=== PATIENT | male | born 1965 | race Caucasian/White ===

== ENCOUNTER → 2017-11-30 | Outpatient (CLI) | payer MEDICARE, OTHER ==
--- NOTE | 2017-11-30 21:24 | MR ---
EXAMINATION TYPE: MR lumbar spine wo/w con DATE OF EXAM: 11/30/2017 COMPARISON: NONE CONTRAST: 7.5 mL Gadavist HISTORY: Low back pain x 15 years, gadavist 7.5 TECHNIQUE: T1 and T2 axial and sagittal images of the lumbar spine are submitted. FINDINGS: There is no abnormal signal seen within the visualized spinal cord or paraspinal soft tissu es. At L1-2 there is there is degenerative disc disease. Facet arthropathy noted. No foraminal encroachme nt or canal stenosis. At L2-3 there is facet arthropathy. There is degenerative disc disease. No canal stenosis or foramina l encroachment. At L3-4 there is degenerative disc disease with broad-based disc bulging. Facet arthropathy and ligam entum flavum are noted. Findings result in mild to moderate canal stenosis and mild bilateral foramin al encroachment. At L4-5 there is degenerative disc disease with central disc bulging or small protrusion. Mild bilate ral foraminal encroachment. At L5-S1 there is degenerative disc disease with central disc bulging. No Canal stenosis. No canal st enosis or foraminal encroachment. Unilateral spondylolysis on the left. Right hemilaminectomy noted. IMPRESSION: 1. Multilevel degenerative disc disease with postsurgical changes involving the lower lumbar spine. U nilateral spondylolysis on the left L5. 2. Mild to moderate canal stenosis L3-L4 due to disc bulging and hypertrophic changes.
== END | disposition home or self-care (01) ==
LOC: RADMRIMAIN 18:52
PROVIDERS: ATTEND Psychiatry & Neurology Neurology
DX: M48.061 Spinal stenosis, lumbar region without neurogenic claudication (principal); M51.26 Other intervertebral disc displacement, lumbar region; M43.06 Spondylolysis, lumbar region; M51.36 Other intervertebral disc degeneration, lumbar region; Z98.890 Other specified postprocedural states
CPT/HCPCS: 82565; 84520; 72158; A9581

== ENCOUNTER 2019-01-09 15:47 | Observation (INO) | payer MEDICARE, OTHER ==
[2019-01-09] MEDS ORDERED: SODIUM CHLORIDE 0.9% 1,000 ML IV STA (16:14)
--- NOTE | 2019-01-09 16:25 | ED ---
SOB HPI - General Chief Complaint: Shortness of Breath Stated Complaint: FADUMO Time Seen by Provider: 01/09/19 16:14 Source: patient, RN notes reviewed, old records reviewed Mode of arrival: ambulatory Limitations: no limitations - History of Present Illness Initial Comments: This is a 53-year-old male the ER presents for evaluation of shortness of breath and right-sided chest pain. Patient has no history of heart disease, no significant lung history that he knows of. Patient denies smoking history. No recent travel history or sick contacts. Chest pain is right-sided right-sided to his back. He denies having similar pain in the past even with prior heart issues. Symptoms started 2 days ago progressively worsened. MD Complaint: shortness of breath, chest pain (Right-sided) -: days(s) (2) Radiation: back Severity: moderate Severity scale (1-10): 6 Quality: aching Consistency: constant Improves With: nothing Worsens With: nothing Known History Of: congestive heart failure Associated Symptoms: chest pain, pain with inspiration, cough Treatments Prior to Arrival: none - Related Data Home Medications Medication Instructions Recorded Confirmed Metoprolol Succinate (ER) [Toprol 100 mg PO DAILY 05/03/15 01/09/19 XL] Aspirin 81 mg PO DAILY 05/04/15 01/09/19 Docusate [Colace] 100 mg PO DAILY PRN 01/09/19 01/09/19 Gabapentin 600 mg PO TID 01/09/19 01/09/19 Metoprolol Succinate (ER) [Toprol 50 mg PO DAILY 01/09/19 01/09/19 XL] Morphine Sulfate ER [Ms Contin] 60 mg PO BID 01/09/19 01/09/19 predniSONE 5 mg PO DAILY 01/09/19 01/09/19 Allergies Allergy/AdvReac Type Severity Reaction Status Date / Time No Known Allergies Allergy Verified 01/09/19 16:49 Review of Systems ROS Statement: Those systems with pertinent positive or pertinent negative responses have been documented in the HPI. ROS Other: All systems not noted in ROS Statement are negative. Past Medical History Past Medical History: Heart Failure, Musculoskeletal Disorder, Osteoarthritis (OA), Pneumonia, Renal Disease Additional Past Medical History / Comment(s): Pt presented to [facility] ER 01/10/15 with c/o nausea and vomtting. He had been having a hard time sleeping and took 4 benedryl. He then started having N/V and abdominal cramps. Other HX:Pt has been having increasing SOB for the past several months to the point that he was placed on home oxygen at 2-3 liters/ NC. He is being seen by Dr. Oliveira. He had recent R lung biopsy. and scraping about one month ago and awaiting results- pt had chest tube after surgery. Pt has chronic back pain and gets injections for this. Pt has had kidney stones in the past. History of Any Multi-Drug Resistant Organisms: None Reported Past Surgical History: Back Surgery Additional Past Surgical History / Comment(s): R lung biopsy with chest tube, back pain injections. Past Anesthesia/Blood Transfusion Reactions: No Reported Reaction Past Psychological History: No Psychological Hx Reported Smoking Status: Former smoker Past Alcohol Use History: None Reported Past Drug Use History: None Reported - Past Family History Mother Additional Family Medical History / Comment(s): Migraines, hip replacement. Father Family Medical History: Cancer, Hypertension General Exam Limitations: no limitations General appearance: alert, in no apparent distress Head exam: Present: atraumatic, normocephalic, normal inspection Eye exam: Present: normal appearance, PERRL, EOMI. Absent: scleral icterus, conjunctival injection, periorbital swelling ENT exam: Present: normal exam, mucous membranes moist Neck exam: Present: normal inspection. Absent: tenderness, meningismus, lymphadenopathy Respiratory exam: Present: wheezes. Absent: respiratory distress, rales, rhonchi, stridor Cardiovascular Exam: Present: normal rhythm, tachycardia, normal heart sounds. Absent: systolic murmur, diastolic murmur, rubs, gallop, clicks GI/Abdominal exam: Present: soft, normal bowel sounds. Absent: distended, tenderness, guarding, rebound, rigid Extremities exam: Present: normal inspection, full ROM, normal capillary refill. Absent: tenderness, pedal edema, joint swelling, calf tenderness Back exam: Present: normal inspection Neurological exam: Present: alert, oriented X3, CN II-XII intact Psychiatric exam: Present: normal affect, normal mood Skin exam: Present: warm, dry, intact, normal color. Absent: rash Course Vital Signs 01/09/19 01/09/19 01/09/19 16:03 18:56 19:10 Temperature 98.2 F Pulse Rate 104 H 88 90 Respiratory 16 16 16 Rate Blood Pressure 124/77 O2 Sat by Pulse 96 Oximetry 01/09/19 19:34 Temperature Pulse Rate 110 H Respiratory 18 Rate Blood Pressure 115/83 O2 Sat by Pulse 98 Oximetry - Reevaluation(s) Reevaluation #1: Medical record is reviewed Patient has no real improvement after persistent breathing treatments. Still with pain is so shortness of breath Medical Decision Making - Medical Decision Making 50 female the ER for evaluation. Positive history of pulmonary fibrosis with heart disease. Patient be admitted for cardiac observation as well as breathing treatments and monitoring of cardiopulmonary status - Lab Data Result diagrams: 01/09/19 16:30 01/09/19 16:30 Lab Results 01/09/19 01/09/19 01/09/19 Range/Units 16:30 16:30 16:30 WBC 5.8 (3.8-10.6) k/uL RBC 5.43 (4.30-5.90) m/uL Hgb 14.1 (13.0-17.5) gm/dL Hct 44.5 (39.0-53.0) % MCV 81.9 (80.0-100.0) fL MCH 26.0 (25.0-35.0) pg MCHC 31.8 (31.0-37.0) g/dL RDW 15.2 (11.5-15.5) % Plt Count 228 (150-450) k/uL Neutrophils % 73 % Lymphocytes % 16 % Monocytes % 8 % Eosinophils % 2 % Basophils % 0 % Neutrophils # 4.2 (1.3-7.7) k/uL Lymphocytes # 0.9 L (1.0-4.8) k/uL Monocytes # 0.4 (0-1.0) k/uL Eosinophils # 0.1 (0-0.7) k/uL Basophils # 0.0 (0-0.2) k/uL PT 10.5 (9.0-12.0) sec INR 1.0 (<1.2) APTT 24.6 (22.0-30.0) sec D-Dimer 0.44 (<0.60) mg/L FEU Sodium 141 (137-145) mmol/L Potassium 4.3 (3.5-5.1) mmol/L Chloride 103 (98-107) mmol/L Carbon Dioxide 31 H (22-30) mmol/L Anion Gap 7 mmol/L BUN 11 (9-20) mg/dL Creatinine 0.55 L (0.66-1.25) mg/dL Est GFR (CKD-EPI)AfAm >90 (>60 ml/min/1.73 sqM) Est GFR (CKD-EPI)NonAf >90 (>60 ml/min/1.73 sqM) Glucose 87 (74-99) mg/dL Calcium 9.5 (8.4-10.2) mg/dL Magnesium 2.1 (1.6-2.3) mg/dL Total Bilirubin 0.4 (0.2-1.3) mg/dL AST 36 (17-59) U/L ALT 30 (21-72) U/L Alkaline Phosphatase 100 (38-126) U/L Troponin I (0.000-0.034) ng/mL NT-Pro-B Natriuret Pep pg/mL Total Protein 9.2 H (6.3-8.2) g/dL Albumin 4.1 (3.5-5.0) g/dL 01/09/19 01/09/19 Range/Units 16:30 16:30 WBC (3.8-10.6) k/uL RBC (4.30-5.90) m/uL Hgb (13.0-17.5) gm/dL Hct (39.0-53.0) % MCV (80.0-100.0) fL MCH (25.0-35.0) pg MCHC (31.0-37.0) g/dL RDW (11.5-15.5) % Plt Count (150-450) k/uL Neutrophils % % Lymphocytes % % Monocytes % % Eosinophils % % Basophils % % Neutrophils # (1.3-7.7) k/uL Lymphocytes # (1.0-4.8) k/uL Monocytes # (0-1.0) k/uL Eosinophils # (0-0.7) k/uL Basophils # (0-0.2) k/uL PT (9.0-12.0) sec INR (<1.2) APTT (22.0-30.0) sec D-Dimer (<0.60) mg/L FEU Sodium (137-145) mmol/L Potassium (3.5-5.1) mmol/L Chloride (98-107) mmol/L Carbon Dioxide (22-30) mmol/L Anion Gap mmol/L BUN (9-20) mg/dL Creatinine (0.66-1.25) mg/dL Est GFR (CKD-EPI)AfAm (>60 ml/min/1.73 sqM) Est GFR (CKD-EPI)NonAf (>60 ml/min/1.73 sqM) Glucose (74-99) mg/dL Calcium (8.4-10.2) mg/dL Magnesium (1.6-2.3) mg/dL Total Bilirubin (0.2-1.3) mg/dL AST (17-59) U/L ALT (21-72) U/L Alkaline Phosphatase (38-126) U/L Troponin I <0.012 (0.000-0.034) ng/mL NT-Pro-B Natriuret Pep 47 pg/mL Total Protein (6.3-8.2) g/dL Albumin (3.5-5.0) g/dL - EKG Data -: EKG Interpreted by Me (EKG shows normal sinus rhythm rate of 98, AK 152, QRS 84, QTc 467) - Radiology Data Radiology results: report reviewed (Chest x-ray and CTA chest is significant for pulmonary fibrosis no PE), image reviewed Disposition Clinical Impression: Congestive heart failure, Chest pain, Pulmonary fibrosis, Acute bronchitis Disposition: ADMITTED IP TO THIS [facility] Condition: Undetermined Is patient prescribed a controlled substance at d/c from ED?: No
[2019-01-09 16:44] LABS: Basophils % (A) 0 %; Eosinophils # (A) 0.1 k/uL (0-0.7); Eosinophils % (A) 2 %; HCT 44.5 % (39.0-53.0); HGB 14.1 gm/dL (13.0-17.5); Lymphocytes # (A) 0.9 k/uL (1.0-4.8); Lymphocytes % (A) 16 %; MCHC 31.8 g/dL (31.0-37.0); MCV 81.9 fL (80.0-100.0); Mean Platelet Volume 6.5; Monocytes # (A) 0.4 k/uL (0-1.0); Monocytes % (A) 8 %; Neutrophils # (A) 4.2 k/uL (1.3-7.7); Neutrophils % (A) 73 %; Platelet Count 228 k/uL (150-450); RBC 5.43 m/uL (4.30-5.90); RDW 15.2 % (11.5-15.5); WBC 5.8 k/uL (3.8-10.6)
--- NOTE | 2019-01-09 16:48 | XR ---
EXAMINATION TYPE: XR chest 2V DATE OF EXAM: 01/09/2019 COMPARISON: 02/25/2018 HISTORY: Chest pain TECHNIQUE: Frontal and lateral views of the chest are obtained. FINDINGS: There is general significant coarsening of interstitial markings. Heart size is normal. Th ere is no gross heart failure. There is no pleural effusion. There are chest leads. IMPRESSION: Advanced pulmonary interstitial fibrosis. No change.
[2019-01-09 16:56] LABS: ALT 30 U/L (21-72); AST 36 U/L (17-59); Albumin 4.1 g/dL (3.5-5.0); Alkaline Phosphatase 100 U/L (38-126); Anion Gap 7 mmol/L; Blood Urea Nitrogen 11 mg/dL (9-20); Calcium 9.5 mg/dL (8.4-10.2); Carbon Dioxide 31 mmol/L (22-30); Chloride 103 mmol/L (98-107); Glucose 87 mg/dL (74-99); Magnesium 2.1 mg/dL (1.6-2.3); Potassium 4.3 mmol/L (3.5-5.1); Sodium 141 mmol/L (137-145); Total Bilirubin 0.4 mg/dL (0.2-1.3); Total Protein 9.2 g/dL (6.3-8.2)
[2019-01-09 16:57] LABS: D-Dimer 0.44 mg/L FEU (<0.60); Partial Thromboplastin Time 24.6 sec (22.0-30.0); Prothrombin Time 10.5 sec (9.0-12.0)
[2019-01-09] MEDS ORDERED: MORPHINE SULFATE 4 MG/ML SYRINGE IVP STA (17:50)
[2019-01-09] MEDS ORDERED: methylPREDNISolone SOD SUCCI 125 MG/2 ML VIAL IV STA (18:17)
[2019-01-09] MEDS ORDERED: IPRATROPIUM-ALBUTEROL 3 ML NEB INHALATION STA (18:17)
--- NOTE | 2019-01-09 18:46 | CT ---
EXAMINATION TYPE: CT angio chest DATE OF EXAM: 01/09/2019 6:22 PM COMPARISON: 10/18/2014 HISTORY: Difficulty breathing and chest pain. History of pulmonary fibrosis. CT DLP: 278.6 mGycm Automated exposure control for dose reduction was used. CONTRAST: CTA scan of the thorax is performed with IV Contrast, patient injected with 56ml mL of Isovue 370, pu lmonary embolism protocol. . There are 3-D post processed images. FINDINGS: There is extensive coarse interstitial infiltrate and honeycomb pattern in the lungs. This is more se checo in the lower lobes. Heart size is normal. There is no pericardial effusion. There is no pleural effusion. There is pulmonary emphysema. There are enlarged mediastinal lymph nodes that measure up to 1.5 cm. There are few bronchial lymph n odes up to 1.5 cm. There is normal contrast opacification of the pulmonary arteries. There are no filling defects. There is minimal pleural thickening posteriorly in both lungs. Thoracic aorta shows no aneurysm or dissect ion. IMPRESSION: NO EVIDENCE OF PULMONARY EMBOLISM. ADVANCED PULMONARY INTERSTITIAL FIBROSIS. NO SIGNIFICANT CHANGE CO MPARED TO OLD EXAM. EMPHYSEMA. Mediastinal adenopathy unchanged.
[2019-01-09 19:37] VITALS: RESP 18
[2019-01-09] MEDS: IPRATROPIUM-ALBUTEROL 3 ML NEB INHALATION SCH (19:52)
[2019-01-09] MEDS: MORPHINE SULFATE 4 MG/ML SYRINGE IVP PRN (21:44)
[2019-01-09] MEDS: methylPREDNISolone SOD SUCCI 125 MG/2 ML VIAL IV SCH (23:16)
[2019-01-10] MEDS: MORPHINE SULFATE 4 MG/ML SYRINGE IVP PRN ×2 (03:17→08:50)
[2019-01-10] MEDS ORDERED: ONDANSETRON 4 MG/2 ML VIAL IVP PRN (05:24)
[2019-01-10] MEDS: methylPREDNISolone SOD SUCCI 125 MG/2 ML VIAL IV SCH ×2 (05:28→13:22)
[2019-01-10] MEDS ORDERED: HYDROmorphone 1 MG/ML 1 ML SYRINGE IVP STA (05:38)
[2019-01-10 07:54] VITALS: BP 107/69; TEMP 97.5
[2019-01-10] MEDS ORDERED: DOCUSATE 100 MG CAP PO PRN (09:05)
[2019-01-10] MEDS ORDERED: ACETAMINOPHEN TAB 325 MG TAB PO PRN (09:06)
[2019-01-10] MEDS ORDERED: MORPHINE SULFATE ER 60 MG TABLET PO SCH (09:15)
[2019-01-10] MEDS ORDERED: GABAPENTIN 300 MG CAP PO SCH (09:15)
[2019-01-10] MEDS ORDERED: ASPIRIN 81 MG PO SCH (09:15)
[2019-01-10] MEDS ORDERED: predniSONE 5 MG TAB PO SCH (09:15)
[2019-01-10] MEDS ORDERED: METOPROLOL SUCCINATE (ER) 50 MG TAB.ER.24H PO SCH (09:15)
[2019-01-10] MEDS: IPRATROPIUM-ALBUTEROL 3 ML NEB INHALATION SCH ×2 (10:30→13:44)
[2019-01-10 13:52] VITALS: PULSE 94
--- NOTE | 2019-01-10 16:11 | P.CNPUL ---
History of Present Illness Consult date: 01/10/19 Reason for consult: dyspnea, chest pain Chief complaint: Chest pain History of present illness: This is a 53-year-old male patient with known history of IPF, biopsy confirmed based on a wedge biopsy of the lung that was done back in 2013, Pathology was confirmed at [facility]. The patient has typical UIP. The patient on previous pulmonary function test that showed an FEV1 of 37%, total lung capacity of 43%, diffusion capacity of 17% consistent with severe restrictive lung disease. Also, the patient is and chronic hypoxic respiratory failure maintained on oxygen 3 L per minute nasal cannula. The patient has been followed up in our office. He reports that he has chronic exertional dyspnea and approximately a week ago he was involved in an upper respiratory tract infection. Subsequently started having increased cough and he presented to the hospital because of pain across the right chest area. The pain was worse with breathing and cough and and the area along the right lateral chest area is quite sore. No hemoptysis. No reported fever chills or night sweats. No swelling in the lower extremities. The d-dimer was low. The blood work showed no significant leukocytosis. Electrolytes are all within normal limits. Troponin was negative. The BNP level was nonelevated. The chest x-ray showed pulmonary fibrosis. CT angios the chest showed no evidence of any pulmonary embolism and the patient had extensive chronic interstitial fibrosis and honeycombing in the lung bases bilaterally. Presentation is typical of underlying IPF. The patient was given IV Solu-Medrol. The patient was subsequently switched to prednisone burst taper. The patient is also on DuoNeb nebulized treatments around the clock. He was given Dilaudid for pain control and subsequently was switched to oral morphine as the patient has been taking morphine outpatient basis for chronic back pain. Review of Systems Constitutional: Reports chronic pain, Reports poor appetite Eyes: denies as per HPI, denies blurred vision, denies bulging eye, denies decreased vision, denies diplopia, denies discharge, denies dry eye, denies irritation, denies itching, denies pain, denies photophobia, denies loss of peripheral vision, denies loss of vision, denies tunnel vision/blind spots Ears: deny: decreased hearing, ear discharge, earache, tinnitus Ears, nose, mouth and throat: Reports as per HPI Breasts: absent: as per HPI, gynecomastia Cardiovascular: Reports chest pain, Reports decreased exercise tolerance Respiratory: Reports cough, Reports dyspnea, Reports home oxygen, Reports pain on inspiration, Reports respiratory infections Gastrointestinal: Denies abdominal pain, Denies diarrhea, Denies nausea, Denies vomiting Genitourinary: Reports as per HPI Musculoskeletal: absent: ankle pain, ankle stiffness, ankle swelling, as per HPI, elbow pain, elbow stiffness, elbow swelling, foot pain, foot stiffness, foot swelling, hand pain, hand stiffness, hand swelling, hip pain, hip stiffness, hip swelling, knee pain, knee stiffness, knee swelling, shoulder pain, shoulder stiffness, shoulder swelling, wrist pain, wrist stiffness, wrist swelling Integumentary: Denies pruritus, Denies rash Neurological: Reports as per HPI Psychiatric: Reports as per HPI Endocrine: Reports as per HPI, Reports fatigue Hematologic/Lymphatic: Reports as per HPI Allergic/Immunologic: Reports allergic rhinitis Past Medical History Past Medical History: Musculoskeletal Disorder, Osteoarthritis (OA), Pneumonia Additional Past Medical History / Comment(s): IPF and the patient has chronic hypoxic respiratory failure maintained on home oxygen at 2-3 liters/ NC. He is being seen by Dr. Oliveira. He had recent R lung biopsy back in 2013 confirming the diagnosis. Chronic back pain, osteoarthritis, kidney stones History of Any Multi-Drug Resistant Organisms: None Reported Past Surgical History: Back Surgery Additional Past Surgical History / Comment(s): R lung biopsy with chest tube, back pain injections. Past Anesthesia/Blood Transfusion Reactions: No Reported Reaction Smoking Status: Former smoker - Past Family History Mother Additional Family Medical History / Comment(s): Migraines, hip replacement. Father Family Medical History: Cancer, Hypertension Medications and Allergies Home Medications Medication Instructions Recorded Confirmed Type Aspirin 81 mg PO DAILY 05/04/15 01/09/19 History Docusate [Colace] 100 mg PO DAILY PRN 01/09/19 01/09/19 History Gabapentin 600 mg PO TID 01/09/19 01/09/19 History Metoprolol Succinate (ER) [Toprol 50 mg PO DAILY 01/09/19 01/09/19 History XL] predniSONE 5 mg PO DAILY 01/09/19 01/09/19 History Morphine Sulfate ER [Ms Contin] 60 mg PO BID #1 tablet 01/10/19 Rx Allergies Allergy/AdvReac Type Severity Reaction Status Date / Time No Known Allergies Allergy Verified 01/09/19 20:23 Physical Exam Vitals: Vital Signs Temp Pulse Pulse Resp BP BP Pulse Ox 01/10/19 13:51 94 01/10/19 07:35 97.5 F L 88 18 107/69 97 01/10/19 04:00 18 01/10/19 00:00 18 01/09/19 23:43 98.2 F 89 18 122/81 96 01/09/19 20:00 18 01/09/19 19:57 97.8 F 89 18 139/82 93 L 01/09/19 19:34 110 H 18 115/83 98 01/09/19 19:10 90 16 01/09/19 18:56 88 16 Intake and Output 01/10/19 01/10/19 01/10/19 06:59 14:59 22:59 Intake Total 500 Balance 500 Intake: Oral 200 Other 300 Other: Voiding Method Toilet # Voids 1 GENERAL EXAM: Alert, active, comfortable in no apparent distress. HEAD: Normocephalic.Head exam was generally normal. There was no scleral icterus or corneal arcus. Mucous membranes were moist. EYES: Normal reaction of pupils, equal size.Neck was supple and without jugular venous distension, thyromegaly, or carotid bruits. Carotids were easily palpable bilaterally. There was no adenopathy. NOSE: Clear with pink turbinates. THROAT: No erythema or exudates. NECK: No masses, no JVD. CHEST: No chest wall deformity. Right chest dressing is dry and intact. LUNGS: Equal air entry with wheeze, rhonchi or dullness. There are bilateral posterior Velcro crackles. Diminished. There is extensive bilateral lower lobe crackles which are coarse in the Velcro in nature. Some soreness across the right lateral chest area palpable. CVS: S1 and S2 normal with no audible murmurs, regular rhythm. ABDOMEN: No hepatosplenomegaly, normal bowel sounds, no guarding or rigidity. SPINE: No scoliosis or deformity SKIN: No rashes CENTRAL NERVOUS SYSTEM: No focal deficits, tone is normal in all 4 extremities. EXTRMITIES: There is no significant peripheral edema. No clubbing, no cyanosis. Peripheral pulses are intact. Results - Laboratory Findings CBC and BMP: 01/09/19 16:30 01/09/19 16:30 PT/INR, D-dimer PT 10.5 sec (9.0-12.0) 01/09/19 16:30 INR 1.0 (<1.2) 01/09/19 16:30 D-Dimer 0.44 mg/L FEU (<0.60) 01/09/19 16:30 Abnormal lab findings: Abnormal Labs 01/09/19 01/09/19 16:30 16:30 Lymphocytes # 0.9 L Carbon Dioxide 31 H Creatinine 0.55 L Total Protein 9.2 H - Diagnostic Findings Chest x-ray: image reviewed CT scan - chest: image reviewed Assessment and Plan Plan: Assessment 1 musculoskeletal right-sided chest wall pain, likely secondary to cough. For now the workup is negative. Doubt any cardiac source of the patient's chest pain. Pulmonary status reveals advanced IPF and the patient has chronic hypoxic respiratory failure. Nevertheless the CT angios the chest showed no 70 pulmonary embolism. No evidence of any pneumonia. No evidence of any pneumothorax. Findings are consistent with IPF 2 IPF with biopsy confirmed UIP 3 chronic hypoxic respiratory failure 4 chronic back pain maintained on morphine outpatient basis 5. Arthritis, 6 the first psoriasis Plan Provide the patient with adequate pain control. Patient is on oral morphine. CT angios the chest was reviewed. Chest x-ray was reviewed. No evidence of pneumonia. Continue oxygen therapy. Prednisone burst taper. Discharge probably within next 24 hours. We'll continue to follow.
--- NOTE | 2019-01-10 22:11 | P.HPIM ---
History of Present Illness H&P Date: 01/10/19 Chief Complaint: Right sided chest soreness Ms. Armijo is a 53-year-old male with a past medical history of idiopathic pulmonary fibrosis, osteoarthritis, chronic hypoxic respiratory failure maintained on home oxygen at 2-3 L coming in with a chief complaint of right- sided chest soreness for the past couple of days. The patient had an upper respiratory tract infection recently and was having increased cough, then started to have the right sided chest soreness. Patient denies having any fevers chills or rigors. No change in his cough. Patient denies having any chest pain or palpitations. No orthopnea PND or lower extremity edema. Patient denies having any recent travel. In the emergency department patient had blood work done which showed That the electrolytes were within normal limits, troponins negative, d-dimer low and BNP within normal limits. CTA of the chest is done which was negative for pulmonary embolism it was positive for his chronic interstitial fibrosis and honeycombing. Patient is currently resting comfortably in the bed with his at the bedside. Also the conversation patient just keeps asking for his pain medication. He is also anxious that he does not have any more home pain medications. He mentions that his pain medications are due for refill tomorrow. No other active complaints mentioned by the patient. Review of Systems REVIEW OF SYSTEMS: PSYCH: Anxiety , no depression NEURO:No c/o weakness of the extremties, No facial droop, No speech abnormalities. VASCULAR: no edema HEMATOLOGIC: No history of easy bleeding and bruising . No recent infections . RESPIRATORY: + ve for cough, No SOB, + ve for chest discomfort. IMMUNE: No infections INTEGUMENT: no rashes OPHTHALMOLOGIC: No blurry vision and no eye discharge : No dysuria or hematuria CARDIAC: No chest pain , shortness of breath , paroxysmal nocturnal dyspnea. MUSCULOSKELETAL : No Aches or pains in the joints or muscles. GI: No abdominal pain, Nausea or vomiting. No constipation or diarrhea. Past Medical History Past Medical History: Musculoskeletal Disorder, Osteoarthritis (OA), Pneumonia Additional Past Medical History / Comment(s): Pt presented to [facility] ER 01/10/15 with c/o nausea and vomtting. He had been having a hard time sleeping and took 4 benedryl. He then started having N/V and abdominal cramps. Other HX:Pt has been having increasing SOB for the past several months to the point that he was placed on home oxygen at 2-3 liters/ NC. He is being seen by Dr. Oliveira. He had recent R lung biopsy. and scraping about one month ago and awaiting results- pt had chest tube after surgery. Pt has chronic back pain and gets injections for this. Pt has had kidney stones in the past. History of Any Multi-Drug Resistant Organisms: None Reported Past Surgical History: Back Surgery Additional Past Surgical History / Comment(s): R lung biopsy with chest tube, back pain injections. Past Anesthesia/Blood Transfusion Reactions: No Reported Reaction Smoking Status: Former smoker - Past Family History Mother Additional Family Medical History / Comment(s): Migraines, hip replacement. Father Family Medical History: Cancer, Hypertension Medications and Allergies Home Medications Medication Instructions Recorded Confirmed Type Aspirin 81 mg PO DAILY 05/04/15 01/09/19 History Docusate [Colace] 100 mg PO DAILY PRN 01/09/19 01/09/19 History Gabapentin 600 mg PO TID 01/09/19 01/09/19 History Metoprolol Succinate (ER) [Toprol 50 mg PO DAILY 01/09/19 01/09/19 History XL] predniSONE 5 mg PO DAILY 01/09/19 01/09/19 History Morphine Sulfate ER [Ms Contin] 60 mg PO BID #1 tablet 01/10/19 Rx Allergies Allergy/AdvReac Type Severity Reaction Status Date / Time No Known Allergies Allergy Verified 01/09/19 20:23 Physical Exam Vitals: Vital Signs Temp Pulse Pulse Resp BP BP Pulse Ox 01/10/19 13:51 94 01/10/19 07:35 97.5 F L 88 18 107/69 97 01/10/19 04:00 18 01/10/19 00:00 18 01/09/19 23:43 98.2 F 89 18 122/81 96 01/09/19 20:00 18 01/09/19 19:57 97.8 F 89 18 139/82 93 L 01/09/19 19:34 110 H 18 115/83 98 01/09/19 19:10 90 16 01/09/19 18:56 88 16 01/09/19 16:03 98.2 F 104 H 16 124/77 96 Intake and Output 01/09/19 01/10/19 01/10/19 22:59 06:59 14:59 Intake Total 500 Balance 500 Intake: Oral 200 Other 300 Other: Voiding Method Toilet # Voids 1 Weight 81.647 kg GEN. APPEARANCE: thin and chronically ill appearing HEAD EXAM: atraumatic, normocephalic, normal inspection EYE EXAM: No pallor RESPIRATORY EXAM: Decreased BS bilaterally. + dry crackles in both the lower lung hernandez. CARDIOVASCULAR EXAM: regular rate, normal rhythm, normal heart sounds. GI/ABDOMINAL EXAM: soft, normal bowel sounds. EXTREMITIES EXAM: no edema NEUROLOGICAL EXAM: alert, oriented X3, No focal deficits Results CBC & Chem 7: 01/09/19 16:30 01/09/19 16:30 Labs: Abnormal Lab Results - Last 24 Hours (Table) 01/09/19 01/09/19 Range/Units 16:30 16:30 Lymphocytes # 0.9 L (1.0-4.8) k/uL Carbon Dioxide 31 H (22-30) mmol/L Creatinine 0.55 L (0.66-1.25) mg/dL Total Protein 9.2 H (6.3-8.2) g/dL Thrombosis Risk Factor Assmnt - Choose All That Apply Each Factor Represents 1 point: Age 41-60 years Thrombosis Risk Factor Assessment Total Risk Factor Score: 1 Thrombosis Risk Factor Assessment Level: Low Risk Assessment and Plan Assessment: ASSESSMENT Right-sided chest soreness -musculoskeletal pain due to cough Chronic hypoxic respiratory failure Idiopathic pulmonary fibrosis Chronic back pain Opioid dependence -patient is on morphine pain Osteoarthritis in multiple joints bilaterally PLAN: Patient probably has musculoskeletal right-sided chest pain. CTA of the chest was negative for pulmonary embolism and stable since he had the last CT. Patient is anxious but he would not have any pain medications as he ran out of them and he is due to get his prescription filled tomorrow. Patient is on mor phine. So discussed with him that I would be giving him a prescription for his evening dose of morphine and he would be discharged home. 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
--- NOTE | 2019-01-10 22:12 | P.DS ---
Providers Date of admission: 01/09/19 18:17 Expected date of discharge: 01/10/19 Attending physician: Angelo Ramsey Consults: 01/09/19 18:17 Consult Physician Routine Consulting Provider: Naima Oliveira Consult Reason/Comments: known Do you want consulting provider notified?: Yes Primary care physician: Stated None Hospital Course: Ms. Armijo is a 53-year-old male with a past medical history of idiopathic pulmonary fibrosis, osteoarthritis, chronic hypoxic respiratory failure maintained on home oxygen at 2-3 L coming in with a chief complaint of right- sided chest soreness for the past couple of days. The patient had an upper respiratory tract infection recently and was having increased cough, then started to have the right sided chest soreness. Patient denies having any fevers chills or rigors. No change in his cough. Patient denies having any chest pain or palpitations. No orthopnea PND or lower extremity edema. Patient denies having any recent travel. In the emergency department patient had blood work done which showed That the electrolytes were within normal limits, troponins negative, d-dimer low and BNP within normal limits. CTA of the chest is done which was negative for pulmonary embolism it was positive for his chronic interstitial fibrosis and honeycombing. Patient is currently resting comfortably in the bed with his at the beds juan m. Also the conversation patient just keeps asking for his pain medication. He is also anxious that he does not have any more home pain medications. He mentions that his pain medications are due for refill tomorrow. No other active complaints mentioned by the patient. DISCHARGE DIAGNOSIS Right-sided chest soreness -musculoskeletal pain due to cough Chronic hypoxic re spiratory failure Idiopathic pulmonary fibrosis Chronic back pain Opioid dependence -patient is on morphine pain Osteoarthritis in multiple joints bilaterally PLAN: Patient probably has musculoskeletal right-sided chest pain. CTA of the chest was negative for pulmonary embolism and stable since he had the last CT. Patient is anxious but he would not have any pain medications as he ran out of t hem and he is due to get his prescription filled tomorrow. Patient is on morphine. So discussed with him that I would be giving him a prescription for his evening dose of morphine and he would be discharged home. 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 Patient Condition at Discharge: Fair Plan - Discharge Summary New Discharge Prescriptions: Continue Aspirin 81 mg PO DAILY predniSONE 5 mg PO DAILY Metoprolol Succinate (ER) [Toprol XL] 50 mg PO DAILY Docusate [Colace] 100 mg PO DAILY PRN PRN Reason: Constipation Gabapentin 600 mg PO TID Morphine Sulfate ER [Ms Contin] 60 mg PO BID #1 tablet Discharge Medication List Aspirin 81 mg PO DAILY 05/04/15 [History] Docusate [Colace] 100 mg PO DAILY PRN 01/09/19 [History] Gabapentin 600 mg PO TID 01/09/19 [History] Metoprolol Succinate (ER) [Toprol XL] 50 mg PO DAILY 01/09/19 [History] predniSONE 5 mg PO DAILY 01/09/19 [History] Morphine Sulfate ER [Ms Contin] 60 mg PO BID #1 tablet 01/10/19 [Rx] Follow up Appointment(s)/Referral(s): None,Stated [Primary Care Provider] - 1-2 days Patient Instructions/Handouts: Pulmonary Fibrosis (DC) Discharge Disposition: HOME SELF-CARE
== END 2019-01-10 15:48 | disposition home or self-care (01) ==
LOC: EC 15:47 → 1SOBS 18:17
PROVIDERS: ADMIT Hospitalist; ATTEND Hospitalist
DX: R07.89 Other chest pain (principal); F11.20 Opioid dependence, uncomplicated; M15.9 Polyosteoarthritis, unspecified; J84.112 Idiopathic pulmonary fibrosis; I50.9 Heart failure, unspecified; J96.11 Chronic respiratory failure with hypoxia; G89.29 Other chronic pain; Z79.82 Long term (current) use of aspirin; Z79.899 Other long term (current) drug therapy; Z79.52 Long term (current) use of systemic steroids; Z87.442 Personal history of urinary calculi; Z87.891 Personal history of nicotine dependence; Z99.81 Dependence on supplemental oxygen; Z87.01 Personal history of pneumonia (recurrent); Z82.49 Family history of ischemic heart disease and other diseases of the circulatory system
CPT/HCPCS: 36415; 71046; 71275; 80053; 83735; 83880; 84484; 85025; 85379; 85610; 85730; 93005; 94640; 96361; 96374; 96375; 96376; 99285

== ENCOUNTER 2019-03-08 01:52 | Observation (INO) | payer MEDICARE, OTHER ==
[2019-03-08] MEDS ORDERED: SODIUM CHLORIDE 0.9% 500 ML 500 ML IV STA (02:02)
[2019-03-08] MEDS ORDERED: IPRATROPIUM-ALBUTEROL 3 ML NEB INHALATION STA (02:02)
--- NOTE | 2019-03-08 02:19 | ED ---
SOB HPI - General Chief Complaint: Shortness of Breath Stated Complaint: FADUMO Time Seen by Provider: 03/08/19 02:01 Source: patient Mode of arrival: wheelchair Limitations: no limitations - History of Present Illness Initial Comments: Aleksander is a 54-year-old gentleman reports a past medical history of pulmonary fibrosis for which she follows with Dr. Oliveira pulmonology. Patient reports that yesterday began having some worsening shortness of breath and generalized weakness. Patient reports history which is going about his usual activities when he became very short of breath and felt as though he may pass out. Patient reports that since then he has not been feeling well. He went to bed last night but woke feeling short of breath and feeling as though he couldn't catch his breath which prompted him to come to the ER for evaluation. Patient reports that ever since the diagnosis of all Robyn fibrosis he has been battling severe right-sided chest wall and pleuritic chest pain for which she is on oral morphine. Patient reports that he suffers from chronic pain, he continues to have the pain in his chest wall today. - Related Data Home Medications Medication Instructions Recorded Confirmed Aspirin 81 mg PO DAILY 05/04/15 03/08/19 Docusate [Colace] 100 mg PO DAILY PRN 01/09/19 03/08/19 Gabapentin 600 mg PO TID 01/09/19 03/08/19 Metoprolol Succinate (ER) [Toprol 50 mg PO DAILY 01/09/19 03/08/19 XL] predniSONE 5 mg PO DAILY 01/09/19 03/08/19 Previous Rx's Medication Instructions Recorded Morphine Sulfate ER [Ms Contin] 60 mg PO BID #1 tablet 01/10/19 Allergies Allergy/AdvReac Type Severity Reaction Status Date / Time No Known Allergies Allergy Verified 03/08/19 01:58 Review of Systems ROS Statement: Those systems with pertinent positive or pertinent negative responses have been documented in the HPI. ROS Other: All systems not noted in ROS Statement are negative. Past Medical History Past Medical History: Musculoskeletal Disorder, Osteoarthritis (OA), Pneumonia Additional Past Medical History / Comment(s): Other HX:Pt has been having increasing SOB for the past several months to the point that he was placed on home oxygen at 2-3 liters/ NC. He is being seen by Dr. Oliveira. He had recent R lung biopsy. and scraping about one month ago and awaiting results- pt had joss st tube after surgery. Pt has chronic back pain and gets injections for this. Pt has had kidney stones in the past. History of Any Multi-Drug Resistant Organisms: None Reported Past Surgical History: Back Surgery Additional Past Surgical History / Comment(s): R lung biopsy with chest tube, back pain injections. Past Anesthesia/Blood Transfusion Reactions: No Reported Reaction Past Psychological History: No Psychological Hx Reported Smoking Status: Former smoker Past Alcohol Use History: None Reported Past Drug Use History: None Reported - Past Family History Mother Additional Family Medical History / Comment(s): Migraines, hip replacement. Father Family Medical History: Cancer, Hypertension General Exam - General Exam Comments Initial Comments: Physical Exam GENERAL: appears older than stated age HENT: Normocephalic, Atraumatic. EYES: PERRL, EOMI PULMONARY: Crackles and wheezing Increased work of breathing CARDIOVASCULAR: There is a regular rate and rhythm without any murmurs gallops or rubs. ABDOMEN: Soft and nontender with normal bowel sounds. SKIN: Skin is clear with no lesions or rashes and otherwise unremarkable. : Deferred NEUROLOGIC: Patient is alert and oriented x3. Moving all extremities spontaneously MUSCULOSKELETAL: Normal extremities with adequate strength and full range of motion. No lower ex tremity swelling or edema. No calf tenderness. PSYCHIATRIC: Normal psychiatric evaluation. Limitations: no limitations Course Vital Signs 03/08/19 03/08/19 03/08/19 01:55 02:48 02:58 Temperature 97.5 F L Pulse Rate 92 86 89 Respiratory 20 18 18 Rate Blood Pressure 111/78 O2 Sat by Pulse 94 L Oximetry 03/08/19 04:14 Temperature Pulse Rate 102 H Respiratory 20 Rate Blood Pressure 112/79 O2 Sat by Pulse 98 Oximetry Medical Decision Making - Medical Decision Making The patient was seen and evaluated, history is obtained from the patient review of medical record This is a 54-year-old gentleman with a history of pulmonary fibrosis present in with worsening shortness of breath. Patient is currently not on home oxygen Boschen saturations are in the low 90s, 94% on 2 L nasal cannula Breathing treatments were ordered and administered, patient minimal improvement after DuoNeb Were unremarkable however patient continues to have oxygen saturation of 93-95% on liters nasal cannula, discussed with the patient whether he would like to be discharged home or remain in the hospital. Patient states that this time he doesn't feel well enough to go home feels he needs to remain in the hospital for further evaluation by pulmonology. - Lab Data Result diagrams: 03/08/19 02:31 03/08/19 02:31 Lab Results 03/08/19 03/08/19 03/08/19 Range/Units 02:31 02:31 02:31 WBC 5.4 (3.8-10.6) k/uL RBC 5.15 (4.30-5.90) m/uL Hgb 13.9 (13.0-17.5) gm/dL Hct 41.5 (39.0-53.0) % MCV 80.5 (80.0-100.0) fL MCH 27.0 (25.0-35.0) pg MCHC 33.6 (31.0-37.0) g/dL RDW 15.4 (11.5-15.5) % Plt Count 240 (150-450) k/uL Neutrophils % 69 % Lymphocytes % 21 % Monocytes % 7 % Eosinophils % 2 % Basophils % 0 % Neutrophils # 3.7 (1.3-7.7) k/uL Lymphocytes # 1.1 (1.0-4.8) k/uL Monocytes # 0.4 (0-1.0) k/uL Eosinophils # 0.1 (0-0.7) k/uL Basophils # 0.0 (0-0.2) k/uL Poikilocytosis Slight PT 11.1 (9.0-12.0) sec INR 1.0 (<1.2) APTT 24.9 (22.0-30.0) sec Sodium 141 (137-145) mmol/L Potassium 3.8 (3.5-5.1) mmol/L Chloride 104 (98-107) mmol/L Carbon Dioxide 29 (22-30) mmol/L Anion Gap 8 mmol/L BUN 10 (9-20) mg/dL Creatinine 0.51 L (0.66-1.25) mg/dL Est GFR (CKD-EPI)AfAm >90 (>60 ml/min/1.73 sqM) Est GFR (CKD-EPI)NonAf >90 (>60 ml/min/1.73 sqM) Glucose 116 H (74-99) mg/dL Calcium 9.6 (8.4-10.2) mg/dL Total Bilirubin 0.5 (0.2-1.3) mg/dL AST 33 (17-59) U/L ALT 27 (21-72) U/L Alkaline Phosphatase 89 (38-126) U/L Troponin I (0.000-0.034) ng/mL Total Protein 8.0 (6.3-8.2) g/dL Albumin 4.0 (3.5-5.0) g/dL 03/08/19 Range/Units 02:31 WBC (3.8-10.6) k/uL RBC (4.30-5.90) m/uL Hgb (13.0-17.5) gm/dL Hct (39.0-53.0) % MCV (80.0-100.0) fL MCH (25.0-35.0) pg MCHC (31.0-37.0) g/dL RDW (11.5-15.5) % Plt Count (150-450) k/uL Neutrophils % % Lymphocytes % % Monocytes % % Eosinophils % % Basophils % % Neutrophils # (1.3-7.7) k/uL Lymphocytes # (1.0-4.8) k/uL Monocytes # (0-1.0) k/uL Eosinophils # (0-0.7) k/uL Basophils # (0-0.2) k/uL Poikilocytosis PT (9.0-12.0) sec INR (<1.2) APTT (22.0-30.0) sec Sodium (137-145) mmol/L Potassium (3.5-5.1) mmol/L Chloride (98-107) mmol/L Carbon Dioxide (22-30) mmol/L Anion Gap mmol/L BUN (9-20) mg/dL Creatinine (0.66-1.25) mg/dL Est GFR (CKD-EPI)AfAm (>60 ml/min/1.73 sqM) Est GFR (CKD-EPI)NonAf (>60 ml/min/1.73 sqM) Glucose (74-99) mg/dL Calcium (8.4-10.2) mg/dL Total Bilirubin (0.2-1.3) mg/dL AST (17-59) U/L ALT (21-72) U/L Alkaline Phosphatase (38-126) U/L Troponin I <0.012 (0.000-0.034) ng/mL Total Protein (6.3-8.2) g/dL Albumin (3.5-5.0) g/dL Disposition Clinical Impression: Pulmonary fibrosis Disposition: ADMITTED IP TO THIS HOSP Condition: Stable Referrals: Naima Oliveira MD [Primary Care Provider] - 1-2 days
--- NOTE | 2019-03-08 02:21 | XR ---
EXAM: XR Chest, 2 Views CLINICAL HISTORY: ITS.REASON XR Reason: difficulty breathing TECHNIQUE: Frontal and lateral views of the chest. COMPARISON: 01/09/19 x-ray. IMPRESSION: Redemonstration of chronic interstitial lung opacities throughout the lungs, most prominent in the left lower lobe. Unchanged heart size. No pleural effusion
[2019-03-08 02:52] LABS: Basophils % (A) 0 %; Eosinophils # (A) 0.1 k/uL (0-0.7); Eosinophils % (A) 2 %; HCT 41.5 % (39.0-53.0); HGB 13.9 gm/dL (13.0-17.5); Lymphocytes # (A) 1.1 k/uL (1.0-4.8); Lymphocytes % (A) 21 %; MCHC 33.6 g/dL (31.0-37.0); MCV 80.5 fL (80.0-100.0); Mean Platelet Volume 6.5; Monocytes # (A) 0.4 k/uL (0-1.0); Monocytes % (A) 7 %; Neutrophils # (A) 3.7 k/uL (1.3-7.7); Neutrophils % (A) 69 %; Platelet Count 240 k/uL (150-450); Poikilocytosis Slight; RBC 5.15 m/uL (4.30-5.90); RDW 15.4 % (11.5-15.5); WBC 5.4 k/uL (3.8-10.6)
[2019-03-08 02:55] LABS: Partial Thromboplastin Time 24.9 sec (22.0-30.0); Prothrombin Time 11.1 sec (9.0-12.0)
[2019-03-08 03:05] LABS: ALT 27 U/L (21-72); AST 33 U/L (17-59); Alkaline Phosphatase 89 U/L (38-126); Anion Gap 8 mmol/L; Blood Urea Nitrogen 10 mg/dL (9-20); Calcium 9.6 mg/dL (8.4-10.2); Carbon Dioxide 29 mmol/L (22-30); Chloride 104 mmol/L (98-107); Glucose 116 mg/dL (74-99); Potassium 3.8 mmol/L (3.5-5.1); Sodium 141 mmol/L (137-145); Total Bilirubin 0.5 mg/dL (0.2-1.3)
[2019-03-08] MEDS ORDERED: MORPHINE SULFATE ER 60 MG TABLET PO ONE (04:00)
[2019-03-08] MEDS: GABAPENTIN 300 MG CAP PO SCH ×4 (04:11→21:40)
[2019-03-08] MEDS ORDERED: IPRATROPIUM-ALBUTEROL 3 ML NEB INHALATION PRN (05:27)
[2019-03-08] MEDS: predniSONE 20 MG TAB PO SCH (07:46)
[2019-03-08 09:02] VITALS: BMI 25.1
--- NOTE | 2019-03-08 11:13 | CONS ---
CONSULTATION This is a pulmonary critical care consultation in regards to pulmonary fibrosis and shortness of breath. This is a 54-year-old gentleman who apparently does not have a family doctor. He apparently has seen Dr. Oliveira in the past for pulmonary fibrosis. He apparently has not seen Dr. Oliveira for some time. He takes basically prednisone 5 mg a day. Anyway, he comes into the hospital with complaints of increasing shortness of breath and weakness. It has been going on for a week or 2. It felt like he was going to pass out. For that reason, he came in to be evaluated. He states he is still feeling that way this morning. He still feels more short of breath than usual. He also has been complaining of cough with phlegm production. The patient states that the phlegm is more prominent than it has been in the past. It is mostly clear. The patient again does not see a regular doctor or a family doctor on a regular basis and has not seen my partner Dr. Oliveira for some time. The patient's chest x-ray shows diffuse pulmonary fibrosis. He was apparently given that diagnosis by my partner. The patient denies any chest pain or chest discomfort. He denies any nausea, vomiting or diarrhea. MEDICATIONS: His home medications include aspirin 81 mg a day, Colace 100 mg p.r.n., gabapentin 600 mg 3 times a day, metoprolol 50 mg daily, and prednisone 5 mg a day. He has been on morphine sulfate in the past. ALLERGIES: Allergies are denied. PAST MEDICAL HISTORY: His past medical history includes chronic pain syndrome, osteoarthritis, pulmonary fibrosis, pneumonia, and chronic hypoxemic respiratory failure. The patient does use home oxygen, not all the time, not 24/7, but does use it from time to time. The patient then tells me that he did have a lung biopsy in the past. Apparently, it was done about a month ago. He is apparently awaiting results. He also has a previous history of chronic back pain for which he has received injections and he has had kidney stones in the past. SURGICAL HISTORY: Surgical history includes back surgery, right lung biopsy with chest tube and back pain injections. SOCIAL HISTORY: Social history is positive for previous tobacco use. Social history is otherwise negative for alcohol or illicit drug use. FAMILY HISTORY: Family history is positive for hip replacement, migraine cephalgia, hypertension, and cancer. REVIEW OF SYSTEMS: CONSTITUTIONAL: Negative. NEUROLOGIC: Negative. HEENT: Negative. CARDIOVASCULAR: Negative. PULMONARY: Shortness of breath, cough, phlegm production. GI: Negative. : Negative. RHEUMATOLOGIC: Negative. IMMUNOLOGIC: Negative. ENDOCRINOLOGIC: Negative. DERMATOLOGIC: Negative. PHYSICAL EXAMINATION: Current vital signs are reviewed. Temperature 97.5, heart rate 91, respiratory rate 16, blood pressure 111/76, mean 87, room air saturation 95%, 2 L saturation 98%. He appears in no acute distress. He is wearing oxygen at time of the evaluation. HEENT: Examination is grossly unremarkable. Nasal O2 in place. NECK: Supple. Full range of motion. No adenopathy or thyromegaly. Neck veins are flat. CARDIOVASCULAR: Examination reveals regular rhythm and rate. Heart rate about mid 80s. S1, S2 normal. No murmur. LUNGS: Bibasilar Velcro crackles. He clearly has pulmonary fibrosis on examination. He is mildly restricted in his breathing. There are no rhonchi or wheezes. ABDOMEN: Soft. Bowel sounds are heard. EXTREMITIES: Are intact. No cyanosis, clubbing, or edema. SKIN: Without rash. NEUROLOGIC: Examination is brief but nonfocal. Lab data is reviewed. CBC is completely normal. PT/INR normal. PTT normal. Sodium, potassium, chloride, CO2 all normal. Anion gap is 8. BUN and creatinine were 10 and 0.51. Troponin was negative. Albumin was normal. The comprehensive metabolic profile was otherwise normal. A chest x-ray was done on the , which suggest chronic interstitial lung opacities. Heart size is unchanged. There was no pleural reaction. No mass or tumor. Medications are reviewed. He is currently on gabapentin, updrafts, morphine sulfate, prednisone, and a basic IV. ASSESSMENT: 1. Idiopathic pulmonary fibrosis/usual interstitial pneumonia. Apparently demonstrated on a lung biopsy done at [facility] back in 2013. 2. Worsening shortness of breath, which may relate to underlying pulmonary infection. 3. History of chronic back pain. 4. History of pneumonia. 5. History of osteoarthritis. 6. History of kidney stones. PLAN: The patient is currently on appropriate medication. This includes updrafts and steroids. I will add an oral antibiotic. Likely discharge in next 24 to 48 hours. No additional recommendations are made. We will continue to follow. The patient does need to follow up with Dr. Oliveira in the office. He has not seen him for some time. Dr. Oliveira can talk to him about the newer medications for pulmonary fibrosis including Ofev and Esbriet and the possibility of pulmonary transplantation. Additional recommendations and suggestions are forthcoming. MMODL / IJN: [id number] /
[2019-03-08] MEDS: MORPHINE SULFATE ER 60 MG TABLET PO SCH ×2 (14:26→21:40)
--- NOTE | 2019-03-08 16:22 | P.HPIM ---
History of Present Illness 54-year-old with past mental history of pulmonary fibrosis came in with complaints of generalized weakness shortness of breath doesn't have any pneumonia on the chest x-ray denied any significant cough with sputum production. Patient was started on systemic steroids patient is feeling bit better patient had some severe right chest wall pleuritic pain secondary to coughing. Patient does have chronic low back pain as well as uses morphine at home. Patient denied any fever chills denied nausea vomiting dysuria. Review of Systems REVIEW OF SYSTEMS: CONSTITUTIONAL: No fever, no malaise, no fatigue. HEENT: No recent visual problems or hearing problems. Denied any sore throat. CARDIOVASCULAR: No chest pain, orthopnea, PND, no palpitations, no syncope. PULMONARY: no hemoptysis. GASTROINTESTINAL: No diarrhea, no nausea, no vomiting, no abdominal pain. NEUROLOGICAL: No headaches, no weakness, no numbness. HEMATOLOGICAL: Denies any bleeding or petechiae. GENITOURINARY: Denies any burning micturition, frequency, or urgency. MUSCULOSKELETAL/RHEUMATOLOGICAL: Denies any joint pain, swelling, or any muscle pain. ENDOCRINE: Denies any polyuria or polydipsia. The rest of the 14-point review of systems is negative. Past Medical History Past Medical History: Musculoskeletal Disorder, Osteoarthritis (OA), Pneumonia Additional Past Medical History / Comment(s): Other HX:Pt has been having increasing SOB for the past several months to the point that he was placed on home oxygen at 2-3 liters/ NC. He is being seen by Dr. Oliveira. He had recent R lung biopsy. and scraping about one month ago and awaiting results- pt had chest tube after surgery. Pt has chronic back pain and gets injections for this. Pt has had kidney stones in the past. History of Any Multi-Drug Resistant Organisms: None Reported Past Surgical History: Back Surgery Additional Past Surgical History / Comment(s): R lung biopsy with chest tube, back pain injections. Past Anesthesia/Blood Transfusion Reactions: No Reported Reaction Past Psychological History: No Psychological Hx Reported Additional Psychological History / Comment(s): Pt lives with his mother and so does his 13 yr old camelia. Pt is normally independent. Pt drives a car. He is currently unemployed due to back problems. Smoking Status: Former smoker Past Alcohol Use History: None Reported Past Drug Use History: None Reported - Past Family History Mother Additional Family Medical History / Comment(s): Migraines, hip replacement. Father Family Medical History: Cancer, Hypertension Medications and Allergies Home Medications Medication Instructions Recorded Confirmed Type Aspirin 81 mg PO DAILY 05/04/15 03/08/19 History Docusate [Colace] 100 mg PO DAILY PRN 01/09/19 03/08/19 History Gabapentin 600 mg PO TID 01/09/19 03/08/19 History Metoprolol Succinate (ER) [Toprol 50 mg PO DAILY 01/09/19 03/08/19 History XL] predniSONE 5 mg PO DAILY 01/09/19 03/08/19 History Morphine Sulfate ER [Ms Contin] 60 mg PO BID #1 tablet 01/10/19 03/08/19 Rx Allergies Allergy/AdvReac Type Severity Reaction Status Date / Time No Known Allergies Allergy Verified 03/08/19 06:43 Physical Exam Vitals: Vital Signs Temp Pulse Pulse Resp BP BP Pulse Ox 03/08/19 15:00 97.7 F 95 16 105/66 95 03/08/19 07:36 97.5 F L 91 16 111/76 03/08/19 06:21 86 20 122/69 95 03/08/19 04:14 102 H 20 112/79 98 03/08/19 02:58 89 18 03/08/19 02:48 86 18 03/08/19 01:55 97.5 F L 92 20 111/78 94 L Intake and Output 03/08/19 03/08/19 03/08/19 06:59 14:59 22:59 Intake Total 180 Balance 180 Intake: Oral 180 Other: # Voids 2 Weight 79.379 kg PHYSICAL EXAMINATION: GENERAL: The patient is alert and oriented x3, not in any acute distress. Well developed, well nourished. HEENT: Pupils are round and equally reacting to light. EOMI. No scleral icterus. No conjunctival pallor. Normocephalic, atraumatic. No pharyngeal erythema. No thyromegaly. CARDIOVASCULAR: S1 and S2 present. No murmurs, rubs, or gallops. PULMONARY: Bilateral fine crackles consistent with pulmonary fibrosis ABDOMEN: Soft, nontender, nondistended, normoactive bowel sounds. No palpable organomegaly. MUSCULOSKELETAL: No joint swelling or deformity. EXTREMITIES: No cyanosis, clubbing, or pedal edema. NEUROLOGICAL: Gross neurological examination did not reveal any focal deficits. SKIN: No rashes. Results CBC & Chem 7: 03/08/19 02:31 03/08/19 02:31 Labs: Abnormal Lab Results - Last 24 Hours (Table) 03/08/19 Range/Units 02:31 Creatinine 0.51 L (0.66-1.25) mg/dL Glucose 116 H (74-99) mg/dL Assessment and Plan Plan: 1 shortness of breath probably secondary to aortic coronary fibrosis and pulmonary is recommending Levaquin for possible interstitial pneumonia as well. Patient is on prednisone at this time patient uses 1.5 L of onset at home and the patient is presently on 1.5 and monitor overnight possibility of discharge tomorrow -Chronic low back pain continue with the his home dose of morphine -Osteoarthritis -Chronic hypoxic respiratory failure secondary to pulmonary fibrosis -DVT prophylaxis: Early ambulation
[2019-03-08] MEDS: MORPHINE SULFATE ER 15 MG TABLET PO PRN (17:24)
[2019-03-09] MEDS ORDERED: MORPHINE SULFATE ER 15 MG TABLET PO ONE (03:40)
[2019-03-09 05:09] VITALS: TEMP 97.8
[2019-03-09 08:14] VITALS: BP 109/68; PULSE 86; RESP 16
[2019-03-09] MEDS: MORPHINE SULFATE ER 60 MG TABLET PO SCH (08:14)
[2019-03-09] MEDS: GABAPENTIN 300 MG CAP PO SCH (08:14)
[2019-03-09] MEDS: predniSONE 20 MG TAB PO SCH ×2 (08:14→08:17)
[2019-03-09] MEDS ORDERED: LEVOFLOXACIN 750 MG TAB PO SCH (09:00)
[2019-03-09] MEDS: MORPHINE SULFATE ER 15 MG TABLET PO PRN (09:55)
--- NOTE | 2019-03-09 14:56 | P.DS ---
Providers Date of admission: 03/08/19 05:27 Attending physician: Angelo Ramsey Consults: 03/08/19 05:27 Consult Physician Routine Consulting Provider: Naima Oliveira Consult Reason/Comments: established patient, pulmonary fibrosis, SOB Do you want consulting provider notified?: Yes, Notify in am Primary care physician: Naima Tee [facility] Course: 54-year-old with past mental history of pulmonary fibrosis came in with complaints of generalized weakness shortness of breath doesn't have any pneumonia on the chest x-ray denied any significant cough with sputum production. Patient was started on systemic steroids patient is feeling bit better patient had some severe right chest wall pleuritic pain secondary to coughing. Patient does have chronic low back pain as well as uses morphine at home. Patient denied any fever chills denied nausea vomiting dysuria. 03/09/2019 Patient is clinically doing well will be discharged today on weaning doses of steroids and 5 more days of levofloxacin PHYSICAL EXAMINATION: GENERAL: The patient is alert and oriented x3, not in any acute distress. Well developed, well nourished. HEENT: Pupils are round and equally reacting to light. EOMI. No scleral icterus. No conjunctival pallor. Normocephalic, atraumatic. No pharyngeal erythema. No thyromegaly. CARDIOVASCULAR: S1 and S2 present. No murmurs, rubs, or gallops. PULMONARY: Bilateral fine crackles consistent with pulmonary fibrosis ABDOMEN: Soft, nontender, nondistended, normoactive bowel sounds. No palpable organomegaly. MUSCULOSKELETAL: No joint swelling or deformity. EXTREMITIES: No cyanosis, clubbing, or pedal edema. NEUROLOGICAL: Gross neurological examination did not reveal any focal deficits. SKIN: No rashes. Assessment and Plan Plan: 1 shortness of breath probably secondary to pulmonary fibrosis and pulmonary is recommending Levaquin for possible interstitial pneumonia as well. P -Chronic low back pain continue with the his home dose of morphine -Osteoarthritis -Chronic hypoxic respiratory failure secondary to pulmonary fibrosis Patient Condition at Discharge: Stable Plan - Discharge Summary Discharge Rx Participant: Yes New Discharge Prescriptions: New Levofloxacin [Levaquin] 500 mg PO DAILY 5 Days #5 tab predniSONE 10 mg PO DAILY #30 tab Albuterol Inhaler [Ventolin Hfa Inhaler] 1 - 2 puff INHALATION Q6HR PRN #1 inhaler PRN Reason: Shortness Of Breath Or Wheezing No Action Aspirin 81 mg PO DAILY predniSONE 5 mg PO DAILY Metoprolol Succinate (ER) [Toprol XL] 50 mg PO DAILY Docusate [Colace] 100 mg PO DAILY PRN PRN Reason: Constipation Gabapentin 600 mg PO TID Morphine Sulfate ER [Ms Contin] 60 mg PO BID #1 tablet Discharge Medication List Aspirin 81 mg PO DAILY 05/04/15 [History] Docusate [Colace] 100 mg PO DAILY PRN 01/09/19 [History] Gabapentin 600 mg PO TID 01/09/19 [History] Metoprolol Succinate (ER) [Toprol XL] 50 mg PO DAILY 01/09/19 [History] predniSONE 5 mg PO DAILY 01/09/19 [History] Morphine Sulfate ER [Ms Contin] 60 mg PO BID #1 tablet 01/10/19 [Rx] Albuterol Inhaler [Ventolin Hfa Inhaler] 1 - 2 puff INHALATION Q6HR PRN #1 inhaler 03/09/19 [Rx] Levofloxacin [Levaquin] 500 mg PO DAILY 5 Days #5 tab 03/09/19 [Rx] predniSONE 10 mg PO DAILY #30 tab 03/09/19 [Rx] Follow up Appointment(s)/Referral(s): Naima Oliveira MD [Primary Care Provider] - 04/21/19 10:00 am Patient Instructions/Handouts: Shortness of Breath (DC) Discharge Disposition: HOME SELF-CARE
== END 2019-03-09 12:07 | disposition home or self-care (01) ==
LOC: EC 01:52 → 4SSUR 05:27
PROVIDERS: ADMIT Hospitalist; ATTEND Hospitalist
DX: R06.02 Shortness of breath (principal); J84.112 Idiopathic pulmonary fibrosis; J84.9 Interstitial pulmonary disease, unspecified; J96.11 Chronic respiratory failure with hypoxia; R53.1 Weakness; R05 Cough; R07.81 Pleurodynia; G89.4 Chronic pain syndrome; M54.5 Low back pain; M19.90 Unspecified osteoarthritis, unspecified site; Z99.81 Dependence on supplemental oxygen; Z79.82 Long term (current) use of aspirin; Z87.442 Personal history of urinary calculi; Z87.891 Personal history of nicotine dependence; Z79.52 Long term (current) use of systemic steroids; Z79.891 Long term (current) use of opiate analgesic; Z79.899 Other long term (current) drug therapy; Z87.01 Personal history of pneumonia (recurrent); Z80.9 Family history of malignant neoplasm, unspecified; Z82.49 Family history of ischemic heart disease and other diseases of the circulatory system; Z82.0 Family history of epilepsy and other diseases of the nervous system
CPT/HCPCS: 36415; 71046; 80053; 84484; 85025; 85610; 85730; 93005; 94640; 96360; 96361; 99285

== ENCOUNTER 2019-05-01 18:54 | Inpatient (IN) | payer MEDICARE ==
[2019-05-01] MEDS ORDERED: methylPREDNISolone SOD SUCCI 125 MG/2 ML VIAL IV STA (19:03)
[2019-05-01] MEDS ORDERED: IPRATROPIUM 0.5 MG/2.5 ML NEBU INHALATION STA (19:03)
[2019-05-01] MEDS ORDERED: ALBUTEROL NEBULIZED 2.5 MG/3 ML INHALATION STA (19:03)
[2019-05-01] MEDS ORDERED: SODIUM CHLORIDE 0.9% 1,000 ML IV STA (19:03)
--- NOTE | 2019-05-01 19:04 | ED ---
SOB HPI - General Stated Complaint: LOW OXYGEN Time Seen by Provider: 05/01/19 18:56 Source: RN notes reviewed, old records reviewed - History of Present Illness Initial Comments: This is a 34-year-old male the ER for evaluation. Patient does say for evaluation of shortness of breath severe shortness of cough. History of pulmo nary fibrosis on home O2. Breathing treatments and is progressively worsening over 2 days no fevers. He also admits to chest pain. States she was in the 70s at home and was unable to get an elevated MD Complaint: shortness of breath, cough, chest pain -: hour(s) Radiation: back Severity: moderate Quality: throbbing Consistency: constant Improves With: oxygen, rest, medication Worsens With: exertion, movement Known History Of: COPD, congestive heart failure Context: recent URI Associated Symptoms: chest pain, pain with inspiration, cough, sputum production, palpitations Treatments Prior to Arrival: none - Related Data Home Medications Medication Instructions Recorded Confirmed Aspirin 81 mg PO DAILY 05/04/15 05/01/19 Docusate [Colace] 100 mg PO DAILY PRN 01/09/19 05/01/19 Gabapentin 600 mg PO TID 01/09/19 05/01/19 Metoprolol Succinate (ER) [Toprol 50 mg PO DAILY 01/09/19 05/01/19 XL] predniSONE 5 mg PO DAILY 01/09/19 05/01/19 Morphine Sulfate Ir [MSIR] 15 mg PO BID PRN 05/01/19 05/01/19 Previous Rx's Medication Instructions Recorded Morphine Sulfate ER [Ms Contin] 60 mg PO BID #1 tablet 01/10/19 Albuterol Inhaler [Ventolin Hfa 1 - 2 puff INHALATION Q6HR PRN #1 03/09/19 Inhaler] inhaler Allergies Allergy/AdvReac Type Severity Reaction Status Date / Time No Known Allergies Allergy Verified 05/01/19 19:17 Review of Systems ROS Statement: Those systems with pertinent positive or pertinent negative responses have been documented in the HPI. ROS Other: All systems not noted in ROS Statement are negative. Past Medical History Past Medical History: Musculoskeletal Disorder, Osteoarthritis (OA), Pneumonia Additional Past Medical History / Comment(s): Other HX:Pt has been having increasing SOB for the past several months to the point that he was placed on home oxygen at 2-3 liters/ NC. He is being seen by Dr. Oliveira. He had recent R lung biopsy. and scraping about one month ago and awaiting results- pt had ches t tube after surgery. Pt has chronic back pain and gets injections for this. Pt has had kidney stones in the past. History of Any Multi-Drug Resistant Organisms: None Reported Past Surgical History: Back Surgery Additional Past Surgical History / Comment(s): R lung biopsy with chest tube, back pain injections. Past Anesthesia/Blood Transfusion Reactions: No Reported Reaction Past Psychological History: No Psychological Hx Reported Additional Psychological History / Comment(s): Pt lives with his mother and so does his 13 yr old camelia. Pt is normally independent. Pt drives a car. He is currently unemployed due to back problems. Smoking Status: Former smoker Past Alcohol Use History: None Reported Past Drug Use History: None Reported - Past Family History Mother Additional Family Medical History / Comment(s): Migraines, hip replacement. Father Family Medical History: Cancer, Hypertension General Exam General appearance: alert, anxious, in distress Head exam: Present: atraumatic, normocephalic, normal inspection Eye exam: Present: normal appearance, PERRL, EOMI. Absent: scleral icterus, conjunctival injection, periorbital swelling ENT exam: Present: normal exam, mucous membranes moist Neck exam: Present: normal inspection. Absent: tenderness, meningismus, lymphadenopathy Respiratory exam: Present: respiratory distress, wheezes, accessory muscle use, decreased breath sounds, prolonged expiratory. Absent: rales, rhonchi, stridor Cardiovascular Exam: Present: normal rhythm, tachycardia, normal heart sounds. Absent: systolic murmur, diastolic murmur, rubs, gallop, clicks GI/Abdominal exam: Present: soft, normal bowel sounds. Absent: distended, t enderness, guarding, rebound, rigid Extremities exam: Present: normal inspection, full ROM, normal capillary refill. Absent: tenderness, pedal edema, joint swelling, calf tenderness Back exam: Present: normal inspection Neurological exam: Present: alert, oriented X3, CN II-XII intact Psychiatric exam: Present: normal affect, normal mood Skin exam: Present: warm, dry, intact, normal color. Absent: rash Course Vital Signs 05/01/19 05/01/19 05/01/19 19:03 19:45 20:00 Temperature 98.2 F Pulse Rate 96 89 Respiratory 18 20 Rate Blood Pressure 131/83 O2 Sat by Pulse 95 Oximetry 05/01/19 20:14 Temperature Pulse Rate 100 Respiratory Rate Blood Pressure O2 Sat by Pulse Oximetry - Reevaluation(s) Reevaluation #1: 05/01/19 20:22 medical record is reviewed Reevaluation #2: 05/01/19 20:22 no improvement here in the ED Medical Decision Making - Medical Decision Making 54 male the ER for evaluation. Patient is severe shortness of breath hypoxia. No pneumonia noted. Patient can be admitted for continued breathing treatments and monitoring of cardiopulmonary status - Lab Data Result diagrams: 05/01/19 19:30 05/01/19 19:30 Lab Results 05/01/19 05/01/19 Range/Units 19:30 19:30 WBC 6.1 (3.8-10.6) k/uL RBC 5.03 (4.30-5.90) m/uL Hgb 13.3 (13.0-17.5) gm/dL Hct 40.7 (39.0-53.0) % MCV 80.9 (80.0-100.0) fL MCH 26.5 (25.0-35.0) pg MCHC 32.8 (31.0-37.0) g/dL RDW 15.7 H (11.5-15.5) % Plt Count 257 (150-450) k/uL Neutrophils % 78 % Lymphocytes % 13 % Monocytes % 6 % Eosinophils % 2 % Basophils % 0 % Neutrophils # 4.7 (1.3-7.7) k/uL Lymphocytes # 0.8 L (1.0-4.8) k/uL Monocytes # 0.4 (0-1.0) k/uL Eosinophils # 0.1 (0-0.7) k/uL Basophils # 0.0 (0-0.2) k/uL Hypochromasia Slight Sodium 140 (137-145) mmol/L Potassium 4.0 (3.5-5.1) mmol/L Chloride 102 (98-107) mmol/L Carbon Dioxide 28 (22-30) mmol/L Anion Gap 10 mmol/L BUN 12 (9-20) mg/dL Creatinine 0.51 L (0.66-1.25) mg/dL Est GFR (CKD-EPI)AfAm >90 (>60 ml/min/1.73 sqM) Est GFR (CKD-EPI)NonAf >90 (>60 ml/min/1.73 sqM) Glucose 124 H (74-99) mg/dL Calcium 9.3 (8.4-10.2) mg/dL Magnesium 2.0 (1.6-2.3) mg/dL Total Bilirubin 0.4 (0.2-1.3) mg/dL AST 37 (17-59) U/L ALT 28 (21-72) U/L Alkaline Phosphatase 95 (38-126) U/L Total Protein 8.2 (6.3-8.2) g/dL Albumin 4.0 (3.5-5.0) g/dL - EKG Data -: EKG Interpreted by Me (EKG shows sinus rhythm rate 91, LA 20, QRS 86, QTc 4:30) - Radiology Data Radiology results: report reviewed (Chest x-rays negative for acute disease), image reviewed Critical Care Time Critical Care Time: Yes Total Critical Care Time: 31 Disposition Clinical Impression: Acute exacerbation of chronic obstructive airways disease, Chest pain, Hypoxia Disposition: ADMITTED IP TO THIS HOSP Condition: Serious Is patient prescribed a controlled substance at d/c from ED?: No Referrals: Naima Oliveira MD [Primary Care Provider] - 1-2 days
[2019-05-01] MEDS ORDERED: MORPHINE SULFATE 4 MG/ML SYRINGE IVP STA (19:12)
[2019-05-01 20:00] LABS: Basophils % (A) 0 %; Eosinophils # (A) 0.1 k/uL (0-0.7); Eosinophils % (A) 2 %; HCT 40.7 % (39.0-53.0); HGB 13.3 gm/dL (13.0-17.5); Hypochromasia Slight; Lymphocytes # (A) 0.8 k/uL (1.0-4.8); Lymphocytes % (A) 13 %; MCH 26.5 pg (25.0-35.0); MCHC 32.8 g/dL (31.0-37.0); MCV 80.9 fL (80.0-100.0); Mean Platelet Volume 6.7; Monocytes # (A) 0.4 k/uL (0-1.0); Monocytes % (A) 6 %; Neutrophils # (A) 4.7 k/uL (1.3-7.7); Neutrophils % (A) 78 %; Platelet Count 257 k/uL (150-450); RBC 5.03 m/uL (4.30-5.90); RDW 15.7 % (11.5-15.5); WBC 6.1 k/uL (3.8-10.6)
[2019-05-01 20:04] LABS: ALT 28 U/L (21-72); AST 37 U/L (17-59); African American GFR (CKD) >90 (>60 ml/min/1.73 sqM); Alkaline Phosphatase 95 U/L (38-126); Anion Gap 10 mmol/L; Blood Urea Nitrogen 12 mg/dL (9-20); Calcium 9.3 mg/dL (8.4-10.2); Carbon Dioxide 28 mmol/L (22-30); Chloride 102 mmol/L (98-107); Glucose 124 mg/dL (74-99); Sodium 140 mmol/L (137-145); Total Bilirubin 0.4 mg/dL (0.2-1.3); Total Protein 8.2 g/dL (6.3-8.2)
[2019-05-01] MEDS ORDERED: ALBUTEROL NEBULIZED 2.5 MG/3 ML INHALATION PRN (20:04)
[2019-05-01 20:13] LABS: Partial Thromboplastin Time 24.1 sec (22.0-30.0); Prothrombin Time 10.6 sec (9.0-12.0)
--- NOTE | 2019-05-01 20:13 | XR ---
EXAMINATION TYPE: XR chest 1V portable DATE OF EXAM: 05/01/2019 COMPARISON: 04/21/2019 HISTORY: Short of breath TECHNIQUE: Single frontal view of the chest is obtained. FINDINGS: There is extensive coarse interstitial infiltrates throughout the lungs. Heart size is nor mal. There are are chest leads. There is no pleural effusion. IMPRESSION: Advanced pulmonary fibrosis. No change compared to last exam.
[2019-05-01] MEDS ORDERED: DOCUSATE 100 MG CAP PO PRN (20:57)
[2019-05-01 20:58] LABS: D-Dimer 0.76 mg/L FEU (<0.60)
--- NOTE | 2019-05-01 22:02 | CT ---
EXAMINATION TYPE: CT angio chest DATE OF EXAM: 05/01/2019 9:54 PM COMPARISON: 01/09/2019 HISTORY: SOB CT DLP: 264.2 mGycm Automated exposure control for dose reduction was used. CONTRAST: CTA scan of the thorax is performed with IV Contrast, patient injected with 60 mL of Isovue 370, pulm onary embolism protocol. There are 3-D post processed images.. FINDINGS: There is extensive pulmonary interstitial fibrosis. There is bullous emphysema. There is honeycomb pa ttern in the periphery of both lungs. There are multiple enlarged mediastinal lymph nodes that measure up to 1.5 cm. There are enlarged bro nchial lymph nodes up to 1.5 cm. Thoracic aorta shows no aneurysm or dissection. I see no filling defects in the pulmonary arteries. Upper abdominal soft tissues are intact. There is slight thoracic kyphosis with 10% anterior wedging of a few thoracic vertebra. IMPRESSION: ADVANCED PULMONARY FIBROSIS. MEDIASTINAL AND BRONCHIAL ADENOPATHY. THIS COULD RELATE TO SARCOIDOSIS. NO EVIDENCE OF PULMONARY EMBOLISM. NO SIGNIFICANT CHANGE COMPARED TO OLD EXAM.
[2019-05-01] MEDS: INSULIN ASPART (NovoLOG) 100 UNIT/ML VIAL SQ SCH (22:55)
[2019-05-01] MEDS: MORPHINE SULFATE ER 60 MG TABLET PO SCH (22:55)
[2019-05-01] MEDS: GABAPENTIN 300 MG CAP PO SCH (22:55)
[2019-05-01 22:56] LABS: Glucose,Whole Blood 111 mg/dL (75-99)
[2019-05-01] MEDS: SODIUM CHLORIDE 0.9% 1,000 ML IV SCH (22:56)
--- NOTE | 2019-05-01 23:08 | HP ---
HISTORY AND PHYSICAL DATE OF SERVICE: 05/01/2019 CHIEF COMPLAINT: Shortness of breath. HISTORY OF PRESENT ILLNESS: This 54-year-old gentleman with a past medical history of multiple medical problems including history of DJD, history of COPD, history of back surgery, history of chronic hypoxic respiratory failure being followed Dr. Oliveira in the outpatient setting, was complaining of shortness of breath for the past several days. The patient has increasing shortness of breath and cough and sputum. Patient came to [facility] and was admitted for further evaluation and treatment. There is no history any fever, rigor or chills at this time. The patient also has some vague chest pains also. PAST MEDICAL HISTORY: History of COPD, history of chronic hypoxic respiratory failure, DJD, history of back surgery. MEDICATIONS: Home medications are reviewed and include: 1. Prednisone 5 mg p.o. daily. 2. MS-IR 15 mg b.i.d. p.r.n. 3. MS Contin 60 mg b.i.d. 4. Toprol-XL 50 mg daily. 5. Gabapentin 600 mg p.o. t.i.d. 6. Colace 100 mg daily p.r.n. 7. Aspirin 81 mg. 8. Albuterol 1-2 puffs q.6h p.r.n. ALLERGIES: None. FAMILY HISTORY: History of cancer, hypertension, migraine, hip replacement. SOCIAL HISTORY: Previous history of smoking. No history of current smoking or alcohol intake. REVIEW OF SYSTEMS: ENT: No diminished vision. No diminished hearing. CARDIOVASCULAR as mentioned earlier. RESPIRATORY: As mentioned earlier. GI no nausea or vomiting. no dysuria. NERVOUS SYSTEM: No numbness or weakness. ALLERGY/IMMUNOLOGY: No asthma or hayfever. MUSCULOSKELETAL as mentioned earlier. HEMATOLOGY/ONCOLOGY: No history of anemia. ENDOCRINE: No history of diabetes or hypothyroidism. CONSTITUTIONAL: As mentioned earlier. DERMATOLOGY: Negative. RHEUMATOLOGY: Negative. PSYCHIATRY: As mentioned earlier. PHYSICAL EXAMINATION: Alert and oriented x3. The pulse is 89, blood pressure 131/83, respiration 18, temperature 98.2, pulse ox 94% on room air. HEENT is conjunctivae normal. NECK: No jugular venous distention. CARDIOVASCULAR: S1, S2 muffled. RESPIRATION: Breath sounds diminished in the bases. Breathing efforts are markedly increased. Bilateral scattered rhonchi and crackles and expiratory wheezing and basilar coarse crackles also present. ABDOMEN: Soft, nontender. No mass palpable. LEGS: No edema. No swelling. NERVOUS SYSTEM: Higher functions as mentioned earlier, moves all 4 limbs. No focal motor or sensory deficits. LYMPHATICS: No lymph nodes palpable in the neck, axilla and groin. SKIN no ulcer. No rash. No bleeding. JOINTS: No active deforming arthropathy. LABS: WBC 6.2, hemoglobin 13.3, glucose 124. Chest x-ray which was personally reviewed by me showed bilateral lesions indicative of advanced pulmonary fibrosis. ASSESSMENT: 1. Shortness of breath, possible chronic obstructive pulmonary disease exacerbation, possible pulmonary fibrosis acute exacerbation with acute purulent tracheobronchitis, rule out pneumonia, gram-negative. 2. History of degenerative joint disease. 3. Chronic pain syndrome. 4. Chronic hypoxic respiratory failure on home oxygen at 2 L. 5. History of status post recent lung biopsy. 6. Back pain/degenerative joint disease. 7. History of nephrolithiasis. 8. Remote history of nicotine dependence. RECOMMENDATIONS AND DISCUSSION: In this 54-year-old gentleman who presented with multiple complex medical issues, we will monitor the patient closely, continue the current medications, management and symptomatic treatment. We will treat with empirically with bronchodilators, antibiotics and IV steroids. Consult Dr. Oliveira. Overall prognosis extremely guarded because of multiple complex medical issues. Further recommendations to follow. A copy of this dictation being forwarded to Dr. Oliveira who is the primary physician. See orders for details. Home medication to be continued. MMODL / IJN: [id number] /
[2019-05-02] MEDS: methylPREDNISolone SOD SUCCI 125 MG/2 ML VIAL IV SCH ×3 (00:24→12:33)
[2019-05-02] MEDS: MORPHINE SULFATE IR 15 MG TABLET PO PRN ×2 (03:56→15:15)
[2019-05-02 06:44] LABS: Glucose,Whole Blood 88 mg/dL (75-99)
[2019-05-02] MEDS: IPRATROPIUM-ALBUTEROL 3 ML NEB INHALATION SCH ×4 (08:05→20:18)
[2019-05-02] MEDS: SYMBICORT 160-4.5 MCG INHALER INHALATION SCH ×2 (08:05→20:18)
[2019-05-02] MEDS: INSULIN ASPART (NovoLOG) 100 UNIT/ML VIAL SQ SCH ×2 (09:16→11:53)
[2019-05-02] MEDS: GABAPENTIN 300 MG CAP PO SCH ×3 (09:23→20:35)
[2019-05-02] MEDS: PANTOPRAZOLE 40 MG TABLET PO SCH (09:23)
[2019-05-02] MEDS: MORPHINE SULFATE ER 60 MG TABLET PO SCH ×2 (09:23→20:35)
[2019-05-02 09:24] LABS: Basophils % (A) 0 %; Eosinophils # (A) 0.1 k/uL (0-0.7); Eosinophils % (A) 3 %; HCT 40.8 % (39.0-53.0); HGB 13.1 gm/dL (13.0-17.5); Hypochromasia Moderate; Lymphocytes # (A) 0.8 k/uL (1.0-4.8); Lymphocytes % (A) 14 %; MCH 26.9 pg (25.0-35.0); MCHC 32.2 g/dL (31.0-37.0); MCV 83.5 fL (80.0-100.0); Mean Platelet Volume 6.8; Monocytes # (A) 0.3 k/uL (0-1.0); Monocytes % (A) 6 %; Neutrophils # (A) 4.1 k/uL (1.3-7.7); Neutrophils % (A) 75 %; Platelet Count 222 k/uL (150-450); RBC 4.89 m/uL (4.30-5.90); RDW 15.1 % (11.5-15.5); WBC 5.5 k/uL (3.8-10.6)
[2019-05-02] MEDS: METOPROLOL SUCCINATE (ER) 50 MG TAB.ER.24H PO SCH (09:25)
[2019-05-02] MEDS: ASPIRIN 81 MG PO SCH (09:25)
[2019-05-02] MEDS: ENOXAPARIN 40 MG/0.4 ML SYRINGE SQ SCH (09:26)
[2019-05-02] MEDS: SODIUM CHLORIDE 0.9% 1,000 ML IV SCH (09:33)
[2019-05-02 09:47] LABS: African American GFR (CKD) >90 (>60 ml/min/1.73 sqM); Anion Gap 9 mmol/L; Blood Urea Nitrogen 9 mg/dL (9-20); Calcium 8.9 mg/dL (8.4-10.2); Carbon Dioxide 29 mmol/L (22-30); Chloride 103 mmol/L (98-107); Glucose 100 mg/dL (74-99); Potassium 4.8 mmol/L (3.5-5.1); Sodium 141 mmol/L (137-145)
[2019-05-02 11:38] LABS: Glucose,Whole Blood 88 mg/dL (75-99)
[2019-05-02] MEDS: HYDROcodone/APAP 5-325MG 1 EACH TAB PO PRN (13:48)
--- NOTE | 2019-05-02 15:12 | PN ---
PROGRESS NOTE DATE OF SERVICE: 05/02/2019 This is a 54-year-old gentleman who was admitted with shortness of breath, also had COPD acute exacerbation and possibly pulmonary fibrosis exacerbation also. The patient is being followed by Pulmonary also. A chest CT was recommended, which showed advanced pulmonary fibrosis and mediastinal and bronchial adenopathy. The patient already had lung biopsies pending at this time. The final reports in 2014 showed UIP-like fibrosis. PHYSICAL EXAM: Alert and oriented x3. Pulse is 84, blood pressure is ntd, respiration 15, temperature 97.6, pulse ox 93% on 1 L. HEENT: Conjunctivae normal. NECK: No jugular venous distension. CARDIOVASCULAR SYSTEM: S1, S2, muffled. RESPIRATORY: Breath sounds diminished at the bases, bilateral scattered rhonchi, a few crackles on the back, posteriorly_. ABDOMEN: Soft. LEFT: No edema, no swelling. NERVOUS SYSTEMS: No focal deficits. LABS: Hemoglobin is 13.1, sodium 140, potassium 4.3, glucose 100. ASSESSMENT: 1. Shortness of breath with possible COPD acute exacerbation with possible pulmonary fibrosis, acute exacerbation with acute tracheobronchitis. 2. History of degenerative joint disease. 3. History of chronic pain syndrome. 4. History of chronic hypoxic respiratory failure on home oxygen at 2 L per. 5. History of recent lung biopsy. 6. Back pain, degenerative joint disease. 7. History of nephrolithiasis. . RECOMMENDATION: Recommend to continue with the current management and symptomatic treatment. Continue with the bronchodilators and steroids, empiric antibiotics. Closely follow with Pulmonary. Guarded prognosis. Further recommendations to follow. Will continue with the pain medications at home. MMODL / IJN: [id number] / MTDD
[2019-05-02] MEDS ORDERED: predniSONE 5 MG TAB PO SCH (15:15)
--- NOTE | 2019-05-02 15:30 | P.CNPUL ---
History of Present Illness Consult date: 05/02/19 Requesting physician: Angelo Ramsey Reason for consult: dyspnea, cough Chief complaint: cough, dyspnea, chills History of present illness: This is a 54-year-old white male patient with past medical history of biopsy- proven idiopathic pulmonary fibrosis/hypersensitivity pneumonitis, chronic hypoxic respiratory failure secondary to severe interstitial lung disease, history of posterior reversible encephalopathy syndrome, hypertension, hyperlipidemia. Patient follows with Dr. Larsen the pulmonary clinic. He recently had upper respiratory infection, however did not seek any medical treatment, he reports his shortness of breath was progressively worse, and yesterday patient felt like passing out twice from being so short of breath. Initially there was no cough or congestion, today he reports some cough and some phlegm production with greenish sputum. He reports chills. Chest x-ray was taken in the emergency department that showed advanced pulmonary fibrosis with no change compared with the last exam from 04/21/2019, patient has been afebrile, and with dynamically stable, currently on 3 L of oxygen with a pulse ox of 93%. Evidence of leukocytosis on the labs, white blood cell count was 6.1, hemoglobin of 13.3, d-dimer was 0.76, electrolytes and renal profile were unremarkable, troponin proBNP were within normal limits, chest CTA was completed showing no evidence of pulmonary embolism, advanced pulmonary fibrosis, mediastinal and bronchial adenopathy unchanged in comparison to previous CT chest in December 2018. he was started on IV steroids, nebulized bronchodilators, and empiric antibiotics in the form of Rocephin and Zithromax. Review of Systems All systems: negative Constitutional: Reports weakness, Denies chills, Denies fever Eyes: denies blurred vision, denies pain Ears, nose, mouth and throat: Denies headache, Denies sore throat Cardiovascular: Denies chest pain, Denies shortness of breath Respiratory: Reports congestion, Reports cough with sputum, Reports dyspnea, Reports home oxygen, Reports respiratory infections, Denies cough Gastrointestinal: Denies abdominal pain, Denies diarrhea, Denies nausea, Denies vomiting Musculoskeletal: Denies myalgias Integumentary: Denies pruritus, Denies rash Neurological: Denies numbness, Denies weakness Psychiatric: Denies anxiety, Denies depression Endocrine: Denies fatigue, Denies weight change Past Medical History Past Medical History: Musculoskeletal Disorder, Osteoarthritis (OA), Pneumonia Additional Past Medical History / Comment(s): Other HX:Pt has been having increasing SOB for the past several months to the point that he was placed on home oxygen at 2-3 liters/ NC. He is being seen by Dr. Oliveira. Right lunch biopsy 2018 and scrapping- pt had chest tube after surgery. Pt has chronic back pain and gets injections for this. Pt has had kidney stones in the past. History of Any Multi-Drug Resistant Organisms: None Reported Past Surgical History: Back Surgery Additional Past Surgical History / Comment(s): R lung biopsy with chest tube, back pain injections. Past Anesthesia/Blood Transfusion Reactions: No Reported Reaction Past Psychological History: No Psychological Hx Reported Additional Psychological History / Comment(s): Pt lives with his 17 yr old camelia. Pt is normally independent. Pt drives a car. He is currently unemployed due to back problems. Smoking Status: Never smoker Past Alcohol Use History: None Reported Past Drug Use History: None Reported - Past Family History Mother Additional Family Medical History / Comment(s): Migraines, hip replacement. Father Family Medical History: Cancer, Hypertension Medications and Allergies Home Medications Medication Instructions Recorded Confirmed Type Aspirin 81 mg PO DAILY 05/04/15 05/01/19 History Docusate [Colace] 100 mg PO DAILY PRN 01/09/19 05/01/19 History Gabapentin 600 mg PO TID 01/09/19 05/01/19 History Metoprolol Succinate (ER) [Toprol 50 mg PO DAILY 01/09/19 05/01/19 History XL] predniSONE 5 mg PO DAILY 01/09/19 05/01/19 History Morphine Sulfate ER [Ms Contin] 60 mg PO BID #1 tablet 01/10/19 05/01/19 Rx Albuterol Inhaler [Ventolin Hfa 1 - 2 puff INHALATION Q6HR PRN #1 03/09/19 05/01/19 Rx Inhaler] inhaler Morphine Sulfate Ir [MSIR] 15 mg PO BID PRN 05/01/19 05/01/19 History Allergies Allergy/AdvReac Type Severity Reaction Status Date / Time No Known Allergies Allergy Verified 05/01/19 19:17 Physical Exam Vitals: Vital Signs Temp Pulse Pulse Resp BP BP Pulse Ox 05/02/19 11:45 82 05/02/19 11:33 80 05/02/19 08:20 84 05/02/19 08:05 84 96 05/02/19 06:45 97.6 F 88 15 117/77 93 L 05/02/19 01:57 98.1 F 99 18 105/72 99 05/01/19 22:30 103 H 16 127/80 98 05/01/19 22:00 106 H 18 127/80 99 05/01/19 21:31 97.8 F 104 H 18 130/74 92 L 05/01/19 21:30 108 H 19 127/80 98 05/01/19 21:00 113 H 20 127/80 05/01/19 20:32 111 H 05/01/19 20:30 123 H 20 127/80 05/01/19 20:14 100 05/01/19 20:00 88 18 127/80 05/01/19 19:45 20 05/01/19 19:30 16 93 L 05/01/19 19:03 98.2 F 96 18 131/83 95 Intake and Output 05/01/19 05/02/19 05/02/19 22:59 06:59 14:59 Intake Total 420 Balance 420 Intake: Oral 420 Other: Voiding Method Toilet # Voids 1 1 Weight 77.111 kg GENERAL EXAM: Alert, pleasant, 54-year-old white male, appears generally weak, comfortable in no apparent distress. HEAD: Normocephalic/atraumatic. EYES: Normal reaction of pupils, equal size. Conjunctiva pink, sclera white. NOSE: Clear with pink turbinates. THROAT: No erythema or exudates. NECK: No masses, no JVD, no thyroid enlargement, no adenopathy. CHEST: No chest wall deformity. Symmetrical expansion. LUNGS: Equal air entry with coarse inspiratory crackles at bilateral lower lungs CVS: Regular rate and rhythm, normal S1 and S2, no gallops, no murmurs, no rubs ABDOMEN: Soft, nontender. No hepatosplenomegaly, normal bowel sounds, no guarding or rigidity. EXTREMITIES: No clubbing, no edema, no cyanosis, 2+ pulses and upper and lower extremities. MUSCULOSKELETAL: Muscle strength and tone normal. SPINE: No scoliosis or deformity SKIN: No rashes CENTRAL NERVOUS SYSTEM: Alert and oriented -3. No focal deficits, tone is normal in all 4 extremities. PSYCHIATRIC: Alert and oriented -3. Appropriate affect. Intact judgment and insight. Results - Laboratory Findings CBC and BMP: 05/02/19 08:01 05/02/19 08:01 PT/INR, D-dimer PT 10.6 sec (9.0-12.0) 05/01/19 19:30 INR 1.0 (<1.2) 05/01/19 19:30 D-Dimer 0.76 mg/L FEU (<0.60) H 05/01/19 19:30 Abnormal lab findings: Abnormal Labs 05/01/19 05/01/19 05/01/19 19:30 19:30 19:30 RDW 15.7 H Lymphocytes # 0.8 L D-Dimer 0.76 H Creatinine 0.51 L Glucose 124 H POC Glucose (mg/dL) 05/01/19 05/02/19 05/02/19 22:53 08:01 08:01 RDW Lymphocytes # 0.8 L D-Dimer Creatinine 0.52 L Glucose 100 H POC Glucose (mg/dL) 111 H - Diagnostic Findings Chest x-ray: report reviewed, image reviewed CT scan - chest: report reviewed, image reviewed Assessment and Plan Plan: Assessment #1. Dyspnea related to possibility of tracheobronchitis, chest x-ray and CTA chest were reviewed, no evidence of pulmonary embolism, stable extensive pulmonary fibrosis, with stable mediastinal adenopathy, no clear evidence of pneumonia. We will cover with empiric antibiotics anyway, patient has extensive structural lung disease, in addition to being chronically immunocompromised related to long-term steroid use #2. History of idiopathic pulmonary fibrosis/per sensitivity pneumonitis, biopsy-proven at the [facility] in 2013 from the right lung #3. Acute on chronic hypoxemic respiratory failure, related to possibility of a pulmonary infection #4. Chronic back pain #5. Hypertension #6. Hypercholesterolemia #7. History of posterior reversible encephalopathy syndrome, recovered Plan: We'll switch that IV antibiotics to Zosyn and Levaquin, send a sputum culture, patient is declining IV steroids, does not sound too congested or wheezy, may switch back to oral dose of prednisone 5 mg daily. CTA chest and chest x-ray have been reviewed and chronic changes of pulmonary fibrosis, with no clear evidence of pneumonia, although it is not entirely excluded, and patient will be covered with the combination of Zosyn and Levaquin. Continue breathing treatments. We'll follow I performed a history & physical examination of the patient and discussed their management with my nurse practitioner, Smita Lord. I reviewed the nurse practitioner's note and agree with the documented findings and plan of care. Lung sounds are positive for coarse crackles at bilateral posterior lower bases. The findings and the impression was discussed with the patient. I attest to the documentation by the nurse practitioner. Time with Patient: Greater than 30
[2019-05-02] MEDS: LEVOFLOXACIN 500MG-D5W PMX 500 MG in DEXTROSE/WATER 1 100ML.BAG IVPB SCH (15:34)
[2019-05-02] MEDS: PIPERACILLIN-TAZOBACTAM 3.375 GM in SODIUM CHLORIDE 0.9% 100 ML IVPB SCH ×2 (17:17→23:13)
[2019-05-02] MEDS: TEMAZEPAM 15 MG CAP PO PRN (23:13)
[2019-05-03] MEDS: MORPHINE SULFATE IR 15 MG TABLET PO PRN ×2 (04:58→16:35)
[2019-05-03] MEDS: SODIUM CHLORIDE 0.9% 1,000 ML IV SCH (05:03)
[2019-05-03] MEDS: METOPROLOL SUCCINATE (ER) 50 MG TAB.ER.24H PO SCH (07:07)
[2019-05-03] MEDS: GABAPENTIN 300 MG CAP PO SCH ×3 (07:07→20:12)
[2019-05-03] MEDS: PANTOPRAZOLE 40 MG TABLET PO SCH (07:07)
[2019-05-03] MEDS: MORPHINE SULFATE ER 60 MG TABLET PO SCH ×2 (07:07→20:12)
[2019-05-03] MEDS: ASPIRIN 81 MG PO SCH (07:07)
[2019-05-03] MEDS: predniSONE 5 MG TAB PO SCH (07:08)
[2019-05-03] MEDS: ENOXAPARIN 40 MG/0.4 ML SYRINGE SQ SCH (07:08)
[2019-05-03] MEDS: PIPERACILLIN-TAZOBACTAM 3.375 GM in SODIUM CHLORIDE 0.9% 100 ML IVPB SCH ×3 (07:09→23:32)
[2019-05-03] MEDS: SYMBICORT 160-4.5 MCG INHALER INHALATION SCH ×2 (08:29→19:31)
[2019-05-03] MEDS: IPRATROPIUM-ALBUTEROL 3 ML NEB INHALATION SCH ×4 (08:29→19:31)
[2019-05-03 09:03] LABS: Basophils % (A) 0 %; Eosinophils # (A) 0.2 k/uL (0-0.7); Eosinophils % (A) 3 %; HCT 39.9 % (39.0-53.0); HGB 12.7 gm/dL (13.0-17.5); Hypochromasia Moderate; Lymphocytes % (A) 16 %; MCH 26.7 pg (25.0-35.0); MCHC 31.8 g/dL (31.0-37.0); MCV 83.8 fL (80.0-100.0); Mean Platelet Volume 6.7; Monocytes # (A) 0.4 k/uL (0-1.0); Monocytes % (A) 7 %; Neutrophils # (A) 4.2 k/uL (1.3-7.7); Neutrophils % (A) 71 %; Platelet Count 233 k/uL (150-450); RBC 4.77 m/uL (4.30-5.90); RDW 15.6 % (11.5-15.5); WBC 5.9 k/uL (3.8-10.6)
[2019-05-03 09:15] LABS: African American GFR (CKD) >90 (>60 ml/min/1.73 sqM); Anion Gap 6 mmol/L; Blood Urea Nitrogen 11 mg/dL (9-20); Calcium 9.1 mg/dL (8.4-10.2); Carbon Dioxide 32 mmol/L (22-30); Chloride 104 mmol/L (98-107); Glucose 75 mg/dL (74-99); Potassium 4.9 mmol/L (3.5-5.1); Sodium 142 mmol/L (137-145)
[2019-05-03] MEDS: HYDROcodone/APAP 5-325MG 1 EACH TAB PO PRN ×2 (11:02→18:42)
--- NOTE | 2019-05-03 14:00 | P.PN ---
Subjective Progress Note Date: 05/03/19 Principal diagnosis: Cough, dyspnea, chills This is a 54-year-old white male patient with past medical history of biopsy- proven idiopathic pulmonary fibrosis/hypersensitivity pneumonitis, chronic hypoxic respiratory failure secondary to severe interstitial lung disease, history of posterior reversible encephalopathy syndrome, hypertension, hyperlipidemia. Patient follows with Dr. Larsen the pulmonary clinic. He recently had upper respiratory infection, however did not seek any medical treatment, he reports his shortness of breath was progressively worse, and yesterday patient felt like passing out twice from being so short of breath. Initially there was no cough or congestion, today he reports some cough and some phlegm production with greenish sputum. He reports chills. Chest x-ray was taken in the emergency department that showed advanced pulmonary fibrosis with no change compared with the last exam from 04/21/2019, patient has been afebrile, and with dynamically stable, currently on 3 L of oxygen with a pulse ox of 93%. Evidence of leukocytosis on the labs, white blood cell count was 6.1, hemoglobin of 13.3, d-dimer was 0.76, electrolytes and renal profile were unremarkable, troponin proBNP were within normal limits, chest CTA was completed showing no evidence of pulmonary embolism, advanced pulmonary fibrosis, mediastinal and bronchial adenopathy unchanged in comparison to previous CT chest in December 2018. he was started on IV steroids, nebulized bronchodilators, and empiric antibiotics in the form of Rocephin and Zithromax On 05/03/2019 patient seen in follow-up on medical surgical floor. He is resting quietly in bed, he states his breathing is about the same, he does not feel significant improvements, occasional cough, with production of greenish sputum, sputum culture has not been sent yet, we switched the patient's antibiotics to Levaquin and Zosyn yesterday for acute bronchitis, was no clear- cut evidence of pneumonia on the CTA chest, but in view of patient's chronic immunosuppression and extensive pulmonary fibrosis we will continue with empiric antibiotics. And continues to decline IV steroids, he states , he is in the [facility] the staff tries to give him a steroids, and he states that on make a significant difference in terms of improving his breathing but cause agitation, anxiety, and he would like to just continue with his maintenance dose of 5 mg prednisone at this time. Objective - Vital Signs Vital signs: Vital Signs Temp 97.5 F L 05/03/19 06:56 Pulse 72 05/03/19 12:45 Resp 16 05/03/19 09:10 BP 101/66 05/03/19 06:56 Pulse Ox 93 L 05/03/19 06:56 Intake & Output 05/02/19 05/03/19 05/03/19 18:59 06:59 18:59 Intake Total 660 Balance 660 Intake: Oral 660 Other: Voiding Method Toilet # Voids 1 - Exam GENERAL EXAM: Alert, pleasant, 54-year-old white male, appears generally weak, comfortable in no apparent distress. HEAD: Normocephalic/atraumatic. EYES: Normal reaction of pupils, equal size. Conjunctiva pink, sclera white. NOSE: Clear with pink turbinates. THROAT: No erythema or exudates. NECK: No masses, no JVD, no thyroid enlargement, no adenopathy. CHEST: No chest wall deformity. Symmetrical expansion. LUNGS: Equal air entry with coarse inspiratory crackles at bilateral lower lungs CVS: Regular rate and rhythm, normal S1 and S2, no gallops, no murmurs, no rubs ABDOMEN: Soft, nontender. No hepatosplenomegaly, normal bowel sounds, no guarding or rigidity. EXTREMITIES: No clubbing, no edema, no cyanosis, 2+ pulses and upper and lower extremities. MUSCULOSKELETAL: Muscle strength and tone normal. SPINE: No scoliosis or deformity SKIN: No rashes CENTRAL NERVOUS SYSTEM: Alert and oriented -3. No focal deficits, tone is nor mal in all 4 extremities. PSYCHIATRIC: Alert and oriented -3. Appropriate affect. Intact judgment and insight. - Labs CBC & Chem 7: 05/03/19 08:02 05/03/19 08:02 Labs: Abnormal Lab Results - Last 24 Hours (Table) 05/03/19 05/03/19 Range/Units 08:02 08:02 Hgb 12.7 L (13.0-17.5) gm/dL RDW 15.6 H (11.5-15.5) % Carbon Dioxide 32 H (22-30) mmol/L Creatinine 0.56 L (0.66-1.25) mg/dL Assessment and Plan Plan: Assessment #1. Dyspnea related to possibility of tracheobronchitis, chest x-ray and CTA chest were reviewed, no evidence of pulmonary embolism, stable extensive pulmonary fibrosis, with stable mediastinal adenopathy, no clear evidence of p neumonia. We will cover with empiric antibiotics anyway, patient has extensive structural lung disease, in addition to being chronically immunocompromised related to long-term steroid use #2. History of idiopathic pulmonary fibrosis/per sensitivity pneumonitis, biopsy-proven at the [facility] in 2013 from the right lung #3. Acute on chronic hypoxemic respiratory failure, related to possibility of a pulmonary infection #4. Chronic back pain #5. Hypertension #6. Hypercholesterolemia #7. History of posterior reversible encephalopathy syndrome, recovered Plan: Continue current medical treatment, continue with current antibiotics, send a sputum culture, nebulized bronchodilators, and Symbicort, is refusing IV steroids, will continue with maintenance dose of 5 mg daily. Continue to follow. I performed a history & physical examination of the patient and discussed their management with my nurse practitioner, Smita Lord. I reviewed the nurse practitioner's note and agree with the documented findings and plan of care. Lung sounds are positive for coarse crackles at bilateral posterior lower bases. The findings and the impression was discussed with the patient. I attest to the documentation by the nurse practitioner. Time with Patient: Less than 30
[2019-05-03] MEDS: LEVOFLOXACIN 500MG-D5W PMX 500 MG in DEXTROSE/WATER 1 100ML.BAG IVPB SCH (17:07)
[2019-05-03] MEDS: TEMAZEPAM 15 MG CAP PO PRN (20:12)
--- NOTE | 2019-05-04 00:41 | P.PN ---
Subjective Progress Note Date: 05/03/19 Principal diagnosis: Idiopathic pulmonary fibrosis Patient is a 54-year-old male with a known history of idiopathic pulmonary fibrosis status post biopsy at [facility], COPD and other medical problems was admitted to hospital due to worsening shortness of breath. Chest CT showed advanced pulmonary fibrosis and mediastinal and bronchial adenopathy. Previous lung biopsy showed UIP like pulmonary fibrosis. Pulmonary is currently on board. 05/03/2019 Patient is still complaining of shortness of breath. Not at baseline. Patient does have cough with green sputum production. Currently on antibiotics in the form of Levaquin and Zosyn for tracheobronchitis due to possible chronic immunosuppression due to steroids. CTA chest showed no evidence of pulmonary e mbolism. No clear-cut evidence of pneumonia noted. Patient is on oral prednisone since the patient declined IV steroids due to previous side effects. Denied any complaints of fever or chills. No nausea vomiting or abdominal pain. No diarrhea.. All other review of systems negative except the above. Active Medications Generic Name Dose Route Start Last Admin Trade Name Freq PRN Reason Stop Dose Admin Hydrocodone Bitart/Acetaminophen 1 each 05/01/19 20:59 05/03/19 18:42 Alma 5-325 PO 1 each Q6HR PRN Administration Pain Albuterol Sulfate 2.5 mg 05/01/19 20:04 Ventolin Nebulized INHALATION RT-QID PRN Bronchospasm Albuterol/Ipratropium 3 ml 05/02/19 08:00 05/03/19 19:31 Duoneb 0.5 Mg-3 Mg/3 Ml Soln INHALATION 3 ml RT-QID TJ Administration Aspirin 81 mg 05/02/19 09:00 05/03/19 07:07 Aspirin PO 81 mg DAILY TJ Administration Budesonide/Formoterol Fumarate 2 puff 05/02/19 08:00 05/03/19 19:31 Symbicort 160-4.5 Mcg Inhaler INHALATION 2 puff RT-BID TJ Administration Docusate Sodium 100 mg 05/01/19 20:57 Colace PO DAILY PRN Constipation Enoxaparin Sodium 40 mg 05/02/19 09:00 05/03/19 07:08 Lovenox SQ 40 mg DAILY TJ Administration Gabapentin 600 mg 05/01/19 22:00 05/03/19 20:12 Neurontin PO 600 mg TID TJ Administration Sodium Chloride 1,000 mls @ 20 mls/hr 05/01/19 20:15 05/03/19 05:03 Saline 0.9% IV Not Given .Q24H TJ Levofloxacin 500 mg/ IV 100 mls @ 100 mls/hr 05/02/19 15:30 05/03/19 17:07 Solution IVPB 100 mls/hr Q24H TJ Administration Piperacillin Sod/Tazobactam 100 mls @ 25 mls/hr 05/02/19 16:00 05/03/19 23:32 Sod 3.375 gm/ Sodium Chloride IVPB 25 mls/hr Q8HR TJ Administration Metoprolol Succinate 50 mg 05/02/19 09:00 05/03/19 07:07 Toprol Xl PO 50 mg DAILY TJ Administration Morphine Sulfate 60 mg 05/01/19 21:00 05/03/19 20:12 Ms Contin PO 60 mg BID TJ Administration Morphine Sulfate 15 mg 05/01/19 20:57 05/03/19 16:35 Msir PO 15 mg BID PRN Administration Breakthrough Pain Pantoprazole Sodium 40 mg 05/02/19 07:30 05/03/19 07:07 Protonix PO 40 mg [id number] TJ Administration Prednisone 5 mg 05/03/19 09:00 05/03/19 07:08 PO 5 mg DAILY TJ Administration Temazepam 15 mg 05/01/19 20:59 05/03/19 20:12 Restoril PO 15 mg HS PRN Administration Insomnia Objective - Vital Signs Vital signs: Vital Signs Temp 98 F 05/03/19 14:00 Pulse 74 05/03/19 14:00 Resp 16 05/03/19 14:00 BP 100/65 05/03/19 14:00 Pulse Ox 94 L 05/03/19 14:00 Intake & Output 05/02/19 05/03/19 05/03/19 18:59 06:59 18:59 Intake Total 660 Output Total 250 Balance 660 -250 Intake: Oral 660 Output: Urine 250 Other: Voiding Method Toilet # Voids 1 - Exam PHYSICAL EXAMINATION: Patient is lying in the bed comfortably, no acute distress, awake alert and oriented.. HEENT: Normocephalic. Neck is supple. Pupils reactive. Nostrils clear. Oral cavity is moist. Ears reveal no drainage. Neck reveals no JVD, carotid bruits, or thyromegaly. CHEST EXAMINATION: Trachea is central. Symmetrical expansion. Bilateral diffuse fine crackles noted. No wheezing.. CARDIAC: Normal S1, S2 with no gallops. No murmurs ABDOMEN: Soft. Bowel sounds normal. No organomegaly. No abdominal bruits. Extremities: reveal no edema. No clubbing or cyanosis Neurologically awake, alert, oriented x3 with well-coordinated movements. No focal deficits noted Skin: No rash or skin lesions. Psychiatric: Coperative. Nonsuicidal Musculoskeletal: No joint swelling or deformity. Normal range of motion. - Labs CBC & Chem 7: 05/03/19 08:02 05/03/19 08:02 Labs: Abnormal Lab Results - Last 24 Hours (Table) 05/03/19 05/03/19 Range/Units 08:02 08:02 Hgb 12.7 L (13.0-17.5) gm/dL RDW 15.6 H (11.5-15.5) % Carbon Dioxide 32 H (22-30) mmol/L Creatinine 0.56 L (0.66-1.25) mg/dL Assessment and Plan Assessment: Dyspnea due to acute tracheobronchitis and underlying advanced pulmonary fibrosis. No evidence of pneumonia CT angiogram of the chest. Acute on chronic hypoxic respiratory failure secondary to above Idiopathic pulmonary fibrosis. Biopsy-proven at [facility] in 2013 Chronic back pain and pain syndrome Degenerative joint disease Hypertension Hyperlipidemia History of nephrolithiasis DVT prophylaxis with Levaquin subcu Plan: Patient will be continued on DuoNeb's and Symbicort as well as steroids. Patient refuses IV steroids and is currently maintained on prednisone 5 mg daily. Continue with empiric antibiotics due to possible immunosuppression. Currently on Levaquin and Zosyn. Follow culture reports. Continue the pain management and further recommendations based on the clinical course. Prognosis is guarded. Pulmonary is on board. Time with Patient: Greater than 30
[2019-05-04] MEDS: HYDROcodone/APAP 5-325MG 1 EACH TAB PO PRN ×2 (04:02→14:56)
[2019-05-04] MEDS: SODIUM CHLORIDE 0.9% 1,000 ML IV SCH (05:43)
[2019-05-04] MEDS: MORPHINE SULFATE IR 15 MG TABLET PO PRN ×2 (05:54→17:47)
[2019-05-04] MEDS: IPRATROPIUM-ALBUTEROL 3 ML NEB INHALATION SCH ×4 (08:14→20:50)
[2019-05-04] MEDS: SYMBICORT 160-4.5 MCG INHALER INHALATION SCH ×2 (08:14→20:50)
[2019-05-04] MEDS: PANTOPRAZOLE 40 MG TABLET PO SCH (08:44)
[2019-05-04] MEDS: ASPIRIN 81 MG PO SCH (08:44)
[2019-05-04] MEDS: MORPHINE SULFATE ER 60 MG TABLET PO SCH ×2 (08:44→20:29)
[2019-05-04] MEDS: PIPERACILLIN-TAZOBACTAM 3.375 GM in SODIUM CHLORIDE 0.9% 100 ML IVPB SCH ×3 (08:44→23:07)
[2019-05-04] MEDS: GABAPENTIN 300 MG CAP PO SCH ×3 (08:44→20:30)
[2019-05-04] MEDS: METOPROLOL SUCCINATE (ER) 50 MG TAB.ER.24H PO SCH (08:44)
[2019-05-04] MEDS: ENOXAPARIN 40 MG/0.4 ML SYRINGE SQ SCH (08:44)
[2019-05-04] MEDS: predniSONE 5 MG TAB PO SCH (08:49)
[2019-05-04 09:03] LABS: Basophils % (A) 1 %; Eosinophils # (A) 0.2 k/uL (0-0.7); Eosinophils % (A) 3 %; HCT 42.5 % (39.0-53.0); HGB 13.2 gm/dL (13.0-17.5); Hypochromasia Slight; Lymphocytes # (A) 0.9 k/uL (1.0-4.8); Lymphocytes % (A) 19 %; MCV 83.9 fL (80.0-100.0); Mean Platelet Volume 6.3; Monocytes # (A) 0.4 k/uL (0-1.0); Monocytes % (A) 7 %; Neutrophils # (A) 3.5 k/uL (1.3-7.7); Neutrophils % (A) 69 %; Platelet Count 268 k/uL (150-450); RBC 5.07 m/uL (4.30-5.90); RDW 15.2 % (11.5-15.5); WBC 5.1 k/uL (3.8-10.6)
[2019-05-04 09:20] LABS: African American GFR (CKD) >90 (>60 ml/min/1.73 sqM); Anion Gap 8 mmol/L; Blood Urea Nitrogen 13 mg/dL (9-20); Calcium 8.8 mg/dL (8.4-10.2); Carbon Dioxide 31 mmol/L (22-30); Chloride 103 mmol/L (98-107); Glucose 70 mg/dL (74-99); Potassium 3.9 mmol/L (3.5-5.1); Sodium 142 mmol/L (137-145)
--- NOTE | 2019-05-04 11:50 | P.PN ---
Subjective Progress Note Date: 05/04/19 Principal diagnosis: Cough, dyspnea, chills This is a 54-year-old white male patient with past medical history of biopsy- proven idiopathic pulmonary fibrosis/hypersensitivity pneumonitis, chronic hypoxic respiratory failure secondary to severe interstitial lung disease, history of posterior reversible encephalopathy syndrome, hypertension, hyperlipidemia. Patient follows with Dr. Larsen the pulmonary clinic. He recently had upper respiratory infection, however did not seek any medical treatment, he reports his shortness of breath was progressively worse, and yesterday patient felt like passing out twice from being so short of breath. Initially there was no cough or congestion, today he reports some cough and some phlegm production with greenish sputum. He reports chills. Chest x-ray was taken in the emergency department that showed advanced pulmonary fibrosis with no change compared with the last exam from 04/21/2019, patient has been afebrile, and with dynamically stable, currently on 3 L of oxygen with a pulse ox of 93%. Evidence of leukocytosis on the labs, white blood cell count was 6.1, hemoglobin of 13.3, d-dimer was 0.76, electrolytes and renal profile were unremarkable, troponin proBNP were within normal limits, chest CTA was completed showing no evidence of pulmonary embolism, advanced pulmonary fibrosis, mediastinal and bronchial adenopathy unchanged in comparison to previous CT chest in December 2018. he was started on IV steroids, nebulized bronchodilators, and empiric antibiotics in the form of Rocephin and Zithromax On 05/03/2019 patient seen in follow-up on medical surgical floor. He is resting quietly in bed, he states his breathing is about the same, he does not feel significant improvements, occasional cough, with production of greenish sputum, sputum culture has not been sent yet, we switched the patient's antibiotics to Levaquin and Zosyn yesterday for acute bronchitis, was no clear- cut evidence of pneumonia on the CTA chest, but in view of patient's chronic immunosuppression and extensive pulmonary fibrosis we will continue with empiric antibiotics. And continues to decline IV steroids, he states , he is in the ho spital the staff tries to give him a steroids, and he states that on make a significant difference in terms of improving his breathing but cause agitation, anxiety, and he would like to just continue with his maintenance dose of 5 mg prednisone at this time. On 05/04/2019 patient seen in follow-up on medical surgical floor. He states he does not feel much improvement in terms of the way he is feeling, he states he still has quite dyspneic with exertion, has a cough with production of thick gre en sputum. He is admitted to chest pain with coughing. No fever or chills, patient is on 1 L of oxygen with a pulse ox of 95%, afebrile, hemodynamically stable, lung sounds reveal coarse crackles over bilateral posterior lower lobes. Antibiotic coverage with Zosyn and Levaquin. Sputum culture showed rare epithelial cells, and rare budding yeast, final cultures pending. Objective - Vital Signs Vital signs: Vital Signs Temp 97.9 F 05/04/19 07:05 Pulse 80 05/04/19 08:27 Resp 14 05/04/19 07:05 BP 93/60 05/04/19 07:05 Pulse Ox 95 05/04/19 08:14 Intake & Output 05/03/19 05/04/19 05/04/19 18:59 06:59 18:59 Intake Total 400 Output Total 250 Balance -250 400 Intake: Oral 400 Output: Urine 250 Other: Voiding Method Toilet Toilet # Voids 2 - Exam GENERAL EXAM: Alert, pleasant, 54-year-old white male, appears generally weak, comfortable in no apparent distress. HEAD: Normocephalic/atraumatic. EYES: Normal reaction of pupils, equal size. Conjunctiva pink, sclera white. NOSE: Clear with pink turbinates. THROAT: No erythema or exudates. NECK: No masses, no JVD, no thyroid enlargement, no adenopathy. CHEST: No chest wall deformity. Symmetrical expansion. LUNGS: Equal air entry with coarse inspiratory crackles at bilateral lower lungs CVS: Regular rate and rhythm, normal S1 and S2, no gallops, no murmurs, no rubs ABDOMEN: Soft, nontender. No hepatosplenomegaly, normal bowel sounds, no guarding or rigidity. EXTREMITIES: No clubbing, no edema, no cyanosis, 2+ pulses and upper and lower extremities. MUSCULOSKELETAL: Muscle strength and tone normal. SPINE: No scoliosis or deformity SKIN: No rashes CENTRAL NERVOUS SYSTEM: Alert and oriented -3. No focal deficits, tone is normal in all 4 extremities. PSYCHIATRIC: Alert and oriented -3. Appropriate affect. Intact judgment and insight. - Labs CBC & Chem 7: 05/04/19 07:17 05/04/19 07:17 Labs: Abnormal Lab Results - Last 24 Hours (Table) 05/04/19 05/04/19 Range/Units 07:17 07:17 Lymphocytes # 0.9 L (1.0-4.8) k/uL Carbon Dioxide 31 H (22-30) mmol/L Glucose 70 L (74-99) mg/dL Microbiology - Last 24 Hours (Table) 05/03/19 09:00 Gram Stain - Preliminary Sputum Sputum Culture - Preliminary Assessment and Plan Plan: Assessment #1. Dyspnea related to possibility of tracheobronchitis, chest x-ray and CTA chest were reviewed, no evidence of pulmonary embolism, stable extensive pulmonary fibrosis, with stable mediastinal adenopathy, no clear evidence of pneumonia. We will cover with empiric antibiotics anyway, patient has extensive structural lung disease, in addition to being chronically immunocompromised related to long-term steroid use #2. History of idiopathic pulmonary fibrosis/per sensitivity pneumonitis, biopsy-proven at the [facility] in 2013 from the right lung #3. Acute on chronic hypoxemic respiratory failure, related to possibility of a pulmonary infection #4. Chronic back pain #5. Hypertension #6. Hypercholesterolemia #7. History of posterior reversible encephalopathy syndrome, recovered Plan: Continue with current antibiotic coverage, awaiting the final results of the sputum culture, clinically patient states he does not feel much improvement in terms of shortness of breath, coughing and phlegm production. Encouraged patient to increase activity, deep breathe and cough, has been afebrile, hemodynamically stable. We'll continue to follow I performed a history & physical examination of the patient and discussed their management with my nurse practitioner, Smita Lord. I reviewed the nurse practitioner's note and agree with the documented findings and plan of care. Lung sounds are positive for coarse crackles at bilateral posterior lower bases. The findings and the impression was discussed with the patient. I attest to the documentation by the nurse practitioner. Time with Patient: Less than 30
[2019-05-04] MEDS: LEVOFLOXACIN 500MG-D5W PMX 500 MG in DEXTROSE/WATER 1 100ML.BAG IVPB SCH (14:58)
[2019-05-04] MEDS: TEMAZEPAM 15 MG CAP PO PRN (20:30)
--- NOTE | 2019-05-05 02:10 | P.PN ---
Subjective Progress Note Date: 05/04/19 Principal diagnosis: Idiopathic pulmonary fibrosis Patient is a 54-year-old male with a known history of idiopathic pulmonary fibrosis status post biopsy at [facility], COPD and other medical problems was admitted to hospital due to worsening shortness of breath. Chest CT showed advanced pulmonary fibrosis and mediastinal and bronchial adenopathy. Previous lung biopsy showed UIP like pulmonary fibrosis. Pulmonary is currently on board. 05/03/2019 Patient is still complaining of shortness of breath. Not at baseline. Patient does have cough with green sputum production. Currently on antibiotics in the form of Levaquin and Zosyn for tracheobronchitis due to possible chronic immunosuppression due to steroids. CTA chest showed no evidence of pulmonary e mbolism. No clear-cut evidence of pneumonia noted. Patient is on oral prednisone since the patient declined IV steroids due to previous side effects. Denied any complaints of fever or chills. No nausea vomiting or abdominal pain. No diarrhea.. 05/04/2019 Patient is still complaining of exertional dyspnea. Overall slight improvement. Patient is being continued on broad-spectrum antibiotics and prednisone and breathing treatments. Oxygen therapy as needed. No fever no chills. No other acute overnight issues. All other review of systems negative except the above. Active Medications Generic Name Dose Route Start Last Admin Trade Name Freq PRN Reason Stop Dose Admin Hydrocodone Bitart/Acetaminophen 1 each 05/01/19 20:59 05/03/19 18:42 [place] 5-325 PO 1 each Q6HR PRN Administration Pain Albuterol Sulfate 2.5 mg 05/01/19 20:04 Ventolin Nebulized INHALATION RT-QID PRN Bronchospasm Albuterol/Ipratropium 3 ml 05/02/19 08:00 05/03/19 19:31 Duoneb 0.5 Mg-3 Mg/3 Ml Soln INHALATION 3 ml RT-QID TJ Administration Aspirin 81 mg 05/02/19 09:00 05/03/19 07:07 Aspirin PO 81 mg DAILY TJ Administration Budesonide/Formoterol Fumarate 2 puff 05/02/19 08:00 05/03/19 19:31 Symbicort 160-4.5 Mcg Inhaler INHALATION 2 puff RT-BID TJ Administration Docusate Sodium 100 mg 05/01/19 20:57 Colace PO DAILY PRN Constipation Enoxaparin Sodium 40 mg 05/02/19 09:00 05/03/19 07:08 Lovenox SQ 40 mg DAILY TJ Administration Gabapentin 600 mg 05/01/19 22:00 05/03/19 20:12 Neurontin PO 600 mg TID TJ Administration Sodium Chloride 1,000 mls @ 20 mls/hr 05/01/19 20:15 05/03/19 05:03 Saline 0.9% IV Not Given .Q24H TJ Levofloxacin 500 mg/ IV 100 mls @ 100 mls/hr 05/02/19 15:30 05/03/19 17:07 Solution IVPB 100 mls/hr Q24H TJ Administration Piperacillin Sod/Tazobactam 100 mls @ 25 mls/hr 05/02/19 16:00 05/03/19 23:32 Sod 3.375 gm/ Sodium Chloride IVPB 25 mls/hr Q8HR TJ Administration Metoprolol Succinate 50 mg 05/02/19 09:00 05/03/19 07:07 Toprol Xl PO 50 mg DAILY TJ Administration Morphine Sulfate 60 mg 05/01/19 21:00 05/03/19 20:12 Ms Contin PO 60 mg BID TJ Administration Morphine Sulfate 15 mg 05/01/19 20:57 05/03/19 16:35 Msir PO 15 mg BID PRN Administration Breakthrough Pain Pantoprazole Sodium 40 mg 05/02/19 07:30 05/03/19 07:07 Protonix PO 40 mg [id number] TJ Administration Prednisone 5 mg 05/03/19 09:00 05/03/19 07:08 PO 5 mg DAILY TJ Administration Temazepam 15 mg 05/01/19 20:59 05/03/19 20:12 Restoril PO 15 mg HS PRN Administration Insomnia Objective - Vital Signs Vital signs: Vital Signs Temp 97.5 F L 05/04/19 19:32 Pulse 72 05/04/19 21:02 Resp 16 05/04/19 19:32 BP 109/74 05/04/19 19:32 Pulse Ox 94 L 05/04/19 20:50 Intake & Output 05/04/19 05/04/19 05/05/19 06:59 18:59 06:59 Intake Total 1100 Balance 1100 Intake: Intake, IV Titration 100 Amount Piperacillin-Tazobactam 3 100 .375 gm In Sodium Chloride 0.9% 100 ml @ 25 mls/hr IVPB Q8HR [facility] Rx# :[id number] Oral 1000 Other: Voiding Method Toilet # Voids 2 3 - Exam PHYSICAL EXAMINATION: Patient is lying in the bed comfortably, no acute distress, awake alert and oriented.. HEENT: Normocephalic. Neck is supple. Pupils reactive. Nostrils clear. Oral cavity is moist. Ears reveal no drainage. Neck reveals no JVD, carotid bruits, or thyromegaly. CHEST EXAMINATION: Trachea is central. Symmetrical expansion. Bilateral diffuse fine crackles noted. No wheezing.. CARDIAC: Normal S1, S2 with no gallops. No murmurs ABDOMEN: Soft. Bowel sounds normal. No organomegaly. No abdominal bruits. Extremities: reveal no edema. No clubbing or cyanosis Neurologically awake, alert, oriented x3 with well-coordinated movements. No focal deficits noted Skin: No rash or skin lesions. Psychiatric: Coperative. Nonsuicidal Musculoskeletal: No joint swelling or deformity. Normal range of motion. - Labs CBC & Chem 7: 05/04/19 07:17 05/04/19 07:17 Labs: Abnormal Lab Results - Last 24 Hours (Table) 05/04/19 05/04/19 Range/Units 07:17 07:17 Lymphocytes # 0.9 L (1.0-4.8) k/uL Carbon Dioxide 31 H (22-30) mmol/L Glucose 70 L (74-99) mg/dL Microbiology - Last 24 Hours (Table) 05/03/19 09:00 Gram Stain - Preliminary Sputum Sputum Culture - Preliminary Assessment and Plan Assessment: Dyspnea due to acute tracheobronchitis and underlying advanced pulmonary fibrosis. No evidence of pneumonia CT angiogram of the chest. Acute on chronic hypoxic respiratory failure secondary to above Idiopathic pulmonary fibrosis. Biopsy-proven at [facility] in 2013 Chronic back pain and pain syndrome Degenerative joint disease Hypertension Hyperlipidemia History of nephrolithiasis DVT prophylaxis with Levaquin subcu Plan: Patient will be continued on DuoNeb's and Symbicort as well as steroids. P atient refuses IV steroids and is currently maintained on prednisone 5 mg daily. Continue with empiric antibiotics due to possible immunosuppression. Currently on Levaquin and Zosyn. Follow culture reports. Continue the pain management and further recommendations based on the clinical course. Prognosis is guarded. Pulmonary is on board. Time with Patient: Greater than 30
[2019-05-05] MEDS: MORPHINE SULFATE IR 15 MG TABLET PO PRN ×2 (03:56→15:24)
[2019-05-05] MEDS: SODIUM CHLORIDE 0.9% 1,000 ML IV SCH (05:11)
[2019-05-05 07:06] LABS: Glucose,Whole Blood 80 mg/dL (75-99)
[2019-05-05] MEDS: SYMBICORT 160-4.5 MCG INHALER INHALATION SCH ×2 (07:11→20:24)
[2019-05-05] MEDS: IPRATROPIUM-ALBUTEROL 3 ML NEB INHALATION SCH ×4 (07:11→20:24)
[2019-05-05 07:21] LABS: Basophils % (A) 0 %; Eosinophils # (A) 0.2 k/uL (0-0.7); Eosinophils % (A) 3 %; HCT 40.6 % (39.0-53.0); Hypochromasia Slight; Lymphocytes # (A) 1.1 k/uL (1.0-4.8); Lymphocytes % (A) 19 %; MCH 26.5 pg (25.0-35.0); MCV 82.8 fL (80.0-100.0); Mean Platelet Volume 6.5; Monocytes # (A) 0.4 k/uL (0-1.0); Monocytes % (A) 7 %; Neutrophils # (A) 3.9 k/uL (1.3-7.7); Neutrophils % (A) 68 %; Platelet Count 240 k/uL (150-450); RBC 4.91 m/uL (4.30-5.90); RDW 15.3 % (11.5-15.5); WBC 5.7 k/uL (3.8-10.6)
[2019-05-05 07:33] LABS: African American GFR (CKD) >90 (>60 ml/min/1.73 sqM); Anion Gap 8 mmol/L; Blood Urea Nitrogen 13 mg/dL (9-20); Carbon Dioxide 29 mmol/L (22-30); Chloride 104 mmol/L (98-107); Glucose 77 mg/dL (74-99); Sodium 141 mmol/L (137-145)
[2019-05-05] MEDS: GABAPENTIN 300 MG CAP PO SCH ×3 (08:11→20:41)
[2019-05-05] MEDS: METOPROLOL SUCCINATE (ER) 50 MG TAB.ER.24H PO SCH (08:11)
[2019-05-05] MEDS: MORPHINE SULFATE ER 60 MG TABLET PO SCH ×2 (08:11→20:41)
[2019-05-05] MEDS: ASPIRIN 81 MG PO SCH (08:12)
[2019-05-05] MEDS: PANTOPRAZOLE 40 MG TABLET PO SCH (08:12)
[2019-05-05] MEDS: ENOXAPARIN 40 MG/0.4 ML SYRINGE SQ SCH (08:13)
[2019-05-05] MEDS: PIPERACILLIN-TAZOBACTAM 3.375 GM in SODIUM CHLORIDE 0.9% 100 ML IVPB SCH ×2 (08:13→17:09)
[2019-05-05] MEDS: predniSONE 5 MG TAB PO SCH (08:13)
[2019-05-05] MEDS: guaiFENesin 600 MG TABLET.ER PO SCH ×3 (11:06→20:43)
[2019-05-05] MEDS: HYDROcodone/APAP 5-325MG 1 EACH TAB PO PRN (11:09)
--- NOTE | 2019-05-05 12:08 | P.PN ---
Subjective Progress Note Date: 05/05/19 Principal diagnosis: Cough, dyspnea, chills This is a 54-year-old white male patient with past medical history of biopsy- proven idiopathic pulmonary fibrosis/hypersensitivity pneumonitis, chronic hypoxic respiratory failure secondary to severe interstitial lung disease, history of posterior reversible encephalopathy syndrome, hypertension, hyperlipidemia. Patient follows with Dr. Larsen the pulmonary clinic. He recently had upper respiratory infection, however did not seek any medical treatment, he reports his shortness of breath was progressively worse, and yesterday patient felt like passing out twice from being so short of breath. Initially there was no cough or congestion, today he reports some cough and some phlegm production with greenish sputum. He reports chills. Chest x-ray was taken in the emergency department that showed advanced pulmonary fibrosis with no change compared with the last exam from 04/21/2019, patient has been afebrile, and with dynamically stable, currently on 3 L of oxygen with a pulse ox of 93%. Evidence of leukocytosis on the labs, white blood cell count was 6.1, hemoglobin of 13.3, d-dimer was 0.76, electrolytes and renal profile were unremarkable, troponin proBNP were within normal limits, chest CTA was completed showing no evidence of pulmonary embolism, advanced pulmonary fibrosis, mediastinal and bronchial adenopathy unchanged in comparison to previous CT chest in December 2018. he was started on IV steroids, nebulized bronchodilators, and empiric antibiotics in the form of Rocephin and Zithromax On 05/03/2019 patient seen in follow-up on medical surgical floor. He is resting quietly in bed, he states his breathing is about the same, he does not feel significant improvements, occasional cough, with production of greenish sputum, sputum culture has not been sent yet, we switched the patient's antibiotics to Levaquin and Zosyn yesterday for acute bronchitis, was no clear- cut evidence of pneumonia on the CTA chest, but in view of patient's chronic immunosuppression and extensive pulmonary fibrosis we will continue with empiric antibiotics. And continues to decline IV steroids, he states , he is in the ho spital the staff tries to give him a steroids, and he states that on make a significant difference in terms of improving his breathing but cause agitation, anxiety, and he would like to just continue with his maintenance dose of 5 mg prednisone at this time. On 05/04/2019 patient seen in follow-up on medical surgical floor. He states he does not feel much improvement in terms of the way he is feeling, he states he still has quite dyspneic with exertion, has a cough with production of thick gre en sputum. He is admitted to chest pain with coughing. No fever or chills, patient is on 1 L of oxygen with a pulse ox of 95%, afebrile, hemodynamically stable, lung sounds reveal coarse crackles over bilateral posterior lower lobes. Antibiotic coverage with Zosyn and Levaquin. Sputum culture showed rare epithelial cells, and rare budding yeast, final cultures pending. On 05/05/2019 patient seen in follow-up on medical surgical floor. He states he feels some improvement with his breathing today, last night he coughed up large amount of thick green sputum, and since then the discomfort in his right upper chest has significantly improved, he states he is breathing easier today, room air pulse ox is 91%, he is afebrile, lung sounds reveal coarse diffuse crackles particularly at the lower bases. Today's labs have been reviewed, and are all within normal limits. We'll continue with the Levaquin and Zosyn, and is on maintenance dose of prednisone, and nebulized bronchodilators. Sputum culture was positive for Keily albicans only. Objective - Vital Signs Vital signs: Vital Signs Temp 97.4 F L 05/05/19 07:00 Pulse 86 05/05/19 07:00 Resp 16 05/05/19 08:22 BP 100/67 05/05/19 07:00 Pulse Ox 91 L 05/05/19 07:00 Intake & Output 05/04/19 05/05/19 05/05/19 18:59 06:59 18:59 Intake Total 1100 Balance 1100 Intake: Intake, IV Titration 100 Amount Piperacillin-Tazobactam 3 100 .375 gm In Sodium Chloride 0.9% 100 ml @ 25 mls/hr IVPB Q8HR [facility] Rx# :[id number] Oral 1000 Other: Voiding Method Toilet # Voids 3 - Exam GENERAL EXAM: Alert, pleasant, 54-year-old white male, appears generally weak, comfortable in no apparent distress. HEAD: Normocephalic/atraumatic. EYES: Normal reaction of pupils, equal size. Conjunctiva pink, sclera white. NOSE: Clear with pink turbinates. THROAT: No erythema or exudates. NECK: No masses, no JVD, no thyroid enlargement, no adenopathy. CHEST: No chest wall deformity. Symmetrical expansion. LUNGS: Equal air entry with coarse inspiratory crackles at bilateral lower lungs CVS: Regular rate and rhythm, normal S1 and S2, no gallops, no murmurs, no rubs ABDOMEN: Soft, nontender. No hepatosplenomegaly, normal bowel sounds, no g uarding or rigidity. EXTREMITIES: No clubbing, no edema, no cyanosis, 2+ pulses and upper and lower extremities. MUSCULOSKELETAL: Muscle strength and tone normal. SPINE: No scoliosis or deformity SKIN: No rashes CENTRAL NERVOUS SYSTEM: Alert and oriented -3. No focal deficits, tone is normal in all 4 extremities. PSYCHIATRIC: Alert and oriented -3. Appropriate affect. Intact judgment and insight. - Labs CBC & Chem 7: 05/05/19 06:51 05/05/19 06:51 Labs: Microbiology - Last 24 Hours (Table) 05/03/19 09:00 Gram Stain - Final Sputum Sputum Culture - Final Keily albicans Assessment and Plan Plan: Assessment #1. Dyspnea related to possibility of tracheobronchitis, chest x-ray and CTA chest were reviewed, no evidence of pulmonary embolism, stable extensive pul monary fibrosis, with stable mediastinal adenopathy, no clear evidence of pneumonia. We will cover with empiric antibiotics anyway, patient has extensive structural lung disease, in addition to being chronically immunocompromised related to long-term steroid use #2. History of idiopathic pulmonary fibrosis/per sensitivity pneumonitis, biopsy-proven at the [facility] in 2013 from the right lung #3. Acute on chronic hypoxemic respiratory failure, related to possibility of a pulmonary infection #4. Chronic back pain #5. Hypertension #6. Hypercholesterolemia #7. History of posterior reversible encephalopathy syndrome, recovered Plan: Continue encouraging deep breathing and coughing, Mucinex, patient is starting to feel better, breathing easier, was able to expectorate green mucus, and he states his chest discomfort is better on today's exam, afebrile, presented act ivity as tolerated. Continue breathing treatments, and maintenance dose of prednisone. Today we had offered the patient an anti-depressant, as it seems he is feeling very depressed, patient states he is just not feeling well right now. I performed a history & physical examination of the patient and discussed their management with my nurse practitioner, Smita Lord. I reviewed the nurse practitioner's note and agree with the documented findings and plan of care. Lung sounds are positive for coarse crackles at bilateral posterior lower bases. The findings and the impression was discussed with the patient. I attest to the documentation by the nurse practitioner. Time with Patient: Less than 30
[2019-05-05] MEDS: LEVOFLOXACIN 500MG-D5W PMX 500 MG in DEXTROSE/WATER 1 100ML.BAG IVPB SCH (15:25)
[2019-05-05] MEDS: TEMAZEPAM 15 MG CAP PO PRN (20:41)
[2019-05-06] MEDS: PIPERACILLIN-TAZOBACTAM 3.375 GM in SODIUM CHLORIDE 0.9% 100 ML IVPB SCH ×2 (00:24→08:17)
[2019-05-06] MEDS: MORPHINE SULFATE IR 15 MG TABLET PO PRN (03:28)
[2019-05-06] MEDS: HYDROcodone/APAP 5-325MG 1 EACH TAB PO PRN (06:03)
[2019-05-06] MEDS: SODIUM CHLORIDE 0.9% 1,000 ML IV SCH (06:09)
[2019-05-06 07:45] VITALS: BP 107/73; PULSE 88; RESP 17; TEMP 97.5
[2019-05-06] MEDS: SYMBICORT 160-4.5 MCG INHALER INHALATION SCH (07:53)
[2019-05-06] MEDS: IPRATROPIUM-ALBUTEROL 3 ML NEB INHALATION SCH (07:54)
[2019-05-06] MEDS: ENOXAPARIN 40 MG/0.4 ML SYRINGE SQ SCH (08:19)
[2019-05-06] MEDS: GABAPENTIN 300 MG CAP PO SCH (08:20)
[2019-05-06] MEDS: METOPROLOL SUCCINATE (ER) 50 MG TAB.ER.24H PO SCH (08:20)
[2019-05-06] MEDS: MORPHINE SULFATE ER 60 MG TABLET PO SCH (08:20)
[2019-05-06] MEDS: PANTOPRAZOLE 40 MG TABLET PO SCH (08:20)
[2019-05-06] MEDS: ASPIRIN 81 MG PO SCH (08:20)
[2019-05-06] MEDS: predniSONE 5 MG TAB PO SCH (08:21)
[2019-05-06] MEDS: guaiFENesin 600 MG TABLET.ER PO SCH (08:21)
[2019-05-06 08:31] LABS: Basophils % (A) 0 %; Eosinophils # (A) 0.2 k/uL (0-0.7); Eosinophils % (A) 3 %; HCT 41.4 % (39.0-53.0); HGB 13.2 gm/dL (13.0-17.5); Lymphocytes % (A) 18 %; MCH 26.5 pg (25.0-35.0); MCHC 31.9 g/dL (31.0-37.0); MCV 83.2 fL (80.0-100.0); Mean Platelet Volume 6.3; Monocytes # (A) 0.4 k/uL (0-1.0); Monocytes % (A) 7 %; Neutrophils # (A) 3.7 k/uL (1.3-7.7); Neutrophils % (A) 70 %; Platelet Count 252 k/uL (150-450); RBC 4.98 m/uL (4.30-5.90); WBC 5.3 k/uL (3.8-10.6)
[2019-05-06 09:03] LABS: African American GFR (CKD) >90 (>60 ml/min/1.73 sqM); Anion Gap 9 mmol/L; Blood Urea Nitrogen 13 mg/dL (9-20); Calcium 9.1 mg/dL (8.4-10.2); Carbon Dioxide 27 mmol/L (22-30); Chloride 105 mmol/L (98-107); Glucose 76 mg/dL (74-99); Potassium 4.2 mmol/L (3.5-5.1); Sodium 141 mmol/L (137-145)
[2019-05-06 10:03] VITALS: BMI 24.3
--- NOTE | 2019-05-06 10:19 | P.PN ---
Subjective Progress Note Date: 05/06/19 Principal diagnosis: Cough, dyspnea, chills This is a 54-year-old white male patient with past medical history of biopsy- proven idiopathic pulmonary fibrosis/hypersensitivity pneumonitis, chronic hypoxic respiratory failure secondary to severe interstitial lung disease, history of posterior reversible encephalopathy syndrome, hypertension, hyperlipidemia. Patient follows with Dr. Larsen the pulmonary clinic. He recently had upper respiratory infection, however did not seek any medical treatment, he reports his shortness of breath was progressively worse, and yesterday patient felt like passing out twice from being so short of breath. Initially there was no cough or congestion, today he reports some cough and some phlegm production with greenish sputum. He reports chills. Chest x-ray was taken in the emergency department that showed advanced pulmonary fibrosis with no change compared with the last exam from 04/21/2019, patient has been afebrile, and with dynamically stable, currently on 3 L of oxygen with a pulse ox of 93%. Evidence of leukocytosis on the labs, white blood cell count was 6.1, hemoglobin of 13.3, d-dimer was 0.76, electrolytes and renal profile were unremarkable, troponin proBNP were within normal limits, chest CTA was completed showing no evidence of pulmonary embolism, advanced pulmonary fibrosis, mediastinal and bronchial adenopathy unchanged in comparison to previous CT chest in December 2018. he was started on IV steroids, nebulized bronchodilators, and empiric antibiotics in the form of Rocephin and Zithromax On 05/03/2019 patient seen in follow-up on medical surgical floor. He is resting quietly in bed, he states his breathing is about the same, he does not feel significant improvements, occasional cough, with production of greenish sputum, sputum culture has not been sent yet, we switched the patient's antibiotics to Levaquin and Zosyn yesterday for acute bronchitis, was no clear- cut evidence of pneumonia on the CTA chest, but in view of patient's chronic immunosuppression and extensive pulmonary fibrosis we will continue with empiric antibiotics. And continues to decline IV steroids, he states , he is in the ho spital the staff tries to give him a steroids, and he states that on make a significant difference in terms of improving his breathing but cause agitation, anxiety, and he would like to just continue with his maintenance dose of 5 mg prednisone at this time. On 05/04/2019 patient seen in follow-up on medical surgical floor. He states he does not feel much improvement in terms of the way he is feeling, he states he still has quite dyspneic with exertion, has a cough with production of thick gre en sputum. He is admitted to chest pain with coughing. No fever or chills, patient is on 1 L of oxygen with a pulse ox of 95%, afebrile, hemodynamically stable, lung sounds reveal coarse crackles over bilateral posterior lower lobes. Antibiotic coverage with Zosyn and Levaquin. Sputum culture showed rare epithelial cells, and rare budding yeast, final cultures pending. On 05/05/2019 patient seen in follow-up on medical surgical floor. He states he feels some improvement with his breathing today, last night he coughed up large amount of thick green sputum, and since then the discomfort in his right upper chest has significantly improved, he states he is breathing easier today, room air pulse ox is 91%, he is afebrile, lung sounds reveal coarse diffuse crackles particularly at the lower bases. Today's labs have been reviewed, and are all within normal limits. We'll continue with the Levaquin and Zosyn, and is on maintenance dose of prednisone, and nebulized bronchodilators. Sputum culture was positive for Keily albicans only. On 05/06/2019 he was seen again in follow-up on medical surgical floor. He continues to improve, he states his cough has significantly subsided, no chest pain, but a signs are stable, no fever or chills. Lung sounds are positive for less prominent crackles bilaterally. Patient is on room air, today's lab work has been reviewed, showing CBC and BMP within normal limits. Urine culture showed no growth other than Keily albicans, is likely contamination from oral carmen. Patient is requesting to go home today. From pulmonary perspective patient is stable for discharge home today. Objective - Vital Signs Vital signs: Vital Signs Temp 97.5 F L 05/06/19 07:24 Pulse 88 05/06/19 07:24 Resp 17 05/06/19 07:24 BP 107/73 05/06/19 07:24 Pulse Ox 93 L 05/06/19 07:24 Intake & Output 05/05/19 05/06/19 05/06/19 18:59 06:59 18:59 Weight 77.111 kg Other: Voiding Method Toilet Toilet Toilet # Voids 2 - Exam GENERAL EXAM: Alert, pleasant, 54-year-old white male, appears generally weak, comfortable in no apparent distress. HEAD: Normocephalic/atraumatic. EYES: Normal reaction of pupils, equal size. Conjunctiva pink, sclera white. NOSE: Clear with pink turbinates. THROAT: No erythema or exudates. NECK: No masses, no JVD, no thyroid enlargement, no adenopathy. CHEST: No chest wall deformity. Symmetrical expansion. LUNGS: Equal air entry with coarse inspiratory crackles at bilateral lower lungs CVS: Regular rate and rhythm, normal S1 and S2, no gallops, no murmurs, no rubs ABDOMEN: Soft, nontender. No hepatosplenomegaly, normal bowel sounds, no guarding or rigidity. EXTREMITIES: No clubbing, no edema, no cyanosis, 2+ pulses and upper and lower extremities. MUSCULOSKELETAL: Muscle strength and tone normal. SPINE: No scoliosis or deformity SKIN: No rashes CENTRAL NERVOUS SYSTEM: Alert and oriented -3. No focal deficits, tone is normal in all 4 extremities. PSYCHIATRIC: Alert and oriented -3. Appropriate affect. Intact judgment and insight. - Labs CBC & Chem 7: 05/06/19 06:46 05/06/19 06:46 Labs: Microbiology - Last 24 Hours (Table) 05/03/19 09:00 Gram Stain - Final Sputum Sputum Culture - Final Keily albicans Assessment and Plan Plan: Assessment #1. Dyspnea related to possibility of tracheobronchitis, chest x-ray and CTA chest were reviewed, no evidence of pulmonary embolism, stable extensive pulmonary fibrosis, with stable mediastinal adenopathy, no clear evidence of pneumonia. We will cover with empiric antibiotics anyway, patient has extensive structural lung disease, in addition to being chronically immunocompromised related to long-term steroid use #2. History of idiopathic pulmonary fibrosis/per sensitivity pneumonitis, biopsy-proven at the [facility] in 2013 from the right lung #3. Acute on chronic hypoxemic respiratory failure, related to possibility of a pulmonary infection #4. Chronic back pain #5. Hypertension #6. Hypercholesterolemia #7. History of posterior reversible encephalopathy syndrome, recovered Plan: Patient is stable from pulmonary perspective, he he is breathing easier, improving, less coughing, no phlegm production, no chest pain. Vital signs are stable, no fever or chills, from pulmonary perspective patient is stable for discharge home today on 5 day course of oral Levaquin, he can resume his maintenance dose of prednisone 5 mg daily, patient can follow up with Dr. Larsen in the office in 10-14 days. I performed a history & physical examination of the patient and discussed their management with my nurse practitioner, Smita Lord. I reviewed the nurse practitioner's note and agree with the documented findings and plan of care. Lung sounds are positive for coarse crackles at bilateral posterior lower bases. The findings and the impression was discussed with the patient. I attest to the documentation by the nurse practitioner. Time with Patient: Less than 30
--- NOTE | 2019-05-06 14:09 | P.DS ---
Providers Date of admission: 05/01/19 20:04 Expected date of discharge: 05/06/19 Attending physician: Angelo Ramsey Consults: 05/01/19 20:04 Consult Physician Routine Consulting Provider: Naima Oliveira Reason/Comments: known Do you want consulting provider notified?: Yes Primary care physician: Naima Oliveira [facility] Course: Final diagnosis Advanced pulmonary fibrosis Dyspnea due to acute tracheobronchitis Acute on chronic hypoxic respiratory failure secondary to advanced pulmonary fibrosis Chronic back pain and pain syndrome Idiopathic pulmonary fibrosis Degenerative joint disease Hypertension Hyperlipidemia History of nephrolithiasis Discharge disposition The patient is being discharged in a stable condition with guarded prognosis to home and will follow-up with Dr. Larsen in 10-14 days. Total time taken is 30 minutes. Short course of oral antibiotics was prescribed and patient will continue with his prednisone prescription at home. History of present illness This is a 54-year-old male who was admitted with dyspnea, shortness of breath, and with a history of idiopathic pulmonary fibrosis. He was being closely followed by Dr. Larsen and also see him in the outpatient setting within the next 2 weeks. Patient will continue oral course of antibiotics and continue with his prednisone dose at home. Patient is currently stable with much improvement. Patient is being discharged in stable condition with guarded prognosis. Patient states that his shortness of breath has gotten better. Patient denies any chest pain, palpitations, or fevers at this time. Patient is eager to be discharged home as he feels better and has to get his daughter. On exam vital signs are stable. Cardio S1 and S2 heard. Respiratory lung sounds diminished with some bilateral diffuse fine crackles noted on exam. Abdomen is soft and non-tender. Nervous system shows no focal deficits and his gait is steady. Please refer to the medication reconciliation sheet for list of medications. Patient Condition at Discharge: Fair Plan - Discharge Summary Discharge Rx Participant: Yes New Discharge Prescriptions: New Levofloxacin [Levaquin] 500 mg PO DAILY 5 Days #5 tab Continue Aspirin 81 mg PO DAILY predniSONE 5 mg PO DAILY Metoprolol Succinate (ER) [Toprol XL] 50 mg PO DAILY Docusate [Colace] 100 mg PO DAILY PRN PRN Reason: Constipation Gabapentin 600 mg PO TID Morphine Sulfate ER [Ms Contin] 60 mg PO BID #1 tablet Albuterol Inhaler [Ventolin Hfa Inhaler] 1 - 2 puff INHALATION Q6HR PRN #1 inhaler PRN Reason: Shortness Of Breath Or Wheezing Morphine Sulfate Ir [MSIR] 15 mg PO BID PRN PRN Reason: Breakthrough Pain Discharge Medication List Aspirin 81 mg PO DAILY 05/04/15 [History] Docusate [Colace] 100 mg PO DAILY PRN 01/09/19 [History] Gabapentin 600 mg PO TID 01/09/19 [History] Metoprolol Succinate (ER) [Toprol XL] 50 mg PO DAILY 01/09/19 [History] predniSONE 5 mg PO DAILY 01/09/19 [History] Morphine Sulfate ER [Ms Contin] 60 mg PO BID #1 tablet 01/10/19 [Rx] Albuterol Inhaler [Ventolin Hfa Inhaler] 1 - 2 puff INHALATION Q6HR PRN #1 inhaler 03/09/19 [Rx] Morphine Sulfate Ir [MSIR] 15 mg PO BID PRN 05/01/19 [History] Levofloxacin [Levaquin] 500 mg PO DAILY 5 Days #5 tab 05/06/19 [Rx] Follow up Appointment(s)/Referral(s): aNima Oliveira MD [Primary Care Provider] - 06/08/19 10:00 am Patient Instructions/Handouts: COPD (Chronic Obstructive Pulmonary Disease) (DC) Activity/Diet/Wound Care/Special Instructions: activity limited until follow up continue current medications as discussed with Dr. Oliveira. Follow up with Dr. Oliveira in one week continue current diet Discharge Disposition: HOME SELF-CARE
[2019-05-06] MEDS ORDERED: LEVOFLOXACIN 500 MG TAB PO SCH (15:00)
== END 2019-05-06 11:42 | disposition home or self-care (01) | DRG 202 ==
LOC: EC 18:54 → 4SSUR 20:04
PROVIDERS: ADMIT Hospitalist; ATTEND Hospitalist
DX: J20.9 Acute bronchitis, unspecified (principal); J96.21 Acute and chronic respiratory failure with hypoxia; J67.9 Hypersensitivity pneumonitis due to unspecified organic dust; J84.112 Idiopathic pulmonary fibrosis; D89.9 Disorder involving the immune mechanism, unspecified; I11.0 Hypertensive heart disease with heart failure; I50.9 Heart failure, unspecified; F41.9 Anxiety disorder, unspecified; G47.00 Insomnia, unspecified; K59.00 Constipation, unspecified; G89.4 Chronic pain syndrome; E78.00 Pure hypercholesterolemia, unspecified; M54.9 Dorsalgia, unspecified; E78.5 Hyperlipidemia, unspecified; M19.90 Unspecified osteoarthritis, unspecified site; Z99.81 Dependence on supplemental oxygen; Z79.82 Long term (current) use of aspirin; Z79.52 Long term (current) use of systemic steroids; Z79.891 Long term (current) use of opiate analgesic; Z79.899 Other long term (current) drug therapy; Z87.01 Personal history of pneumonia (recurrent); Z87.891 Personal history of nicotine dependence; Z87.442 Personal history of urinary calculi; Z86.73 Personal history of transient ischemic attack (TIA), and cerebral infarction without residual deficits; Z82.49 Family history of ischemic heart disease and other diseases of the circulatory system; Z80.9 Family history of malignant neoplasm, unspecified; Z82.61 Family history of arthritis; Z82.0 Family history of epilepsy and other diseases of the nervous system
CPT/HCPCS: 36415; 71045; 71275; 80048; 80053; 83735; 83880; 84484; 85025; 85379; 85610; 85730; 87070; 87205; 93005; 94640; 94644; 94760; 96361; 96374; 99291

== ENCOUNTER 2019-06-02 17:57 | Inpatient (IN) | payer MEDICARE ==
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
[2019-06-02] MEDS ORDERED: SODIUM CHLORIDE 0.9% 500 ML 500 ML IV STA (18:50)
[2019-06-02] MEDS ORDERED: IPRATROPIUM-ALBUTEROL 3 ML NEB INHALATION STA (18:50)
[2019-06-02 19:07] LABS: Basophils % (A) 1 %; Eosinophils # (A) 0.1 k/uL (0-0.7); Eosinophils % (A) 2 %; HCT 40.4 % (39.0-53.0); HGB 13.2 gm/dL (13.0-17.5); Lymphocytes # (A) 0.9 k/uL (1.0-4.8); Lymphocytes % (A) 14 %; MCH 26.7 pg (25.0-35.0); MCHC 32.8 g/dL (31.0-37.0); MCV 81.4 fL (80.0-100.0); Monocytes # (A) 0.4 k/uL (0-1.0); Monocytes % (A) 7 %; Neutrophils # (A) 4.9 k/uL (1.3-7.7); Neutrophils % (A) 76 %; Platelet Count 256 k/uL (150-450); RBC 4.96 m/uL (4.30-5.90); RDW 14.9 % (11.5-15.5); WBC 6.4 k/uL (3.8-10.6)
[2019-06-02 19:13] LABS: Partial Thromboplastin Time 24.4 sec (22.0-30.0); Prothrombin Time 10.9 sec (9.0-12.0)
[2019-06-02 19:14] LABS: ALT 26 U/L (21-72); AST 39 U/L (17-59); African American GFR (CKD) >90 (>60 ml/min/1.73 sqM); Albumin 4.2 g/dL (3.5-5.0); Alkaline Phosphatase 90 U/L (38-126); Anion Gap 8 mmol/L; Blood Urea Nitrogen 14 mg/dL (9-20); Calcium 9.4 mg/dL (8.4-10.2); Carbon Dioxide 31 mmol/L (22-30); Chloride 100 mmol/L (98-107); Glucose 96 mg/dL (74-99); Non-African American GFR(CKD) >90 (>60 ml/min/1.73 sqM); Potassium 4.4 mmol/L (3.5-5.1); Sodium 139 mmol/L (137-145); Total Bilirubin 0.4 mg/dL (0.2-1.3); Total Protein 8.7 g/dL (6.3-8.2)
--- NOTE | 2019-06-02 19:25 | XR ---
EXAMINATION TYPE: XR chest 2V DATE OF EXAM: 06/02/2019 COMPARISON: 05/01/2019 HISTORY: Pulmonary fibrosis. Short of breath. TECHNIQUE: Frontal and lateral views of the chest are obtained. FINDINGS: There is extensive coarse interstitial density in both lungs. Heart size is normal. There are chest leads. There is no pleural effusion. There is poor inspiration. Bony thorax appears intact. IMPRESSION: Extensive interstitial pulmonary infiltrates consistent with advanced fibrosis. No signi ficant change. No new pulmonary density compared to old exam.
[2019-06-02] MEDS ORDERED: NALOXONE 0.4 MG/ML 1 ML VIAL IV PRN (20:23)
[2019-06-02] MEDS ORDERED: SODIUM CHLORIDE 0.9% 1,000 ML IV SCH (20:30)
[2019-06-02] MEDS ORDERED: DOCUSATE 100 MG CAP PO PRN (21:37)
[2019-06-02] MEDS: MORPHINE SULFATE ER 60 MG TABLET PO SCH (22:33)
[2019-06-02] MEDS: GABAPENTIN 300 MG CAP PO SCH (22:35)
[2019-06-03] MEDS: MORPHINE SULFATE IR 15 MG TABLET PO PRN ×2 (01:19→15:08)
[2019-06-03 01:43] VITALS: BMI 24.3
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
[2019-06-03] MEDS: MORPHINE SULFATE ER 60 MG TABLET PO SCH ×2 (09:10→21:43)
[2019-06-03] MEDS: GABAPENTIN 300 MG CAP PO SCH ×3 (09:10→21:43)
[2019-06-03] MEDS: predniSONE 5 MG TAB PO SCH (09:11)
[2019-06-03] MEDS: ASPIRIN 81 MG PO SCH (09:11)
[2019-06-03] MEDS: METOPROLOL SUCCINATE (ER) 100 MG TAB.ER.24H PO SCH (09:11)
[2019-06-03] MEDS ORDERED: TEMAZEPAM 15 MG CAP PO PRN (16:56)
[2019-06-03] MEDS ORDERED: ALPRAZolam 0.25 MG TAB PO PRN (16:56)
[2019-06-03] MEDS ORDERED: ACETAMINOPHEN TAB 500 MG TAB PO PRN (16:56)
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
[2019-06-03] MEDS: HEPARIN SODIUM,PORCINE 5,000 UNIT/ML 1 ML VIAL SQ SCH (21:43)
[2019-06-04 03:27] VITALS: RESP 16
[2019-06-04 03:44] VITALS: TEMP 98
[2019-06-04] MEDS: MORPHINE SULFATE IR 15 MG TABLET PO PRN (04:45)
[2019-06-04] MEDS: MORPHINE SULFATE ER 60 MG TABLET PO SCH (08:43)
[2019-06-04] MEDS: ASPIRIN 81 MG PO SCH (08:44)
[2019-06-04] MEDS: predniSONE 5 MG TAB PO SCH (08:44)
[2019-06-04] MEDS: GABAPENTIN 300 MG CAP PO SCH (08:44)
[2019-06-04] MEDS: METOPROLOL SUCCINATE (ER) 100 MG TAB.ER.24H PO SCH (08:44)
[2019-06-04] MEDS: HEPARIN SODIUM,PORCINE 5,000 UNIT/ML 1 ML VIAL SQ SCH (08:44)
[2019-06-04 08:47] VITALS: BP 101/68; PULSE 77
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
--- NOTE | 2019-06-05 01:14 | DS ---
DISCHARGE SUMMARY DATE OF SERVICE: 06/04/2019. FINAL DIAGNOSES: 1. Shortness of breath, possibly idiopathic pulmonary fibrosis acute exacerbation with acute hypoxic respiratory failure present on admission. 2. History of degenerative joint disease. 3. History of pneumonia. 4. History of back surgery. DISCHARGE DISPOSITION: The patient will be discharged in stable condition with guarded prognosis. HISTORY OF PRESENT ILLNESS: This 54-year-old gentleman with a past medical history of multiple medical problems with idiopathic pulmonary fibrosis, acute exacerbation. Patient treated symptomatically. Patient improved significantly. Dr. Ramirez saw the patient and cleared the patient for discharge. On exam, vitals are stable. Cardiovascular: S1, S2. Respirations: A few crackles. Nervous System: No focal deficits. DISCHARGE ADVICE AND MEDICATIONS: 1. Discharge diet is cardiac diet. 2. Activity limited until followup. 3. Follow up with Dr. Navarro 2-3 days. 4. Follow up with Dr. Oliveira in 1 week. DISCHARGE MEDICATIONS: 1. Aspirin 81 mg p.o. daily. 2. Colace 100 mg daily p.r.n. 3. MS-IR 15 mg b.i.d. p.r.n. 4. Neurontin 300 mg p.o. t.i.d. 5. Prednisone 5 mg p.o. daily. 6. Toprol-XL 100 mg p.o. daily. 7. Albuterol 1-2 puffs q.i.d. p.r.n. 8. MS Contin 60 mg p.o. b.i.d. Once again, the patient will be discharged in stable condition with guarded prognosis. MMODL / IJN: [id number] /
== END 2019-06-04 11:21 | disposition home or self-care (01) | DRG 196 ==
LOC: EC 17:57 → 4SSUR 20:05 → UNDODISIN 22:31
PROVIDERS: ADMIT Hospitalist; ATTEND Hospitalist
DX: J84.112 Idiopathic pulmonary fibrosis (principal); J96.21 Acute and chronic respiratory failure with hypoxia; T59.811A Toxic effect of smoke, accidental (unintentional), initial encounter; J70.5 Respiratory conditions due to smoke inhalation; M19.90 Unspecified osteoarthritis, unspecified site; G89.29 Other chronic pain; M54.9 Dorsalgia, unspecified; Z99.81 Dependence on supplemental oxygen; Z79.82 Long term (current) use of aspirin; Z79.52 Long term (current) use of systemic steroids; Z79.891 Long term (current) use of opiate analgesic; Z79.899 Other long term (current) drug therapy; Z87.01 Personal history of pneumonia (recurrent); Z87.442 Personal history of urinary calculi; Z98.890 Other specified postprocedural states; Y92.008 Other place in unspecified non-institutional (private) residence as the place of occurrence of the external cause; Z82.49 Family history of ischemic heart disease and other diseases of the circulatory system; Z82.0 Family history of epilepsy and other diseases of the nervous system; Z82.61 Family history of arthritis; Z83.49 Family history of other endocrine, nutritional and metabolic diseases; Z80.3 Family history of malignant neoplasm of breast
CPT/HCPCS: 36415; 71046; 80053; 83735; 84484; 85025; 85610; 85730; 93005; 94640; 99285

== ENCOUNTER 2019-08-26 15:18 | Observation (INO) | payer MEDICARE, OTHER ==
[2019-08-26] MEDS ORDERED: IPRATROPIUM-ALBUTEROL 3 ML NEB INHALATION STA (15:44)
[2019-08-26] MEDS ORDERED: SODIUM CHLORIDE 0.9% 1,000 ML IV STA (15:44)
--- NOTE | 2019-08-26 15:47 | ED ---
General Adult HPI - General Chief complaint: Shortness of Breath Stated complaint: SOB Time Seen by Provider: 08/26/19 15:31 Source: patient, RN notes reviewed Mode of arrival: wheelchair Limitations: no limitations - History of Present Illness Initial comments: Patient is a pleasant 64-year-old male presenting to the emergency department with difficulty in breathing. Onset of symptoms was 1 day ago. No cough. Patient did feel like he had a fever last night. No chest pain. No leg pain or leg swelling. Patient does have history of similar symptoms previously associated with his pulmonary fibrosis. Patient does see Dr. Oliveira for this. Patient requests no additional steroids on top of his baseline secondary to side effects. - Related Data Home Medications Medication Instructions Recorded Confirmed Aspirin 81 mg PO DAILY 05/04/15 06/02/19 Docusate [Colace] 100 mg PO DAILY PRN 01/09/19 06/02/19 predniSONE 5 mg PO DAILY 01/09/19 06/02/19 Morphine Sulfate Ir [MSIR] 15 mg PO BID PRN 05/01/19 06/02/19 Albuterol Inhaler [Ventolin Hfa 1 - 2 puff INHALATION RT-QID PRN 06/02/19 06/02/19 Inhaler] Gabapentin [Neurontin] 300 mg PO TID 06/02/19 06/02/19 Metoprolol Succinate [Toprol Xl] 100 mg PO DAILY 06/02/19 06/02/19 Previous Rx's Medication Instructions Recorded Morphine Sulfate ER [Ms Contin] 60 mg PO BID #1 tablet 01/10/19 Allergies Allergy/AdvReac Type Severity Reaction Status Date / Time No Known Allergies Allergy Verified 08/26/19 15:29 Review of Systems ROS Statement: Those systems with pertinent positive or pertinent negative responses have been documented in the HPI. ROS Other: All systems not noted in ROS Statement are negative. Constitutional: Denies: fever Eyes: Denies: eye pain ENT: Denies: ear pain Respiratory: Reports: dyspnea. Denies: cough Cardiovascular: Denies: chest pain Endocrine: Reports: fatigue Gastrointestinal: Denies: abdominal pain Genitourinary: Denies: dysuria Musculoskeletal: Denies: back pain Skin: Denies: rash Neurological: Denies: weakness Past Medical History Past Medical History: Musculoskeletal Disorder, Osteoarthritis (OA), Pneumonia Additional Past Medical History / Comment(s): Other HX: Right lunch biopsy 2018 and scrapping- pt had chest tube after surgery. Pt has chronic back pain and gets injections for this. Pt has had kidney stones in the past. Degenerative disk disease, ongoing pulmonary fibrosis. History of Any Multi-Drug Resistant Organisms: None Reported Past Surgical History: Back Surgery Additional Past Surgical History / Comment(s): R lung biopsy with chest tube, back pain injections. Past Anesthesia/Blood Transfusion Reactions: No Reported Reaction Past Psychological History: No Psychological Hx Reported Smoking Status: Never smoker Past Alcohol Use History: None Reported Past Drug Use History: None Reported - Past Family History Mother Additional Family Medical History / Comment(s): Migraines, hip replacement. Father Family Medical History: Cancer, Hypertension General Exam Limitations: no limitations General appearance: alert, in no apparent distress Head exam: Present: atraumatic Eye exam: Present: normal appearance, PERRL ENT exam: Present: normal oropharynx Neck exam: Present: normal inspection Respiratory exam: Present: wheezes, rhonchi Cardiovascular Exam: Present: regular rate, normal rhythm GI/Abdominal exam: Present: soft. Absent: tenderness Extremities exam: Present: normal inspection. Absent: pedal edema, calf tenderness Neurological exam: Present: alert Psychiatric exam: Present: normal affect, normal mood Skin exam: Present: normal color Course Vital Signs 08/26/19 08/26/19 08/26/19 15:27 16:11 16:21 Temperature 98.5 F Pulse Rate 104 H 111 H 104 H Respiratory 20 Rate Blood Pressure 110/65 O2 Sat by Pulse 94 L Oximetry EKG Findings - EKG Comments: EKG Findings:: Normal sinus rhythm 100. MN 154. QRS 80. QT 350. QTC 451. Normal axis. Nonspecific T waves. Normal QRS. Medical Decision Making - Medical Decision Making Patient reevaluated and updated. Case was discussed with practitioner Lc, who will admit covering for Dr. Ramsey was previously admitted this patient. Dr. Oliveira will be placed on consult. - Lab Data Result diagrams: 08/26/19 16:00 08/26/19 16:00 Lab Results 08/26/19 08/26/19 08/26/19 Range/Units 16:00 16:00 16:00 WBC 4.3 (3.8-10.6) k/uL RBC 5.01 (4.30-5.90) m/uL Hgb 13.4 (13.0-17.5) gm/dL Hct 41.1 (39.0-53.0) % MCV 81.9 (80.0-100.0) fL MCH 26.7 (25.0-35.0) pg MCHC 32.6 (31.0-37.0) g/dL RDW 14.8 (11.5-15.5) % Plt Count 228 (150-450) k/uL Neutrophils % 70 % Lymphocytes % 17 % Monocytes % 6 % Eosinophils % 1 % Basophils % 2 % Neutrophils # 3.0 (1.3-7.7) k/uL Lymphocytes # 0.7 L (1.0-4.8) k/uL Monocytes # 0.3 (0-1.0) k/uL Eosinophils # 0.1 (0-0.7) k/uL Basophils # 0.1 (0-0.2) k/uL Hypochromasia Slight PT 11.5 (9.0-12.0) sec INR 1.1 (<1.2) APTT 26.0 (22.0-30.0) sec Sodium 140 (137-145) mmol/L Potassium 4.4 (3.5-5.1) mmol/L Chloride 104 (98-107) mmol/L Carbon Dioxide 28 (22-30) mmol/L Anion Gap 8 mmol/L BUN 11 (9-20) mg/dL Creatinine 0.61 L (0.66-1.25) mg/dL Est GFR (CKD-EPI)AfAm >90 (>60 ml/min/1.73 sqM) Est GFR (CKD-EPI)NonAf >90 (>60 ml/min/1.73 sqM) Glucose 124 H (74-99) mg/dL Calcium 9.2 (8.4-10.2) mg/dL Total Bilirubin 0.6 (0.2-1.3) mg/dL AST 35 (17-59) U/L ALT 20 L (21-72) U/L Alkaline Phosphatase 100 (38-126) U/L Total Protein 8.8 H (6.3-8.2) g/dL Albumin 3.9 (3.5-5.0) g/dL - Radiology Data Radiology results: image reviewed (Chest x-ray shows severe pulmonary fibrosis) Disposition Clinical Impression: Pulmonary fibrosis, Dyspnea Disposition: ADMITTED IP TO THIS HOSP Is patient prescribed a controlled substance at d/c from ED?: No Referrals: None,Stated [Primary Care Provider] - 1-2 days Decision Time: 17:30
[2019-08-26 16:13] LABS: Basophils # (A) 0.1 k/uL (0-0.2); Basophils % (A) 2 %; Eosinophils # (A) 0.1 k/uL (0-0.7); Eosinophils % (A) 1 %; HCT 41.1 % (39.0-53.0); HGB 13.4 gm/dL (13.0-17.5); Hypochromasia Slight; Lymphocytes # (A) 0.7 k/uL (1.0-4.8); Lymphocytes % (A) 17 %; MCH 26.7 pg (25.0-35.0); MCHC 32.6 g/dL (31.0-37.0); MCV 81.9 fL (80.0-100.0); Mean Platelet Volume 5.2; Monocytes # (A) 0.3 k/uL (0-1.0); Monocytes % (A) 6 %; Neutrophils % (A) 70 %; Platelet Count 228 k/uL (150-450); RBC 5.01 m/uL (4.30-5.90); RDW 14.8 % (11.5-15.5); WBC 4.3 k/uL (3.8-10.6)
[2019-08-26 16:20] LABS: ALT 20 U/L (21-72); AST 35 U/L (17-59); African American GFR (CKD) >90 (>60 ml/min/1.73 sqM); Albumin 3.9 g/dL (3.5-5.0); Alkaline Phosphatase 100 U/L (38-126); Anion Gap 8 mmol/L; Blood Urea Nitrogen 11 mg/dL (9-20); Calcium 9.2 mg/dL (8.4-10.2); Carbon Dioxide 28 mmol/L (22-30); Chloride 104 mmol/L (98-107); Glucose 124 mg/dL (74-99); Non-African American GFR(CKD) >90 (>60 ml/min/1.73 sqM); Potassium 4.4 mmol/L (3.5-5.1); Sodium 140 mmol/L (137-145); Total Bilirubin 0.6 mg/dL (0.2-1.3); Total Protein 8.8 g/dL (6.3-8.2)
[2019-08-26 16:32] LABS: INR 1.1 (<1.2); Prothrombin Time 11.5 sec (9.0-12.0)
--- NOTE | 2019-08-26 16:40 | XR ---
EXAMINATION TYPE: XR chest 2V DATE OF EXAM: 08/26/2019 COMPARISON: 06/02/2019 HISTORY: Short of breath TECHNIQUE: Frontal and lateral views of the chest are obtained. FINDINGS: There is coarse pulmonary interstitial extensive infiltrates. Heart size is normal. There is no pleural effusion. Pulmonary vascularity is difficult to evaluate because of extensive lung dise ase. IMPRESSION: Advanced pulmonary fibrosis. No change compared to old exam. No heart failure seen.
[2019-08-26] MEDS ORDERED: IPRATROPIUM-ALBUTEROL 3 ML NEB INHALATION PRN (17:30)
[2019-08-26] MEDS ORDERED: MORPHINE SULFATE 4 MG/ML SYRINGE IVP STA (17:45)
[2019-08-26] MEDS: IPRATROPIUM-ALBUTEROL 3 ML NEB INHALATION SCH (19:32)
[2019-08-26] MEDS ORDERED: DOCUSATE 100 MG CAP PO PRN (19:47)
[2019-08-26] MEDS ORDERED: CYCLOBENZAPRINE 5 MG TAB PO PRN (19:47)
[2019-08-26] MEDS ORDERED: MORPHINE SULFATE IR 15 MG TABLET PO PRN (19:47)
[2019-08-26] MEDS: MORPHINE SULFATE ER 60 MG TABLET PO SCH (20:04)
[2019-08-26] MEDS: SODIUM CHLORIDE 0.9% 1,000 ML IV SCH (21:06)
[2019-08-26] MEDS: GABAPENTIN 300 MG CAP PO SCH (21:06)
[2019-08-27] MEDS: SODIUM CHLORIDE 0.9% 1,000 ML IV SCH (03:45)
[2019-08-27] MEDS: MORPHINE SULFATE ER 60 MG TABLET PO SCH (08:11)
[2019-08-27] MEDS: GABAPENTIN 300 MG CAP PO SCH (08:12)
[2019-08-27] MEDS: IPRATROPIUM-ALBUTEROL 3 ML NEB INHALATION SCH ×2 (08:22→11:38)
[2019-08-27 08:36] VITALS: BP 99/64; PULSE 74; RESP 16; TEMP 97.9
[2019-08-27] MEDS ORDERED: METOPROLOL SUCCINATE (ER) 100 MG TAB.ER.24H PO SCH (09:00)
[2019-08-27] MEDS ORDERED: METOPROLOL SUCCINATE (ER) 25 MG TAB.ER.24H PO SCH (09:00)
--- NOTE | 2019-08-27 16:56 | CONS ---
CONSULTATION PULMONARY/CRITICAL CARE CONSULTATION: DATE OF CONSULTATION: 08/27/2019 This is a 54-year-old male with a history of biopsy-proven idiopathic pulmonary fibrosis. He states that he took a new muscle relaxer given to him by Dr. Bobby, probably cyclobenzaprine/Flexeril, and after that, he became more short of breath. The patient states that he has chronic shortness of breath anyway from his underlying pulmonary fibrosis. The patient sees my partner Dr. Oliveira for his pulmonary fibrosis and is currently on albuterol inhaler and prednisone 5 mg a day. Anyway, the patient is no longer taking the cyclobenzaprine and feels back to baseline and would like to be discharged home. The patient denies other complaints including chest pain, chest tightness, coughing more than normal, fever, chills, phlegm production, GI issues such as nausea, vomiting, diarrhea, or any genitourinary complaints. HOME MEDICATIONS: Include aspirin, Colace, prednisone 5 mg a day, morphine sulfate, albuterol inhaler, Neurontin, Toprol-XL. ALLERGIES: Denied. MEDICAL HISTORY: Idiopathic pulmonary fibrosis proven by lung biopsy, chronic back pain, degenerative disk disease, kidney stones, DJD, pneumonia, and generalized muscle aches and pains. SURGICAL HISTORY: Includes back surgery, lung biopsy and pain injections for his back pain. SOCIAL HISTORY: Negative for tobacco, alcohol or illicit drug use. FAMILY HISTORY: Positive for father with cancer and hypertension. Mother with migraines and hip replacement. REVIEW OF SYSTEMS: CONSTITUTIONAL negative. NEUROLOGIC negative. HEENT negative. CARDIOVASCULAR negative. PULMONARY: Chronic shortness of breath on exertion and dry non-productive cough secondary to his idiopathic pulmonary fibrosis. GI negative. negative. RHEUMATOLOGIC negative. IMMUNOLOGIC negative. ENDOCRINOLOGIC negative. DERMATOLOGIC negative. PHYSICAL EXAMINATION: VITAL SIGNS: Current vital signs are reviewed. Temperature 97.9, heart rate 72, respiratory rate 16, blood pressure 99/64, pulse 75, 3 L saturation 98%. Appears in no acute distress HEENT examination is grossly unremarkable. Mucous membranes are moist. No oral lesions. NECK: Supple. Full range of motion. No adenopathy or thyromegaly. Neck veins are flat. CARDIOVASCULAR examination reveals regular rhythm and rate. Heart rate 75 beats per minute. S1, S2 normal. LUNGS: Reveal bibasilar crackles. There are no wheezes or rhonchi. He is restricted in his breathing. His crackles are Velcro in nature. ABDOMEN: Soft bowel sounds are heard. EXTREMITIES are intact. No cyanosis, clubbing, or edema. SKIN: Without rash. NEUROLOGIC examination is brief but nonfocal. LABS: Reviewed. CBC is completely normal. PT/INR PTT all normal. Electrolytes normal. Creatinine 0.61, glucose 124, ALT 20, total protein 8.8. Chest x-ray shows changes consistent with interstitial lung disease/pulmonary fibrosis. No change when compared to a prior x-ray done in May of this year. Medications are reviewed. ASSESSMENT: 1. Cyclobenzaprine/Flexeril induced respiratory difficulties/distress, currently improved and back to baseline. 2. History of biopsy-proven idiopathic pulmonary fibrosis. 3. History of osteoarthritis. 4. History of pneumonia. 5. History of chronic back pain. 6. History of degenerative disk disease. 7. History of kidney stones. PLAN: From my perspective the patient could be discharged home. No additional recommendations are made. We will continue to follow. He will follow up with Dr. Oliveira in the office. No additional recommendations are made at this time. We obviously told him to no longer take cyclobenzaprine/Flexeril which was given to him by his neurologist. MMODL / IJN: [id number] /
--- NOTE | 2019-08-27 18:02 | HP ---
HISTORY AND PHYSICAL HISTORY AND PHYSICAL/DISCHARGE SUMMARY: This is a combination history and physical and discharge summary. CHIEF COMPLAINT: Shortness of breath. HISTORY OF THE PRESENT ILLNESS: This is a 54-year-old gentleman with the past medical history of multiple medical problems including idiopathic pulmonary fibrosis with lung biopsy, history of DJD, history of back surgery being followed by Dr. Navarro and Dr. Oliveira in the outpatient setting is complaining of increasing shortness of breath. New muscle relaxant was recently added to the patient, which was the only change. No history of fever. The patient was treated with bronchodilators and other conservative line of management. Flexeril was held and Dr. Ramirez saw the patient. Patient is being planned to be discharged home at this time. There is no history of fever, rigors or chills. No history of headache, loss of consciousness, seizures, chest pain, palpitations, hematochezia or melena at this time. PAST MEDICAL HISTORY: Idiopathic pulmonary fibrosis, history of DJD, history of pneumonia, history of back surgery. MEDICATIONS: 1. Prior to admission: Home medications are: Prednisone 5 mg p.o. daily. 2. MS-IR 15 mg b.i.d. p.r.n. 3. MS Contin 60 mg p.o. b.i.d. 4. Toprol-XL 100 mg p.o. daily. 5. Gabapentin 600 mg p.o. daily. 6. Colace 100 mg daily p.r.n. 7. Aspirin 81 mg daily. 8. Albuterol 2 puffs q.i.d. p.r.n. ALLERGIES: None. FAMILY HISTORY: History of cancer, hypertension, migraine, hip replacement. SOCIAL HISTORY: No history of smoking. No history of alcohol intake. REVIEW OF SYSTEMS: ENT: No diminished vision. No diminished hearing. CARDIOVASCULAR: No angina or palpitations. RESPIRATIONS: As mentioned earlier. GI no nausea or vomiting. no dysuria. CENTRAL NERVOUS SYSTEM: No numbness or weakness. ALLERGY/IMMUNOLOGY: No asthma or hayfever. MUSCULOSKELETAL as mentioned earlier. HEMATOLOGY/ONCOLOGY: No history of anemia. ENDOCRINE: No history of diabetes or hypothyroidism. CONSTITUTIONAL: As mentioned earlier. DERMATOLOGY: Negative. RHEUMATOLOGY negative. PSYCHIATRY as mentioned earlier. PHYSICAL EXAMINATION: Alert and oriented times three. Pulse 74, blood pressure 99/64, respirations 16, temperature 97.9, pulse ox 98% on room air. HEENT: Conjunctivae normal. Oral mucosa moist. NECK is no jugular venous distention. No carotid bruit. No lymph node enlargement. CARDIOVASCULAR: S1, S2 muffled. No S3, no S4. RESPIRATORY: Breath sounds diminished in the bases. Bilateral scattered rhonchi and early inspiratory crackles also present. ABDOMEN: Soft, nontender. No mass palpable. LEGS: No edema. No swelling. NERVOUS SYSTEM: Higher functions as mentioned earlier. Moves all 4 limbs. No focal motor or sensory deficits. LYMPHATICS: No lymph nodes palpable in the neck, axillae or groin. SKIN: No ulcer, no rashes and no bleeding. JOINTS: No active deforming arthropathy. LABS: CBC within normal limits. Sodium 140, potassium 4.4 and ALT is 120. Glucose 124. ASSESSMENT: 1. Idiopathic pulmonary fibrosis, acute exacerbation. 2. Chronic pain syndrome. 3. Degenerative joint disease. 4. History of pneumonia. 5. History of right lung biopsy. 6. History of nephrolithiasis. 7. History of back surgery/degenerative joint disease. RECOMMENDATIONS AND DISCUSSION: In this 54-year-old gentleman who presented with multiple medical issues, at this time, the patient is evaluated by Pulmonary and the patient will be discharged home with the following advice and medications: 1. Diet is cardiac diet. 2. Activity limited until followup. 3. Follow up with Dr. Oliveira in 1 week. 4. Follow up with Dr. Navarro in 1-2 weeks. DISCHARGE MEDICATIONS: 1. Ecotrin 81 mg p.o. daily. 2. Colace 100 mg daily p.r.n. 3. Gabapentin 600 mg p.o. t.i.d. 4. MS Contin 60 mg p.o. b.i.d. 5. MS-IR 15 mg b.i.d. p.r.n. 6. Prednisone 5 mg p.o. daily. 7. Toprol-XL 100 mg p.o. daily. 8. Ventolin 1-2 puffs q.i.d. p.r.n. Once again, the patient is being discharged in stable condition with guarded prognosis. MMODL / IJN: [id number] /
== END 2019-08-27 12:53 | disposition home or self-care (01) ==
LOC: EC 15:18 → 4SSUR 17:30
PROVIDERS: ADMIT Hospitalist; ATTEND Hospitalist
DX: J84.112 Idiopathic pulmonary fibrosis (principal); R06.02 Shortness of breath; T48.1X5A Adverse effect of skeletal muscle relaxants [neuromuscular blocking agents], initial encounter; M19.90 Unspecified osteoarthritis, unspecified site; M47.9 Spondylosis, unspecified; G89.29 Other chronic pain; M54.9 Dorsalgia, unspecified; Z79.82 Long term (current) use of aspirin; Z79.52 Long term (current) use of systemic steroids; Z79.899 Other long term (current) drug therapy; Z79.891 Long term (current) use of opiate analgesic; Z87.442 Personal history of urinary calculi; Z87.01 Personal history of pneumonia (recurrent); Z82.49 Family history of ischemic heart disease and other diseases of the circulatory system; Z82.0 Family history of epilepsy and other diseases of the nervous system; Z80.9 Family history of malignant neoplasm, unspecified
CPT/HCPCS: 96374; 99285; 36415; 94640 ×2; 94760; 93005; 80053; 85025; 85610; 85730; 71046; G0378 ×2; J2270

== ENCOUNTER 2019-09-23 07:43 | Inpatient (IN) | payer MEDICARE, OTHER ==
[2019-09-23] MEDS ORDERED: IPRATROPIUM-ALBUTEROL 3 ML NEB INHALATION STA ×3 (07:55→09:41)
[2019-09-23] MEDS ORDERED: SODIUM CHLORIDE 0.9% 1,000 ML IV STA (07:55)
[2019-09-23] MEDS ORDERED: methylPREDNISolone SOD SUCCI 125 MG/2 ML VIAL IV STA (07:55)
--- NOTE | 2019-09-23 08:17 | ED ---
SOB HPI - General Chief Complaint: Shortness of Breath Stated Complaint: Sob Time Seen by Provider: 09/23/19 07:47 Source: patient, RN notes reviewed Mode of arrival: ambulatory Limitations: no limitations - History of Present Illness Initial Comments: This is a 54-year-old male with a history of pulmonary fibrosis who states the past 24 hours also is had shortness of breath refractory to his home medication. Fever cough no phlegm on the ordinary that also some nausea vomiting. He states he is not getting any relief from his home medications. No overt chest pain no other modifying factors other than that he has had some rhinorrhea. MD Complaint: shortness of breath - Related Data Home Medications Medication Instructions Recorded Confirmed Aspirin 81 mg PO DAILY 05/04/15 08/26/19 Docusate [Colace] 100 mg PO DAILY PRN 01/09/19 08/26/19 predniSONE 5 mg PO DAILY 01/09/19 08/26/19 Morphine Sulfate Ir [MSIR] 15 mg PO BID PRN 05/01/19 08/26/19 Albuterol Inhaler [Ventolin Hfa 1 - 2 puff INHALATION RT-QID PRN 06/02/19 08/26/19 Inhaler] Metoprolol Succinate [Toprol Xl] 100 mg PO DAILY 06/02/19 08/26/19 Gabapentin 600 mg PO TID 08/26/19 08/26/19 Morphine Sulfate ER [Ms Contin] 60 mg PO Q12H 08/26/19 08/26/19 Allergies Allergy/AdvReac Type Severity Reaction Status Date / Time No Known Allergies Allergy Verified 09/23/19 07:45 Review of Systems ROS Statement: Those systems with pertinent positive or pertinent negative responses have been documented in the HPI. ROS Other: All systems not noted in ROS Statement are negative. Past Medical History Past Medical History: Musculoskeletal Disorder, Osteoarthritis (OA), Pneumonia Additional Past Medical History / Comment(s): Other HX: Right lunch biopsy 2018 and scrapping- pt had chest tube after surgery. Pt has chronic back pain and gets injections for this. Pt has had kidney stones in the past. Degenerative disk disease, ongoing pulmonary fibrosis. History of Any Multi-Drug Resistant Organisms: None Reported Past Surgical History: Back Surgery Additional Past Surgical History / Comment(s): R lung biopsy with chest tube, back pain injections. Past Anesthesia/Blood Transfusion Reactions: No Reported Reaction Past Psychological History: No Psychological Hx Reported Smoking Status: Never smoker Past Alcohol Use History: None Reported Past Drug Use History: None Reported - Past Family History Mother Additional Family Medical History / Comment(s): Migraines, hip replacement. Father Family Medical History: Cancer, Hypertension General Exam - General Exam Comments Initial Comments: This is a well-developed asthenic appearing male who is awake alert oriented 3 Limitations: no limitations General appearance: alert, anxious, in distress Head exam: Present: atraumatic, normocephalic, normal inspection Eye exam: Present: normal appearance, PERRL, EOMI. Absent: scleral icterus, conjunctival injection, periorbital swelling ENT exam: Present: mucous membranes dry Neck exam: Present: normal inspection. Absent: tenderness, meningismus, lymphadenopathy Respiratory exam: Present: respiratory distress, wheezes (With basilar crepitus especially on the right), accessory muscle use, decreased breath sounds. Absent: rales, rhonchi, stridor Cardiovascular Exam: Present: regular rate, normal rhythm, normal heart sounds. Absent: systolic murmur, diastolic murmur, rubs, gallop, clicks GI/Abdominal exam: Present: soft, normal bowel sounds. Absent: distended, tenderness, guarding, rebound, rigid Extremities exam: Present: normal inspection, full ROM, normal capillary refill. Absent: tenderness, pedal edema, joint swelling, calf tenderness Back exam: Present: normal inspection Neurological exam: Present: alert, oriented X3, CN II-XII intact Psychiatric exam: Present: normal affect, normal mood Skin exam: Present: warm, dry, intact, normal color. Absent: rash Course Vital Signs 09/23/19 09/23/19 09/23/19 07:45 08:13 08:19 Temperature 97.4 F L Pulse Rate 82 77 Respiratory 20 22 Rate Blood Pressure 124/79 O2 Sat by Pulse 89 L Oximetry - Reevaluation(s) Reevaluation #1: 09/23/19 09:31 Reevaluation the patient after initial treatment reveals no improvement. Patient will continue with aggressive treatment. Medical Decision Making - Medical Decision Making Patient continues to demonstrate no improvement to treatment. He will be admitted for inpatient treatment. Case is discussed with Dr. Aguilera. Dr. Oliveira will be consulted - Lab Data Result diagrams: 09/23/19 08:20 09/23/19 08:20 Lab Results 09/23/19 09/23/19 09/23/19 Range/Units 08:20 08:20 08:20 WBC 5.2 (3.8-10.6) k/uL RBC 5.21 (4.30-5.90) m/uL Hgb 14.3 (13.0-17.5) gm/dL Hct 42.9 (39.0-53.0) % MCV 82.5 (80.0-100.0) fL MCH 27.4 (25.0-35.0) pg MCHC 33.3 (31.0-37.0) g/dL RDW 15.3 (11.5-15.5) % Plt Count 254 (150-450) k/uL Neutrophils % 73 % Lymphocytes % 14 % Monocytes % 6 % Eosinophils % 3 % Basophils % 0 % Neutrophils # 3.8 (1.3-7.7) k/uL Lymphocytes # 0.7 L (1.0-4.8) k/uL Monocytes # 0.3 (0-1.0) k/uL Eosinophils # 0.1 (0-0.7) k/uL Basophils # 0.0 (0-0.2) k/uL PT (9.0-12.0) sec INR (<1.2) APTT (22.0-30.0) sec Sodium 140 (137-145) mmol/L Potassium 4.4 (3.5-5.1) mmol/L Chloride 102 (98-107) mmol/L Carbon Dioxide 30 (22-30) mmol/L Anion Gap 8 mmol/L BUN 10 (9-20) mg/dL Creatinine 0.69 (0.66-1.25) mg/dL Est GFR (CKD-EPI)AfAm >90 (>60 ml/min/1.73 sqM) Est GFR (CKD-EPI)NonAf >90 (>60 ml/min/1.73 sqM) Glucose 126 H (74-99) mg/dL Calcium 9.3 (8.4-10.2) mg/dL Magnesium 2.0 (1.6-2.3) mg/dL Total Bilirubin 0.6 (0.2-1.3) mg/dL AST 29 (17-59) U/L ALT 20 L (21-72) U/L Alkaline Phosphatase 99 (38-126) U/L Creatine Kinase 48 L (55-170) U/L Troponin I (0.000-0.034) ng/mL NT-Pro-B Natriuret Pep 38 pg/mL Total Protein 8.9 H (6.3-8.2) g/dL Albumin 4.0 (3.5-5.0) g/dL Influenza Type A RNA (Not Detectd) Influenza Type B (PCR) (Not Detectd) 09/23/19 09/23/19 09/23/19 Range/Units 08:20 08:20 08:20 WBC (3.8-10.6) k/uL RBC (4.30-5.90) m/uL Hgb (13.0-17.5) gm/dL Hct (39.0-53.0) % MCV (80.0-100.0) fL MCH (25.0-35.0) pg MCHC (31.0-37.0) g/dL RDW (11.5-15.5) % Plt Count (150-450) k/uL Neutrophils % % Lymphocytes % % Monocytes % % Eosinophils % % Basophils % % Neutrophils # (1.3-7.7) k/uL Lymphocytes # (1.0-4.8) k/uL Monocytes # (0-1.0) k/uL Eosinophils # (0-0.7) k/uL Basophils # (0-0.2) k/uL PT 10.4 (9.0-12.0) sec INR 1.0 (<1.2) APTT 24.4 (22.0-30.0) sec Sodium (137-145) mmol/L Potassium (3.5-5.1) mmol/L Chloride (98-107) mmol/L Carbon Dioxide (22-30) mmol/L Anion Gap mmol/L BUN (9-20) mg/dL Creatinine (0.66-1.25) mg/dL Est GFR (CKD-EPI)AfAm (>60 ml/min/1.73 sqM) Est GFR (CKD-EPI)NonAf (>60 ml/min/1.73 sqM) Glucose (74-99) mg/dL Calcium (8.4-10.2) mg/dL Magnesium (1.6-2.3) mg/dL Total Bilirubin (0.2-1.3) mg/dL AST (17-59) U/L ALT (21-72) U/L Alkaline Phosphatase (38-126) U/L Creatine Kinase (55-170) U/L Troponin I <0.012 (0.000-0.034) ng/mL NT-Pro-B Natriuret Pep pg/mL Total Protein (6.3-8.2) g/dL Albumin (3.5-5.0) g/dL Influenza Type A RNA Not Detected (Not Detectd) Influenza Type B (PCR) Not Detected (Not Detectd) - EKG Data EKG shows normal: sinus rhythm (Sinus rhythm a 73. Interval 156 QRS 86 QT/QTC 3 76/414 possible left atrial enlargement nonspecific T-wave configuration) Critical Care Time Critical Care Time: Yes Critical Care Time: 31 minutes of critical care time which includes initial presentation with history physical labs x-rays multiple reevaluation the patient response to therapy review of old charting. Discussion with the admitting physician admission orders and documentation of the above Disposition Clinical Impression: Acute exacerbation of chronic obstructive pulmonary disease, Acute respiratory distress syndrome in adult, Hypoxemia, Pulmonary fibrosis, Failure of outpatient treatment Disposition: ADMITTED IP TO THIS HOSP Condition: Fair Referrals: Naima Oliveira MD [Primary Care Provider] - 1-2 days
[2019-09-23 08:30] LABS: Basophils % (A) 0 %; Eosinophils # (A) 0.1 k/uL (0-0.7); Eosinophils % (A) 3 %; HCT 42.9 % (39.0-53.0); HGB 14.3 gm/dL (13.0-17.5); Lymphocytes # (A) 0.7 k/uL (1.0-4.8); Lymphocytes % (A) 14 %; MCH 27.4 pg (25.0-35.0); MCHC 33.3 g/dL (31.0-37.0); MCV 82.5 fL (80.0-100.0); Mean Platelet Volume 5.9; Monocytes # (A) 0.3 k/uL (0-1.0); Monocytes % (A) 6 %; Neutrophils # (A) 3.8 k/uL (1.3-7.7); Neutrophils % (A) 73 %; Platelet Count 254 k/uL (150-450); RBC 5.21 m/uL (4.30-5.90); RDW 15.3 % (11.5-15.5); WBC 5.2 k/uL (3.8-10.6)
--- NOTE | 2019-09-23 08:32 | XR ---
EXAMINATION TYPE: XR chest 2V DATE OF EXAM: 09/23/2019 COMPARISON: Chest x-ray August 26, 2019. CTA chest May 01, 2019. HISTORY: Shortness of breath for one day. TECHNIQUE: Frontal and lateral views of the chest are obtained. FINDINGS: There is persistent low lung volumes and fairly advanced reticular interstitial fibrotic ch anges bilaterally most prominent in the bases . There is no definitive new focal air space opacity, p leural effusion, or pneumothorax seen. The cardiac silhouette size remains within normal limits. T he osseous structures are intact. IMPRESSION: Fairly advanced bilateral pulmonary fibrotic changes suspicious for underlying IPF. No n ew acute pulmonary process is evident.
[2019-09-23 08:38] LABS: Partial Thromboplastin Time 24.4 sec (22.0-30.0); Prothrombin Time 10.4 sec (9.0-12.0)
[2019-09-23 08:42] LABS: ALT 20 U/L (21-72); AST 29 U/L (17-59); African American GFR (CKD) >90 (>60 ml/min/1.73 sqM); Alkaline Phosphatase 99 U/L (38-126); Anion Gap 8 mmol/L; Blood Urea Nitrogen 10 mg/dL (9-20); Calcium 9.3 mg/dL (8.4-10.2); Carbon Dioxide 30 mmol/L (22-30); Chloride 102 mmol/L (98-107); Creatine Kinase 48 U/L (55-170); Glucose 126 mg/dL (74-99); Non-African American GFR(CKD) >90 (>60 ml/min/1.73 sqM); Potassium 4.4 mmol/L (3.5-5.1); Sodium 140 mmol/L (137-145); Total Bilirubin 0.6 mg/dL (0.2-1.3); Total Protein 8.9 g/dL (6.3-8.2)
[2019-09-23] MEDS ORDERED: MAGNESIUM SULFATE-D5W PMX 1 GM in DEXTROSE/WATER 1 100ML.BAG IVPB ONE (09:22)
[2019-09-23] MEDS ORDERED: DOCUSATE 100 MG CAP PO PRN (09:38)
[2019-09-23] MEDS: MORPHINE SULFATE ER 60 MG TABLET PO SCH ×2 (11:59→22:16)
[2019-09-23] MEDS: GABAPENTIN 300 MG CAP PO SCH ×3 (11:59→22:16)
[2019-09-23] MEDS ORDERED: methylPREDNISolone SOD SUCCI 125 MG/2 ML VIAL IV SCH (12:00)
[2019-09-23] MEDS: SODIUM CHLORIDE 0.9% 1,000 ML IV SCH (12:00)
[2019-09-23] MEDS: IPRATROPIUM-ALBUTEROL 3 ML NEB INHALATION SCH ×4 (12:21→23:30)
[2019-09-23] MEDS ORDERED: AZITHROMYCIN 250 MG TAB PO SCH (12:30)
--- NOTE | 2019-09-23 12:47 | P.CNPUL ---
History of Present Illness Consult date: 09/23/19 Reason for consult: pulmonary fibrosis History of present illness: This is a 54-year-old male patient known history of biopsy-proven IPF with UIP pathology, with chronic hypoxic respiratory failure maintained on 1-1/2 L of oxygen outpatient basis and is also maintained on 5 mg of prednisone on a daily basis. He follows up in our office. He comes in for increased shortness of breath. He presented with symptoms of URI where he had some nasal congestion and sore throat cough and congestion and he became more short of breath and he end up coming into the hospital for further advice. His chest x-rays consistent with pulmonary fibrosis. He was afebrile hemodynamically stable. No significant tachycardia. He was maintained on 1/2 L with a pulse ox of 90%. The influenza screen was negative. The white cell count of 5.2. He was stable at 14.3. No other abnormalities noted. The patient has no chest pain. No swelling lower extremities. No other significant events otherwise for now. Note that the patient's pulmonary function test from our office showed a total lung capacity of 43% of predicted, diffusion capacity of 70% of predicted, FVC of 40% of predicted. His most recent computed tomography scan of the chest that shown chronic interstitial fibrosis with honeycombing in the lung bases bilaterally and the presentation is still typical of IPF. Review of Systems Constitutional: Reports chronic pain, Reports poor appetite Eyes: denies as per HPI, denies blurred vision, denies bulging eye, denies decreased vision, denies diplopia, denies discharge, denies dry eye, denies irritation, denies itching, denies pain, denies photophobia, denies loss of peripheral vision, denies loss of vision, denies tunnel vision/blind spots Ears: deny: decreased hearing, ear discharge, earache, tinnitus Ears, nose, mouth and throat: Reports as per HPI Breasts: absent: as per HPI, gynecomastia Cardiovascular: Reports chest pain, Reports decreased exercise tolerance Respiratory: Reports cough, Reports dyspnea, Reports home oxygen, Reports pain on inspiration, Reports respiratory infections Gastrointestinal: Denies abdominal pain, Denies diarrhea, Denies nausea, Denies vomiting Genitourinary: Reports as per HPI Musculoskeletal: absent: ankle pain, ankle stiffness, ankle swelling, as per HPI, elbow pain, elbow stiffness, elbow swelling, foot pain, foot stiffness, foot swelling, hand pain, hand stiffness, hand swelling, hip pain, hip s tiffness, hip swelling, knee pain, knee stiffness, knee swelling, shoulder pain, shoulder stiffness, shoulder swelling, wrist pain, wrist stiffness, wrist swelling Integumentary: Denies pruritus, Denies rash Neurological: Reports as per HPI Psychiatric: Reports as per HPI Endocrine: Reports as per HPI, Reports fatigue Hematologic/Lymphatic: Reports as per HPI Allergic/Immunologic: Reports allergic rhinitis Past Medical History Past Medical History: Musculoskeletal Disorder, Osteoarthritis (OA), Pneumonia, Respiratory Disorder Additional Past Medical History / Comment(s): Idiopathic pulmonary fibrosis, interstitial lung disease, chronic respiratory failure, home O2 use at HS, i mmuno compromised d/t steroid use, bronchitis, chronic low back pain with bilateral sciatica, DDD, posterior reversible encephalopathy syndrome, kidney stones pt states he passed, History of Any Multi-Drug Resistant Organisms: None Reported Past Surgical History: Back Surgery, Cholecystectomy Additional Past Surgical History / Comment(s): R lung biopsy/scrapping with chest tube, low back surgery-pt thinks he has some hardware, back pain injections, colonoscopy. Past Anesthesia/Blood Transfusion Reactions: No Reported Reaction Smoking Status: Former smoker - Past Family History Mother Additional Family Medical History / Comment(s): Migraines, hip replacement. Mother is 83 yrs old. Father Family Medical History: Cancer, Hypertension Additional Family Medical History / Comment(s): Father of pancreatic cancer at the age of 60yrs. Medications and Allergies Home Medications Medication Instructions Recorded Confirmed Type Aspirin 81 mg PO DAILY 05/04/15 09/23/19 History Docusate [Colace] 100 mg PO DAILY PRN 01/09/19 09/23/19 History predniSONE 5 mg PO DAILY 01/09/19 09/23/19 History Morphine Sulfate Ir [MSIR] 15 mg PO BID PRN 05/01/19 09/23/19 History Albuterol Inhaler [Ventolin Hfa 2 puff INHALATION RT-QID PRN 06/02/19 09/23/19 History Inhaler] Metoprolol Succinate [Toprol Xl] 50 mg PO DAILY 06/02/19 09/23/19 History Gabapentin 600 mg PO TID 08/26/19 09/23/19 History Morphine Sulfate ER [Ms Contin] 60 mg PO Q12H 08/26/19 09/23/19 History Ensure 1 can PO DAILY 09/23/19 09/23/19 History Allergies Allergy/AdvReac Type Severity Reaction Status Date / Time No Known Allergies Allergy Verified 09/23/19 10:18 Physical Exam Vitals: Vital Signs Temp Pulse Resp BP Pulse Ox 09/23/19 12:33 75 09/23/19 12:21 75 98 09/23/19 10:00 78 18 120/56 99 09/23/19 09:30 78 19 97/62 98 09/23/19 09:00 79 19 101/64 09/23/19 08:30 88 19 114/60 09/23/19 08:19 22 09/23/19 08:13 77 09/23/19 07:45 97.4 F L 82 20 124/79 89 L Intake and Output 09/22/19 09/23/19 09/23/19 22:59 06:59 14:59 Other: Weight 79.379 kg GENERAL EXAM: Alert, active, comfortable in no apparent distress. HEAD: Normocephalic.Head exam was generally normal. There was no scleral icterus or corneal arcus. Mucous membranes were moist. EYES: Normal reaction of pupils, equal size.Neck was supple and without jugular venous distension, thyromegaly, or carotid bruits. Carotids were easily palpable bilaterally. There was no adenopathy. NOSE: Clear with pink turbinates. THROAT: No erythema or exudates. NECK: No masses, no JVD. CHEST: No chest wall deformity. Right chest dressing is dry and intact. LUNGS: Equal air entry with wheeze, rhonchi or dullness. There are bilateral posterior Velcro crackles. Diminished. There is extensive bilateral lower lobe crackles which are coarse in the Velcro in nature. Some soreness across the right lateral chest area palpable. CVS: S1 and S2 normal with no audible murmurs, regular rhythm. ABDOMEN: No hepatosplenomegaly, normal bowel sounds, no guarding or rigidity. SPINE: No scoliosis or deformity SKIN: No rashes CENTRAL NERVOUS SYSTEM: No focal deficits, tone is normal in all 4 extremities. EXTRMITIES: There is no significant peripheral edema. No clubbing, no cyanosis. Peripheral pulses are intact. Results - Laboratory Findings CBC and BMP: 09/23/19 08:20 09/23/19 08:20 PT/INR, D-dimer PT 10.4 sec (9.0-12.0) 09/23/19 08:20 INR 1.0 (<1.2) 09/23/19 08:20 Abnormal lab findings: Abnormal Labs 09/23/19 09/23/19 08:20 08:20 Lymphocytes # 0.7 L Glucose 126 H ALT 20 L Creatine Kinase 48 L Total Protein 8.9 H - Diagnostic Findings Chest x-ray: image reviewed Assessment and Plan Plan: 1. Idiopathic pulmonary fibrosis with confirmed UIP 2 chronic hypoxic respiratory failure maintained on 11/2 L of oxygen outpatient basis 3 chronic shortness of breath with interval worsening in dyspnea probably re lated to symptoms of URI/bronchitis 4 chronic back pain maintained on oral morphine 5 osteoarthritis 6 coronary artery disease with previous insertion of coronary stent at the second obtuse marginal branch of the circumflex Plan Continue bronchodilators. Put the patient on oral Augmentin 875 mg by mouth twice a day for symptoms of an acute bronchitis. The IV Fluids to KVO. Heparin Subcu for DVT Prophylaxis. Chest x-ray was reviewed. Keep oxygen at 1.5 L per minute nasal cannula. Continue prednisone at 5 mg by mouth daily. Outpatient medications of been ordered resume. We'll continue to follow. Long-term prognosis poor. The patient's will need a transplant evaluation to be done later stage at [facility].
[2019-09-23] MEDS: predniSONE 5 MG TAB PO SCH (13:28)
[2019-09-23] MEDS: MORPHINE SULFATE IR 15 MG TABLET PO PRN (13:30)
--- NOTE | 2019-09-23 15:33 | HP ---
HISTORY AND PHYSICAL DATE OF SERVICE: 09/23/2019 CHIEF COMPLAINT: Shortness of breath. HISTORY OF PRESENT ILLNESS: This 54-year-old gentleman with a past medical history of multiple medical problems including pulmonary fibrosis, idiopathic history of DJD history pneumonia history of back surgery being followed by Dr. Oliveira in the outpatient setting is complaining increased shortness of breath the patient came to [facility] and was admitted for evaluation treatment the patient pulse ox 89 percent on room air. On presentation, and glucose 126. Chest x-ray showed was personally reviewed by me showed evidence of pulmonary fibrosis, pulmonary per failure advance. There is no history of fever, rigors. No headache loss of consciousness, seizures. PAST MEDICAL HISTORY: 1. History of pulmonary fibrosis, DJD, history pneumonia, history of chronic hypoxic hypercarbic respiratory failure. 2. History of mono compensation next history of posterior reversible encephalopathy syndrome, history of cholecystectomy, history of back surgery. MEDICATIONS ARE: 1. Toprol-XL 50 mg p.o. daily. 2. Colace 100 mg daily p.r.n. 3. Aspirin 81 mg daily. 4. MS-IR 15 mg b.i.d. p.r.n. 5. MS Contin 660 mg p.o. b.i.d. 6. Gabapentin 600 mg p.o. t.i.d. 7. Albuterol 2 puffs q.i.d. p.r.n. 8. Prednisone 5 mg. 9. Ensure 1 p.o. daily. ALLERGIES: None. FAMILY HISTORY: History of hypertension, history of migraine, hip replacement. SOCIAL HISTORY: History of smoking. No history of current smoking, alcohol intake. REVIEW OF SYSTEMS: ENT: No diminished vision. CARDIOVASCULAR: No angina or palpitations. RESPIRATORY: As mentioned earlier.. GI: No nausea. : No dysuria. NERVOUS SYSTEM: No numbness or weakness. ALLERGY/IMMUNOLOGY: No asthma or hayfever. MUSCULOSKELETAL: As mentioned earlier. HEMATOLOGY/ONCOLOGY: No history of anemia. ENDOCRINE: No history of diabetes or hypothyroidism. CONSTITUTIONAL: As mentioned earlier. DERMATOLOGY: Negative. PSYCHIATRY: As mentioned earlier. PHYSICAL EXAMINATION: Alert and oriented x3. Pulse is 88, blood pressure 114/60, respiration 19, temperature 97.4, pulse ox 89% on room air. HEENT: Conjunctivae normal. Oral mucosa moist. NECK: No jugular venous distention. No lymph node enlargement. CARDIOVASCULAR SYSTEM: S1-S2. No murmur, no thrills. RESPIRATION: Breath sounds diminished at the bases, breathing with some mild increased bilateral scattered rhonchi and bilateral extensively crackles heard. ABDOMEN: Soft, nontender. No mass palpable. LEGS: No edema, no swelling. NERVOUS SYSTEM: As mentioned. Moves all four limbs, no focal motor or sensory deficit. LYMPHATICS: No lymph nodes in the neck or axillae. SKIN: No ulcer. JOINTS: No active deforming arthropathy. LABS: CBC within normal limits. Glucose 126. Creatine kinase 48. ASSESSMENT: 1. Shortness of breath, possibly idiopathic pulmonary fibrosis acute exacerbation. 2. Acute hypoxic respiratory failure with acute on chronic hypoxic respiratory failure. 3. Chronic hypoxic respiratory, on home O2. 4. History of degenerative joint disease. 5. History of of pneumonia/history of immunocompromization. .. 6. History of low back pain and sciatica. 7. History of posterior reversible encephalopathy syndrome, PRES. 8. History of back surgery. 9. Remote history of nicotine dependence. RECOMMENDATIONS: In this 54-year-old gentleman who presented with multiple complex medical issues, at this time I recommend to continue the current medications and symptomatic treatment. We will continue with IV steroids and otherwise empiric antibiotics, bronchodilators. Will continue to monitor. Increase ambulation. Guarded prognosis. Further recommendations to follow. Closely follow with Dr. Ames. JEFFREY / HANDY: [id number] /
[2019-09-23] MEDS: AMOXIC-POT CLAV 875-125MG 1 EACH TAB PO SCH (22:17)
[2019-09-23] MEDS: HEPARIN SODIUM,PORCINE 5,000 UNIT/ML 1 ML VIAL SQ SCH (22:18)
[2019-09-23] MEDS ORDERED: MELATONIN 3 MG TABLET PO SCH (23:45)
[2019-09-24] MEDS: SODIUM CHLORIDE 0.9% 1,000 ML IV SCH (00:01)
[2019-09-24] MEDS: MORPHINE SULFATE IR 15 MG TABLET PO PRN (02:43)
[2019-09-24] MEDS: IPRATROPIUM-ALBUTEROL 3 ML NEB INHALATION SCH ×3 (03:40→11:10)
[2019-09-24 05:12] VITALS: RESP 16
[2019-09-24] MEDS: predniSONE 5 MG TAB PO SCH (07:40)
[2019-09-24] MEDS: MORPHINE SULFATE ER 60 MG TABLET PO SCH (07:40)
[2019-09-24] MEDS: AMOXIC-POT CLAV 875-125MG 1 EACH TAB PO SCH (07:40)
[2019-09-24] MEDS: HEPARIN SODIUM,PORCINE 5,000 UNIT/ML 1 ML VIAL SQ SCH (07:41)
[2019-09-24] MEDS: GABAPENTIN 300 MG CAP PO SCH (07:41)
[2019-09-24 07:46] LABS: African American GFR (CKD) >90 (>60 ml/min/1.73 sqM); Anion Gap 6 mmol/L; Blood Urea Nitrogen 13 mg/dL (9-20); Calcium 9.2 mg/dL (8.4-10.2); Carbon Dioxide 31 mmol/L (22-30); Chloride 104 mmol/L (98-107); Glucose 93 mg/dL (74-99); Non-African American GFR(CKD) >90 (>60 ml/min/1.73 sqM); Potassium 4.7 mmol/L (3.5-5.1); Sodium 141 mmol/L (137-145)
[2019-09-24 07:57] LABS: Basophils % (A) 0 %; Eosinophils % (A) 0 %; HCT 39.2 % (39.0-53.0); HGB 12.7 gm/dL (13.0-17.5); Hypochromasia Slight; Lymphocytes # (A) 1.6 k/uL (1.0-4.8); Lymphocytes % (A) 17 %; MCH 26.7 pg (25.0-35.0); MCHC 32.5 g/dL (31.0-37.0); MCV 82.1 fL (80.0-100.0); Mean Platelet Volume 5.4; Monocytes # (A) 0.5 k/uL (0-1.0); Monocytes % (A) 6 %; Neutrophils # (A) 6.7 k/uL (1.3-7.7); Neutrophils % (A) 74 %; Platelet Count 255 k/uL (150-450); RBC 4.77 m/uL (4.30-5.90); RDW 15.1 % (11.5-15.5)
[2019-09-24] MEDS ORDERED: NON FORMULARY DRUG (Ensure 1 CAN) PO SCH (09:00)
[2019-09-24] MEDS ORDERED: ASPIRIN 81 MG PO SCH (09:00)
[2019-09-24] MEDS ORDERED: METOPROLOL SUCCINATE (ER) 100 MG TAB.ER.24H PO SCH (09:00)
[2019-09-24 13:02] VITALS: BP 97/62; PULSE 70; TEMP 97
--- NOTE | 2019-09-24 13:21 | P.PN ---
Subjective Progress Note Date: 09/24/19 This is a 54-year-old male patient known history of biopsy-proven IPF with UIP pathology, with chronic hypoxic respiratory failure maintained on 1-1/2 L of oxygen outpatient basis and is also maintained on 5 mg of prednisone on a daily basis. He follows up in our office. He comes in for increased shortness of breath. He presented with symptoms of URI where he had some nasal congestion and sore throat cough and congestion and he became more short of breath and he end up coming into the hospital for further advice. His chest x-rays consistent with pulmonary fibrosis. He was afebrile hemodynamically stable. No significant tachycardia. He was maintained on 1/2 L with a pulse ox of 90%. The influenza screen was negative. The white cell count of 5.2. He was stable at 14.3. No other abnormalities noted. The patient has no chest pain. No swelling lower extremities. No other significant events otherwise for now. Note that the patient's pulmonary function test from our office showed a total lung capacity of 43% of predicted, diffusion capacity of 70% of predicted, FVC of 40% of predicted. His most recent computed tomography scan of the chest that shown chronic interstitial fibrosis with honeycombing in the lung bases bilaterally and the presentation is still typical of IPF. On 09/24/2019 the patient is feeling better and less short of breath no fever no chills no night sweats raises are being made to discharge this patient home and the patient will need antibiotics with oral Augmentin. No nausea. No vomiting. No diarrhea. No other complaints otherwise. Objective - Vital Signs Vital signs: Vital Signs Temp 97.0 F L 09/24/19 13:02 Pulse 70 09/24/19 13:02 Resp 16 09/24/19 13:02 BP 97/62 09/24/19 13:02 Pulse Ox 97 09/24/19 13:02 Intake & Output 09/23/19 09/24/19 09/24/19 18:59 06:59 18:59 Intake Total 200 350 200 Balance 200 350 200 Weight 79.379 kg Intake: Intake, IV Titration 350 Amount Sodium Chloride 0.9% 1, 350 000 ml @ 100 mls/hr IV . Q10H STA Rx#:[id number] Oral 200 200 Other: Voiding Method Toilet Toilet # Voids 1 1 - Exam GENERAL EXAM: Alert, active, comfortable in no apparent distress. HEAD: Normocephalic.Head exam was generally normal. There was no scleral icterus or corneal arcus. Mucous membranes were moist. EYES: Normal reaction of pupils, equal size.Neck was supple and without jugular venous distension, thyromegaly, or carotid bruits. Carotids were easily palpable bilaterally. There was no adenopathy. NOSE: Clear with pink turbinates. THROAT: No erythema or exudates. NECK: No masses, no JVD. CHEST: No chest wall deformity. Right chest dressing is dry and intact. LUNGS: Equal air entry with wheeze, rhonchi or dullness. There are bilateral posterior Velcro crackles. Diminished. There is extensive bilateral lower lobe crackles which are coarse in the Velcro in nature. Some soreness across the right lateral chest area palpable. CVS: S1 and S2 normal with no audible murmurs, regular rhythm. ABDOMEN: No hepatosplenomegaly, normal bowel sounds, no guarding or rigidity. SPINE: No scoliosis or deformity SKIN: No rashes CENTRAL NERVOUS SYSTEM: No focal deficits, tone is normal in all 4 extremities. EXTRMITIES: There is no significant peripheral edema. No clubbing, no cyanosis. Peripheral pulses are intact. - Labs CBC & Chem 7: 09/24/19 06:46 09/24/19 06:46 Labs: Abnormal Lab Results - Last 24 Hours (Table) 09/24/19 09/24/19 Range/Units 06:46 06:46 Hgb 12.7 L (13.0-17.5) gm/dL Carbon Dioxide 31 H (22-30) mmol/L Creatinine 0.61 L (0.66-1.25) mg/dL Microbiology - Last 24 Hours (Table) 09/23/19 08:20 Blood Culture - Preliminary Blood No Growth after 24 hours Assessment and Plan Plan: 1. Idiopathic pulmonary fibrosis with confirmed UIP 2 chronic hypoxic respiratory failure maintained on 11/2 L of oxygen outpatient basis 3 chronic shortness of breath with interval worsening in dyspnea probably related to symptoms of URI/bronchitis 4 chronic back pain maintained on oral morphine 5 osteoarthritis 6 coronary artery disease with previous insertion of coronary stent at the second obtuse marginal branch of the circumflex Plan Continue bronchodilators. Discharge the patient home on oral Augmentin and prednisone 5 mg today followed up with us in the office.
--- NOTE | 2019-09-25 08:33 | DS ---
DISCHARGE SUMMARY DATE OF SERVICE: 09/24/2019. FINAL DIAGNOSES: 1. Shortness of breath, possibly idiopathic pulmonary fibrosis acute exacerbation. 2. Acute hypoxic respiratory failure, acute on chronic hypoxic respiratory failure secondary to above. 3. Chronic hypoxic respiratory failure on home O2. 4. History of degenerative joint disease. 5. History of pneumonia. 6. History of immuno compromise. 7. History of low back pain and sciatica. 8. History of posterior reversible encephalopathy syndrome PRES. 9. History of back surgery. 10.Remote history of nicotine dependence. DISCHARGE DISPOSITION: The patient will be discharged in stable condition with guarded prognosis. HISTORY OF PRESENT ILLNESS: This 54-year-old gentleman with a past medical history of multiple medical problems presented with shortness of breath and multiple complex medical issues, as detailed above. Patient given IV steroids, antibiotics and bronchodilators. Patient improved significantly. Dr. Ames cleared the patient for discharge. On exam, vitals are stable. Cardiovascular S1, S2. Abdomen soft. Nervous system: No focal deficits. Follow up with Dr. Oliveira in 2-3 days. DISCHARGE MEDICATIONS: 1. Aspirin 81 mg p.o. daily. 2. Colace 100 mg daily p.r.n. 3. Ensure 1 can p.o. daily. 4. Gabapentin 600 mg p.o. t.i.d. 5. MS Contin 60 mg p.o. b.i.d. 6. MS-IR 50 mg b.i.d. p.r.n. 7. Prednisone 5 mg p.o. daily. 8. Toprol-XL 50 mg p.o. daily. 9. Augmentin 875 1 p.o. b.i.d. for 4 days. 10.Ventolin HFA 2 puffs q.i.d. Once again, the patient is being discharged in stable condition with guarded prognosis. MMODL / IJN: [id number] /
== END 2019-09-24 13:30 | disposition home or self-care (01) | DRG 196 ==
LOC: EC 07:43 → 3NMEDONC 09:34
PROVIDERS: ADMIT Internal Medicine; ATTEND Internal Medicine
DX: J84.112 Idiopathic pulmonary fibrosis (principal); J96.21 Acute and chronic respiratory failure with hypoxia; I67.83 Posterior reversible encephalopathy syndrome; Z79.52 Long term (current) use of systemic steroids; Z79.82 Long term (current) use of aspirin; Z79.899 Other long term (current) drug therapy; Z80.0 Family history of malignant neoplasm of digestive organs; Z87.01 Personal history of pneumonia (recurrent); Z82.49 Family history of ischemic heart disease and other diseases of the circulatory system; M54.32 Sciatica, left side; M54.31 Sciatica, right side; G89.29 Other chronic pain; Z82.0 Family history of epilepsy and other diseases of the nervous system; Z82.61 Family history of arthritis; Z87.442 Personal history of urinary calculi; Z87.891 Personal history of nicotine dependence; Z90.49 Acquired absence of other specified parts of digestive tract; Z99.81 Dependence on supplemental oxygen; M19.90 Unspecified osteoarthritis, unspecified site
CPT/HCPCS: 36415; 71046; 80048; 80053; 82550; 83735; 83880; 84484; 85025; 85610; 85730; 87040; 87502; 94640; 94760; 96361; 96374; 99291

== ENCOUNTER 2019-11-19 08:55 | Inpatient (IN) | payer MEDICARE, OTHER ==
[2019-11-19] MEDS ORDERED: methylPREDNISolone SOD SUCCI 125 MG/2 ML VIAL IV STA (09:07)
[2019-11-19] MEDS ORDERED: IPRATROPIUM-ALBUTEROL 3 ML NEB INHALATION STA (09:07)
[2019-11-19] MEDS ORDERED: SODIUM CHLORIDE 0.9% 1,000 ML IV STA (09:07)
--- NOTE | 2019-11-19 09:09 | ED ---
General Adult HPI - General Chief complaint: Shortness of Breath Stated complaint: FADUMO Time Seen by Provider: 11/19/19 09:01 Source: patient, RN notes reviewed Mode of arrival: ambulatory Limitations: no limitations - History of Present Illness Initial comments: Patient is a pleasant 54-year-old male with history of pulmonary fibrosis presenting to the emergency department with difficulty in breathing. Symptoms have progressed over the past several days. Patient does have mild dry cough. Patient questions if he had a fever around a week ago, none since that time. No chest pain. Patient does feel fatigued. Symptoms are similar to previous pul monary fibrosis/COPD. - Related Data Home Medications Medication Instructions Recorded Confirmed Aspirin 81 mg PO DAILY 05/04/15 09/23/19 Docusate [Colace] 100 mg PO DAILY PRN 01/09/19 09/23/19 predniSONE 5 mg PO DAILY 01/09/19 09/23/19 Morphine Sulfate Ir [MSIR] 15 mg PO BID PRN 05/01/19 09/23/19 Metoprolol Succinate [Toprol Xl] 50 mg PO DAILY 06/02/19 09/23/19 Gabapentin 600 mg PO TID 08/26/19 09/23/19 Morphine Sulfate ER [Ms Contin] 60 mg PO Q12H 08/26/19 09/23/19 Ensure 1 can PO DAILY 09/23/19 09/23/19 Previous Rx's Medication Instructions Recorded Albuterol Inhaler [Ventolin Hfa 2 puff INHALATION RT-QID #1 09/24/19 Inhaler] Amoxic-Pot Clav 875-125Mg 1 each PO BID #8 tab 09/24/19 [Augmentin 875-125] Allergies Allergy/AdvReac Type Severity Reaction Status Date / Time No Known Allergies Allergy Verified 11/19/19 08:59 Review of Systems ROS Statement: Those systems with pertinent positive or pertinent negative responses have been documented in the HPI. ROS Other: All systems not noted in ROS Statement are negative. Constitutional: Denies: fever Eyes: Denies: eye pain ENT: Denies: ear pain Respiratory: Reports: as per HPI, cough, dyspnea Cardiovascular: Denies: chest pain Endocrine: Reports: fatigue Gastrointestinal: Denies: abdominal pain Genitourinary: Denies: dysuria Musculoskeletal: Denies: back pain Skin: Denies: rash Neurological: Denies: weakness Past Medical History Past Medical History: Musculoskeletal Disorder, Osteoarthritis (OA), Pneumonia, Respiratory Disorder Additional Past Medical History / Comment(s): Idiopathic pulmonary fibrosis, interstitial lung disease, chronic respiratory failure, home O2 use at HS, immuno compromised d/t steroid use, bronchitis, chronic low back pain with bilateral sciatica, DDD, posterior reversible encephalopathy syndrome, kidney stones pt states he passed, History of Any Multi-Drug Resistant Organisms: None Reported Past Surgical History: Back Surgery, Cholecystectomy Additional Past Surgical History / Comment(s): R lung biopsy/scrapping with chest tube, low back surgery-pt thinks he has some hardware, back pain injections, colonoscopy. Past Anesthesia/Blood Transfusion Reactions: No Reported Reaction Past Psychological History: No Psychological Hx Reported Smoking Status: Former smoker Past Alcohol Use History: None Reported Past Drug Use History: None Reported - Past Family History Mother Additional Family Medical History / Comment(s): Migraines, hip replacement. Mother is 83 yrs old. Father Family Medical History: Cancer, Hypertension Additional Family Medical History / Comment(s): Father of pancreatic cancer at the age of 60yrs. General Exam Limitations: no limitations General appearance: alert, in no apparent distress Head exam: Present: normocephalic Eye exam: Present: normal appearance Neck exam: Present: normal inspection Respiratory exam: Present: decreased breath sounds Cardiovascular Exam: Present: regular rate, normal rhythm GI/Abdominal exam: Present: soft. Absent: tenderness Extremities exam: Present: normal inspection. Absent: pedal edema, calf tenderness Neurological exam: Present: alert Psychiatric exam: Present: normal affect, normal mood Skin exam: Present: normal color Course Vital Signs 11/19/19 11/19/19 11/19/19 08:56 09:13 09:18 Temperature 97.5 F L Pulse Rate 85 96 Respiratory 18 22 Rate Blood Pressure 105/64 O2 Sat by Pulse 93 L Oximetry 11/19/19 09:29 Temperature Pulse Rate 92 Respiratory Rate Blood Pressure O2 Sat by Pulse Oximetry Medical Decision Making - Medical Decision Making Patient reevaluated and still feeling fatigued and short of breath. No respiratory distress. Patient updated on results and plan. Dr. Ramsey has been paged for admission who has previously admitted this patient. Consult will be placed for Dr. Oliveira. - Lab Data Result diagrams: 11/19/19 09:08 11/19/19 09:08 Lab Results 11/19/19 11/19/19 Range/Units 09:08 09:08 WBC 6.3 (3.8-10.6) k/uL RBC 5.31 (4.30-5.90) m/uL Hgb 13.8 (13.0-17.5) gm/dL Hct 44.1 (39.0-53.0) % MCV 83.1 (80.0-100.0) fL MCH 25.9 (25.0-35.0) pg MCHC 31.2 (31.0-37.0) g/dL RDW 15.0 (11.5-15.5) % Plt Count 294 (150-450) k/uL Neutrophils % 76 % Lymphocytes % 13 % Monocytes % 4 % Eosinophils % 3 % Basophils % 1 % Neutrophils # 4.8 (1.3-7.7) k/uL Lymphocytes # 0.8 L (1.0-4.8) k/uL Monocytes # 0.3 (0-1.0) k/uL Eosinophils # 0.2 (0-0.7) k/uL Basophils # 0.1 (0-0.2) k/uL Hypochromasia Slight Sodium 141 (137-145) mmol/L Potassium 4.2 (3.5-5.1) mmol/L Chloride 104 (98-107) mmol/L Carbon Dioxide 29 (22-30) mmol/L Anion Gap 8 mmol/L BUN 10 (9-20) mg/dL Creatinine 0.63 L (0.66-1.25) mg/dL Est GFR (CKD-EPI)AfAm >90 (>60 ml/min/1.73 sqM) Est GFR (CKD-EPI)NonAf >90 (>60 ml/min/1.73 sqM) Glucose 133 H (74-99) mg/dL Calcium 9.3 (8.4-10.2) mg/dL Total Bilirubin 0.9 (0.2-1.3) mg/dL AST 37 (17-59) U/L ALT 24 (4-49) U/L Alkaline Phosphatase 107 (38-126) U/L Total Protein 8.9 H (6.3-8.2) g/dL Albumin 4.1 (3.5-5.0) g/dL - Radiology Data Radiology results: image reviewed (Chest x-ray shows pulmonary fibrosis, severe similar to previous exam.) Disposition Clinical Impression: Acute exacerbation of chronic obstructive pulmonary disease Disposition: ADMITTED IP TO THIS HOSP Is patient prescribed a controlled substance at d/c from ED?: No Referrals: Naima Oliveira MD [Primary Care Provider] - 1-2 days Decision Time: 10:20
[2019-11-19 09:19] LABS: Basophils # (A) 0.1 k/uL (0-0.2); Basophils % (A) 1 %; Eosinophils # (A) 0.2 k/uL (0-0.7); Eosinophils % (A) 3 %; HCT 44.1 % (39.0-53.0); HGB 13.8 gm/dL (13.0-17.5); Hypochromasia Slight; Lymphocytes # (A) 0.8 k/uL (1.0-4.8); Lymphocytes % (A) 13 %; MCH 25.9 pg (25.0-35.0); MCHC 31.2 g/dL (31.0-37.0); MCV 83.1 fL (80.0-100.0); Mean Platelet Volume 6.5; Monocytes # (A) 0.3 k/uL (0-1.0); Monocytes % (A) 4 %; Neutrophils # (A) 4.8 k/uL (1.3-7.7); Neutrophils % (A) 76 %; Platelet Count 294 k/uL (150-450); RBC 5.31 m/uL (4.30-5.90); WBC 6.3 k/uL (3.8-10.6)
[2019-11-19 09:27] LABS: ALT 24 U/L (4-49); AST 37 U/L (17-59); African American GFR (CKD) >90 (>60 ml/min/1.73 sqM); Albumin 4.1 g/dL (3.5-5.0); Alkaline Phosphatase 107 U/L (38-126); Anion Gap 8 mmol/L; Blood Urea Nitrogen 10 mg/dL (9-20); Calcium 9.3 mg/dL (8.4-10.2); Carbon Dioxide 29 mmol/L (22-30); Chloride 104 mmol/L (98-107); Glucose 133 mg/dL (74-99); Non-African American GFR(CKD) >90 (>60 ml/min/1.73 sqM); Potassium 4.2 mmol/L (3.5-5.1); Sodium 141 mmol/L (137-145); Total Bilirubin 0.9 mg/dL (0.2-1.3); Total Protein 8.9 g/dL (6.3-8.2)
--- NOTE | 2019-11-19 09:59 | XR ---
EXAMINATION TYPE: XR chest 2V DATE OF EXAM: 11/19/2019 HISTORY: difficulty breathing. REFERENCE: Previous study dated 09/23/2019. FINDINGS: There is an extensive background of pulmonary fibrosis. A definite superimposed pneumonia i s not seen. The heart is not enlarged. No definite pleural fluid is seen. IMPRESSION: MODERATELY SEVERE PULMONARY FIBROSIS.
[2019-11-19] MEDS ORDERED: IPRATROPIUM-ALBUTEROL 3 ML NEB INHALATION PRN (10:20)
[2019-11-19] MEDS: methylPREDNISolone SOD SUCCI 125 MG/2 ML VIAL IV SCH ×3 (12:32→23:19)
[2019-11-19] MEDS: AMOXIC-POT CLAV 875-125MG 1 EACH TAB PO SCH ×2 (12:33→21:10)
[2019-11-19] MEDS ORDERED: traMADol 50 MG TAB PO PRN (12:42)
[2019-11-19] MEDS: MORPHINE SULFATE ER 60 MG TABLET PO SCH ×2 (13:51→21:09)
--- NOTE | 2019-11-19 13:58 | CONS ---
CONSULTATION PULMONARY/CRITICAL CARE CONSULTATION: DATE OF SERVICE: 11/19/2019 This is a 54-year-old gentleman, well known to me. He has history of biopsy-proven pulmonary fibrosis. He sees my partner Dr. Oliveira in the office. He saw him sometime before the holidays. I actually saw him last when he was in the hospital in August. At that time, he was given cyclobenzaprine/Flexeril by his neurologist, and he apparently had a reaction to it. Once we took him off the Flexeril, he did just fine. Anyway, he comes into the emergency room with complaints of increasing shortness of breath. It had been going on for a couple days prior to admission. Getting worse. He has a bit of a cough. It is mostly dry but occasionally he produces a small amount of phlegm. He may have had a slight temperature elevation as well. He feels fatigued and weak. He states he does not really have a primary doctor, mostly sees Dr. Oliveira. The patient is on oxygen therapy. He uses . The patient was just seen in the emergency room and he was being brought up from the emergency room. We saw him in his hospital room. He seems relatively comfortable. HOME MEDICATIONS: Include aspirin, Colace, prednisone 5 mg, morphine twice a day, metoprolol, gabapentin, MS Contin, Ensure, albuterol inhaler, and Augmentin. ALLERGIES: Denied. PAST MEDICAL HISTORY: Includes chronic back pain, DJD, pneumonia, and pulmonary fibrosis. He has idiopathic pulmonary fibrosis which is biopsy-proven. In addition, he suffers from chronic hypoxemic respiratory failure and uses oxygen, pretty much all the time. Other medical problems include sciatica, degenerative disc disease, posterior reversible encephalopathy syndrome, and kidney stones. SURGICAL HISTORY: Includes back surgery, cholecystectomy, and lung biopsy. He has also had back injections and colonoscopy. SOCIAL HISTORY: Positive for previous tobacco use. Denies any alcohol use or illicit drug use. FAMILY HISTORY: Positive for mother with migraine cephalgia and hip replacement. Father has a history of cancer and hypertension. Apparently his father from pancreatic cancer. REVIEW OF SYSTEMS: CONSTITUTIONAL; Weak. NEUROLOGIC: Negative. HEENT: Negative. CARDIOVASCULAR: Negative. PULMONARY: Shortness of breath. CHEST: Shortness of breath, mostly dry cough, occasional phlegm production. GI: Negative. : Negative. RHEUMATOLOGIC: Negative. IMMUNOLOGIC: Negative. ENDOCRINOLOGIC: Negative. DERMATOLOGIC: Negative. Current vital signs are reviewed. Temperature is 97.6, heart rate 83, respiratory rate 18, blood pressure 1111/65 mean 80, 1 L saturations is 96%. There is no acute distress. No audible wheezing, use of accessory muscles or conversational dyspnea. He looks pretty much at baseline to be honest. HEENT: Examination is grossly unremarkable. Mucous membranes are moist. No oral lesions. Nasal O2 noted. NECK: Supple, full range of motion. No adenopathy or thyromegaly. Neck veins are flat. CARDIOVASCULAR: Examination reveals regular rhythm and rate. Heart rate mid 80s. S1, S2 normal. No murmur. LUNGS: Reveal bibasilar crackles. They are Velcro in nature. He is restricted in his breathing. No rhonchi. Breath sounds equal. ABDOMEN: Soft, bowel sounds are heard. EXTREMITIES: Intact. No cyanosis, clubbing or edema. SKIN: Without rash. NEUROLOGIC: Examination is brief but nonfocal. LAB DATA: Reviewed. CBC is normal. White count 6.3, hemoglobin 13.8, hematocrit 44.1, platelet count 394, 000, sodium, potassium, chloride, CO2 all normal. Anion gap 8. BUN and creatinine were 10 and 0.63. Total protein 8.9, glucose 133. A chest x-ray done today in the emergency room and read by the radiologist suggests moderately severe pulmonary fibrosis. To me his chest x-ray looks pretty much at baseline. His medication orders are reviewed. He is on updrafts and Solu-Medrol. We will add some oral antibiotic. ASSESSMENT: 1. Acute exacerbation of the patient's biopsy-proven idiopathic pulmonary fibrosis, possibly complicated by mild infection. 2. History of osteoarthritis. 3. Previous history of pneumonia. 4. History of chronic hypoxemic respiratory failure. 5. History of chronic low back pain. 6. Degenerative disc disease. 7. Posterior reversible encephalopathy syndrome, resolved. 8. History of nephrolithiasis. 9. Prior history of tobacco use. PLAN: Please see my orders. Will review the medications. Will add an oral antibiotic. He will basically be treated with higher doses of steroids, breathing treatments, and oral antibiotics. Hopeful discharge within 2-3 days. Additional recommendations and suggestions are forthcoming. Prognosis is guarded. MMODL / IJN: [id number] /
[2019-11-19] MEDS: IPRATROPIUM-ALBUTEROL 3 ML NEB INHALATION SCH ×3 (14:48→19:28)
--- NOTE | 2019-11-19 15:01 | P.HPIM ---
History of Present Illness This is a pleasant 54 years old male with past medical history of pulmonary fibrosis/interstitial lung disease, chronic respiratory failure on home oxygen, chronic low back pain with see attached And digital disc disease kidney stone. He presents because of dyspnea of 3 days' duration associated with dry cough and no chest pain Vitals stable, saturating 96% on 1 L oxygen nasal cannula. Labs including CBC, BMP, liver enzymes are unremarkable. Chest x-ray: severe Pulmonary fibrosis. M APS was checked and he was taking morphine both long and short acting and gabapentin as in the system Review of Systems CONSTITUTIONAL: No fever, no malaise, no fatigue. HEENT: No recent visual problems or hearing problems. Denied any sore throat. CARDIOVASCULAR: No orthopnea, PND, no palpitations, no syncope. PULMONARY: no cough, no hemoptysis. GASTROINTESTINAL: No diarrhea, no nausea, no vomiting, no abdominal pain. Normoactive bowel sounds. NEUROLOGICAL: No headaches, no weakness, no numbness. HEMATOLOGICAL: Denies any bleeding or petechiae. GENITOURINARY: Denies any burning micturition, frequency, or urgency. MUSCULOSKELETAL/RHEUMATOLOGICAL: Denies any joint pain, swelling, or any muscle pain. ENDOCRINE: Denies any polyuria or polydipsia. Past Medical History Past Medical History: Musculoskeletal Disorder, Osteoarthritis (OA), Pneumonia, Respiratory Disorder Additional Past Medical History / Comment(s): Idiopathic pulmonary fibrosis, interstitial lung disease, chronic respiratory failure, home O2 use at , immuno compromised d/t steroid use, bronchitis, chronic low back pain with bilateral sciatica, DDD, posterior reversible encephalopathy syndrome, kidney stones pt states he passed, History of Any Multi-Drug Resistant Organisms: None Reported Past Surgical History: Back Surgery, Cholecystectomy Additional Past Surgical History / Comment(s): R lung biopsy/scrapping with chest tube, low back surgery-pt thinks he has some hardware, back pain injections, colonoscopy. Past Anesthesia/Blood Transfusion Reactions: No Reported Reaction Past Psychological History: No Psychological Hx Reported Additional Psychological History / Comment(s): Pt lives with his 19 yr old camelia. Pt is normally independent. Pt drives a car. Smoking Status: Never smoker Past Alcohol Use History: None Reported Additional Past Alcohol Use History / Comment(s): Pt states he was a light smoker in his early 20s. Past Drug Use History: None Reported - Past Family History Mother Additional Family Medical History / Comment(s): Migraines, hip replacement. Mother is 83 yrs old. Father Family Medical History: Cancer, Hypertension Additional Family Medical History / Comment(s): Father of pancreatic cancer at the age of 60yrs. Medications and Allergies Home Medications Medication Instructions Recorded Confirmed Type Aspirin 81 mg PO DAILY 05/04/15 11/19/19 History predniSONE 5 mg PO DAILY 01/09/19 11/19/19 History Morphine Sulfate Ir [MSIR] 15 mg PO BID PRN 05/01/19 11/19/19 History Gabapentin 600 mg PO TID 08/26/19 11/19/19 History Morphine Sulfate ER [Ms Contin] 60 mg PO Q12H 08/26/19 11/19/19 History Ensure 1 can PO AC-TID 09/23/19 11/19/19 History Albuterol Inhaler [Ventolin Hfa 2 puff INHALATION RT-QID #1 09/24/19 11/19/19 Rx Inhaler] Metoprolol Succinate (ER) [Toprol 50 mg PO DAILY 11/19/19 11/19/19 History Xl] Allergies Allergy/AdvReac Type Severity Reaction Status Date / Time No Known Allergies Allergy Verified 11/19/19 10:25 Physical Exam Vitals: Vital Signs Temp Pulse Pulse Pulse Resp BP BP 11/19/19 11:10 97.6 F 83 18 111/65 11/19/19 11:09 16 11/19/19 10:51 76 16 132/71 11/19/19 10:45 97.6 F 83 18 111/63 11/19/19 09:29 92 11/19/19 09:18 96 11/19/19 09:13 22 11/19/19 08:56 97.5 F L 85 18 105/64 Pulse Ox 11/19/19 11:10 96 11/19/19 11:09 11/19/19 10:51 99 11/19/19 10:45 96 11/19/19 09:29 11/19/19 09:18 11/19/19 09:13 11/19/19 08:56 93 L Intake and Output 11/18/19 11/19/19 11/19/19 22:59 06:59 14:59 Other: Voiding Method Toilet Weight 77.111 kg GENERAL: The patient is alert and oriented x3, not in any acute distress. Well developed, well nourished. HEENT: Pupils are round and equally reacting to light. EOMI. No scleral icterus. No conjunctival pallor. Normocephalic, atraumatic. No pharyngeal erythema. No thyromegaly. CARDIOVASCULAR: S1 and S2 present. No murmurs, rubs, or gallops. -PULMONARY: Chest is clear to auscultation, no wheezing. Bilateral crepitation ABDOMEN: Soft, nontender, nondistended, normoactive bowel sounds. No palpable organomegaly. MUSCULOSKELETAL: No joint swelling or deformity. EXTREMITIES: No cyanosis, clubbing, or pedal edema. NEUROLOGICAL: Gross neurological examination did not reveal any focal deficits. SKIN: No rashes. No petechiae Results CBC & Chem 7: 11/19/19 09:08 11/19/19 09:08 Labs: Abnormal Lab Results - Last 24 Hours (Table) 11/19/19 11/19/19 Range/Units 09:08 09:08 Lymphocytes # 0.8 L (1.0-4.8) k/uL Creatinine 0.63 L (0.66-1.25) mg/dL Glucose 133 H (74-99) mg/dL Total Protein 8.9 H (6.3-8.2) g/dL Thrombosis Risk Factor Assmnt - Choose All That Apply Each Factor Represents 1 point: Abnormal pulmonary function (COPD), Age 41-60 years, Serious lung disease incl. pneumonia (< 1month) Thrombosis Risk Factor Assessment Total Risk Factor Score: 3 Thrombosis Risk Factor Assessment Level: Moderate Risk Assessment and Plan Assessment: Acute respiratory distress and in view of his history of pulmonary fibrosis/interstitial lung disease chronic respiratory failure on home oxygen chronic low back pain with see attached Degenerative disc disease History of kidney stone Plan: This is a pleasant 54 years old male who presents with respiratory distress related to his pulmonary fibrosis. Continue with steroids, continue with antibiotics of Augmentin. Continue with bronchodilators and oxygen therapy as needed Labs and medication were reviewed.. Continue same treatment. Continue with symptomatic treatment. Resume home medication. Monitor lytes and vitals. DVT and GI prophylaxis. Further recommendations of the clinical course of the patient DVT prophylaxis: Subcutaneous heparin GI Prophylaxis: Pepcid PT/OT: Pending Prognosis is guarded
[2019-11-19] MEDS: GABAPENTIN 300 MG CAP PO SCH ×2 (16:53→21:10)
[2019-11-19] MEDS: MORPHINE SULFATE IR 15 MG TABLET PO PRN (17:01)
[2019-11-19] MEDS ORDERED: NON FORMULARY DRUG (Ensure 1 CAN) PO SCH (17:30)
[2019-11-19] MEDS: guaiFENesin-DM 100-10MG/5ML 10 ML CUP PO SCH (21:11)
[2019-11-19] MEDS: HEPARIN SODIUM,PORCINE 5,000 UNIT/ML 1 ML VIAL SQ SCH (21:11)
[2019-11-19] MEDS: FAMOTIDINE 20 MG/2 ML VIAL IV SCH (21:11)
[2019-11-20] MEDS: MORPHINE SULFATE IR 15 MG TABLET PO PRN ×2 (03:43→11:18)
[2019-11-20] MEDS: guaiFENesin-DM 100-10MG/5ML 10 ML CUP PO SCH ×3 (03:45→19:34)
[2019-11-20] MEDS: GABAPENTIN 300 MG CAP PO SCH ×3 (06:01→20:24)
[2019-11-20] MEDS: IPRATROPIUM-ALBUTEROL 3 ML NEB INHALATION SCH ×4 (07:41→18:48)
[2019-11-20] MEDS: FAMOTIDINE 20 MG/2 ML VIAL IV SCH ×3 (08:57→20:29)
[2019-11-20] MEDS: MORPHINE SULFATE ER 60 MG TABLET PO SCH ×2 (08:57→20:24)
[2019-11-20] MEDS: HEPARIN SODIUM,PORCINE 5,000 UNIT/ML 1 ML VIAL SQ SCH ×2 (08:57→20:25)
[2019-11-20] MEDS: AMOXIC-POT CLAV 875-125MG 1 EACH TAB PO SCH ×2 (08:58→20:24)
[2019-11-20] MEDS: ASPIRIN 81 MG PO SCH (08:58)
[2019-11-20] MEDS: METOPROLOL SUCCINATE (ER) 50 MG TAB.ER.24H PO SCH (08:58)
--- NOTE | 2019-11-20 09:29 | P.PN ---
Subjective This is a pleasant 54 years old male with past medical history of pulmonary fibrosis/interstitial lung disease, chronic respiratory failure on home oxygen, chronic low back pain with see attached And digital disc disease kidney stone. He presents because of dyspnea of 3 days' duration associated with dry cough and no chest pain Vitals stable, saturating 96% on 1 L oxygen nasal cannula. Labs including CBC, BMP, liver enzymes are unremarkable. Chest x-ray: severe Pulmonary fibrosis. M APS was checked and he was taking morphine both long and short acting and gabapentin as in the system 11/20/2019 Patient is here for dyspnea and coughing. Patient was refusing this morning dose of steroids and he got only have the dose of steroids upon his request, patient is counseled and he agrees to continue with steroids at a lower dose of 40 mg every 8 hours which is ordered. Patient is saturating 97% on 2 L, he is afebrile. Continue with Augmentin Review of systems CONSTITUTIONAL: No fever, no malaise, no fatigue. HEENT: No recent visual problems or hearing problems. Denied any sore throat. CARDIOVASCULAR: No orthopnea, PND, no palpitations, no syncope. PULMONARY: no hemoptysis. GASTROINTESTINAL: No diarrhea, no nausea, no vomiting, no abdominal pain. Normoactive bowel sounds. NEUROLOGICAL: No headaches, no weakness, no numbness. HEMATOLOGICAL: Denies any bleeding or petechiae. GENITOURINARY: Denies any burning micturition, frequency, or urgency. MUSCULOSKELETAL/RHEUMATOLOGICAL: Denies any joint pain, swelling, or any muscle pain. ENDOCRINE: Denies any polyuria or polydipsia. Active Medications Generic Name Dose Route Start Last Admin Trade Name Freq PRN Reason Stop Dose Admin Albuterol/Ipratropium 3 ml 11/19/19 12:00 11/20/19 07:41 Duoneb 0.5 Mg-3 Mg/3 Ml Soln INHALATION Not Given RT-QID TJ Albuterol/Ipratropium 3 ml 11/19/19 10:20 Duoneb 0.5 Mg-3 Mg/3 Ml Soln INHALATION RT-Q4H PRN Shortness Of Breath Or Wheezing Amoxicillin/Clavulanate Potassium 1 each 11/19/19 13:00 11/20/19 08:58 Augmentin 875-125 PO 1 each Q12HR TJ Administration Aspirin 81 mg 11/20/19 09:00 11/20/19 08:58 Aspirin PO 81 mg DAILY TJ Administration Famotidine 20 mg 11/19/19 21:00 11/20/19 08:57 Pepcid IV 20 mg Q12HR TJ Administration Gabapentin 600 mg 11/19/19 16:00 11/20/19 06:01 Neurontin PO 600 mg TID TJ Administration Guaifenesin/Dextromethorphan 10 ml 11/19/19 20:00 11/20/19 03:45 Robitussin Dm PO Not Given Q8H [facility] Heparin Sodium (Porcine) 5,000 unit 11/19/19 21:00 11/20/19 08:57 Heparin SQ 5,000 unit Q12HR [facility] Administration Methylprednisolone Sodium Succinate 60 mg 11/19/19 12:00 11/19/19 23:19 Solu-Medrol IV 60 mg Q6HR [facility] Administration Metoprolol Succinate 50 mg 11/20/19 09:00 11/20/19 08:58 Toprol Xl PO 50 mg DAILY [facility] Administration Morphine Sulfate 60 mg 11/19/19 13:45 11/20/19 08:57 Ms Contin PO 60 mg Q12HR [facility] Administration Morphine Sulfate 15 mg 11/19/19 14:57 11/20/19 03:43 Msir PO 15 mg BID PRN Administration Breakthrough Pain Objective - Vital Signs Vital signs: Vital Signs Temp 97.4 F L 11/20/19 05:04 Pulse 72 11/20/19 05:04 Resp 16 11/20/19 05:04 BP 106/59 11/20/19 05:04 Pulse Ox 97 11/20/19 05:04 Intake & Output 11/19/19 11/20/19 11/20/19 18:59 06:59 18:59 Intake Total 1560 Balance 1560 Weight 77.111 kg Intake: Oral 1560 Other: Voiding Method Toilet Toilet # Voids 3 1 - Exam GENERAL: The patient is alert and oriented x3, not in any acute distress. Well developed, well nourished. HEENT: Pupils are round and equally reacting to light. EOMI. No scleral icterus. No conjunctival pallor. Normocephalic, atraumatic. No pharyngeal erythema. No thyromegaly. CARDIOVASCULAR: S1 and S2 present. No murmurs, rubs, or gallops. -PULMONARY: Chest is clear to auscultation, no wheezing. Bilateral crepitation ABDOMEN: Soft, nontender, nondistended, normoactive bowel sounds. No palpable organomegaly. MUSCULOSKELETAL: No joint swelling or deformity. EXTREMITIES: No cyanosis, clubbing, or pedal edema. NEUROLOGICAL: Gross neurological examination did not reveal any focal deficits. SKIN: No rashes. No petechiae - Labs CBC & Chem 7: 11/19/19 09:08 11/19/19 09:08 Labs: Abnormal Lab Results - Last 24 Hours (Table) 11/19/19 11/19/19 Range/Units 09:08 09:08 Lymphocytes # 0.8 L (1.0-4.8) k/uL Creatinine 0.63 L (0.66-1.25) mg/dL Glucose 133 H (74-99) mg/dL Total Protein 8.9 H (6.3-8.2) g/dL Assessment and Plan Assessment: Acute respiratory distress and in view of his history of pulmonary fibrosis/interstitial lung disease chronic respiratory failure on home oxygen chronic low back pain with see attached Degenerative disc disease History of kidney stone Plan: This is a pleasant 54 years old male who presents with respiratory distress related to his pulmonary fibrosis. Continue with steroids, continue with antibiotics of Augmentin. Continue with bronchodilators and oxygen therapy as needed Labs and medication were reviewed.. Continue same treatment. Continue with symptomatic treatment. Resume home medication. Monitor lytes and vitals. DVT and GI prophylaxis. Further recommendations of the clinical course of the patient DVT prophylaxis: Subcutaneous heparin GI Prophylaxis: Pepcid PT/OT: Pending Prognosis is guarded
[2019-11-20] MEDS: methylPREDNISolone SOD SUCCI 125 MG/2 ML VIAL IV SCH ×4 (11:19→23:06)
--- NOTE | 2019-11-20 12:37 | P.PN ---
Subjective Progress Note Date: 11/20/19 Principal diagnosis: Acute exacerbation of biopsy-proven idiopathic pulmonary fibrosis, possibly complicated by mild infection. The patient is seen today 11/20/2019 in follow-up on the regular medical floor. He is felt to have an acute exacerbation of biopsy-proven idiopathic pulmonary fibrosis and possible underlying mild infection. He is currently sitting up at the bedside. Awake and alert in no acute distress. Maintaining O2 saturations in the mid 90s on 2 L/m per nasal cannula. He's been afebrile. He's been maintained on DuoNeb inhalations, IV Solu-Medrol and and diuretics in the form of Augmentin. Objective - Vital Signs Vital signs: Vital Signs Temp 97.7 F 11/20/19 12:16 Pulse 68 11/20/19 12:16 Resp 16 11/20/19 12:16 BP 106/69 11/20/19 12:16 Pulse Ox 99 11/20/19 12:16 Intake & Output 11/19/19 11/20/19 11/20/19 18:59 06:59 18:59 Intake Total 1560 Balance 1560 Weight 77.111 kg Intake: Oral 1560 Other: Voiding Method Toilet Toilet # Voids 3 1 - Exam GENERAL EXAM: Alert, pleasant 54-year-old gentleman, on 2 L nasal cannula comfortable in no apparent distress. HEAD: Normocephalic. EYES: Normal reaction of pupils, equal size. NOSE: Clear with pink turbinates. THROAT: No erythema or exudates. NECK: No masses, no JVD. CHEST: No chest wall deformity. LUNGS: Equal air entry with coarse crackles in the bilateral posterior bases CVS: S1 and S2 normal with no audible murmur, regular rhythm. ABDOMEN: No hepatosplenomegaly, normal bowel sounds, no guarding or rigidity. SPINE: No scoliosis or deformity SKIN: No rashes CENTRAL NERVOUS SYSTEM: No focal deficits, tone is normal in all 4 extremities. EXTREMITIES: There is no peripheral edema. No clubbing, no cyanosis. Peripheral pulses are intact. - Labs CBC & Chem 7: 11/19/19 09:08 11/19/19 09:08 Assessment and Plan Assessment: 1 Acute exacerbation of biopsy-proven idiopathic pulmonary fibrosis, cannot rule out underlying infection 2 Acute on chronic hypoxemic respiratory failure secondary to above 3 Osteoarthritis 4 Chronic low back pain 5 History of nephrolithiasis 6 History of previous tobacco dependence Plan: The patient was seen and evaluated by Dr. Ramirez. He is improved today compared to yesterday. We'll continue the current treatment plan including IV Solu- Medrol. Empiric antibiotics in the form of Augmentin. Increase his activity as tolerated. Probable discharge in the a.m. I, the cosigning physician, performed a history & physical examination of the patient. Lungs sounds with coarse crackles in the bilateral bases Maintaining good O2 saturations in the 90s on 2 L/m per nasal cannula. I discussed the assessment and plan of care with my nurse practitioner, Haylee Rdz. I attest to the above note as dictated by her.
[2019-11-20] MEDS ORDERED: MELATONIN 3 MG TABLET PO ONE (21:04)
[2019-11-21] MEDS: MORPHINE SULFATE IR 15 MG TABLET PO PRN ×2 (03:58→11:31)
[2019-11-21] MEDS: guaiFENesin-DM 100-10MG/5ML 10 ML CUP PO SCH ×2 (04:45→11:30)
[2019-11-21] MEDS: methylPREDNISolone SOD SUCCI 125 MG/2 ML VIAL IV SCH ×2 (05:27→11:30)
[2019-11-21] MEDS: IPRATROPIUM-ALBUTEROL 3 ML NEB INHALATION SCH ×2 (07:59→11:41)
[2019-11-21] MEDS: METOPROLOL SUCCINATE (ER) 50 MG TAB.ER.24H PO SCH (09:06)
[2019-11-21] MEDS: AMOXIC-POT CLAV 875-125MG 1 EACH TAB PO SCH (09:06)
[2019-11-21] MEDS: MORPHINE SULFATE ER 60 MG TABLET PO SCH (09:06)
[2019-11-21] MEDS: FAMOTIDINE 20 MG/2 ML VIAL IV SCH (09:07)
[2019-11-21] MEDS: HEPARIN SODIUM,PORCINE 5,000 UNIT/ML 1 ML VIAL SQ SCH (09:07)
[2019-11-21] MEDS: GABAPENTIN 300 MG CAP PO SCH (09:07)
[2019-11-21] MEDS: ASPIRIN 81 MG PO SCH (09:07)
[2019-11-21 11:48] VITALS: BP 108/71; PULSE 58; RESP 20; TEMP 97.8
--- NOTE | 2019-11-21 13:30 | P.DS ---
Providers Date of admission: 11/19/19 10:20 Attending physician: Angelo Ramsey Consults: 11/19/19 10:20 Consult Physician Routine Consulting Provider: Naima Oliveira Consult Reason/Comments: Pulmonary fibrosis, COPD Do you want consulting provider notified?: Yes Primary care physician: Naima Oliveira Hospital Course: Diagnoses: Acute respiratory distress and in view of his history of pulmonary fibrosis/interstitial lung disease chronic respiratory failure on home oxygen chronic low back pain with see attached Degenerative disc disease History of kidney stone Hospital course: This is a pleasant 54 years old male with past medical history of pulmonary fibrosis/interstitial lung disease, chronic respiratory failure on home oxygen, chronic low back pain with disc disease, kidney stone. He presents because of dyspnea of 3 days duration associated with dry cough and no chest pain Vitals stable, saturating 96% on 1 L oxygen nasal cannula. Labs including CBC, BMP, liver enzymes are unremarkable. Chest x-ray: severe Pulmonary fibrosis. Patient has been evaluated by pulmonary service and he was started on Solu- Medrol and Augmentin empirically therapy, patient showed interval improvement and his dyspnea improved back to his baseline, he was saturating 96-97% on 1-2 L oxygen via nasal cannula. Patient has oxygen at home and endotracheal oxygen Patient was cleared for discharge by pulmonary service and Problems and management plan were discussed with the patient and he verbalized understanding and acceptance Patient was found stable and can be discharged home however he needs follow-up as an outpatient. Patient was instructed to follow up with PCP within one week and patient agrees. Patient informed medical staff he wants to make his own appointment Gen: patient is a AAOx3, no distress CVS: S1-S2, RRR, no murmur -Lungs: B/L CTA, no wheezing. Bilateral crepitation Abdomen: soft, no distention, no tenderness, positive bowel sounds Extremity: no leg edema or induration Time spent more than 35 minutes Plan - Discharge Summary Discharge Rx Participant: No New Discharge Prescriptions: New Amoxic-Pot Clav 875-125Mg [Augmentin 875-125] 1 each PO Q12HR #5 tab Famotidine [Pepcid] 20 mg PO BID #60 tablet predniSONE 10 mg PO DIRECTED #30 tab Continue Aspirin 81 mg PO DAILY predniSONE 5 mg PO DAILY Morphine Sulfate Ir [MSIR] 15 mg PO BID PRN PRN Reason: Breakthrough Pain Gabapentin 600 mg PO TID Morphine Sulfate ER [Ms Contin] 60 mg PO Q12H Ensure 1 can PO AC-TID Metoprolol Succinate (ER) [Toprol XL] 50 mg PO DAILY Albuterol Inhaler [Ventolin Hfa Inhaler] 2 puff INHALATION RT-QID #1 puff Discharge Medication List Aspirin 81 mg PO DAILY 05/04/15 [History] predniSONE 5 mg PO DAILY 01/09/19 [History] Morphine Sulfate Ir [MSIR] 15 mg PO BID PRN 05/01/19 [History] Gabapentin 600 mg PO TID 08/26/19 [History] Morphine Sulfate ER [Ms Contin] 60 mg PO Q12H 08/26/19 [History] Ensure 1 can PO AC-TID 09/23/19 [History] Metoprolol Succinate (ER) [Toprol XL] 50 mg PO DAILY 11/19/19 [History] Albuterol Inhaler [Ventolin Hfa Inhaler] 2 puff INHALATION RT-QID #1 puff 11/21/19 [Rx] Amoxic-Pot Clav 875-125Mg [Augmentin 875-125] 1 each PO Q12HR #5 tab 11/21/19 [Rx] Famotidine [Pepcid] 20 mg PO BID #60 tablet 11/21/19 [Rx] predniSONE 10 mg PO DIRECTED #30 tab 11/21/19 [Rx] Follow up Appointment(s)/Referral(s): Naima Oliveira MD [Primary Care Provider] - 1-2 days (patient to go to already scheduled appt) Patient Instructions/Handouts: Famotidine (By mouth), Albuterol (By breathing), Prednisone (By mouth), Amoxicillin/Clavulanate Potassium (By mouth), COPD (Chronic Obstructive Pulmonary Disease) (DC) Activity/Diet/Wound Care/Special Instructions: Diet as tolerated Activity as tolerated Discharge Disposition: HOME SELF-CARE
[2019-11-21] MEDS ORDERED: MELATONIN 3 MG TABLET PO ONE (21:04)
== END 2019-11-21 14:10 | disposition home or self-care (01) | DRG 196 ==
LOC: EC 08:55 → 5NMEDONC 10:20
PROVIDERS: ADMIT Hospitalist; ATTEND Hospitalist
DX: J84.112 Idiopathic pulmonary fibrosis (principal); J96.21 Acute and chronic respiratory failure with hypoxia; F17.200 Nicotine dependence, unspecified, uncomplicated; G89.29 Other chronic pain; I10 Essential (primary) hypertension; J44.9 Chronic obstructive pulmonary disease, unspecified; M19.90 Unspecified osteoarthritis, unspecified site; M54.5 Low back pain; Z79.82 Long term (current) use of aspirin; Z79.899 Other long term (current) drug therapy; Z80.0 Family history of malignant neoplasm of digestive organs; Z82.49 Family history of ischemic heart disease and other diseases of the circulatory system; Z87.01 Personal history of pneumonia (recurrent); Z87.442 Personal history of urinary calculi; Z99.81 Dependence on supplemental oxygen; Z90.49 Acquired absence of other specified parts of digestive tract; Z98.890 Other specified postprocedural states
CPT/HCPCS: 36415; 71046; 80053; 85025; 94640; 96374; 99285

== ENCOUNTER 2020-04-13 01:17 | Emergency (ER) | payer MEDICARE ==
[2020-04-13 01:21] VITALS: TEMP 97.5
[2020-04-13] MEDS ORDERED: predniSONE 20 MG TAB PO STA (01:52)
[2020-04-13] MEDS ORDERED: MORPHINE SULFATE ER 60 MG TABLET PO STA (01:53)
--- NOTE | 2020-04-13 01:58 | ED ---
SOB HPI - General Chief Complaint: Shortness of Breath Stated Complaint: Shortness of Breath Time Seen by Provider: 04/13/20 01:28 Source: patient Mode of arrival: ambulatory Limitations: no limitations - History of Present Illness Initial Comments: This patient is a 55-year-old man with history of pulmonary fibrosis, who usually sees Dr. Oliveira, and presents tonight with complaint that he was feeling more short of breath than is usual for him. He noted this starting around 4 hours ago. He states that he had just been resting area he denies any ex ertional component. There is no chest pain. He has not been having fever or chills. He states that he does usually have a little bit of a cough and it has not changed. No change in urination or bowel movements. No dark tarry or bloody stools. No leg pain or swelling. He states he does have some chronic back pain which is acting up but he did not take his evening medication and feels that this is responsible. MD Complaint: shortness of breath Onset/Timin -: hour(s) Severity scale (1-10): 0 Consistency: constant Improves With: nothing Worsens With: nothing Known History Of: other (Pulmonary fibrosis) - Related Data Home Medications Medication Instructions Recorded Confirmed Aspirin 81 mg PO DAILY 05/04/15 11/19/19 predniSONE 5 mg PO DAILY 01/09/19 11/19/19 Morphine Sulfate Ir [MSIR] 15 mg PO BID PRN 05/01/19 11/19/19 Gabapentin 600 mg PO TID 08/26/19 11/19/19 Morphine Sulfate ER [Ms Contin] 60 mg PO Q12H 08/26/19 11/19/19 Ensure 1 can PO AC-TID 09/23/19 11/19/19 Metoprolol Succinate (ER) [Toprol 50 mg PO DAILY 11/19/19 11/19/19 XL] Previous Rx's Medication Instructions Recorded Albuterol Inhaler (Mhu) [Ventolin 2 puff INHALATION RT-QID #1 puff 11/21/19 Hfa Inhaler (Mhu)] Amoxic-Pot Clav 875-125Mg 1 each PO Q12HR #5 tab 11/21/19 [Augmentin 875-125] Famotidine [Pepcid] 20 mg PO BID #60 tablet 11/21/19 predniSONE 10 mg PO DIRECTED #30 tab 11/21/19 Allergies Allergy/AdvReac Type Severity Reaction Status Date / Time No Known Allergies Allergy Verified 04/13/20 01:21 Review of Systems ROS Statement: Those systems with pertinent positive or pertinent negative responses have been documented in the HPI. ROS Other: All systems not noted in ROS Statement are negative. Constitutional: Denies: fever, chills ENT: Denies: congestion Respiratory: Reports: dyspnea. Denies: cough, wheezes, hemoptysis Cardiovascular: Denies: chest pain, palpitations, orthopnea, edema Gastrointestinal: Denies: abdominal pain, vomiting, diarrhea Genitourinary: Denies: dysuria, hematuria Musculoskeletal: Reports: back pain (Chronic) Skin: Denies: rash Neurological: Denies: headache, weakness, numbness Past Medical History Past Medical History: Musculoskeletal Disorder, Osteoarthritis (OA), Pneumonia, Respiratory Disorder Additional Past Medical History / Comment(s): Idiopathic pulmonary fibrosis, interstitial lung disease, chronic respiratory failure, home O2 use at , immuno compromised d/t steroid use, bronchitis, chronic low back pain with bilateral sciatica, DDD, posterior reversible encephalopathy syndrome, kidney stones pt states he passed, History of Any Multi-Drug Resistant Organisms: None Reported Past Surgical History: Back Surgery, Cholecystectomy Additional Past Surgical History / Comment(s): R lung biopsy/scrapping with chest tube, low back surgery-pt thinks he has some hardware, back pain injections, colonoscopy. Past Anesthesia/Blood Transfusion Reactions: No Reported Reaction Past Psychological History: No Psychological Hx Reported Smoking Status: Never smoker Past Alcohol Use History: None Reported Past Drug Use History: None Reported - Past Family History Mother Additional Family Medical History / Comment(s): Migraines, hip replacement. Mother is 83 yrs old. Father Family Medical History: Cancer, Hypertension Additional Family Medical History / Comment(s): Father of pancreatic cancer at the age of 60yrs. General Exam Limitations: no limitations General appearance: alert, in no apparent distress Head exam: Present: atraumatic, normocephalic Eye exam: Present: normal appearance. Absent: scleral icterus, conjunctival injection Neck exam: Present: normal inspection Respiratory exam: Present: rales (Throughout). Absent: respiratory distress, wheezes, rhonchi, stridor, accessory muscle use, decreased breath sounds Cardiovascular Exam: Present: regular rate, normal rhythm, normal heart sounds. Absent: systolic murmur, diastolic murmur, rubs, gallop GI/Abdominal exam: Present: soft. Absent: distended, tenderness, guarding, rebound Extremities exam: Present: normal inspection, normal capillary refill. Absent: pedal edema, calf tenderness Back exam: Present: normal inspection Neurological exam: Present: alert Skin exam: Present: warm, dry, intact, normal color. Absent: rash Course Vital Signs 04/13/20 01:19 Temperature 97.5 F L Pulse Rate 81 Respiratory 24 Rate Blood Pressure 106/72 O2 Sat by Pulse 90 L Oximetry - Reevaluation(s) Reevaluation #1: 04/13/20 03:13 Patient has mildly elevated d-dimer but has had this previously in the past with negative computed tomography scan. In the absence of chest pain and given that this test is no higher than previous will hold the radiation exposure for this patient. Medical Decision Making - Lab Data Result diagrams: 04/13/20 02:02 04/13/20 02:02 Lab Results 04/13/20 04/13/20 04/13/20 Range/Units 02:02 02:02 02:02 WBC 4.6 (3.8-10.6) k/uL RBC 5.08 (4.30-5.90) m/uL Hgb 13.4 (13.0-17.5) gm/dL Hct 41.9 (39.0-53.0) % MCV 82.6 (80.0-100.0) fL MCH 26.4 (25.0-35.0) pg MCHC 31.9 (31.0-37.0) g/dL RDW 14.9 (11.5-15.5) % Plt Count 222 (150-450) k/uL Neutrophils % 73 % Lymphocytes % 15 % Monocytes % 6 % Eosinophils % 3 % Basophils % 0 % Neutrophils # 3.4 (1.3-7.7) k/uL Lymphocytes # 0.7 L (1.0-4.8) k/uL Monocytes # 0.3 (0-1.0) k/uL Eosinophils # 0.2 (0-0.7) k/uL Basophils # 0.0 (0-0.2) k/uL Hypochromasia Slight PT 10.6 (9.0-12.0) sec INR 1.0 (<1.2) APTT 24.1 (22.0-30.0) sec D-Dimer 0.70 H (<0.60) mg/L FEU Sodium 138 (137-145) mmol/L Potassium 4.1 (3.5-5.1) mmol/L Chloride 104 (98-107) mmol/L Carbon Dioxide 30 (22-30) mmol/L Anion Gap 4 mmol/L BUN 11 (9-20) mg/dL Creatinine 0.62 L (0.66-1.25) mg/dL Est GFR (CKD-EPI)AfAm >90 (>60 ml/min/1.73 sqM) Est GFR (CKD-EPI)NonAf >90 (>60 ml/min/1.73 sqM) Glucose 112 H (74-99) mg/dL Plasma Lactic Acid Soto (0.7-2.0) mmol/L Calcium 9.0 (8.4-10.2) mg/dL Total Bilirubin 0.4 (0.2-1.3) mg/dL AST 36 (17-59) U/L ALT 26 (4-49) U/L Alkaline Phosphatase 105 (38-126) U/L Troponin I (0.000-0.034) ng/mL NT-Pro-B Natriuret Pep pg/mL Total Protein 8.1 (6.3-8.2) g/dL Albumin 3.9 (3.5-5.0) g/dL 04/13/20 04/13/20 04/13/20 Range/Units 02:02 02:02 02:02 WBC (3.8-10.6) k/uL RBC (4.30-5.90) m/uL Hgb (13.0-17.5) gm/dL Hct (39.0-53.0) % MCV (80.0-100.0) fL MCH (25.0-35.0) pg MCHC (31.0-37.0) g/dL RDW (11.5-15.5) % Plt Count (150-450) k/uL Neutrophils % % Lymphocytes % % Monocytes % % Eosinophils % % Basophils % % Neutrophils # (1.3-7.7) k/uL Lymphocytes # (1.0-4.8) k/uL Monocytes # (0-1.0) k/uL Eosinophils # (0-0.7) k/uL Basophils # (0-0.2) k/uL Hypochromasia PT (9.0-12.0) sec INR (<1.2) APTT (22.0-30.0) sec D-Dimer (<0.60) mg/L FEU Sodium (137-145) mmol/L Potassium (3.5-5.1) mmol/L Chloride (98-107) mmol/L Carbon Dioxide (22-30) mmol/L Anion Gap mmol/L BUN (9-20) mg/dL Creatinine (0.66-1.25) mg/dL Est GFR (CKD-EPI)AfAm (>60 ml/min/1.73 sqM) Est GFR (CKD-EPI)NonAf (>60 ml/min/1.73 sqM) Glucose (74-99) mg/dL Plasma Lactic Acid Soto 0.9 (0.7-2.0) mmol/L Calcium (8.4-10.2) mg/dL Total Bilirubin (0.2-1.3) mg/dL AST (17-59) U/L ALT (4-49) U/L Alkaline Phosphatase (38-126) U/L Troponin I <0.012 (0.000-0.034) ng/mL NT-Pro-B Natriuret Pep 89 pg/mL Total Protein (6.3-8.2) g/dL Albumin (3.5-5.0) g/dL - EKG Data -: EKG Interpreted by [place] EKG shows normal: sinus rhythm, axis (Normal), intervals (Normal), QRS complexes (Normal) Rate: normal (Rate 77 bpm) Interpretation: nonspecific ST-T wave changes Disposition Clinical Impression: Pulmonary fibrosis Disposition: HOME SELF-CARE Condition: Good Instructions (If sedation given, give patient instructions): Pulmonary Fibrosis (ED) Is patient prescribed a controlled substance at d/c from ED?: No Referrals: Naima Oliveira MD [Primary Care Provider] - 1-2 days
[2020-04-13 02:09] LABS: Basophils % (A) 0 %; Eosinophils # (A) 0.2 k/uL (0-0.7); Eosinophils % (A) 3 %; HCT 41.9 % (39.0-53.0); HGB 13.4 gm/dL (13.0-17.5); Hypochromasia Slight; Lymphocytes # (A) 0.7 k/uL (1.0-4.8); Lymphocytes % (A) 15 %; MCH 26.4 pg (25.0-35.0); MCHC 31.9 g/dL (31.0-37.0); MCV 82.6 fL (80.0-100.0); Mean Platelet Volume 6.5; Monocytes # (A) 0.3 k/uL (0-1.0); Monocytes % (A) 6 %; Neutrophils # (A) 3.4 k/uL (1.3-7.7); Neutrophils % (A) 73 %; Platelet Count 222 k/uL (150-450); RBC 5.08 m/uL (4.30-5.90); RDW 14.9 % (11.5-15.5); WBC 4.6 k/uL (3.8-10.6)
[2020-04-13 02:19] LABS: ALT 26 U/L (4-49); AST 36 U/L (17-59); African American GFR (CKD) >90 (>60 ml/min/1.73 sqM); Albumin 3.9 g/dL (3.5-5.0); Alkaline Phosphatase 105 U/L (38-126); Anion Gap 4 mmol/L; Blood Urea Nitrogen 11 mg/dL (9-20); Carbon Dioxide 30 mmol/L (22-30); Chloride 104 mmol/L (98-107); Glucose 112 mg/dL (74-99); Non-African American GFR(CKD) >90 (>60 ml/min/1.73 sqM); Potassium 4.1 mmol/L (3.5-5.1); Sodium 138 mmol/L (137-145); Total Bilirubin 0.4 mg/dL (0.2-1.3); Total Protein 8.1 g/dL (6.3-8.2)
--- NOTE | 2020-04-13 02:21 | XR ---
EXAMINATION TYPE: XR chest 2V DATE OF EXAM: 04/13/2020 COMPARISON: 11/19/2019 HISTORY: Short of breath TECHNIQUE: 2 views FINDINGS: There is extensive coarse interstitial density in the lungs. There is poor inspiration. The re is slight elevated right diaphragm. Heart size is normal. There is no gross heart failure. There a re chest leads. Bony thorax is intact. IMPRESSION: Advanced pulmonary fibrosis. No change compared to old exam.
[2020-04-13 02:22] LABS: Partial Thromboplastin Time 24.1 sec (22.0-30.0); Prothrombin Time 10.6 sec (9.0-12.0)
[2020-04-13 02:23] LABS: D-Dimer 0.7 mg/L FEU (<0.60)
[2020-04-13 04:17] VITALS: BP 114/74; PULSE 65; RESP 18
== END 2020-04-13 04:19 | disposition home or self-care (01) ==
LOC: EC 01:17
DX: J84.10 Pulmonary fibrosis, unspecified (principal); M19.90 Unspecified osteoarthritis, unspecified site; G89.29 Other chronic pain; J96.10 Chronic respiratory failure, unspecified whether with hypoxia or hypercapnia; M54.5 Low back pain; Z79.82 Long term (current) use of aspirin; Z79.891 Long term (current) use of opiate analgesic; Z79.899 Other long term (current) drug therapy; Z99.81 Dependence on supplemental oxygen
CPT/HCPCS: 36415; 93005; 85379; 83880; 80053; 83605; 84484; 85025; 85610; 85730; 71046; 99285; J7512

== ENCOUNTER 2020-05-10 02:55 | Inpatient (IN) | payer MEDICARE ==
--- NOTE | 2020-05-10 03:24 | ED ---
SOB HPI - General Chief Complaint: Shortness of Breath Stated Complaint: FADUMO Time Seen by Provider: 05/10/20 03:18 Source: patient Mode of arrival: wheelchair Limitations: no limitations - History of Present Illness Initial Comments: Haroon Armijo is a 55-year-old gentleman with a history of idiopathic pulmonary fibrosis on oxygen. Patient reports that during the afternoon he was doing his breathing treatments when he developed a pleuritic right-sided chest pain. He reports minimal cough but noted some mucus streaked with blood which was concerning to him. Patient reports a pleuritic pain has persisted throughout the evening prompted him to come to the ER for evaluation. Patient denies any history of hemoptysis, denies any recent significant coughing worsen his baseline, denies any recent nosebleeds. - Related Data Home Medications Medication Instructions Recorded Confirmed Aspirin 81 mg PO DAILY 05/04/15 11/19/19 predniSONE 5 mg PO DAILY 01/09/19 11/19/19 Morphine Sulfate Ir [MSIR] 15 mg PO BID PRN 05/01/19 11/19/19 Gabapentin 600 mg PO TID 08/26/19 11/19/19 Morphine Sulfate ER [Ms Contin] 60 mg PO Q12H 08/26/19 11/19/19 Ensure 1 can PO AC-TID 09/23/19 11/19/19 Metoprolol Succinate (ER) [Toprol 50 mg PO DAILY 11/19/19 11/19/19 XL] Previous Rx's Medication Instructions Recorded Albuterol Inhaler (Mhu) [Ventolin 2 puff INHALATION RT-QID #1 puff 11/21/19 Hfa Inhaler (Mhu)] Amoxic-Pot Clav 875-125Mg 1 each PO Q12HR #5 tab 11/21/19 [Augmentin 875-125] Famotidine [Pepcid] 20 mg PO BID #60 tablet 11/21/19 predniSONE 10 mg PO DIRECTED #30 tab 11/21/19 Allergies Allergy/AdvReac Type Severity Reaction Status Date / Time No Known Allergies Allergy Verified 05/10/20 03:09 Review of Systems ROS Statement: Those systems with pertinent positive or pertinent negative responses have been documented in the HPI. ROS Other: All systems not noted in ROS Statement are negative. Past Medical History Past Medical History: Musculoskeletal Disorder, Osteoarthritis (OA), Pneumonia, Respiratory Disorder Additional Past Medical History / Comment(s): Idiopathic pulmonary fibrosis, interstitial lung disease, chronic respiratory failure, home O2 use at HS, immuno compromised d/t steroid use, bronchitis, chronic low back pain with bilateral sciatica, DDD, posterior reversible encephalopathy syndrome, kidney stones pt states he passed, History of Any Multi-Drug Resistant Organisms: None Reported Past Surgical History: Back Surgery, Cholecystectomy Additional Past Surgical History / Comment(s): R lung biopsy/scrapping with chest tube, low back surgery-pt thinks he has some hardware, back pain injections, colonoscopy. Past Anesthesia/Blood Transfusion Reactions: No Reported Reaction Past Psychological History: No Psychological Hx Reported Past Alcohol Use History: None Reported Past Drug Use History: None Reported - Past Family History Mother Additional Family Medical History / Comment(s): Migraines, hip replacement. Mother is 83 yrs old. Father Family Medical History: Cancer, Hypertension Additional Family Medical History / Comment(s): Father of pancreatic cancer at the age of 60yrs. General Exam - General Exam Comments Initial Comments: Physical Exam GENERAL: Patient is well-developed and well-nourished. Patient is nontoxic and well- hydrated and is in no distress. HENT: Normocephalic, Atraumatic. EYES: PERRL, EOMI PULMONARY: Mild expiratory wheezing CARDIOVASCULAR: There is a regular rate and rhythm without any murmurs gallops or rubs. ABDOMEN: Soft and nontender with normal bowel sounds. SKIN: Skin is clear with no lesions or rashes and otherwise unremarkable. : Deferred NEUROLOGIC: Patient is alert and oriented x3. Moving all extremities spontaneously MUSCULOSKELETAL: Normal extremities with adequate strength and full range of motion. No lower extremity swelling or edema. No calf tenderness. PSYCHIATRIC: Normal psychiatric evaluation. Limitations: no limitations Course Vital Signs 05/10/20 05/10/20 05/10/20 03:03 04:00 05:30 Temperature 97.2 F L Pulse Rate 80 78 84 Respiratory 24 17 19 Rate Blood Pressure 119/74 110/76 108/72 O2 Sat by Pulse 95 96 98 Oximetry 05/10/20 07:36 Temperature 97.6 F Pulse Rate 74 Respiratory 16 Rate Blood Pressure 101/68 O2 Sat by Pulse 98 Oximetry Medical Decision Making - Medical Decision Making Patient was seen and evaluated history was obtained from patient and signed 55-year-old male pulmonary fibrosis with right-sided pleuritic chest pain no hypoxia on his home oxygen no tachycardia no risk factors for PE Chest x-ray with chronic changes no signs of pneumothorax Patient with persistent pleuritic chest pain, CT PE study was ordered and resulted with bilateral lower lobe segmental and subsegmental segmental occlusive pulmonary emboli Heparin was ordered Patient admitted on heparin, pulmonology was consulted Patient care was discussed with because he accepts admission - Lab Data Result diagrams: 05/10/20 03:18 05/10/20 03:18 Lab Results 05/10/20 05/10/20 05/10/20 Range/Units 03:18 03:18 03:18 WBC 5.9 (3.8-10.6) k/uL RBC 4.88 (4.30-5.90) m/uL Hgb 13.3 (13.0-17.5) gm/dL Hct 40.4 (39.0-53.0) % MCV 82.6 (80.0-100.0) fL MCH 27.3 (25.0-35.0) pg MCHC 33.0 (31.0-37.0) g/dL RDW 15.3 (11.5-15.5) % Plt Count 221 (150-450) k/uL Neutrophils % 79 % Lymphocytes % 10 % Monocytes % 5 % Eosinophils % 3 % Basophils % 0 % Neutrophils # 4.7 (1.3-7.7) k/uL Lymphocytes # 0.6 L (1.0-4.8) k/uL Monocytes # 0.3 (0-1.0) k/uL Eosinophils # 0.2 (0-0.7) k/uL Basophils # 0.0 (0-0.2) k/uL Hypochromasia Slight PT 10.6 (9.0-12.0) sec INR 1.0 (<1.2) APTT 23.8 (22.0-30.0) sec Sodium 136 L (137-145) mmol/L Potassium 3.9 (3.5-5.1) mmol/L Chloride 102 (98-107) mmol/L Carbon Dioxide 26 (22-30) mmol/L Anion Gap 8 mmol/L BUN 11 (9-20) mg/dL Creatinine 0.53 L (0.66-1.25) mg/dL Est GFR (CKD-EPI)AfAm >90 (>60 ml/min/1.73 sqM) Est GFR (CKD-EPI)NonAf >90 (>60 ml/min/1.73 sqM) Glucose 108 H (74-99) mg/dL Plasma Lactic Acid Soto (0.7-2.0) mmol/L Calcium 9.0 (8.4-10.2) mg/dL Total Bilirubin 0.7 (0.2-1.3) mg/dL AST 35 (17-59) U/L ALT 20 (4-49) U/L Alkaline Phosphatase 108 (38-126) U/L Troponin I (0.000-0.034) ng/mL NT-Pro-B Natriuret Pep pg/mL Total Protein 8.2 (6.3-8.2) g/dL Albumin 4.1 (3.5-5.0) g/dL 05/10/20 05/10/20 05/10/20 Range/Units 03:18 03:18 03:18 WBC (3.8-10.6) k/uL RBC (4.30-5.90) m/uL Hgb (13.0-17.5) gm/dL Hct (39.0-53.0) % MCV (80.0-100.0) fL MCH (25.0-35.0) pg MCHC (31.0-37.0) g/dL RDW (11.5-15.5) % Plt Count (150-450) k/uL Neutrophils % % Lymphocytes % % Monocytes % % Eosinophils % % Basophils % % Neutrophils # (1.3-7.7) k/uL Lymphocytes # (1.0-4.8) k/uL Monocytes # (0-1.0) k/uL Eosinophils # (0-0.7) k/uL Basophils # (0-0.2) k/uL Hypochromasia PT (9.0-12.0) sec INR (<1.2) APTT (22.0-30.0) sec Sodium (137-145) mmol/L Potassium (3.5-5.1) mmol/L Chloride (98-107) mmol/L Carbon Dioxide (22-30) mmol/L Anion Gap mmol/L BUN (9-20) mg/dL Creatinine (0.66-1.25) mg/dL Est GFR (CKD-EPI)AfAm (>60 ml/min/1.73 sqM) Est GFR (CKD-EPI)NonAf (>60 ml/min/1.73 sqM) Glucose (74-99) mg/dL Plasma Lactic Acid Soto 1.1 (0.7-2.0) mmol/L Calcium (8.4-10.2) mg/dL Total Bilirubin (0.2-1.3) mg/dL AST (17-59) U/L ALT (4-49) U/L Alkaline Phosphatase (38-126) U/L Troponin I <0.012 (0.000-0.034) ng/mL NT-Pro-B Natriuret Pep 63 pg/mL Total Protein (6.3-8.2) g/dL Albumin (3.5-5.0) g/dL - EKG Data -: EKG Interpreted by Me EKG Comments: EKG was obtained at 3:11 AM, EKG with a rate of 80 rhythm is sinus, MT 150, QRS 86, QTC 456, no acute ST elevations or depressions no evidence of acute ischemia or infarction. Movement artifact noted in the lateral leads. Disposition Clinical Impression: Pulmonary embolism, Pulmonary fibrosis Disposition: ADMITTED IP TO THIS HOSP Condition: Serious Is patient prescribed a controlled substance at d/c from ED?: No Referrals: Naima Oliveira MD [Primary Care Provider] - 1-2 days
[2020-05-10 03:35] LABS: Basophils % (A) 0 %; Eosinophils # (A) 0.2 k/uL (0-0.7); Eosinophils % (A) 3 %; HCT 40.4 % (39.0-53.0); HGB 13.3 gm/dL (13.0-17.5); Hypochromasia Slight; Lymphocytes # (A) 0.6 k/uL (1.0-4.8); Lymphocytes % (A) 10 %; MCH 27.3 pg (25.0-35.0); MCV 82.6 fL (80.0-100.0); Mean Platelet Volume 6.5; Monocytes # (A) 0.3 k/uL (0-1.0); Monocytes % (A) 5 %; Neutrophils # (A) 4.7 k/uL (1.3-7.7); Neutrophils % (A) 79 %; Platelet Count 221 k/uL (150-450); RBC 4.88 m/uL (4.30-5.90); RDW 15.3 % (11.5-15.5); WBC 5.9 k/uL (3.8-10.6)
[2020-05-10 03:44] LABS: Prothrombin Time 10.6 sec (9.0-12.0)
[2020-05-10 03:45] LABS: ALT 20 U/L (4-49); AST 35 U/L (17-59); African American GFR (CKD) >90 (>60 ml/min/1.73 sqM); Albumin 4.1 g/dL (3.5-5.0); Alkaline Phosphatase 108 U/L (38-126); Anion Gap 8 mmol/L; Blood Urea Nitrogen 11 mg/dL (9-20); Carbon Dioxide 26 mmol/L (22-30); Chloride 102 mmol/L (98-107); Glucose 108 mg/dL (74-99); Non-African American GFR(CKD) >90 (>60 ml/min/1.73 sqM); Partial Thromboplastin Time 23.8 sec (22.0-30.0); Potassium 3.9 mmol/L (3.5-5.1); Sodium 136 mmol/L (137-145); Total Bilirubin 0.7 mg/dL (0.2-1.3); Total Protein 8.2 g/dL (6.3-8.2)
--- NOTE | 2020-05-10 04:04 | XR ---
EXAMINATION TYPE: XR chest 2V DATE OF EXAM: 05/10/2020 COMPARISON: 04/13/2020 HISTORY: Short of breath TECHNIQUE: FINDINGS: There is extensive coarse interstitial density throughout the lungs. There is slight elevat ed right diaphragm. Heart size is normal. Pulmonary vascularity is difficult to evaluate. There are c hest leads. Bony thorax is intact. IMPRESSION: Advanced pulmonary fibrosis without change compared to old exam. No increasing pulmonary density compared to old exam. Normal heart.
[2020-05-10] MEDS ORDERED: GABAPENTIN 300 MG CAP PO STA (04:22)
[2020-05-10] MEDS ORDERED: MORPHINE SULFATE ER 60 MG TABLET PO STA (04:22)
--- NOTE | 2020-05-10 07:37 | CT ---
EXAM: CT Angiography Chest With Intravenous Contrast CLINICAL HISTORY: ITS.REASON CT Reason: pleuritic chest pain, hemoptysis TECHNIQUE: Axial computed tomographic angiography images of the chest with intravenous contrast. CTDI is 7.3 mGy and DLP is 250.4 mGy-cm. This CT exam was performed using one or more of the following dose reduction techniques: automated exposure control, adjustment of the mA and/or kV according to patient size, and/or use of iterative reconstruction technique. MIP reconstructed images were created and reviewed. COMPARISON: No relevant prior studies available. FINDINGS: LUNGS: Extensive bilateral fibrotic changes with honeycombing. Correlate for idiopathic pulmonary fibrosis (IPF)/pneumonia (UIP). Superimposed infiltrate cannot be excluded. These findings are preferentially involving the lung bases. Large bulla within the posterior aspect of the left upper lobe, measuring 5.1 x 3.5 cm. HEART: Within normal limits. VASCULATURE: Acute, occlusive pulmonary emboli within the right and left lower lobe segmental and subsegmental pulmonary arteries. Mildly prominent right main pulmonary artery measuring up to 2.7 cm and main pulmonary artery, measuring up to 3.3 cm. No elevation of the right ventricle: Left ventricle ratio. THYROID: Within normal limits. MEDIASTINUM + LYMPHADENOPATHY: Numerous enlarged prevascular, aorticopulmonary window, precarinal, and subcarinal nodes. Numerous enlarged bilateral hilar lymph nodes. Of note, there is a 1.3 x 2.8 cm the subcarinal node. No definite axially adenopathy. SUPERIOR ABDOMEN: Cholecystectomy. MUSCULOSKELETAL: Degenerative changes. IMPRESSION: Acute, occlusive pulmonary emboli within the right and left lower lobe segmental and subsegmental pulmonary arteries. Mildly prominent right main pulmonary artery measuring up to 2.7 cm and main pulmonary artery, measuring up to 3.3 cm. No elevation of the right ventricle: Left ventricle ratio. Severe bilateral fibrosis with honeycombing, preferentially over the lung bases. Correlate for idiopathic pulmonary fibrosis (IPF)/pneumonia (UIP). Mediastinal and bilateral hilar adenopathy.
[2020-05-10] MEDS ORDERED: HEPARIN SODIUM,PORCINE 5,000 UNIT/ML 1 ML VIAL IV PRN (07:43)
[2020-05-10] MEDS ORDERED: HEPARIN SODIUM,PORCINE 10,000 UNIT/ML 1 ML VIAL IV ONE (07:43)
[2020-05-10] MEDS ORDERED: HEPARIN SOD,PORK IN 0.45% NACL 25,000 UNIT in 0.45% NACL 1 250ML.BAG IV SCH (07:45)
[2020-05-10] MEDS ORDERED: NALOXONE 0.4 MG/ML 1 ML VIAL IV PRN (07:53)
[2020-05-10] MEDS: RIVAROXABAN 15 MG TAB PO SCH ×2 (11:38→18:03)
[2020-05-10] MEDS ORDERED: MORPHINE SULFATE IR 15 MG TABLET PO PRN ×2 (12:13→16:27)
--- NOTE | 2020-05-10 12:16 | P.CNPUL ---
History of Present Illness Consult date: 05/10/20 Requesting physician: Angelo Ramsey Reason for consult: dyspnea, abnormal CXR/CT Chief complaint: Shortness of breath History of present illness: This is a very pleasant 55-year-old gentleman who follows with Dr. Oliveira as his primary care provider. He has a known history of biopsy-proven interstitial pulmonary fibrosis with UIP pathology. He has chronic hypoxic respiratory failure maintained on 1.5 L of oxygen in the outpatient setting. He is also on prednisone 5 mg on a daily basis. Memory function testing revealed a total lung capacity of 43% of predicted, diffusion capacity of 70% of predicted and a forced vital capacity of 40% of predicted. His CAT scans do show chronic interstitial fibrosis and honeycombing in the lung bases bilaterally. He also has a history of chronic low back pain and bilateral sciatica, degenerative disc disease, posterior reversible encephalopathy syndrome, previous kidney stones. He presented to the emergency room early this morning with complaints of increasing shortness of breath and while he was doing breathing treatments he developed right-sided pleuritic type chest pain. He had a minimal cough but there was blood streaked mucus noted. Chest x-ray revealed advanced pulmonary fibrosis with no significant change compared to previous and March 2020. CT angiogram was performed and revealed an acute occlusive pulmonary emboli within the right and left lower lobe segmental and 7 segmental pulmonary arteries. Mildly prominent right main pulmonary artery measuring 2.7 cm and main pulmonary artery measuring 3.3. No elevation of the right ventricle: left ventricle ratio. Severe bilateral fibrosis with honeycombing, preferentially over the lung bases. Mediastinal and bilateral hilar adenopathy. He is seen today in consultation in the emergency room. Presently sitting up on the stretcher. Awake and alert in no acute distress. He is maintaining O2 saturations in the 90s on 2 L/m per nasal cannula. He's been afebrile. Hemodynamically stable. White count 5.9. Hemoglobin 13.3. Sodium 136. Potassium 3.9. Creatinine 0.53. Troponin negative times one. ProBNP 63. Lactic acid 1.1. He's been initiated on a heparin drip. Review of Systems REVIEW OF SYSTEMS: CONSTITUTIONAL: Denies any recent significant weight loss or weight gain. EYES: Denies change in vision. EARS, NOSE, MOUTH, THROAT: Denies headaches, denies sore throat. CARDIOVASCULAR: Positive for right-sided pleuritic-type chest pain, no palpitations or syncopal episodes. RESPIRATORY: Positive for shortness of breath, cough, congestion with blood- streaked mucus but no mee hemoptysis. GASTROINTESTINAL: Denies change in appetite, denies abdominal pain GENITOURINARY: Denies hematuria, denies infections. MUSKULOSKELETAL: Denies pain, denies swelling. INTEGUMENTARY: Denies rash, denies eczema. NEUROLOGICAL: Denies recent memory loss, no recent seizure activity. PSYCHIATRIC: Denies anxiety, denies depression. HEMATOLOGIC/LYMPHATIC: Denies anemia, denies enlarged lymph nodes. Past Medical History Past Medical History: Myocardial Infarction ([place]), Osteoarthritis (OA), Pneumonia, Renal Disease, Respiratory Disorder, Rheumatoid Arthritis (RA), Seizure Disorder Additional Past Medical History / Comment(s): Idiopathic pulmonary fibrosis, interstitial lung disease, chronic respiratory failure, home O2 use at HS and prn during day, immuno compromised d/t steroid use, bronchitis, seizure with benadry overdose in 2015/[place] -pt does not recall [place]/vented and pt states in a coma-had nerve damage/R upper and lower weakness/pain and L lower leg weakness/pain/posterior reversible encephalopathy syndrome, chronic low back pain with bilateral sciatica, DDD, kidney stones pt states he passed, Last Myocardial Infarction Date:: 2014 History of Any Multi-Drug Resistant Organisms: None Reported Past Surgical History: Back Surgery, Cholecystectomy Additional Past Surgical History / Comment(s): PCI with stent 2014, R VAT with upper lobe resection/R lung scraped/biopsied, low back surgery/injections, colonoscopy Past Anesthesia/Blood Transfusion Reactions: No Reported Reaction Smoking Status: Former smoker - Past Family History Mother Additional Family Medical History / Comment(s): Migraines, hip replacement. Mother is 83 yrs old. Father Family Medical History: Cancer, Hypertension Additional Family Medical History / Comment(s): Father of pancreatic cancer at the age of 60yrs. Medications and Allergies Home Medications Medication Instructions Recorded Confirmed Type Aspirin 81 mg PO DAILY 05/04/15 05/10/20 History predniSONE 5 mg PO DAILY 01/09/19 05/10/20 History Morphine Sulfate Ir [MSIR] 15 mg PO BID PRN 05/01/19 05/10/20 History Gabapentin 600 mg PO TID 08/26/19 05/10/20 History Morphine Sulfate ER [Ms Contin] 60 mg PO Q12H 08/26/19 05/10/20 History Albuterol Sulfate [Ventolin HFA] 1 - 2 puff INHALATION RT-Q6H PRN 05/10/20 05/10/20 History Rivaroxaban [Xarelto Starter Pack] 0 mg PO DIRECTED 30 Days #1 pack 05/10/20 Rx Allergies Allergy/AdvReac Type Severity Reaction Status Date / Time No Known Allergies Allergy Verified 05/10/20 08:31 Physical Exam Vitals: Vital Signs Temp Pulse Resp BP Pulse Ox 05/10/20 11:10 98.0 F 74 16 110/80 99 05/10/20 11:01 73 110/78 97 05/10/20 09:55 67 18 90/68 97 05/10/20 08:56 75 18 105/69 98 05/10/20 08:36 72 18 98/67 97 05/10/20 07:36 97.6 F 74 16 101/68 98 05/10/20 05:30 84 19 108/72 98 05/10/20 04:00 78 17 110/76 96 05/10/20 03:03 97.2 F L 80 24 119/74 95 Intake and Output 05/09/20 05/10/20 05/10/20 22:59 06:59 14:59 Other: Weight 77.111 kg 77.111 kg GENERAL EXAM: Alert, very pleasant 55-year-old gentleman, on 2 L nasal cannula, comfortable in no apparent distress. HEAD: Normocephalic. EYES: Normal reaction of pupils, equal size. NOSE: Clear with pink turbinates. THROAT: No erythema or exudates. NECK: No masses, no JVD. CHEST: Positive for right-sided pleuritic-type chest pain. No chest wall deformity. LUNGS: Equal air entry with bibasilar coarse crackles CVS: S1 and S2 normal with no audible murmur, regular rhythm. ABDOMEN: No hepatosplenomegaly, normal bowel sounds, no guarding or rigidity. SPINE: No scoliosis or deformity SKIN: No rashes CENTRAL NERVOUS SYSTEM: No focal deficits, tone is normal in all 4 extremities. EXTREMITIES: There is no peripheral edema. No clubbing, no cyanosis. Peripheral pulses are intact. Results - Laboratory Findings CBC and BMP: 05/10/20 03:18 05/10/20 03:18 PT/INR, D-dimer PT 10.6 sec (9.0-12.0) 05/10/20 03:18 INR 1.0 (<1.2) 05/10/20 03:18 Abnormal lab findings: Abnormal Labs 05/10/20 05/10/20 03:18 03:18 Lymphocytes # 0.6 L Sodium 136 L Creatinine 0.53 L Glucose 108 H - Diagnostic Findings Chest x-ray: image reviewed CT scan - chest: image reviewed Assessment and Plan Assessment: 1 Right-sided pleuritic-type chest pain with increased shortness of breath secondary to suspected bilateral pulmonary emboli. CAT scan is reviewed on top of severe bilateral fibrosis with honeycombing preferentially over the lung bases 2 Acute on chronic hypoxemic respiratory failure secondary to severe bilateral eye process with honeycombing over the lung bases 3 Numerous enlarged prevascular, precarinal and subcarinal nodes. Numerous enlarged. Bilateral hilar lymph nodes. There is a 1.3 x 2.8 cm subcarinal node. No axillary adenopathy. Stable compared to previous 4 Chronic back pain 5 Degenerative disc disease 6 Coronary artery disease with previous stent to the obtuse marginal branch of the circumflex Plan: The patient was seen and evaluated by Dr. Ames CAT scan, chest x-ray and labs reviewed Previous CAT scans reviewed as well The patient will be initiated on Xarelto Discontinue heparin once started Obtain Dopplers of lower extremities Obtain a d-dimer Covid 19 status pending We will continue to follow and make further recommendations based on his clinical status. I, the cosigning physician, performed a history & physical examination of the patient. Lungs sounds with bilateral coarse crackles in the bases. Maintaining good O2 saturations in the 90s on 2 L/m nasal cannula. I discussed the assessment and plan of care with my nurse practitioner, Haylee Rdz. I attest to the above consultation as dictated by her. Time with Patient: Greater than 30
--- NOTE | 2020-05-10 15:14 | US ---
EXAMINATION TYPE: US venous doppler duplex LE DATE OF EXAM: 05/10/2020 11:36 AM COMPARISON: NONE CLINICAL HISTORY: PE. PE, SOB SIDE PERFORMED: bilateral TECHNIQUE: The lower extremity deep venous system is examined utilizing real time linear array sonog emelia with graded compression, doppler sonography and color-flow sonography. VESSELS IMAGED: External Iliac Vein (EIV) Common Femoral Vein Deep Femoral Vein Greater Saphenous Vein * Femoral Vein Popliteal Vein Small Saphenous Vein * Proximal Calf Veins (* superficial vessels) There is normal flow, compressibility, vascular waveforms Right Leg: No evidence of DVT Left Leg: No evidence of DVT IMPRESSION: No evident deep venous thrombosis at or above the knees.
[2020-05-10] MEDS ORDERED: ALBUTEROL NEBULIZED 2.5 MG/3 ML INHALATION PRN (15:21)
[2020-05-10] MEDS: GABAPENTIN 300 MG CAP PO SCH ×2 (15:57→21:38)
[2020-05-10] MEDS: predniSONE 5 MG TAB PO SCH (15:57)
[2020-05-10] MEDS: MORPHINE SULFATE ER 60 MG TABLET PO SCH (17:45)
--- NOTE | 2020-05-10 20:47 | P.HPIM ---
History of Present Illness H&P Date: 05/10/20 Chief Complaint: Pleuritic chest pain Patient is a 54-year-old male with a known history of rheumatoid arthritis, idiopathic pulmonary fibrosis, interstitial lung disease, chronic hypoxic respiratory failure currently on home oxygen at night and immunocompromised due to steroid use, history of right upper and lower extremity weakness and left lower extremity weakness/posterior reversible encephalopathy syndrome and chronic back pain and previous history of smoking came to ER with the complaints of worsening shortness of breath and right-sided pleuritic chest pain with deep breathing started yesterday. Patient also had cough with blood-streaked sputum. No fever no chills. No nausea vomiting or abdominal pain or diarrhea. Chest x-ray showed advanced pulmonary fibrosis without change compared to old exam. No increase in pulmonary density compared to old exam. Normal heart. CT angiography chest was done showed acute occlusive pulmonary emboli within the right and lower lobe segmental and subsegmental pulmonary arteries. Mildly prominent right main pulmonary artery measuring up to 2.7 cm in main pulmonary artery measuring 3.3 cm. No elevation of the right ventricle: Left ventricle ratio. Severe bilateral fibrosis with honeycombing, preferentially over the lung bases. Correlate for IPF/U PF Mediastinal and bilateral hilar adenopathy. EKG showed normal sinus rhythm. Lower extremity duplex scan no evidence of DVT at or above the knees. Laboratory data showed d-dimer 0.57 Sodium 136, potassium 3.9, BUN 11 and creatinine 0.53 Blood sugar is 108 Troponin less than 0.12 proBNP 63 Review of Systems Constitutional: Patient denies any fever or chills . No generalized weakness or weight loss. Abdomen: Patient denied nausea vomiting and diarrhea and abdominal pain. Cardiovascular: Patient does have pleuritic chest pain and short of breath no palpitations. Respiratory: patient denied any cough is from production. No shortness of breath Neurologic: Patient denied any numbness or tingling headache. Musculoskeletal: Patient denies any complaints of joint swelling or deformity. Skin: Negative Psychiatric: Negative Endocrine: No heat or cold intolerance. No recent weight gain. Genitourinary: No dysuria or hematuria. All other 14 point ROS negative except the above Past Medical History Past Medical History: Myocardial Infarction (ID), Osteoarthritis (OA), Pneumonia, Renal Disease, Respiratory Disorder, Rheumatoid Arthritis (RA), Seizure Disorder Additional Past Medical History / Comment(s): Idiopathic pulmonary fibrosis, interstitial lung disease, chronic respiratory failure, home O2 use at HS and prn during day, immuno compromised d/t steroid use, bronchitis, seizure with benadry overdose in 2015/ID -pt does not recall ID/vented and pt states in a coma-had nerve damage/R upper and lower weakness/pain and L lower leg weakness/pain/posterior reversible encephalopathy syndrome, chronic low back pain with bilateral sciatica, DDD, kidney stones pt states he passed, Last Myocardial Infarction Date:: 2014 History of Any Multi-Drug Resistant Organisms: None Reported Past Surgical History: Back Surgery, Cholecystectomy Additional Past Surgical History / Comment(s): PCI with stent 2014, R VAT with upper lobe resection/R lung scraped/biopsied, low back surgery/injections, colonoscopy Past Anesthesia/Blood Transfusion Reactions: No Reported Reaction Smoking Status: Former smoker - Past Family History Mother Additional Family Medical History / Comment(s): Migraines, hip replacement. Mother is 83 yrs old. Father Family Medical History: Cancer, Hypertension Additional Family Medical History / Comment(s): Father of pancreatic cancer at the age of 60yrs. Medications and Allergies Home Medications Medication Instructions Recorded Confirmed Type Aspirin 81 mg PO DAILY 05/04/15 05/10/20 History predniSONE 5 mg PO DAILY 01/09/19 05/10/20 History Morphine Sulfate Ir [MSIR] 15 mg PO BID PRN 05/01/19 05/10/20 History Gabapentin 600 mg PO TID 08/26/19 05/10/20 History Morphine Sulfate ER [Ms Contin] 60 mg PO Q12H 08/26/19 05/10/20 History Albuterol Sulfate [Ventolin HFA] 1 - 2 puff INHALATION RT-Q6H PRN 05/10/20 05/10/20 History Rivaroxaban [Xarelto Starter Pack] 0 mg PO DIRECTED 30 Days #1 pack 05/10/20 Rx Allergies Allergy/AdvReac Type Severity Reaction Status Date / Time No Known Allergies Allergy Verified 05/10/20 08:31 Physical Exam Vitals: Vital Signs Temp Pulse Resp BP Pulse Ox 05/10/20 09:55 67 18 90/68 97 05/10/20 08:56 75 18 105/69 98 05/10/20 08:36 72 18 98/67 97 05/10/20 07:36 97.6 F 74 16 101/68 98 05/10/20 05:30 84 19 108/72 98 05/10/20 04:00 78 17 110/76 96 05/10/20 03:03 97.2 F L 80 24 119/74 95 Intake and Output 05/09/20 05/10/20 05/10/20 22:59 06:59 14:59 Other: Weight 77.111 kg 77.111 kg PHYSICAL EXAMINATION: Patient is lying in the bed comfortably, no acute distress, awake alert and oriented.. HEENT: Normocephalic. Neck is supple. Pupils reactive. Nostrils clear. Oral cavity is moist. Ears reveal no drainage. Neck reveals no JVD, carotid bruits, or thyromegaly. CHEST EXAMINATION: Trachea is central. Symmetrical expansion. Bilateral crackles noted mainly at the lung bases. No wheezing.. CARDIAC: Normal S1, S2 with no gallops. No murmurs ABDOMEN: Soft. Bowel sounds normal. No organomegaly. No abdominal bruits. Extremities: reveal no edema. No clubbing or cyanosis Neurologically awake, alert, oriented x3 with well-coordinated movements. No focal deficits noted Skin: No rash or skin lesions. Psychiatric: Coperative. Nonsuicidal. . Anxious. Musculoskeletal: No joint swelling or deformity. Normal range of motion. Results CBC & Chem 7: 05/10/20 03:18 05/10/20 03:18 Labs: Abnormal Lab Results - Last 24 Hours (Table) 05/10/20 05/10/20 Range/Units 03:18 03:18 Lymphocytes # 0.6 L (1.0-4.8) k/uL Sodium 136 L (137-145) mmol/L Creatinine 0.53 L (0.66-1.25) mg/dL Glucose 108 H (74-99) mg/dL Thrombosis Risk Factor Assmnt - DVT/VTE Prophylaxis DVT/VTE Prophylaxis: Pharmacologic Prophylaxis ordered - Choose All That Apply Any of the Below Risk Factors Present?: Yes Each Factor Represents 1 point: Age 41-60 years, Serious lung disease incl. pneumonia (< 1month) Other Risk Factors: Yes Each Risk Factor Represents 3 Points: History of DVT/PE Other congenital or acquired thrombophilia - If yes, enter type in comment: No Thrombosis Risk Factor Assessment Total Risk Factor Score: 5 Thrombosis Risk Factor Assessment Level: High Risk Assessment and Plan Assessment: Acute bilateral pulmonary emboli of segmental and sub-segmental arteries. Pleuritic chest pain and shortness of breath second troponin Severe idiopathic pulmonary fibrosis Acute on chronic hypoxic respiratory failure on home oxygen at 1.5 L Coronary artery disease with history of stent placement Posterior reversible encephalopathy syndrome Chronic low back pain with bilateral sciatica Renal stones history Previous history of smoking Plan: Patient was initially started on heparin drip and pain management with morphine. Patient does take OxyContin 60 mg twice daily. Patient still having pleuritic chest pain. Bilateral lower r extremity duplex scan is negative for DVT. Pulmonary has seen the patient. Currently patient was started on oral anticoagulants in the form of Xarelto. Continue with oxygen therapy and follow-up closely. Time with Patient: Greater than 30
[2020-05-10 20:54] VITALS: RESP 16
[2020-05-11] MEDS: MORPHINE SULFATE ER 60 MG TABLET PO SCH (04:17)
[2020-05-11 05:04] VITALS: BP 101/66; PULSE 71; TEMP 98.3
[2020-05-11] MEDS: RIVAROXABAN 15 MG TAB PO SCH (07:28)
[2020-05-11] MEDS: predniSONE 5 MG TAB PO SCH (07:28)
[2020-05-11] MEDS: GABAPENTIN 300 MG CAP PO SCH (07:34)
[2020-05-11 07:47] LABS: Basophils % (A) 0 %; Eosinophils # (A) 0.1 k/uL (0-0.7); Eosinophils % (A) 2 %; HCT 40.5 % (39.0-53.0); Hypochromasia Moderate; Lymphocytes # (A) 0.6 k/uL (1.0-4.8); Lymphocytes % (A) 10 %; MCH 26.8 pg (25.0-35.0); MCHC 32.1 g/dL (31.0-37.0); MCV 83.4 fL (80.0-100.0); Mean Platelet Volume 6.5; Monocytes # (A) 0.3 k/uL (0-1.0); Monocytes % (A) 5 %; Neutrophils % (A) 82 %; Platelet Count 213 k/uL (150-450); RBC 4.85 m/uL (4.30-5.90); RDW 15.1 % (11.5-15.5); WBC 6.1 k/uL (3.8-10.6)
--- NOTE | 2020-05-14 12:32 | P.DS ---
Providers Date of admission: 05/10/20 07:53 Expected date of discharge: 05/11/20 Attending physician: Angelo Ramsey Consults: 05/10/20 07:55 Consult Physician Urgent Consulting Provider: Naima Oliveira Reason/Comments: established pulmonary fibrosis patient, new PE bilateral Do you want consulting provider notified?: Yes Primary care physician: Naima Oliveira Hospital Course: Final diagnosis Acute bilateral pulmonary emboli of segmental and sub-segmental arteries. Pleuritic chest pain and shortness of breath second troponin Severe idiopathic pulmonary fibrosis Acute on chronic hypoxic respiratory failure on home oxygen at 1.5 L Coronary artery disease with history of stent placement Posterior reversible encephalopathy syndrome Chronic low back pain with bilateral sciatica Renal stones history Previous history of smoking Discharge disposition Patient is being discharged in a stable condition with guarded prognosis to Home. Patient will follow-up with Dr. Oliveira upon discharge. Total time taken is 35 minutes. History of present illness This is an 66-year-old male who was recently admitted with Worsening shortness of breath and right-sided pleuritic pain in the chest and was being closely monitored. Patient was also found to have a cough with blood-streaked sputum. Patient underwent CTA of the chest showing an acute occlusive pulmonary emboli within the right lower lobe and subsegmental pulmonary arteries. Patient was initiated on heparin drip and transitioned to Xarelto and will follow up with pulmonary along with his primary care provider in the outpatient setting. Patient states he would like to go home today. Currently no reports of chest pain, shortness of breath, or palpitations. Patient is afebrile. No reports of nausea or vomiting and patient is tolerating diet. On exam vital signs are stable. Temp is 98.3F, pulse is 71, respirations are 16, blood pressure is 101/66, oxygen saturation is 98% on room air. Cardio S1, S2 are muffled. Respiratory shows diminished breath sounds at the bases with No wheezing or rhonchi noted. Abdomen is soft and nontender. Nervous system shows No focal deficits. Please refer to medication reconciliation sheet for a list of medications. Patient Condition at Discharge: Stable Plan - Discharge Summary Discharge Rx Participant: No New Discharge Prescriptions: New Rivaroxaban [Xarelto Starter Pack] 0 mg PO DIRECTED 30 Days #1 pack Continue predniSONE 5 mg PO DAILY Morphine Sulfate Ir [MSIR] 15 mg PO BID PRN PRN Reason: Breakthrough Pain Gabapentin 600 mg PO TID Morphine Sulfate ER [Ms Contin] 60 mg PO Q12H Albuterol Sulfate [Ventolin HFA] 1 - 2 puff INHALATION RT-Q6H PRN PRN Reason: Shortness Of Breath Discontinued Aspirin 81 mg PO DAILY Discharge Medication List predniSONE 5 mg PO DAILY 01/09/19 [History] Morphine Sulfate Ir [MSIR] 15 mg PO BID PRN 05/01/19 [History] Gabapentin 600 mg PO TID 08/26/19 [History] Morphine Sulfate ER [Ms Contin] 60 mg PO Q12H 08/26/19 [History] Albuterol Sulfate [Ventolin HFA] 1 - 2 puff INHALATION RT-Q6H PRN 05/10/20 [History] Rivaroxaban [Xarelto Starter Pack] 0 mg PO DIRECTED 30 Days #1 pack 05/10/20 [Rx] Follow up Appointment(s)/Referral(s): Naima Oliveira MD [Primary Care Provider] - 1-2 days Activity/Diet/Wound Care/Special Instructions: Activity Limited until follow-up Continue current diet Follow-up with primary care provider upon discharge Follow up with pulmonary in the outpatient setting Continue with Xarelto Discharge Disposition: HOME SELF-CARE
== END 2020-05-11 09:15 | disposition home or self-care (01) | DRG 175 ==
LOC: EC 02:55 → 5NMEDONC 07:53
PROVIDERS: ADMIT Hospitalist; ATTEND Hospitalist
DX: I26.99 Other pulmonary embolism without acute cor pulmonale (principal); J96.21 Acute and chronic respiratory failure with hypoxia; J84.112 Idiopathic pulmonary fibrosis; M19.90 Unspecified osteoarthritis, unspecified site; I25.10 Atherosclerotic heart disease of native coronary artery without angina pectoris; G89.29 Other chronic pain; G40.909 Epilepsy, unspecified, not intractable, without status epilepticus; M06.9 Rheumatoid arthritis, unspecified; M54.42 Lumbago with sciatica, left side; M54.41 Lumbago with sciatica, right side; Z20.828 Contact with and (suspected) exposure to other viral communicable diseases; Z87.891 Personal history of nicotine dependence; Z95.5 Presence of coronary angioplasty implant and graft; Z87.442 Personal history of urinary calculi; Z79.899 Other long term (current) drug therapy; Z79.82 Long term (current) use of aspirin; Z87.01 Personal history of pneumonia (recurrent); Z90.49 Acquired absence of other specified parts of digestive tract; Z98.890 Other specified postprocedural states; Z82.49 Family history of ischemic heart disease and other diseases of the circulatory system; Z80.0 Family history of malignant neoplasm of digestive organs; I25.2 Old myocardial infarction
CPT/HCPCS: 36415; 71046; 71275; 80053; 83605; 83880; 84484; 85025; 85379; 85610; 85730; 93005; 93970; 96365; 96366; 96376; 99285

== ENCOUNTER 2020-06-07 04:33 | Emergency (ER) | payer MEDICARE ==
[2020-06-07] MEDS ORDERED: DIPH,PERTUS(ACELL)TETVAC-LF 0.5 ML VIAL IM ONE (04:53)
[2020-06-07] MEDS ORDERED: TOPICAL SKIN ADHESIVE 1 EACH AMP TOPICAL ONE (04:53)
--- NOTE | 2020-06-07 04:58 | ED ---
Wound/Laceration HPI - General Chief Complaint: Wound/Laceration Stated Complaint: right leg injury Time Seen by Provider: 06/07/20 04:44 Source: patient Mode of arrival: ambulatory - History of Present Illness Initial Comments: This patient is a 55-year-old man with history of pulmonary fibrosis who presents to be evaluated after he had lacerated his right leg. Patient states that he's been having some lightheadedness and dyspnea throughout the most of the day intermittently. He states that due to the lightheadedness he stumbled and he struck his right thigh this occurred while he was on a box liner and he cut his leg. Patient denies any other injury. Denies any intent to harm self. In relation to the dyspnea and lightheadedness. Patient denies chest pain. No fever or chills. No cough. No change in urination or bowel movements. No leg pain or swelling -: minutes(s) Extremity Location: Right: Thigh Place: home Patient Tetanus UTD: No Context: accidental Associated Symptoms: other - Related Data Home Medications Medication Instructions Recorded Confirmed predniSONE 5 mg PO DAILY 01/09/19 05/10/20 Morphine Sulfate Ir [MSIR] 15 mg PO BID PRN 05/01/19 05/10/20 Gabapentin 600 mg PO TID 08/26/19 05/10/20 Morphine Sulfate ER [Ms Contin] 60 mg PO Q12H 08/26/19 05/10/20 Albuterol Sulfate [Ventolin HFA] 1 - 2 puff INHALATION RT-Q6H PRN 05/10/20 05/10/20 Previous Rx's Medication Instructions Recorded Rivaroxaban [Xarelto Starter Pack] 0 mg PO DIRECTED 30 Days #1 pack 05/10/20 Allergies Allergy/AdvReac Type Severity Reaction Status Date / Time No Known Allergies Allergy Verified 05/10/20 08:31 Review of Systems ROS Statement: Those systems with pertinent positive or pertinent negative responses have been documented in the HPI. ROS Other: All systems not noted in ROS Statement are negative. Respiratory: Reports: dyspnea Cardiovascular: Denies: chest pain, palpitations, orthopnea, edema, syncope Gastrointestinal: Denies: abdominal pain Genitourinary: Denies: dysuria, hematuria Skin: Reports: as per HPI, other (Laceration) Neurological: Denies: weakness, numbness, paresthesias Hematological/Lymphatic: Denies: easy bleeding Past Medical History Past Medical History: Myocardial Infarction (PR), Osteoarthritis (OA), Pneumonia, Renal Disease, Respiratory Disorder, Rheumatoid Arthritis (RA), Se izure Disorder Additional Past Medical History / Comment(s): Idiopathic pulmonary fibrosis, interstitial lung disease, chronic respiratory failure, home O2 use at HS and prn during day, immuno compromised d/t steroid use, bronchitis, seizure with benadry overdose in 2015/PR -pt does not recall PR/vented and pt states in a coma-had nerve damage/R upper and lower weakness/pain and L lower leg weakness/pain/posterior reversible encephalopathy syndrome, chronic low back pain with bilateral sciatica, DDD, kidney stones pt states he passed, Last Myocardial Infarction Date:: 2014 History of Any Multi-Drug Resistant Organisms: None Reported Past Surgical History: Back Surgery, Cholecystectomy Additional Past Surgical History / Comment(s): PCI with stent 2014, R VAT with u pper lobe resection/R lung scraped/biopsied, low back surgery/injections, colonoscopy Past Anesthesia/Blood Transfusion Reactions: No Reported Reaction Past Psychological History: No Psychological Hx Reported Smoking Status: Former smoker Past Alcohol Use History: None Reported Past Drug Use History: None Reported - Past Family History Mother Additional Family Medical History / Comment(s): Migraines, hip replacement. Mother is 83 yrs old. Father Family Medical History: Cancer, Hypertension Additional Family Medical History / Comment(s): Father of pancreatic cancer at the age of 60yrs. General Exam General appearance: alert, in no apparent distress Head exam: Present: atraumatic, normocephalic Eye exam: Present: normal appearance Respiratory exam: Present: rales. Absent: respiratory distress, wheezes, rhonchi, stridor Cardiovascular Exam: Present: regular rate, normal rhythm, normal heart sounds, gallop. Absent: systolic murmur, diastolic murmur, rubs GI/Abdominal exam: Present: soft. Absent: distended, tenderness, guarding, rebound, rigid Extremities exam: Present: normal inspection Back exam: Present: normal inspection Neurological exam: Present: alert Skin exam: Present: warm, dry, intact, normal color, other (There is an approximately 1 cm laceration to the anterior right thigh.). Absent: rash Course Vital Signs 06/07/20 06/07/20 06/07/20 04:37 05:00 05:30 Temperature 97.5 F L Pulse Rate 93 Respiratory 18 Rate Blood Pressure 118/75 112/84 115/74 O2 Sat by Pulse 93 L 98 98 Oximetry 06/07/20 06/07/20 06:00 06:30 Temperature Pulse Rate Respiratory Rate Blood Pressure 114/80 112/79 O2 Sat by Pulse Oximetry Procedures - Laceration Laceration #1 Consent Obtained: verbal consent Indication: laceration Site: lower extremity Size (cm): 1 Description: linear Depth: simple, single layer Size of Sutures: other (Skin adhesive) Patient Tolerated Procedure: well, no complications Medical Decision Making - Medical Decision Making This patient is a 55-year-old man with laceration to the anterior aspect of right leg. There is no active bleeding. No evidence of foreign body. Closure with skin adhesive as procedure note. The patient states that he had slept through taking his evening dose of morphine and requested that this began while he was here in the hospital. - Lab Data Result diagrams: 06/07/20 05:04 06/07/20 05:04 Lab Results 06/07/20 06/07/20 06/07/20 Range/Units 05:04 05:04 05:04 WBC 5.4 (3.8-10.6) k/uL RBC 5.24 (4.30-5.90) m/uL Hgb 13.3 (13.0-17.5) gm/dL Hct 42.8 (39.0-53.0) % MCV 81.5 (80.0-100.0) fL MCH 25.4 (25.0-35.0) pg MCHC 31.1 (31.0-37.0) g/dL RDW 15.4 (11.5-15.5) % Plt Count 243 (150-450) k/uL Neutrophils % 74 % Lymphocytes % 15 % Monocytes % 7 % Eosinophils % 2 % Basophils % 1 % Neutrophils # 4.0 (1.3-7.7) k/uL Lymphocytes # 0.8 L (1.0-4.8) k/uL Monocytes # 0.4 (0-1.0) k/uL Eosinophils # 0.1 (0-0.7) k/uL Basophils # 0.0 (0-0.2) k/uL Sodium 136 L (137-145) mmol/L Potassium 4.1 (3.5-5.1) mmol/L Chloride 102 (98-107) mmol/L Carbon Dioxide 29 (22-30) mmol/L Anion Gap 5 mmol/L BUN 9 (9-20) mg/dL Creatinine 0.57 L (0.66-1.25) mg/dL Est GFR (CKD-EPI)AfAm >90 (>60 ml/min/1.73 sqM) Est GFR (CKD-EPI)NonAf >90 (>60 ml/min/1.73 sqM) Glucose 110 H (74-99) mg/dL Calcium 9.0 (8.4-10.2) mg/dL Total Bilirubin 0.7 (0.2-1.3) mg/dL AST 35 (17-59) U/L ALT 17 (4-49) U/L Alkaline Phosphatase 106 (38-126) U/L Troponin I <0.012 (0.000-0.034) ng/mL Total Protein 8.0 (6.3-8.2) g/dL Albumin 3.9 (3.5-5.0) g/dL - EKG Data -: EKG Interpreted by Vt EKG shows normal: sinus rhythm, axis (Rightward axis), intervals (Normal), QRS c omplexes (Normal) Rate: normal (Rate 82) Interpretation: nonspecific ST-T wave changes Disposition Clinical Impression: Laceration, Pulmonary fibrosis Disposition: HOME SELF-CARE Condition: Fair Instructions (If sedation given, give patient instructions): Laceration (DC) Is patient prescribed a controlled substance at d/c from ED?: No Referrals: None,Stated [Primary Care Provider] - 1-2 days
--- NOTE | 2020-06-07 05:13 | XR ---
EXAMINATION TYPE: XR chest 2V DATE OF EXAM: 06/07/2020 COMPARISON: 05/10/2020 HISTORY: Short of breath TECHNIQUE: FINDINGS: There is extensive coarse interstitial infiltrate throughout the lungs. There is slight may vated right diaphragm. Heart size is normal. Bony thorax appears intact. IMPRESSION: Advanced pulmonary interstitial fibrosis. No change compared to old exam. Normal heart.
[2020-06-07 05:15] LABS: Basophils % (A) 1 %; Eosinophils # (A) 0.1 k/uL (0-0.7); Eosinophils % (A) 2 %; HCT 42.8 % (39.0-53.0); HGB 13.3 gm/dL (13.0-17.5); Lymphocytes # (A) 0.8 k/uL (1.0-4.8); Lymphocytes % (A) 15 %; MCH 25.4 pg (25.0-35.0); MCHC 31.1 g/dL (31.0-37.0); MCV 81.5 fL (80.0-100.0); Mean Platelet Volume 6.4; Monocytes # (A) 0.4 k/uL (0-1.0); Monocytes % (A) 7 %; Neutrophils % (A) 74 %; Platelet Count 243 k/uL (150-450); RBC 5.24 m/uL (4.30-5.90); RDW 15.4 % (11.5-15.5); WBC 5.4 k/uL (3.8-10.6)
[2020-06-07 05:19] LABS: ALT 17 U/L (4-49); AST 35 U/L (17-59); African American GFR (CKD) >90 (>60 ml/min/1.73 sqM); Albumin 3.9 g/dL (3.5-5.0); Alkaline Phosphatase 106 U/L (38-126); Anion Gap 5 mmol/L; Blood Urea Nitrogen 9 mg/dL (9-20); Carbon Dioxide 29 mmol/L (22-30); Chloride 102 mmol/L (98-107); Glucose 110 mg/dL (74-99); Non-African American GFR(CKD) >90 (>60 ml/min/1.73 sqM); Potassium 4.1 mmol/L (3.5-5.1); Sodium 136 mmol/L (137-145); Total Bilirubin 0.7 mg/dL (0.2-1.3)
[2020-06-07] MEDS ORDERED: MORPHINE SULFATE IR 15 MG TABLET PO STA (07:02)
[2020-06-07] MEDS ORDERED: MORPHINE SULFATE ER 60 MG TABLET PO STA (07:03)
[2020-06-07 07:27] VITALS: BP 130/88; PULSE 87; RESP 16; TEMP 98.2
== END 2020-06-07 08:00 | disposition home or self-care (01) ==
LOC: EC 04:33
DX: S71.111A Laceration without foreign body, right thigh, initial encounter (principal); J84.10 Pulmonary fibrosis, unspecified; G40.909 Epilepsy, unspecified, not intractable, without status epilepticus; I25.2 Old myocardial infarction; Z79.51 Long term (current) use of inhaled steroids; Z79.899 Other long term (current) drug therapy; Z87.891 Personal history of nicotine dependence; Z23 Encounter for immunization; W01.0XXA Fall on same level from slipping, tripping and stumbling without subsequent striking against object, initial encounter; W26.8XXA Contact with other sharp object(s), not elsewhere classified, initial encounter; Y93.89 Activity, other specified; Y92.009 Unspecified place in unspecified non-institutional (private) residence as the place of occurrence of the external cause
CPT/HCPCS: 12001; 36415; 71046; 80053; 84484; 85025; 90471; 90715; 93005; 99283

== ENCOUNTER 2020-06-07 15:48 | Inpatient (IN) | payer MEDICARE, OTHER ==
[2020-06-07] MEDS ORDERED: IPRATROPIUM-ALBUTEROL 3 ML NEB INHALATION STA (15:57)
--- NOTE | 2020-06-07 15:57 | ED ---
SOB HPI - General Chief Complaint: Shortness of Breath Stated Complaint: SOB Time Seen by Provider: 06/07/20 15:57 Source: patient, RN notes reviewed, old records reviewed Mode of arrival: wheelchair Limitations: no limitations - History of Present Illness Initial Comments: This is a 55-year-old male DF for evaluation patient Dese for evaluation regards to shortness of breath severe shortness of breath. Patient is using some shortness of breath as well as earlier in the day he did speak with his mixed animal veterinarian it will become the hospital symptoms get worse. Patient does wear home O2 no recent fevers cough congestion mild chest pain generalized aches and pains. No recent travel history no sick contacts no recent inpatient hospitalizations he was in the ER earlier this morning for a laceration to his right leg MD Complaint: shortness of breath, cough, pain with inspiration -: days(s) Severity: moderate Severity scale (1-10): 4 Quality: aching Consistency: constant, intermittent Worsens With: exertion Known History Of: COPD Context: recent URI Associated Symptoms: chest pain, pain with inspiration, cough, sputum production Treatments Prior to Arrival: none - Related Data Home Medications Medication Instructions Recorded Confirmed predniSONE 5 mg PO DAILY 01/09/19 05/10/20 Morphine Sulfate Ir [MSIR] 15 mg PO BID PRN 05/01/19 05/10/20 Gabapentin 600 mg PO TID 08/26/19 05/10/20 Morphine Sulfate ER [Ms Contin] 60 mg PO Q12H 08/26/19 05/10/20 Albuterol Sulfate [Ventolin HFA] 1 - 2 puff INHALATION RT-Q6H PRN 05/10/20 05/10/20 Previous Rx's Medication Instructions Recorded Rivaroxaban [Xarelto Starter Pack] 0 mg PO DIRECTED 30 Days #1 pack 05/10/20 Allergies Allergy/AdvReac Type Severity Reaction Status Date / Time No Known Allergies Allergy Verified 06/07/20 15:53 Review of Systems ROS Statement: Those systems with pertinent positive or pertinent negative responses have been documented in the HPI. ROS Other: All systems not noted in ROS Statement are negative. Past Medical History Past Medical History: Myocardial Infarction ([place]), Osteoarthritis (OA), Pneumonia, Renal Disease, Respiratory Disorder, Rheumatoid Arthritis (RA), Seizure Disorder Additional Past Medical History / Comment(s): Idiopathic pulmonary fibrosis, interstitial lung disease, chronic respiratory failure, home O2 use at HS and prn during day, immuno compromised d/t steroid use, bronchitis, seizure with benadry overdose in 2015/[place] -pt does not recall [place]/vented and pt states in a coma-had nerve damage/R upper and lower weakness/pain and L lower leg weakness/pain/posterior reversible encephalopathy syndrome, chronic low back pain with bilateral sciatica, DDD, kidney stones pt states he passed, Last Myocardial Infarction Date:: 2014 History of Any Multi-Drug Resistant Organisms: None Reported Past Surgical History: Back Surgery, Cholecystectomy Additional Past Surgical History / Comment(s): PCI with stent 2014, R VAT with upper lobe resection/R lung scraped/biopsied, low back surgery/injections, colonoscopy Past Anesthesia/Blood Transfusion Reactions: No Reported Reaction Past Psychological History: No Psychological Hx Reported Smoking Status: Former smoker Past Alcohol Use History: None Reported Past Drug Use History: None Reported - Past Family History Mother Additional Family Medical History / Comment(s): Migraines, hip replacement. Mother is 83 yrs old. Father Family Medical History: Cancer, Hypertension Additional Family Medical History / Comment(s): Father of pancreatic cancer at the age of 60yrs. General Exam Limitations: no limitations General appearance: alert, in no apparent distress Head exam: Present: atraumatic, normocephalic, normal inspection Eye exam: Present: normal appearance, PERRL, EOMI. Absent: scleral icterus, conjunctival injection, periorbital swelling ENT exam: Present: normal exam, mucous membranes moist Neck exam: Present: normal inspection. Absent: tenderness, meningismus, lymphadenopathy Respiratory exam: Present: wheezes. Absent: respiratory distress, rales, rhonchi, stridor Cardiovascular Exam: Present: normal rhythm, tachycardia, normal heart sounds. Absent: systolic murmur, diastolic murmur, rubs, gallop, clicks GI/Abdominal exam: Present: soft, normal bowel sounds. Absent: distended, tenderness, guarding, rebound, rigid Extremities exam: Present: normal inspection, full ROM, normal capillary refill. Absent: tenderness, pedal edema, joint swelling, calf tenderness Back exam: Present: normal inspection Neurological exam: Present: alert, oriented X3, CN II-XII intact Psychiatric exam: Present: normal affect, normal mood Skin exam: Present: warm, dry, intact, normal color. Absent: rash Course Vital Signs 06/07/20 06/07/20 06/07/20 15:49 16:06 16:22 Temperature 97.8 F Pulse Rate 102 H 103 H 105 H Respiratory 24 Rate Blood Pressure 121/79 O2 Sat by Pulse 88 L Oximetry - Reevaluation(s) Reevaluation #1: 06/07/20 16:20 Medical records reviewed Reevaluation #2: 06/07/20 16:20 Symptoms improved after prolonged breathing treatment Reevaluation #3: 06/07/20 17:31 No real improvement patient is actively shortness of breath and chest pain - Consultations Consultation #1: Spoke with Ramsey who agrees to admit this patient Medical Decision Making - Medical Decision Making 55 male DF for shortness of breath cough and congestion significant shortness of breath and hypoxia. Patient be admitted for COPD exacerbation and hypoxia - Lab Data Result diagrams: 06/07/20 16:12 06/07/20 16:12 Lab Results 06/07/20 06/07/20 06/07/20 Range/Units 16:12 16:12 16:12 WBC 5.8 (3.8-10.6) k/uL RBC 5.13 (4.30-5.90) m/uL Hgb 13.2 (13.0-17.5) gm/dL Hct 41.6 (39.0-53.0) % MCV 81.2 (80.0-100.0) fL MCH 25.8 (25.0-35.0) pg MCHC 31.8 (31.0-37.0) g/dL RDW 15.5 (11.5-15.5) % Plt Count 269 (150-450) k/uL Neutrophils % 83 % Lymphocytes % 9 % Monocytes % 5 % Eosinophils % 1 % Basophils % 0 % Neutrophils # 4.8 (1.3-7.7) k/uL Lymphocytes # 0.5 L (1.0-4.8) k/uL Monocytes # 0.3 (0-1.0) k/uL Eosinophils # 0.0 (0-0.7) k/uL Basophils # 0.0 (0-0.2) k/uL PT 10.7 (9.0-12.0) sec INR 1.0 (<1.2) APTT 24.0 (22.0-30.0) sec Sodium 136 L (137-145) mmol/L Potassium 4.0 (3.5-5.1) mmol/L Chloride 102 (98-107) mmol/L Carbon Dioxide 28 (22-30) mmol/L Anion Gap 6 mmol/L BUN 11 (9-20) mg/dL Creatinine 0.45 L (0.66-1.25) mg/dL Est GFR (CKD-EPI)AfAm >90 (>60 ml/min/1.73 sqM) Est GFR (CKD-EPI)NonAf >90 (>60 ml/min/1.73 sqM) Glucose 113 H (74-99) mg/dL Plasma Lactic Acid Soto (0.7-2.0) mmol/L Calcium 9.3 (8.4-10.2) mg/dL Magnesium 2.0 (1.6-2.3) mg/dL Total Bilirubin 0.7 (0.2-1.3) mg/dL AST 36 (17-59) U/L ALT 19 (4-49) U/L Alkaline Phosphatase 112 (38-126) U/L Troponin I (0.000-0.034) ng/mL NT-Pro-B Natriuret Pep pg/mL Total Protein 8.5 H (6.3-8.2) g/dL Albumin 4.2 (3.5-5.0) g/dL 06/07/20 06/07/20 06/07/20 Range/Units 16:12 16:12 16:12 WBC (3.8-10.6) k/uL RBC (4.30-5.90) m/uL Hgb (13.0-17.5) gm/dL Hct (39.0-53.0) % MCV (80.0-100.0) fL MCH (25.0-35.0) pg MCHC (31.0-37.0) g/dL RDW (11.5-15.5) % Plt Count (150-450) k/uL Neutrophils % % Lymphocytes % % Monocytes % % Eosinophils % % Basophils % % Neutrophils # (1.3-7.7) k/uL Lymphocytes # (1.0-4.8) k/uL Monocytes # (0-1.0) k/uL Eosinophils # (0-0.7) k/uL Basophils # (0-0.2) k/uL PT (9.0-12.0) sec INR (<1.2) APTT (22.0-30.0) sec Sodium (137-145) mmol/L Potassium (3.5-5.1) mmol/L Chloride (98-107) mmol/L Carbon Dioxide (22-30) mmol/L Anion Gap mmol/L BUN (9-20) mg/dL Creatinine (0.66-1.25) mg/dL Est GFR (CKD-EPI)AfAm (>60 ml/min/1.73 sqM) Est GFR (CKD-EPI)NonAf (>60 ml/min/1.73 sqM) Glucose (74-99) mg/dL Plasma Lactic Acid Soto 1.4 (0.7-2.0) mmol/L Calcium (8.4-10.2) mg/dL Magnesium (1.6-2.3) mg/dL Total Bilirubin (0.2-1.3) mg/dL AST (17-59) U/L ALT (4-49) U/L Alkaline Phosphatase (38-126) U/L Troponin I <0.012 (0.000-0.034) ng/mL NT-Pro-B Natriuret Pep 132 pg/mL Total Protein (6.3-8.2) g/dL Albumin (3.5-5.0) g/dL - EKG Data -: EKG Interpreted by Me (EKG is sinus tachycardia 101 SD 132 QRS 80 QTc 425) - Radiology Data Radiology results: report reviewed (chest x-ray shows extensive interstitial disease), image reviewed Disposition Clinical Impression: Interstitial lung disease, Shortness of breath, Acute exacerbation of chronic obstructive airways disease, Hypoxia Disposition: ADMITTED IP TO THIS HOSP Condition: Fair Is patient prescribed a controlled substance at d/c from ED?: No Referrals: Naima Oliveira MD [Primary Care Provider] - 1-2 days
[2020-06-07 16:25] LABS: Basophils % (A) 0 %; Eosinophils % (A) 1 %; HCT 41.6 % (39.0-53.0); HGB 13.2 gm/dL (13.0-17.5); Lymphocytes # (A) 0.5 k/uL (1.0-4.8); Lymphocytes % (A) 9 %; MCH 25.8 pg (25.0-35.0); MCHC 31.8 g/dL (31.0-37.0); MCV 81.2 fL (80.0-100.0); Mean Platelet Volume 6.5; Monocytes # (A) 0.3 k/uL (0-1.0); Monocytes % (A) 5 %; Neutrophils # (A) 4.8 k/uL (1.3-7.7); Neutrophils % (A) 83 %; Platelet Count 269 k/uL (150-450); RBC 5.13 m/uL (4.30-5.90); RDW 15.5 % (11.5-15.5); WBC 5.8 k/uL (3.8-10.6)
[2020-06-07 16:34] LABS: Prothrombin Time 10.7 sec (9.0-12.0)
--- NOTE | 2020-06-07 16:34 | XR ---
EXAMINATION TYPE: XR chest 2V DATE OF EXAM: 06/07/2020 COMPARISON: 06/07/2020 HISTORY: 55-year-old male shortness of breath, difficulty breathing TECHNIQUE: PA and lateral views FINDINGS: Heart normal size. Diffuse reticular and interstitial densities persist throughout. No pleural effusi on. IMPRESSION: Similar extensive interstitial changes. Correlate for IPF/UIP pattern of lung injury.
[2020-06-07 16:36] LABS: ALT 19 U/L (4-49); AST 36 U/L (17-59); African American GFR (CKD) >90 (>60 ml/min/1.73 sqM); Albumin 4.2 g/dL (3.5-5.0); Alkaline Phosphatase 112 U/L (38-126); Anion Gap 6 mmol/L; Blood Urea Nitrogen 11 mg/dL (9-20); Calcium 9.3 mg/dL (8.4-10.2); Carbon Dioxide 28 mmol/L (22-30); Chloride 102 mmol/L (98-107); Glucose 113 mg/dL (74-99); Non-African American GFR(CKD) >90 (>60 ml/min/1.73 sqM); Sodium 136 mmol/L (137-145); Total Bilirubin 0.7 mg/dL (0.2-1.3); Total Protein 8.5 g/dL (6.3-8.2)
[2020-06-07] MEDS ORDERED: IPRATROPIUM-ALBUTEROL 3 ML NEB INHALATION PRN (17:30)
[2020-06-07] MEDS ORDERED: MORPHINE SULFATE 4 MG/ML SYRINGE IVP PRN (18:23)
[2020-06-07] MEDS ORDERED: MORPHINE SULFATE 4 MG/ML SYRINGE IVP STA (18:23)
[2020-06-07] MEDS: methylPREDNISolone SOD SUCCI 125 MG/2 ML VIAL IV STA ×2 (18:35→18:43)
[2020-06-07] MEDS: MORPHINE SULFATE ER 60 MG TABLET PO SCH (19:37)
[2020-06-07] MEDS: ALBUTEROL NEBULIZED 2.5 MG/3 ML INHALATION SCH (19:40)
[2020-06-07] MEDS: GABAPENTIN 300 MG CAP PO SCH (21:00)
[2020-06-08] MEDS: methylPREDNISolone SOD SUCCI 125 MG/2 ML VIAL IV SCH ×2 (01:10→04:29)
[2020-06-08] MEDS ORDERED: ONDANSETRON 4 MG/2 ML VIAL IVP PRN (01:23)
[2020-06-08] MEDS ORDERED: MORPHINE SULFATE IR 15 MG TABLET PO PRN (02:05)
[2020-06-08 07:31] VITALS: BP 114/61; PULSE 73; RESP 15; TEMP 97.7
[2020-06-08] MEDS: MORPHINE SULFATE ER 60 MG TABLET PO SCH (07:32)
--- NOTE | 2020-06-08 08:04 | P.HPIM ---
History of Present Illness This is a pleasant 65 years old male with past medical history of interstitial lung disease and he follows up with Dr. Larsen. Also he has history of osteoarthritis, rheumatoid arthritis, seizure disorder, interstitial lung diseas e, chronic respiratory failure on home oxygen, chronic low back pain with bilateral Sciatica, history of kidney stones. He was recently admitted about 2- 3 weeks ago for right-sided chest pain suspected to have pulmonary embolism and started on his oral xarelto however later on his PCP: [facility] Dr. Larsen stopped his Xarelto. He is on home oxygen about 1.5 mL per minute, also is on prednisone 5 mg daily Patient presents with 1 day of dyspnea while on exertion. No cough and no chest pain. Patient states that he feels better with therapy once he came to the hospital and actually he is asking to be discharged home today. No other new complaints other than chronic bilateral leg pain and he follow-up with the neurologist Dr. Bobby as an outpatient Review of Systems CONSTITUTIONAL: No fever, no malaise, no fatigue. HEENT: No recent visual problems or hearing problems. Denied any sore throat. CARDIOVASCULAR: No orthopnea, PND, no palpitations, no syncope. PULMONARY: no hemoptysis. GASTROINTESTINAL: No diarrhea, no nausea, no vomiting, no abdominal pain. Normoactive bowel sounds. NEUROLOGICAL: No headaches, no weakness, no numbness. HEMATOLOGICAL: Denies any bleeding or petechiae. GENITOURINARY: Denies any burning micturition, frequency, or urgency. MUSCULOSKELETAL/RHEUMATOLOGICAL: Denies any joint pain, swelling, or any muscle pain. ENDOCRINE: Denies any polyuria or polydipsia. Past Medical History Past Medical History: Myocardial Infarction ([place]), Osteoarthritis (OA), Pneumonia, Renal Disease, Respiratory Disorder, Rheumatoid Arthritis (RA), Seizure Disorder Additional Past Medical History / Comment(s): Idiopathic pulmonary fibrosis, interstitial lung disease, chronic respiratory failure, home O2 use at HS and prn during day, immuno compromised d/t steroid use, bronchitis, seizure with benadry overdose in 2015/[place] -pt does not recall [place]/vented and pt states in a coma-had nerve damage/R upper and lower weakness/pain and L lower leg weakness/pain/posterior reversible encephalopathy syndrome, chronic low back pain with bilateral sciatica, DDD, kidney stones pt states he passed, Last Myocardial Infarction Date:: 2014 History of Any Multi-Drug Resistant Organisms: None Reported Past Surgical History: Back Surgery, Cholecystectomy Additional Past Surgical History / Comment(s): PCI with stent 2014, R VAT with upper lobe resection/R lung scraped/biopsied, low back surgery/injections, colonoscopy Past Anesthesia/Blood Transfusion Reactions: No Reported Reaction Past Psychological History: No Psychological Hx Reported Additional Psychological History / Comment(s): Pt lives with his 19 yr old camelia. Pt is normally independent. Pt drives a car. He has home oxygen/nebulizer. Smoking Status: Never smoker Past Alcohol Use History: None Reported Additional Past Alcohol Use History / Comment(s): Pt states he was a light smoker-teen to early 20s Past Drug Use History: None Reported - Past Family History Mother Additional Family Medical History / Comment(s): Migraines, hip replacement. Mother is 83 yrs old. Father Family Medical History: Cancer, Hypertension Additional Family Medical History / Comment(s): Father of pancreatic cancer at the age of 60yrs. Medications and Allergies Home Medications Medication Instructions Recorded Confirmed Type predniSONE 5 mg PO DAILY 01/09/19 06/07/20 History Morphine Sulfate Ir [MSIR] 15 mg PO BID PRN 05/01/19 06/07/20 History Gabapentin 600 mg PO TID 08/26/19 06/07/20 History Morphine Sulfate ER [Ms Contin] 60 mg PO Q12H 08/26/19 06/07/20 History Albuterol Sulfate [Ventolin HFA] 1 - 2 puff INHALATION RT-Q6H PRN 05/10/20 06/07/20 History Allergies Allergy/AdvReac Type Severity Reaction Status Date / Time No Known Allergies Allergy Verified 06/07/20 17:49 Physical Exam Vitals: Vital Signs Temp Pulse Pulse Resp BP BP BP 06/08/20 06:51 97.7 F 73 15 114/61 06/08/20 01:00 99.1 F 83 20 112/73 06/08/20 00:00 97 20 06/07/20 19:49 97.4 F L 97 20 122/79 06/07/20 19:48 100 06/07/20 19:43 100 06/07/20 17:43 103 H 20 109/70 06/07/20 16:22 105 H 06/07/20 16:06 103 H 06/07/20 15:53 20 06/07/20 15:49 97.8 F 102 H 24 121/79 Pulse Ox 06/08/20 06:51 100 06/08/20 01:00 98 06/08/20 00:00 06/07/20 19:49 96 06/07/20 19:48 06/07/20 19:43 06/07/20 17:43 99 06/07/20 16:22 06/07/20 16:06 06/07/20 15:53 06/07/20 15:49 88 L Intake and Output 06/07/20 06/08/20 06/08/20 22:59 06:59 14:59 Intake Total 100 Balance 100 Intake: Oral 100 Other: Voiding Method Toilet Toilet # Voids 1 2 Weight 77.111 kg GENERAL: The patient is alert and oriented x3, not in any acute distress. Well developed, well nourished. HEENT: Pupils are round and equally reacting to light. EOMI. No scleral icterus. No conjunctival pallor. Normocephalic, atraumatic. No pharyngeal erythema. No thyromegaly. CARDIOVASCULAR: S1 and S2 present. No murmurs, rubs, or gallops. -PULMONARY: Chest is clear to auscultation, bilateral scattered wheezing ABDOMEN: Soft, nontender, nondistended, normoactive bowel sounds. No palpable organomegaly. MUSCULOSKELETAL: No joint swelling or deformity. EXTREMITIES: No cyanosis, clubbing, or pedal edema. NEUROLOGICAL: Gross neurological examination did not reveal any focal deficits. SKIN: No rashes. No petechiae Results CBC & Chem 7: 06/07/20 16:12 06/07/20 16:12 Labs: Abnormal Lab Results - Last 24 Hours (Table) 06/07/20 06/07/20 Range/Units 16:12 16:12 Lymphocytes # 0.5 L (1.0-4.8) k/uL Sodium 136 L (137-145) mmol/L Creatinine 0.45 L (0.66-1.25) mg/dL Glucose 113 H (74-99) mg/dL Total Protein 8.5 H (6.3-8.2) g/dL Thrombosis Risk Factor Assmnt - Choose All That Apply Each Factor Represents 1 point: Age 41-60 years Thrombosis Risk Factor Assessment Total Risk Factor Score: 1 Thrombosis Risk Factor Assessment Level: Low Risk Assessment and Plan Assessment: interstitial lung disease, with acute exacerbation Acute on chronic hypoxic respiratory failure Mediastinal lymphadenopathy Recent history of pulmonary embolism Chronic back pain with bilateral Sciatica history of coronary artery disease with previous history of stent Plan: This is a pleasant 55% old male who presents with interstitial lung disease and acute exacerbation. Also acute hypoxic respiratory failure. Patient feels better and he wants to go home. We will see the recommendation by caustic liquor maker Dr. whitlock. Patient has been refusing his IV steroids. Currently is on baseline oxygen of 2 L/m Labs and medication were reviewed.. Continue same treatment. Continue with symptomatic treatment. Resume home medication. Monitor lytes and vitals. DVT and GI prophylaxis. Further recommendations of the clinical course of the patient DVT prophylaxis: Subcutaneous heparin GI Prophylaxis: Pepcid
[2020-06-08] MEDS: GABAPENTIN 300 MG CAP PO SCH (08:36)
[2020-06-08] MEDS ORDERED: AZITHROMYCIN 500 MG TAB PO SCH (09:00)
[2020-06-08] MEDS ORDERED: HEPARIN SODIUM,PORCINE 5,000 UNIT/ML 1 ML VIAL SQ SCH (09:00)
[2020-06-08] MEDS ORDERED: FAMOTIDINE 20 MG/2 ML VIAL IV SCH (09:00)
[2020-06-08] MEDS: ALBUTEROL NEBULIZED 2.5 MG/3 ML INHALATION SCH (09:22)
== END 2020-06-08 09:21 | disposition left against medical advice (07) | DRG 196 ==
LOC: EC 15:48 → 4SSUR 17:30
PROVIDERS: ADMIT Hospitalist; ATTEND Hospitalist
DX: J84.112 Idiopathic pulmonary fibrosis (principal); J96.21 Acute and chronic respiratory failure with hypoxia; J44.1 Chronic obstructive pulmonary disease with (acute) exacerbation; Z87.891 Personal history of nicotine dependence; I25.10 Atherosclerotic heart disease of native coronary artery without angina pectoris; I25.2 Old myocardial infarction; G40.909 Epilepsy, unspecified, not intractable, without status epilepticus; G89.29 Other chronic pain; M06.9 Rheumatoid arthritis, unspecified; M54.31 Sciatica, right side; M54.32 Sciatica, left side; Z79.899 Other long term (current) drug therapy; Z80.0 Family history of malignant neoplasm of digestive organs; Z82.49 Family history of ischemic heart disease and other diseases of the circulatory system; Z80.9 Family history of malignant neoplasm, unspecified; Z86.711 Personal history of pulmonary embolism; Z87.442 Personal history of urinary calculi; Z95.5 Presence of coronary angioplasty implant and graft; Z87.01 Personal history of pneumonia (recurrent); Z90.49 Acquired absence of other specified parts of digestive tract; Z99.81 Dependence on supplemental oxygen; G43.909 Migraine, unspecified, not intractable, without status migrainosus; Z96.649 Presence of unspecified artificial hip joint; Z79.52 Long term (current) use of systemic steroids; D89.9 Disorder involving the immune mechanism, unspecified; T38.0X5A Adverse effect of glucocorticoids and synthetic analogues, initial encounter
CPT/HCPCS: 36415; 71046; 80053; 83605; 83735; 83880; 84484; 85025; 85610; 85730; 93005; 94640; 99285

== ENCOUNTER 2020-07-02 08:25 | Emergency (ER) | payer MEDICARE ==
[2020-07-02 08:40] VITALS: TEMP 97.8
--- NOTE | 2020-07-02 09:55 | ED ---
Male Urogenital HPI - General Chief complaint: Urogenital Stated complaint: kidney infection Time Seen by Provider: 07/02/20 08:42 Source: patient Mode of arrival: ambulatory Limitations: no limitations - History of Present Illness Initial comments: Patient is a 55-year-old male presenting to emergency Department with complaints of a possible kidney infection. Patient states he has a history of kidney stones. Patient states she was treated for a UTI approximately a week and a half ago, finished Levaquin a few days ago. Patient states he continues to have right sided kidney pain. He states this does not feel like his normal kidney stone pain, he believes it is an infection. He denies any fever, chills, nausea, vomiting. Denies any chest pain. He states he has a history of pulmonary disease and normally has some mild shortness of breath, this is not increased from baseline. He is normally on 2 L at home. He has no further complaints at this time. Upon arrival to the ER, his vital signs are stable. - Related Data Home Medications Medication Instructions Recorded Confirmed predniSONE 5 mg PO DAILY 01/09/19 06/07/20 Morphine Sulfate Ir [MSIR] 15 mg PO BID PRN 05/01/19 06/07/20 Gabapentin 600 mg PO TID 08/26/19 06/07/20 Morphine Sulfate ER [Ms Contin] 60 mg PO Q12H 08/26/19 06/07/20 Albuterol Sulfate [Ventolin HFA] 1 - 2 puff INHALATION RT-Q6H PRN 05/10/20 06/07/20 Allergies Allergy/AdvReac Type Severity Reaction Status Date / Time No Known Allergies Allergy Verified 07/02/20 08:38 Review of Systems ROS Statement: Those systems with pertinent positive or pertinent negative responses have been documented in the HPI. ROS Other: All systems not noted in ROS Statement are negative. Past Medical History Past Medical History: Myocardial Infarction ([place]), Osteoarthritis (OA), Pneumonia, Renal Disease, Respiratory Disorder, Rheumatoid Arthritis (RA), Seizure Disorder Additional Past Medical History / Comment(s): Idiopathic pulmonary fibrosis, interstitial lung disease, chronic respiratory failure, home O2 use at HS and prn during day, immuno compromised d/t steroid use, bronchitis, seizure with benadry overdose in 2015/[place] -pt does not recall [place]/vented and pt states in a coma-had nerve damage/R upper and lower weakness/pain and L lower leg weakness/pain/posterior reversible encephalopathy syndrome, chronic low back pain with bilateral sciatica, DDD, kidney stones pt states he passed, Last Myocardial Infarction Date:: 2014 History of Any Multi-Drug Resistant Organisms: None Reported Past Surgical History: Back Surgery, Cholecystectomy Additional Past Surgical History / Comment(s): PCI with stent 2014, R VAT with upper lobe resection/R lung scraped/biopsied, low back surgery/injections, colonoscopy Past Anesthesia/Blood Transfusion Reactions: No Reported Reaction Past Psychological History: No Psychological Hx Reported Smoking Status: Never smoker Past Alcohol Use History: None Reported Past Drug Use History: None Reported - Past Family History Mother Additional Family Medical History / Comment(s): Migraines, hip replacement. Mother is 83 yrs old. Father Family Medical History: Cancer, Hypertension Additional Family Medical History / Comment(s): Father of pancreatic cancer at the age of 60yrs. General Exam - General Exam Comments Initial Comments: GENERAL: Patient is well-developed and well-nourished. Patient is nontoxic and in no acute distress. HEAD: Atraumatic, normocephalic. EYES: Pupils equal round and reactive to light, extraocular movements intact, sclera anicteric, conjunctiva are normal. Eyelids were unremarkable. ENT: TMs normal, nares patent, oropharynx clear without exudates. Moist mucous membranes. NECK: Normal range of motion, supple without lymphadenopathy or JVD. LUNGS: Unlabored respirations. Breath sounds clear to auscultation bilaterally and equal. No wheezes rales or rhonchi. HEART: Regular rate and rhythm without murmurs, rubs or gallops. ABDOMEN: Mild right sided tenderness, mild right flank pain. Soft, normoactive bowel sounds. No guarding, no rebound. No masses appreciated. : Deferred MUSCULOSKELETAL: Normal extremities with adequate strength and normal range of motion, no pitting or edema. No clubbing or cyanosis. NEUROLOGICAL: Patient is alert and oriented x 3. Motor and sensory are also intact. Symmetrical smile. Normal speech, normal gait. PSYCH: Normal mood, normal affect. SKIN: Warm, Dry, normal turgor, no rashes or lesions noted. Limitations: no limitations Course Vital Signs 07/02/20 07/02/20 08:38 11:12 Temperature 97.8 F Pulse Rate 100 78 Respiratory 16 16 Rate Blood Pressure 102/65 100/70 O2 Sat by Pulse 98 96 Oximetry Medical Decision Making - Medical Decision Making Patient is a 55-year-old male here for possible right-sided kidney infection. Patient has a history of stones. He states he doesn't believe this is just an infection. Patient initially has declined blood work and imaging. I did obtain a UA, which did not come back with any bacteria, completely normal. At this time patient did agree to some lab work and a CT to rule out a kidney stone. Labs show a normal white count, normal kidney function. CT of the abdomen shows bilateral nonobstructing renal stones, fluid-filled small bowel loops, correlate for enteritis. There is some thickening of the cecum, recommend visualization to exclude neoplasm. There is some chronic lung changes which patient is aware of and is currently seeing pulmonology. She was given fluids, Zofran and some Toradol. He does have some improvement in her symptoms. I discussed with patient his symptoms are most likely enteritis but do recommend following up with GI. He states he'll try MiraLAX as well as increasing his water intake. He is stable for discharge. He is in agreement with this plan of care. Return parameters were discussed with the patient he verbalizes understanding. Case discussed with Dr. Johnson. - Lab Data Result diagrams: 07/02/20 10:40 07/02/20 10:40 Lab Results 07/02/20 07/02/20 07/02/20 Range/Units 09:10 10:40 10:40 WBC 6.4 (3.8-10.6) k/uL RBC 5.44 (4.30-5.90) m/uL Hgb 14.2 (13.0-17.5) gm/dL Hct 44.7 (39.0-53.0) % MCV 82.2 (80.0-100.0) fL MCH 26.0 (25.0-35.0) pg MCHC 31.6 (31.0-37.0) g/dL RDW 15.4 (11.5-15.5) % Plt Count 271 (150-450) k/uL Neutrophils % 79 % Lymphocytes % 9 % Monocytes % 6 % Eosinophils % 2 % Basophils % 3 % Neutrophils # 5.0 (1.3-7.7) k/uL Lymphocytes # 0.5 L (1.0-4.8) k/uL Monocytes # 0.4 (0-1.0) k/uL Eosinophils # 0.1 (0-0.7) k/uL Basophils # 0.2 (0-0.2) k/uL Hypochromasia Slight Sodium 135 L (137-145) mmol/L Potassium 5.1 (3.5-5.1) mmol/L Chloride 97 L (98-107) mmol/L Carbon Dioxide 32 H (22-30) mmol/L Anion Gap 6 mmol/L BUN 8 L (9-20) mg/dL Creatinine 0.61 L (0.66-1.25) mg/dL Est GFR (CKD-EPI)AfAm >90 (>60 ml/min/1.73 sqM) Est GFR (CKD-EPI)NonAf >90 (>60 ml/min/1.73 sqM) Glucose 99 (74-99) mg/dL Calcium 9.3 (8.4-10.2) mg/dL Total Bilirubin 0.7 (0.2-1.3) mg/dL AST 39 (17-59) U/L ALT 16 (4-49) U/L Alkaline Phosphatase 97 (38-126) U/L Total Protein 8.7 H (6.3-8.2) g/dL Albumin 4.1 (3.5-5.0) g/dL Lipase 58 (23-300) U/L Urine Color Light Yellow Urine Appearance Clear (Clear) Urine pH 7.5 (5.0-8.0) Ur Specific [place] 1.007 (1.001-1.035) Urine Protein Negative (Negative) Urine Glucose (UA) Negative (Negative) Urine Ketones Negative (Negative) Urine Blood Negative (Negative) Urine Nitrite Negative (Negative) Urine Bilirubin Negative (Negative) Urine Urobilinogen <2.0 (<2.0) mg/dL Ur Leukocyte Esterase Negative (Negative) Disposition Clinical Impression: Abdominal pain, Enteritis Disposition: HOME SELF-CARE Condition: Stable Instructions (If sedation given, give patient instructions): Abdominal Pain (ED) Additional Instructions: Please return to the Emergency Department if symptoms worsen or any other concerns. Recommended Tylenol or ibuprofen for discomfort. Also increase water intake and a trial of MiraLAX. Follow up with GI as discussed. Is patient prescribed a controlled substance at d/c from ED?: No Referrals: Naima Oliveira MD [Primary Care Provider] - 1-2 days Nerissa Kim MD [STAFF PHYSICIAN] - 1-2 days
[2020-07-02 10:23] LABS: Appearance,Urine Clear (Clear); Bilirubin,Urine Negative (Negative); Blood,Urine Negative (Negative); Color,Urine Light Yellow; Glucose,Urine (UA) Negative (Negative); Ketones,Urine Negative (Negative); Leukocyte Esterase,Urine Negative (Negative); Nitrite,Urine Negative (Negative); PH, Urine 7.5 (5.0-8.0); Protein,Urine Negative (Negative); Specific Gravity,Urine 1.007 (1.001-1.035); Urobilinogen,Urine <2.0 mg/dL (<2.0)
[2020-07-02] MEDS ORDERED: ONDANSETRON 4 MG/2 ML VIAL IVP STA (10:38)
[2020-07-02] MEDS ORDERED: SODIUM CHLORIDE 0.9% 500 ML 500 ML IV STA (10:38)
[2020-07-02] MEDS ORDERED: KETOROLAC 15 MG/ML 1 ML VIAL IVP STA (10:38)
[2020-07-02 10:58] LABS: Basophils # (A) 0.2 k/uL (0-0.2); Basophils % (A) 3 %; Eosinophils # (A) 0.1 k/uL (0-0.7); Eosinophils % (A) 2 %; HCT 44.7 % (39.0-53.0); HGB 14.2 gm/dL (13.0-17.5); Hypochromasia Slight; Lymphocytes # (A) 0.5 k/uL (1.0-4.8); Lymphocytes % (A) 9 %; MCHC 31.6 g/dL (31.0-37.0); MCV 82.2 fL (80.0-100.0); Mean Platelet Volume 6.4; Monocytes # (A) 0.4 k/uL (0-1.0); Monocytes % (A) 6 %; Neutrophils % (A) 79 %; Platelet Count 271 k/uL (150-450); RBC 5.44 m/uL (4.30-5.90); RDW 15.4 % (11.5-15.5); WBC 6.4 k/uL (3.8-10.6)
[2020-07-02 11:08] LABS: ALT 16 U/L (4-49); AST 39 U/L (17-59); African American GFR (CKD) >90 (>60 ml/min/1.73 sqM); Albumin 4.1 g/dL (3.5-5.0); Alkaline Phosphatase 97 U/L (38-126); Anion Gap 6 mmol/L; Blood Urea Nitrogen 8 mg/dL (9-20); Calcium 9.3 mg/dL (8.4-10.2); Carbon Dioxide 32 mmol/L (22-30); Chloride 97 mmol/L (98-107); Glucose 99 mg/dL (74-99); Non-African American GFR(CKD) >90 (>60 ml/min/1.73 sqM); Potassium 5.1 mmol/L (3.5-5.1); Sodium 135 mmol/L (137-145); Total Bilirubin 0.7 mg/dL (0.2-1.3); Total Protein 8.7 g/dL (6.3-8.2)
--- NOTE | 2020-07-02 11:17 | CT ---
EXAMINATION TYPE: CT abdomen pelvis wo con DATE OF EXAM: 07/02/2020 COMPARISON: 05/03/2015 HISTORY: 55-year-old male Rt flank pain CT DLP: 480.5 mGycm. Automated exposure control for dose reduction was used. TECHNIQUE: Contiguous axial scanning of the abdomen and pelvis without IV contrast. Coronal and sagit katie reconstructions performed. FINDINGS: Large caliber to the main right pulmonary artery. Ectatic aortic root at 3.6 cm. Coronary vessel calc ifications are visualized. There is mee basilar honeycombing, progressed from 2014. Subcarinal lymp h node borderline enlarged at 1.3 cm, similar to prior, likely reactive. Noncontrast appearance of the liver, adrenal glands, spleen, and pancreas shows no gross abnormal. Gallbladder surgically absent. Punctate 2 mm nonobstructive right renal calculus. Approximately 6 nonobstructive left renal calculi measuring up to 6 mm. No hydronephrosis on either side. Scattered prominent fluid-filled small bowel loops throughout. Fluid extends into the cecum and ascen ding colon. Small fatty umbilical hernia. No dilated small bowel, free fluid, free air. No mesenteric or retroperitoneal lymphadenopathy. Apparent thickening of the cecum, axial image 106 and coronal image 37 suspected to represent liquid stool around the periphery of centrally located stool rather than abnormal wall thickening. Direct vi sualization is recommended when patient able. No pericolonic inflammatory change. Bladder urine distended. Pelvic phlebolith. No abnormal fluid collection in the pelvis or pelvic lymp hadenopathy. Bones: Moderate to severe degenerative disc disease L5-S1. There is left-sided L5 pars defect. Facet arthropathy lower lumbar spine. Alignment is maintained. IMPRESSION: 1. Bilateral nonobstructive renal calculi measuring up to 7 mm. No hydronephrosis. 2. Prominent fluid-filled small bowel loops throughout the abdomen. Correlate for enteritis. 3. Apparent thickening of the cecum suspected to represent liquid stool around the periphery of cent rally located stool rather than abnormal wall thickening. Recommend direct visualization to exclude n eoplasm when patient able. 4. UIP pattern of chronic lung injury with progressive basilar honeycombing as compared to 2014. Pul monary arterial hypertension. Recommend pulmonary medicine referral if there is no established follow -up already. 5. Incidental left-sided L5 pars defect.
[2020-07-02 11:52] VITALS: BP 100/57; PULSE 81; RESP 20
== END 2020-07-02 11:45 | disposition home or self-care (01) ==
LOC: EC 08:25
DX: K52.9 Noninfective gastroenteritis and colitis, unspecified (principal); N20.0 Calculus of kidney; J96.10 Chronic respiratory failure, unspecified whether with hypoxia or hypercapnia; G40.909 Epilepsy, unspecified, not intractable, without status epilepticus; I25.2 Old myocardial infarction; Z87.440 Personal history of urinary (tract) infections; Z79.899 Other long term (current) drug therapy; Z99.81 Dependence on supplemental oxygen
CPT/HCPCS: 36415; 80053; 83690; 85025; 81003; 74176; 99284; 96374; 96375; J2405; J1885

== ENCOUNTER 2020-07-04 22:01 | Observation (INO) | payer MEDICARE ==
--- NOTE | 2020-07-04 22:45 | ED ---
SOB HPI - General Chief Complaint: Shortness of Breath Stated Complaint: FADUMO Time Seen by Provider: 07/04/20 22:11 Source: patient Mode of arrival: ambulatory Limitations: no limitations - History of Present Illness MD Complaint: shortness of breath Onset/Timin -: days(s) Consistency: constant Improves With: nothing Worsens With: nothing Known History Of: other (Pulmonary fibrosis) Associated Symptoms: denies other symptoms Treatments Prior to Arrival: none - Related Data Home Oxygen Therapy: Yes Home Oxygen Amount: 2 Liters Home Medications Medication Instructions Recorded Confirmed predniSONE 5 mg PO DAILY 01/09/19 07/05/20 Morphine Sulfate Ir [MSIR] 15 mg PO BID PRN 05/01/19 07/05/20 Gabapentin 600 mg PO TID 08/26/19 07/05/20 Morphine Sulfate ER [Ms Contin] 60 mg PO Q12H 08/26/19 07/05/20 Albuterol Sulfate [Ventolin HFA] 1 - 2 puff INHALATION RT-Q6H PRN 05/10/20 07/05/20 Aspirin [Adult Low Dose Aspirin EC] 81 mg PO DAILY 07/05/20 07/05/20 Allergies Allergy/AdvReac Type Severity Reaction Status Date / Time No Known Allergies Allergy Verified 07/05/20 02:28 Review of Systems ROS Statement: Those systems with pertinent positive or pertinent negative responses have been documented in the HPI. ROS Other: All systems not noted in ROS Statement are negative. Constitutional: Denies: fever, chills, weakness Respiratory: Reports: dyspnea. Denies: cough, wheezes, hemoptysis Cardiovascular: Denies: chest pain, palpitations, edema, syncope Gastrointestinal: Denies: abdominal pain, vomiting, diarrhea Genitourinary: Denies: dysuria, frequency, hematuria, discharge Musculoskeletal: Reports: back pain (Right flank) Skin: Denies: rash Neurological: Denies: headache, weakness, numbness Past Medical History Past Medical History: Myocardial Infarction ([place]), Osteoarthritis ([place]), Pneumonia, Renal Disease, Respiratory Disorder, Rheumatoid Arthritis ([place]), Seizure Disorder Additional Past Medical History / Comment(s): Idiopathic pulmonary fibrosis, interstitial lung disease, chronic respiratory failure, home O2 use at HS and prn during day, immuno compromised d/t steroid use, bronchitis, seizure with benadry overdose in 2015/[place] -pt does not recall [place]/vented and pt states in a coma-had nerve damage/R upper and lower weakness/pain and L lower leg weakness/pain/posterior reversible encephalopathy syndrome, chronic low back pain with bilateral sciatica, DDD, kidney stones pt states he passed, Last Myocardial Infarction Date:: 2014 History of Any Multi-Drug Resistant Organisms: None Reported Past Surgical History: Back Surgery, Cholecystectomy Additional Past Surgical History / Comment(s): PCI with stent 2014, R VAT with upper lobe resection/R lung scraped/biopsied, low back surgery/injections, colonoscopy Past Anesthesia/Blood Transfusion Reactions: No Reported Reaction Past Psychological History: No Psychological Hx Reported Smoking Status: Never smoker Past Alcohol Use History: None Reported Past Drug Use History: None Reported - Past Family History Mother Additional Family Medical History / Comment(s): Migraines, hip replacement. Mother is 83 yrs old. Father Family Medical History: Cancer, Hypertension Additional Family Medical History / Comment(s): Father of pancreatic cancer at the age of 60yrs. General Exam Limitations: no limitations General appearance: alert, in no apparent distress Head exam: Present: atraumatic, normocephalic Eye exam: Present: normal appearance. Absent: scleral icterus, conjunctival injection Neck exam: Present: normal inspection, full ROM Respiratory exam: Present: normal lung sounds bilaterally, wheezes, rales. Absent: respiratory distress, rhonchi Cardiovascular Exam: Present: regular rate, normal rhythm, normal heart sounds. Absent: systolic murmur, diastolic murmur, rubs, gallop GI/Abdominal exam: Present: soft. Absent: distended, tenderness, guarding, rebound, rigid, mass Extremities exam: Present: normal inspection, normal capillary refill. Absent: pedal edema, calf tenderness Back exam: Present: normal inspection, CVA tenderness (R). Absent: CVA tenderness (L) Neurological exam: Present: alert Skin exam: Present: warm, dry, intact, normal color. Absent: rash Course Vital Signs 07/04/20 07/05/20 07/05/20 22:02 01:07 02:11 Temperature 97.7 F Pulse Rate 99 96 88 Respiratory 20 18 18 Rate Blood Pressure 114/70 107/68 105/71 O2 Sat by Pulse 87 L 96 97 Oximetry Medical Decision Making - Lab Data Result diagrams: 07/04/20 22:39 07/04/20 22:39 Lab Results 07/04/20 07/04/20 07/04/20 Range/Units 22:39 22:39 22:39 WBC 5.5 (3.8-10.6) k/uL RBC 5.00 (4.30-5.90) m/uL Hgb 12.8 L (13.0-17.5) gm/dL Hct 40.8 (39.0-53.0) % MCV 81.6 (80.0-100.0) fL MCH 25.6 (25.0-35.0) pg MCHC 31.4 (31.0-37.0) g/dL RDW 15.4 (11.5-15.5) % Plt Count 261 (150-450) k/uL Neutrophils % 69 % Lymphocytes % 18 % Monocytes % 7 % Eosinophils % 2 % Basophils % 1 % Neutrophils # 3.8 (1.3-7.7) k/uL Lymphocytes # 1.0 (1.0-4.8) k/uL Monocytes # 0.4 (0-1.0) k/uL Eosinophils # 0.1 (0-0.7) k/uL Basophils # 0.1 (0-0.2) k/uL Hypochromasia Slight PT 10.7 (9.0-12.0) sec INR 1.0 (<1.2) APTT 24.5 (22.0-30.0) sec D-Dimer 0.50 (<0.60) mg/L FEU Sodium 137 (137-145) mmol/L Potassium 4.1 (3.5-5.1) mmol/L Chloride 100 (98-107) mmol/L Carbon Dioxide 31 H (22-30) mmol/L Anion Gap 6 mmol/L BUN 9 (9-20) mg/dL Creatinine 0.59 L (0.66-1.25) mg/dL Est GFR (CKD-EPI)AfAm >90 (>60 ml/min/1.73 sqM) Est GFR (CKD-EPI)NonAf >90 (>60 ml/min/1.73 sqM) Glucose 101 H (74-99) mg/dL Plasma Lactic Acid Soto (0.7-2.0) mmol/L Calcium 9.1 (8.4-10.2) mg/dL Total Bilirubin 0.5 (0.2-1.3) mg/dL AST 31 (17-59) U/L ALT 14 (4-49) U/L Alkaline Phosphatase 95 (38-126) U/L Troponin I (0.000-0.034) ng/mL NT-Pro-B Natriuret Pep pg/mL Total Protein 8.0 (6.3-8.2) g/dL Albumin 3.9 (3.5-5.0) g/dL Urine Color Urine Appearance (Clear) Urine pH (5.0-8.0) Ur Specific [place] (1.001-1.035) Urine Protein (Negative) Urine Glucose (UA) (Negative) Urine Ketones (Negative) Urine Blood (Negative) Urine Nitrite (Negative) Urine Bilirubin (Negative) Urine Urobilinogen (<2.0) mg/dL Ur Leukocyte Esterase (Negative) 07/04/20 07/04/20 07/04/20 Range/Units 22:39 22:39 22:39 WBC (3.8-10.6) k/uL RBC (4.30-5.90) m/uL Hgb (13.0-17.5) gm/dL Hct (39.0-53.0) % MCV (80.0-100.0) fL MCH (25.0-35.0) pg MCHC (31.0-37.0) g/dL RDW (11.5-15.5) % Plt Count (150-450) k/uL Neutrophils % % Lymphocytes % % Monocytes % % Eosinophils % % Basophils % % Neutrophils # (1.3-7.7) k/uL Lymphocytes # (1.0-4.8) k/uL Monocytes # (0-1.0) k/uL Eosinophils # (0-0.7) k/uL Basophils # (0-0.2) k/uL Hypochromasia PT (9.0-12.0) sec INR (<1.2) APTT (22.0-30.0) sec D-Dimer (<0.60) mg/L FEU Sodium (137-145) mmol/L Potassium (3.5-5.1) mmol/L Chloride (98-107) mmol/L Carbon Dioxide (22-30) mmol/L Anion Gap mmol/L BUN (9-20) mg/dL Creatinine (0.66-1.25) mg/dL Est GFR (CKD-EPI)AfAm (>60 ml/min/1.73 sqM) Est GFR (CKD-EPI)NonAf (>60 ml/min/1.73 sqM) Glucose (74-99) mg/dL Plasma Lactic Acid Soto 1.1 (0.7-2.0) mmol/L Calcium (8.4-10.2) mg/dL Total Bilirubin (0.2-1.3) mg/dL AST (17-59) U/L ALT (4-49) U/L Alkaline Phosphatase (38-126) U/L Troponin I <0.012 (0.000-0.034) ng/mL NT-Pro-B Natriuret Pep 109 pg/mL Total Protein (6.3-8.2) g/dL Albumin (3.5-5.0) g/dL Urine Color Urine Appearance (Clear) Urine pH (5.0-8.0) Ur Specific [place] (1.001-1.035) Urine Protein (Negative) Urine Glucose (UA) (Negative) Urine Ketones (Negative) Urine Blood (Negative) Urine Nitrite (Negative) Urine Bilirubin (Negative) Urine Urobilinogen (<2.0) mg/dL Ur Leukocyte Esterase (Negative) 07/04/20 Range/Units 22:39 WBC (3.8-10.6) k/uL RBC (4.30-5.90) m/uL Hgb (13.0-17.5) gm/dL Hct (39.0-53.0) % MCV (80.0-100.0) fL MCH (25.0-35.0) pg MCHC (31.0-37.0) g/dL RDW (11.5-15.5) % Plt Count (150-450) k/uL Neutrophils % % Lymphocytes % % Monocytes % % Eosinophils % % Basophils % % Neutrophils # (1.3-7.7) k/uL Lymphocytes # (1.0-4.8) k/uL Monocytes # (0-1.0) k/uL Eosinophils # (0-0.7) k/uL Basophils # (0-0.2) k/uL Hypochromasia PT (9.0-12.0) sec INR (<1.2) APTT (22.0-30.0) sec D-Dimer (<0.60) mg/L FEU Sodium (137-145) mmol/L Potassium (3.5-5.1) mmol/L Chloride (98-107) mmol/L Carbon Dioxide (22-30) mmol/L Anion Gap mmol/L BUN (9-20) mg/dL Creatinine (0.66-1.25) mg/dL Est GFR (CKD-EPI)AfAm (>60 ml/min/1.73 sqM) Est GFR (CKD-EPI)NonAf (>60 ml/min/1.73 sqM) Glucose (74-99) mg/dL Plasma Lactic Acid Soto (0.7-2.0) mmol/L Calcium (8.4-10.2) mg/dL Total Bilirubin (0.2-1.3) mg/dL AST (17-59) U/L ALT (4-49) U/L Alkaline Phosphatase (38-126) U/L Troponin I (0.000-0.034) ng/mL NT-Pro-B Natriuret Pep pg/mL Total Protein (6.3-8.2) g/dL Albumin (3.5-5.0) g/dL Urine Color Light Yellow Urine Appearance Clear (Clear) Urine pH 7.0 (5.0-8.0) Ur Specific [place] 1.004 (1.001-1.035) Urine Protein Negative (Negative) Urine Glucose (UA) Negative (Negative) Urine Ketones Negative (Negative) Urine Blood Negative (Negative) Urine Nitrite Negative (Negative) Urine Bilirubin Negative (Negative) Urine Urobilinogen <2.0 (<2.0) mg/dL Ur Leukocyte Esterase Negative (Negative) - EKG Data -: EKG Interpreted by Ma EKG shows normal: sinus rhythm, axis (Isidro axis), intervals (Normal), QRS complexes (Normal) Rate: normal (Rate 84 bpm) Interpretation: nonspecific ST-T wave changes Disposition Clinical Impression: Flank pain, Acute exacerbation of idiopathic pulmonary fibrosis Disposition: ADMITTED IP TO THIS HOSP Condition: Fair Is patient prescribed a controlled substance at d/c from ED?: No
[2020-07-04 22:48] LABS: Basophils # (A) 0.1 k/uL (0-0.2); Basophils % (A) 1 %; Eosinophils # (A) 0.1 k/uL (0-0.7); Eosinophils % (A) 2 %; HCT 40.8 % (39.0-53.0); HGB 12.8 gm/dL (13.0-17.5); Hypochromasia Slight; Lymphocytes % (A) 18 %; MCH 25.6 pg (25.0-35.0); MCHC 31.4 g/dL (31.0-37.0); MCV 81.6 fL (80.0-100.0); Mean Platelet Volume 6.6; Monocytes # (A) 0.4 k/uL (0-1.0); Monocytes % (A) 7 %; Neutrophils # (A) 3.8 k/uL (1.3-7.7); Neutrophils % (A) 69 %; Platelet Count 261 k/uL (150-450); RDW 15.4 % (11.5-15.5); WBC 5.5 k/uL (3.8-10.6)
--- NOTE | 2020-07-04 22:59 | XR ---
EXAMINATION TYPE: XR chest 2V DATE OF EXAM: 07/04/2020 COMPARISON: 06/07/2020 HISTORY: Difficulty breathing TECHNIQUE: FINDINGS: There is extensive coarse interstitial density throughout the lungs. There is slight elevat ed right diaphragm. Heart size is normal. There is no gross heart failure. There is no sign of medias tinal adenopathy. IMPRESSION: Extensive pulmonary interstitial fibrosis is stable compared to old exam.
[2020-07-04 23:01] LABS: D-Dimer 0.5 mg/L FEU (<0.60); Partial Thromboplastin Time 24.5 sec (22.0-30.0); Prothrombin Time 10.7 sec (9.0-12.0)
[2020-07-04 23:06] LABS: ALT 14 U/L (4-49); AST 31 U/L (17-59); African American GFR (CKD) >90 (>60 ml/min/1.73 sqM); Albumin 3.9 g/dL (3.5-5.0); Alkaline Phosphatase 95 U/L (38-126); Anion Gap 6 mmol/L; Blood Urea Nitrogen 9 mg/dL (9-20); Calcium 9.1 mg/dL (8.4-10.2); Carbon Dioxide 31 mmol/L (22-30); Chloride 100 mmol/L (98-107); Glucose 101 mg/dL (74-99); Non-African American GFR(CKD) >90 (>60 ml/min/1.73 sqM); Potassium 4.1 mmol/L (3.5-5.1); Sodium 137 mmol/L (137-145); Total Bilirubin 0.5 mg/dL (0.2-1.3)
[2020-07-04] MEDS ORDERED: methylPREDNISolone SOD SUCCI 125 MG/2 ML VIAL IV STA (23:21)
[2020-07-05] MEDS ORDERED: MORPHINE SULFATE ER 60 MG TABLET PO STA (00:22)
[2020-07-05] MEDS ORDERED: GABAPENTIN 300 MG CAP PO STA (00:22)
[2020-07-05 00:32] LABS: Appearance,Urine Clear (Clear); Bilirubin,Urine Negative (Negative); Blood,Urine Negative (Negative); Color,Urine Light Yellow; Glucose,Urine (UA) Negative (Negative); Ketones,Urine Negative (Negative); Leukocyte Esterase,Urine Negative (Negative); Nitrite,Urine Negative (Negative); Protein,Urine Negative (Negative); Specific Gravity,Urine 1.004 (1.001-1.035); Urobilinogen,Urine <2.0 mg/dL (<2.0)
[2020-07-05] MEDS ORDERED: PEG 3350-NA SULF,BICARB,CL/KCL 4,000 ML BOTTLE PO ONE (01:21)
[2020-07-05] MEDS ORDERED: ALBUTEROL NEBULIZED 2.5 MG/3 ML INHALATION PRN (01:39)
[2020-07-05] MEDS ORDERED: MORPHINE SULFATE IR 15 MG TABLET PO PRN (01:39)
[2020-07-05] MEDS: SODIUM CHLORIDE 0.9% 1,000 ML IV SCH ×2 (02:11→12:53)
[2020-07-05] MEDS ORDERED: MELATONIN 5 MG TABLET PO STA (02:32)
[2020-07-05] MEDS: MORPHINE SULFATE ER 60 MG TABLET PO SCH ×2 (05:46→12:51)
[2020-07-05] MEDS: methylPREDNISolone SOD SUCCI 125 MG/2 ML VIAL IV SCH ×3 (06:08→12:53)
[2020-07-05 07:37] VITALS: BP 123/81; PULSE 84; RESP 16; TEMP 97.5
[2020-07-05] MEDS ORDERED: GABAPENTIN 300 MG CAP PO SCH (09:00)
--- NOTE | 2020-07-05 12:37 | P.CNPUL ---
History of Present Illness Consult date: 07/05/20 Requesting physician: Fausto Stone Reason for consult: dyspnea, pulmonary fibrosis, abnormal CXR/CT Chief complaint: Shortness of breath, right-sided flank pain History of present illness: This a very pleasant 55-year-old male patient who follows with Dr. Oliveira as his primary care provider. He has a known history of biopsy-proven interstitial pulmonary fibrosis with UIP pathology. He has chronic hypoxic respiratory failure maintained on 1-2 L in the outpatient setting. He is on prednisone 5 mg daily. Pulmonary function testing revealed a total lung capacity of 43% of predicted, diffusion capacity of 70% of predicted and a forced vital Of 40%. CAT scans show chronic interstitial fibrosis and honeycombing in the lungs bilaterally. He was recently seen here in April 2020 acute right and left lower lobe pulmonary emboli. He was initiated on Xarelto. He also has a history of chronic low back pain and bilateral sciatica and is maintained on oral morphine in the outpatient setting. He has degenerative disc disease with previous surgery, posterior reversible encephalopathy syndrome, previous kidney stones. He presented to the emergency room yesterday with complaints of increasing shortness of breath dry nonproductive cough and worsening lower extremity pain. Chest x-ray continues to show interstitial fibrosis. White count 5.5. Hematoma 12.8. Platelet count 261,000. D-dimer 0.50. Sodium 137. Potassium 4.1. Creatinine 0.59. Troponin negative times one. ProBNP 109. Urinalysis negative. Patient is seen today in consultation in the observation unit. He is currently sitting up at the bedside. Awake and alert in no acute distress. He denies any worsening shortness of breath, cough or congestion. No fever, chills or night sweats. His main complaint is of right sided flank pain and lower extremity pain and weakness. He is asking for increased amounts of narcotics. He is currently receiving morphine 60 mg every 12 hours scheduled and 15 mg by mouth twice a day when necessary for breakthrough pain. He is on gabapentin. He was initiated on bronchodilators and IV Solu-Medrol. No significant chest tightness or wheezing. Computed tomography scan of the abdomen and pelvis revealed bilateral nonobstructive renal calculi measuring up to 7 mm. No hydronephrosis. Prominent fluid-filled small bowel loops throughout the abdomen for suspected enteritis. Apparent thickening of the cecum suspected to represent liquid stool around the periphery of centrally located stool rather than abnormal wall thickening. Patient's last colonoscopy 10 years ago. Review of Systems REVIEW OF SYSTEMS: CONSTITUTIONAL: Denies any recent significant weight loss or weight gain. EYES: Denies change in vision. EARS, NOSE, MOUTH, THROAT: Denies headaches, denies sore throat. CARDIOVASCULAR: Denies chest pain, palpitations or syncopal episodes. RESPIRATORY: Positive for shortness of breath, cough, congestion no hemoptysis. GASTROINTESTINAL: Denies change in appetite, denies abdominal pain GENITOURINARY: Denies hematuria, denies infections. MUSKULOSKELETAL: Positive for low back pain, right flank pain, lower extremity pain, denies swelling. INTEGUMENTARY: Denies rash, denies eczema. NEUROLOGICAL: Denies recent memory loss, no recent seizure activity. PSYCHIATRIC: Denies anxiety, denies depression. HEMATOLOGIC/LYMPHATIC: Denies anemia, denies enlarged lymph nodes. Past Medical History Past Medical History: Myocardial Infarction ([place]), Osteoarthritis ([place]), Pneumonia, Renal Disease, Respiratory Disorder, Rheumatoid Arthritis ([place]), Seizure Disorder Additional Past Medical History / Comment(s): Idiopathic pulmonary fibrosis, interstitial lung disease, chronic respiratory failure, home O2 use at HS and prn during day, immuno compromised d/t steroid use, bronchitis, seizure with benadry in 2015/[place] -pt does not recall [place]/vented and pt states in a coma-had ner ve damage/R upper and lower weakness/pain and L lower leg weakness/pain/posterior reversible encephalopathy syndrome, chronic low back pain with bilateral sciatica, DDD, kidney stones pt states he passed, Last Myocardial Infarction Date:: 2014 History of Any Multi-Drug Resistant Organisms: None Reported Past Surgical History: Back Surgery, Cholecystectomy Additional Past Surgical History / Comment(s): PCI with stent 2014, R VAT with upper lobe resection/R lung scraped/biopsied, low back surgery/injections, colonoscopy Past Anesthesia/Blood Transfusion Reactions: No Reported Reaction Past Psychological History: No Psychological Hx Reported Smoking Status: Never smoker Past Alcohol Use History: None Reported Additional Past Alcohol Use History / Comment(s): Pt states he was a light smoker-teen to early 20s Past Drug Use History: None Reported - Past Family History Mother Additional Family Medical History / Comment(s): Migraines, hip replacement. Mother is 83 yrs old. Father Family Medical History: Cancer, Hypertension Additional Family Medical History / Comment(s): Father of pancreatic cancer at the age of 60yrs. Medications and Allergies Home Medications Medication Instructions Recorded Confirmed Type predniSONE 5 mg PO DAILY 01/09/19 07/05/20 History Morphine Sulfate Ir [MSIR] 15 mg PO BID PRN 05/01/19 07/05/20 History Gabapentin 600 mg PO TID 08/26/19 07/05/20 History Morphine Sulfate ER [Ms Contin] 60 mg PO Q12H 08/26/19 07/05/20 History Albuterol Sulfate [Ventolin HFA] 1 - 2 puff INHALATION RT-Q6H PRN 05/10/20 07/05/20 History Aspirin [Adult Low Dose Aspirin EC] 81 mg PO DAILY 07/05/20 07/05/20 History Allergies Allergy/AdvReac Type Severity Reaction Status Date / Time No Known Allergies Allergy Verified 07/05/20 02:28 Physical Exam Vitals: Vital Signs Temp Pulse Pulse Resp BP BP Pulse Ox 07/05/20 07:35 97.5 F L 84 16 123/81 96 07/05/20 02:59 24 97 07/05/20 02:47 97.9 F 82 20 130/82 88 L 07/05/20 02:17 98 F 07/05/20 02:11 88 18 105/71 97 07/05/20 01:07 96 18 107/68 96 07/04/20 22:02 97.7 F 99 20 114/70 87 L Intake and Output 07/04/20 07/05/20 07/05/20 22:59 06:59 14:59 Other: Voiding Method Toilet Toilet # Voids 1 Weight 74.843 kg GENERAL EXAM: Alert, active, pleasant 55 year old gentleman, on 2 L nasal cannula with O2 saturation 96%, fairly comfortable in no apparent distress. HEAD: Normocephalic. EYES: Normal reaction of pupils, equal size. NOSE: Clear with pink turbinates. THROAT: No erythema or exudates. NECK: No masses, no JVD. CHEST: No chest wall deformity. LUNGS: Equal air entry with coarse crackles in the bilateral posterior bases. CVS: S1 and S2 normal with no audible murmur, regular rhythm. ABDOMEN: No hepatosplenomegaly, normal bowel sounds, no guarding or rigidity. SPINE: No scoliosis or deformity SKIN: No rashes CENTRAL NERVOUS SYSTEM: No focal deficits, tone is normal in all 4 extremities. EXTREMITIES: There is no peripheral edema. No clubbing, no cyanosis. Peripheral pulses are intact. Results - Laboratory Findings CBC and BMP: 07/04/20 22:39 07/04/20 22:39 PT/INR, D-dimer PT 10.7 sec (9.0-12.0) 07/04/20 22:39 INR 1.0 (<1.2) 07/04/20 22:39 D-Dimer 0.50 mg/L FEU (<0.60) 07/04/20 22:39 Abnormal lab findings: Abnormal Labs 07/04/20 07/04/20 22:39 22:39 Hgb 12.8 L Carbon Dioxide 31 H Creatinine 0.59 L Glucose 101 H - Diagnostic Findings Chest x-ray: image reviewed Assessment and Plan Assessment: #1 Right-sided flank pain of unclear etiology. Computed tomography scan of the abdomen and pelvis reviewed. Nonobstructing renal stones measuring 7 mm max. Urinalysis clean. #2 Acute on chronic pain of the low back and lower extremities. #3 Acute on chronic hypoxemic respiratory failure secondary to bilateral p ulmonary fibrosis with humming combing over the lung bases. #4 Recent admission in April 2020 for bilateral pulmonary emboli, initiated on Xarelto #5 Numerous enlarged prevascular, precarinal and subcarinal lymph nodes. Measuring 1.3 x 2.8. No axillary adenopathy. Stable. #6 Degenerative disc disease #7 History of coronary artery disease with previous stent placement to the obtuse marginal branch of the circumflex Plan: The patient was seen and evaluated by Dr. Ames Currently stable from the pulmonary standpoint Pain management is the patient's main concern Transitioned to oral prednisone and will taper down to his 5 mg maintenance dose Follow up with Dr. Oliveira post discharge I, the cosigning physician, performed a history & physical examination of the patient. Lungs sounds with coarse crackles in the bilateral bases. Maintaining good O2 saturations in the 90s on 2 L/m per nasal cannula. I discussed the assessment and plan of care with my nurse practitioner, Haylee Rdz. I attest to the above consultation as dictated by her.
--- NOTE | 2020-07-05 14:22 | P.HPIM ---
History of Present Illness 55-year-old male was admitted was short of breath patient does have pulmonary fibrosis with total lung capacity of only 43% of predicted. 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 Patient does have chronic back pain. Patient has diffuse fine crackles consistent with pulmonary fibrosis no wheezing was appreciated. Patient was a evaluated with pulmonary patient was given IV steroids overnight. Patient was pretty status is at his baseline, will be discharged today. He is able to saturate okay with a 1-2 L of onset and upon ambulation Review of Systems REVIEW OF SYSTEMS: CONSTITUTIONAL: No fever, no malaise, no fatigue. HEENT: No recent visual problems or hearing problems. Denied any sore throat. CARDIOVASCULAR: No chest pain, orthopnea, PND, no palpitations, no syncope. PULMONARY: no cough, no hemoptysis. GASTROINTESTINAL: No diarrhea, no nausea, no vomiting, no abdominal pain. NEUROLOGICAL: No headaches, no weakness, no numbness. HEMATOLOGICAL: Denies any bleeding or petechiae. GENITOURINARY: Denies any burning micturition, frequency, or urgency. MUSCULOSKELETAL/RHEUMATOLOGICAL: Denies any joint pain, swelling, or any muscle pain. ENDOCRINE: Denies any polyuria or polydipsia. The rest of the 14-point review of systems is negative. Past Medical History Past Medical History: Myocardial Infarction ([place]), Osteoarthritis (OA), Pneumonia, Renal Disease, Respiratory Disorder, Rheumatoid Arthritis (RA), Seizure Disorder Additional Past Medical History / Comment(s): Idiopathic pulmonary fibrosis, interstitial lung disease, chronic respiratory failure, home O2 use at HS and prn during day, immuno compromised d/t steroid use, bronchitis, seizure with benadry in 2015/[place] -pt does not recall [place]/vented and pt states in a coma-had nerve damage/R upper and lower weakness/pain and L lower leg weakness/pain/posterior reversible encephalopathy syndrome, chronic low back pain with bilateral sciatica, DDD, kidney stones pt states he passed, Last Myocardial Infarction Date:: 2014 History of Any Multi-Drug Resistant Organisms: None Reported Past Surgical History: Back Surgery, Cholecystectomy Additional Past Surgical History / Comment(s): PCI with stent 2014, R VAT with upper lobe resection/R lung scraped/biopsied, low back surgery/injections, colon oscopy Past Anesthesia/Blood Transfusion Reactions: No Reported Reaction Past Psychological History: No Psychological Hx Reported Smoking Status: Never smoker Past Alcohol Use History: None Reported Additional Past Alcohol Use History / Comment(s): Pt states he was a light s moker-teen to early 20s Past Drug Use History: None Reported - Past Family History Mother Additional Family Medical History / Comment(s): Migraines, hip replacement. Mother is 83 yrs old. Father Family Medical History: Cancer, Hypertension Additional Family Medical History / Comment(s): Father of pancreatic cancer at the age of 60yrs. Medications and Allergies Home Medications Medication Instructions Recorded Confirmed Type predniSONE 5 mg PO DAILY 01/09/19 07/05/20 History Morphine Sulfate Ir [MSIR] 15 mg PO BID PRN 05/01/19 07/05/20 History Gabapentin 600 mg PO TID 08/26/19 07/05/20 History Morphine Sulfate ER [Ms Contin] 60 mg PO Q12H 08/26/19 07/05/20 History Albuterol Sulfate [Ventolin HFA] 1 - 2 puff INHALATION RT-Q6H PRN 05/10/20 07/05/20 History Aspirin [Adult Low Dose Aspirin EC] 81 mg PO DAILY 07/05/20 07/05/20 History Allergies Allergy/AdvReac Type Severity Reaction Status Date / Time No Known Allergies Allergy Verified 07/05/20 02:28 Physical Exam Vitals: Vital Signs Temp Pulse Pulse Resp BP BP Pulse Ox 07/05/20 07:35 97.5 F L 84 16 123/81 96 07/05/20 02:59 24 97 07/05/20 02:47 97.9 F 82 20 130/82 88 L 07/05/20 02:17 98 F 07/05/20 02:11 88 18 105/71 97 07/05/20 01:07 96 18 107/68 96 07/04/20 22:02 97.7 F 99 20 114/70 87 L Intake and Output 07/04/20 07/05/20 07/05/20 22:59 06:59 14:59 Other: Voiding Method Toilet Toilet # Voids 1 Weight 74.843 kg PHYSICAL EXAMINATION: GENERAL: The patient is alert and oriented x3, not in any acute distress. Well developed, well nourished. HEENT: Pupils are round and equally reacting to light. EOMI. No scleral icterus. No conjunctival pallor. Normocephalic, atraumatic. No pharyngeal erythema. No thyromegaly. CARDIOVASCULAR: S1 and S2 present. No murmurs, rubs, or gallops. PULMONARY: Diffuse bilateral fine crackles ABDOMEN: Soft, nontender, nondistended, normoactive bowel sounds. No palpable organomegaly. MUSCULOSKELETAL: No joint swelling or deformity. EXTREMITIES: No cyanosis, clubbing, or pedal edema. NEUROLOGICAL: Gross neurological examination did not reveal any focal deficits. SKIN: No rashes. Results CBC & Chem 7: 07/04/20 22:39 07/04/20 22:39 Labs: Abnormal Lab Results - Last 24 Hours (Table) 07/04/20 07/04/20 Range/Units 22:39 22:39 Hgb 12.8 L (13.0-17.5) gm/dL Carbon Dioxide 31 H (22-30) mmol/L Creatinine 0.59 L (0.66-1.25) mg/dL Glucose 101 H (74-99) mg/dL Thrombosis Risk Factor Assmnt - Choose All That Apply Any of the Below Risk Factors Present?: Yes Each Factor Represents 1 point: Age 41-60 years Other Risk Factors: No Other congenital or acquired thrombophilia - If yes, enter type in comment: No Thrombosis Risk Factor Assessment Total Risk Factor Score: 1 Thrombosis Risk Factor Assessment Level: Low Risk Assessment and Plan Plan: -Shortness of breath secondary to pulmonary fibrosis, patient received overnight steroids and patient was pretty status is at his baseline will be discharged today -Chronic pain in the legs -Nonobstructive nephrolithiasis urease essentially within normal limits -History of PE for which patient underwent correlation which will be continued -Chronic back pain next and heparin coronary artery disease Patient is clinically doing well and is at his baseline patient will be discharged today to follow up with the Dr. Oliveira as an outpatient
--- NOTE | 2020-07-05 14:22 | P.DS ---
Providers Date of admission: 07/05/20 01:37 Attending physician: Fausto Stone MD Consults: 07/05/20 01:37 Consult Physician Routine Consulting Provider: Naima Oliveira Consult Reason/Comments: pulmonary fibrosis Do you want consulting provider notified?: Yes Primary care physician: Naima Oliveira [facility] Course: Please refer to my HPI for further details Patient Condition at Discharge: Fair Plan - Discharge Summary Discharge Rx Participant: No New Discharge Prescriptions: Continue predniSONE 5 mg PO DAILY Morphine Sulfate Ir [MSIR] 15 mg PO BID PRN PRN Reason: Breakthrough Pain Gabapentin 600 mg PO TID Morphine Sulfate ER [Ms Contin] 60 mg PO Q12H Albuterol Sulfate [Ventolin HFA] 1 - 2 puff INHALATION RT-Q6H PRN PRN Reason: Shortness Of Breath Aspirin [Adult Low Dose Aspirin EC] 81 mg PO DAILY Discharge Medication List predniSONE 5 mg PO DAILY 01/09/19 [History] Morphine Sulfate Ir [MSIR] 15 mg PO BID PRN 05/01/19 [History] Gabapentin 600 mg PO TID 08/26/19 [History] Morphine Sulfate ER [Ms Contin] 60 mg PO Q12H 08/26/19 [History] Albuterol Sulfate [Ventolin HFA] 1 - 2 puff INHALATION RT-Q6H PRN 05/10/20 [History] Aspirin [Adult Low Dose Aspirin EC] 81 mg PO DAILY 07/05/20 [History] Follow up Appointment(s)/Referral(s): Naima Oliveira MD [Primary Care Provider] - 07/11/20 3:45 pm (With Haylee Rdz NP) Patient Instructions/Handouts: Flank Pain (ED) Discharge Disposition: HOME SELF-CARE
[2020-07-05 14:35] VITALS: BMI 23.6
[2020-07-06] MEDS ORDERED: predniSONE 10 MG TAB PO SCH (09:00)
== END 2020-07-05 16:28 | disposition home or self-care (01) ==
LOC: EC 22:01 → 1SOBS 07-05 01:37
PROVIDERS: ADMIT Internal Medicine; ATTEND Internal Medicine
DX: J96.21 Acute and chronic respiratory failure with hypoxia (principal); J84.112 Idiopathic pulmonary fibrosis; N20.0 Calculus of kidney; G89.29 Other chronic pain; F17.200 Nicotine dependence, unspecified, uncomplicated; G40.909 Epilepsy, unspecified, not intractable, without status epilepticus; I25.10 Atherosclerotic heart disease of native coronary artery without angina pectoris; I25.2 Old myocardial infarction; M06.9 Rheumatoid arthritis, unspecified; Z79.82 Long term (current) use of aspirin; Z79.899 Other long term (current) drug therapy; Z80.0 Family history of malignant neoplasm of digestive organs; Z82.49 Family history of ischemic heart disease and other diseases of the circulatory system; Z86.711 Personal history of pulmonary embolism; Z87.442 Personal history of urinary calculi; Z95.5 Presence of coronary angioplasty implant and graft
CPT/HCPCS: 96374; 99285; 36415; 93005; 85379; 83880; 80053; 83605; 84484; 85025; 85610; 85730; 81003; 71046; G0378; J2930

== ENCOUNTER 2022-10-03 09:12 | Inpatient (IN) | payer MEDICARE ==
[2022-10-03] MEDS ORDERED: IPRATROPIUM-ALBUTEROL 3 ML NEB INHALATION STA (09:16)
[2022-10-03] MEDS ORDERED: methylPREDNISolone SOD SUCCI 125 MG/2 ML VIAL IV STA (09:16)
--- NOTE | 2022-10-03 09:19 | ED ---
General Adult HPI - General Stated complaint: FADUMO Time Seen by Provider: 10/03/22 09:16 Source: patient, EMS, RN notes reviewed, old records reviewed (Review of previous admission) Mode of arrival: EMS Limitations: no limitations - History of Present Illness Initial comments: Patient is a pleasant 57-year-old male presenting to the emergency Department with dyspnea. Symptoms have progressed over the past few days. Patient has had some subjective fevers at home. No significant cough. Patient states maybe some mild congestion. Patient does have history of similar symptoms previously associated with pulmonary fibrosis. Patient has been increase his oxygen at home recently. Patient does have a left leg wound that has been present for at least several weeks now. Patient is scheduled to see wound care. - Related Data Home Medications Medication Instructions Recorded Confirmed predniSONE 5 mg PO DAILY 01/09/19 07/05/20 Morphine Sulfate Ir [MSIR] 15 mg PO BID PRN 05/01/19 07/05/20 Gabapentin 600 mg PO TID 08/26/19 07/05/20 Morphine Sulfate ER [Ms Contin] 60 mg PO Q12H 08/26/19 07/05/20 Albuterol Sulfate [Ventolin HFA] 1 - 2 puff INHALATION RT-Q6H PRN 05/10/20 07/05/20 Aspirin [Adult Low Dose Aspirin EC] 81 mg PO DAILY 07/05/20 07/05/20 Allergies Allergy/AdvReac Type Severity Reaction Status Date / Time No Known Allergies Allergy Verified 07/05/20 02:28 Review of Systems ROS Statement: Those systems with pertinent positive or pertinent negative responses have been documented in the HPI. ROS Other: All systems not noted in ROS Statement are negative. Constitutional: Reports: as per HPI Eyes: Denies: eye pain ENT: Reports: congestion. Denies: ear pain Respiratory: Reports: as per HPI, dyspnea Cardiovascular: Denies: chest pain Endocrine: Denies: fatigue Gastrointestinal: Denies: abdominal pain Musculoskeletal: Denies: back pain Skin: Reports: as per HPI Neurological: Denies: weakness Past Medical History Past Medical History: Myocardial Infarction ([place]), Osteoarthritis (OA), Pneumonia, Renal Disease, Respiratory Disorder, Rheumatoid Arthritis (RA), Seizure Disorder Additional Past Medical History / Comment(s): Idiopathic pulmonary fibrosis, interstitial lung disease, chronic respiratory failure, home O2 use at HS and prn during day, immuno compromised d/t steroid use, bronchitis, seizure with benadry overdose in 2015/[place] -pt does not recall [place]/vented and pt states in a coma-had nerve damage/R upper and lower weakness/pain and L lower leg weakness/pain/posterior reversible encephalopathy syndrome, chronic low back pain with bilateral sciatica, DDD, kidney stones pt states he passed, Last Myocardial Infarction Date:: 2014 History of Any Multi-Drug Resistant Organisms: None Reported Past Surgical History: Back Surgery, Cholecystectomy Additional Past Surgical History / Comment(s): PCI with stent 2014, R VAT with upper lobe resection/R lung scraped/biopsied, low back surgery/injections, colonoscopy Past Anesthesia/Blood Transfusion Reactions: No Reported Reaction Past Psychological History: No Psychological Hx Reported Smoking Status: Never smoker Past Alcohol Use History: None Reported Past Drug Use History: None Reported - Past Family History Mother Additional Family Medical History / Comment(s): Migraines, hip replacement. Mother is 83 yrs old. Father Family Medical History: Cancer, Hypertension Additional Family Medical History / Comment(s): Father of pancreatic cancer at the age of 60yrs. General Exam Limitations: no limitations General appearance: alert Head exam: Present: normocephalic Eye exam: Present: normal appearance ENT exam: Present: normal exam Neck exam: Present: normal inspection Respiratory exam: Present: rhonchi, decreased breath sounds Cardiovascular Exam: Present: regular rate, normal rhythm GI/Abdominal exam: Present: soft. Absent: tenderness Extremities exam: Present: pedal edema. Absent: calf tenderness Neurological exam: Present: alert Psychiatric exam: Present: normal affect, normal mood Skin exam: Present: other (Stage III ulcer approximately 2 x 3 cm left anterior mims) Course Vital Signs 10/03/22 10/03/22 09:15 09:22 Temperature 98.2 F 98.9 F Pulse Rate 60 93 Respiratory 28 H 28 H Rate Blood Pressure 105/77 O2 Sat by Pulse 85 L 90 L Oximetry EKG Findings - EKG Results: EKG: interpreted by ERMD (Rate 76. Right axis. ST depression leads 3 and aVF as well as leads V2 and V3. Previous EKG reviewed dated 06/07/20 ), sinus rhythm, normal QRS Medical Decision Making - Medical Decision Making Patient reevaluated. Patient updated. Dr. Iglesias has been paged for admission of this patient. Cardiology and pulmonary will be placed on consult. - Lab Data Result diagrams: 10/03/22 09:12 10/03/22 09:12 Lab Results 10/03/22 10/03/22 10/03/22 Range/Units 09:12 09:12 09:12 WBC 7.7 (3.8-10.6) k/uL RBC 4.90 (4.30-5.90) m/uL Hgb 13.3 (13.0-17.5) gm/dL Hct 42.9 (39.0-53.0) % MCV 87.4 (80.0-100.0) fL MCH 27.2 (25.0-35.0) pg MCHC 31.1 (31.0-37.0) g/dL RDW 17.0 H (11.5-15.5) % Plt Count 121 L (150-450) k/uL MPV 9.2 Neutrophils % 86 % Lymphocytes % 6 % Monocytes % 5 % Eosinophils % 2 % Basophils % 0 % Neutrophils # 6.7 (1.3-7.7) k/uL Lymphocytes # 0.5 L (1.0-4.8) k/uL Monocytes # 0.4 (0-1.0) k/uL Eosinophils # 0.1 (0-0.7) k/uL Basophils # 0.0 (0-0.2) k/uL Hypochromasia Marked Anisocytosis Slight PT 12.3 H (9.0-12.0) sec INR 1.2 H (<1.2) APTT 26.2 (22.0-30.0) sec Sodium 140 (137-145) mmol/L Potassium 4.2 (3.5-5.1) mmol/L Chloride 103 (98-107) mmol/L Carbon Dioxide 34 H (22-30) mmol/L Anion Gap 3 mmol/L BUN 21 H (9-20) mg/dL Creatinine 0.68 (0.66-1.25) mg/dL Est GFR (CKD-EPI)AfAm >90 (>60 ml/min/1.73 sqM) Est GFR (CKD-EPI)NonAf >90 (>60 ml/min/1.73 sqM) Glucose 114 H (74-99) mg/dL Plasma Lactic Acid Soto (0.7-2.0) mmol/L Calcium 8.1 L (8.4-10.2) mg/dL Total Bilirubin 0.9 (0.2-1.3) mg/dL AST 35 (17-59) U/L ALT 30 (4-49) U/L Alkaline Phosphatase 84 (38-126) U/L Troponin I (0.000-0.034) ng/mL NT-Pro-B Natriuret Pep pg/mL Total Protein 5.6 L (6.3-8.2) g/dL Albumin 3.2 L (3.5-5.0) g/dL Coronavirus (PCR) (Not Detectd) Influenza Type A RNA (Not Detectd) Influenza Type B (PCR) (Not Detectd) 10/03/22 10/03/22 10/03/22 Range/Units 09:12 09:12 09:12 WBC (3.8-10.6) k/uL RBC (4.30-5.90) m/uL Hgb (13.0-17.5) gm/dL Hct (39.0-53.0) % MCV (80.0-100.0) fL MCH (25.0-35.0) pg MCHC (31.0-37.0) g/dL RDW (11.5-15.5) % Plt Count (150-450) k/uL MPV Neutrophils % % Lymphocytes % % Monocytes % % Eosinophils % % Basophils % % Neutrophils # (1.3-7.7) k/uL Lymphocytes # (1.0-4.8) k/uL Monocytes # (0-1.0) k/uL Eosinophils # (0-0.7) k/uL Basophils # (0-0.2) k/uL Hypochromasia Anisocytosis PT (9.0-12.0) sec INR (<1.2) APTT (22.0-30.0) sec Sodium (137-145) mmol/L Potassium (3.5-5.1) mmol/L Chloride (98-107) mmol/L Carbon Dioxide (22-30) mmol/L Anion Gap mmol/L BUN (9-20) mg/dL Creatinine (0.66-1.25) mg/dL Est GFR (CKD-EPI)AfAm (>60 ml/min/1.73 sqM) Est GFR (CKD-EPI)NonAf (>60 ml/min/1.73 sqM) Glucose (74-99) mg/dL Plasma Lactic Acid Soto 1.6 (0.7-2.0) mmol/L Calcium (8.4-10.2) mg/dL Total Bilirubin (0.2-1.3) mg/dL AST (17-59) U/L ALT (4-49) U/L Alkaline Phosphatase (38-126) U/L Troponin I 0.094 H* (0.000-0.034) ng/mL NT-Pro-B Natriuret Pep 4160 pg/mL Total Protein (6.3-8.2) g/dL Albumin (3.5-5.0) g/dL Coronavirus (PCR) (Not Detectd) Influenza Type A RNA (Not Detectd) Influenza Type B (PCR) (Not Detectd) 10/03/22 10/03/22 Range/Units 09:49 09:49 WBC (3.8-10.6) k/uL RBC (4.30-5.90) m/uL Hgb (13.0-17.5) gm/dL Hct (39.0-53.0) % MCV (80.0-100.0) fL MCH (25.0-35.0) pg MCHC (31.0-37.0) g/dL RDW (11.5-15.5) % Plt Count (150-450) k/uL MPV Neutrophils % % Lymphocytes % % Monocytes % % Eosinophils % % Basophils % % Neutrophils # (1.3-7.7) k/uL Lymphocytes # (1.0-4.8) k/uL Monocytes # (0-1.0) k/uL Eosinophils # (0-0.7) k/uL Basophils # (0-0.2) k/uL Hypochromasia Anisocytosis PT (9.0-12.0) sec INR (<1.2) APTT (22.0-30.0) sec Sodium (137-145) mmol/L Potassium (3.5-5.1) mmol/L Chloride (98-107) mmol/L Carbon Dioxide (22-30) mmol/L Anion Gap mmol/L BUN (9-20) mg/dL Creatinine (0.66-1.25) mg/dL Est GFR (CKD-EPI)AfAm (>60 ml/min/1.73 sqM) Est GFR (CKD-EPI)NonAf (>60 ml/min/1.73 sqM) Glucose (74-99) mg/dL Plasma Lactic Acid Soto (0.7-2.0) mmol/L Calcium (8.4-10.2) mg/dL Total Bilirubin (0.2-1.3) mg/dL AST (17-59) U/L ALT (4-49) U/L Alkaline Phosphatase (38-126) U/L Troponin I (0.000-0.034) ng/mL NT-Pro-B Natriuret Pep pg/mL Total Protein (6.3-8.2) g/dL Albumin (3.5-5.0) g/dL Coronavirus (PCR) Not Detected (Not Detectd) Influenza Type A RNA Not Detected (Not Detectd) Influenza Type B (PCR) Not Detected (Not Detectd) - Radiology Data Interpreted by me: Chest x-ray shows diffuse fibrotic/interstitial changes Critical Care Time Critical Care Time: Yes Total Critical Care Time: 33 Disposition Clinical Impression: Pulmonary fibrosis, Congestive heart failure, Hypoxia Disposition: ADMITTED IP TO THIS HOSP Condition: Serious Is patient prescribed a controlled substance at d/c from ED?: No Referrals: Naima lOiveira MD [STAFF PHYSICIAN] - 1-2 days Time of Disposition: 10:44
[2022-10-03 09:45] LABS: Anisocytosis Slight; Basophils % (A) 0 %; Eosinophils # (A) 0.1 k/uL (0-0.7); Eosinophils % (A) 2 %; HCT 42.9 % (39.0-53.0); HGB 13.3 gm/dL (13.0-17.5); Hypochromasia Marked; Lymphocytes # (A) 0.5 k/uL (1.0-4.8); Lymphocytes % (A) 6 %; MCH 27.2 pg (25.0-35.0); MCHC 31.1 g/dL (31.0-37.0); MCV 87.4 fL (80.0-100.0); Mean Platelet Volume 9.2; Monocytes # (A) 0.4 k/uL (0-1.0); Monocytes % (A) 5 %; Neutrophils # (A) 6.7 k/uL (1.3-7.7); Neutrophils % (A) 86 %; Platelet Count 121 k/uL (150-450); WBC 7.7 k/uL (3.8-10.6)
--- NOTE | 2022-10-03 09:45 | XR ---
EXAMINATION TYPE: XR chest 2V DATE OF EXAM: 10/03/2022 COMPARISON: Chest x-ray July 04, 2020 HISTORY: Difficulty in breathing. TECHNIQUE: Frontal and lateral views of the chest are obtained. FINDINGS: Reticular parenchymal fibrotic changes bilaterally are redemonstrated. No new focal consol idation, pleural effusion, or pneumothorax seen. The cardiac silhouette size is mildly enlarged. T he osseous structures are intact. Cholecystectomy clips redemonstrated. IMPRESSION: Mild cardiomegaly with advanced parenchymal fibrotic changes bilaterally redemonstrated. No new acute pulmonary process.
[2022-10-03] MEDS ORDERED: MORPHINE SULFATE ER 60 MG TABLET PO STA (09:46)
[2022-10-03 09:54] LABS: ALT 30 U/L (4-49); AST 35 U/L (17-59); African American GFR (CKD) >90 (>60 ml/min/1.73 sqM); Albumin 3.2 g/dL (3.5-5.0); Alkaline Phosphatase 84 U/L (38-126); Anion Gap 3 mmol/L; Blood Urea Nitrogen 21 mg/dL (9-20); Calcium 8.1 mg/dL (8.4-10.2); Carbon Dioxide 34 mmol/L (22-30); Chloride 103 mmol/L (98-107); Glucose 114 mg/dL (74-99); INR 1.2 (<1.2); Non-African American GFR(CKD) >90 (>60 ml/min/1.73 sqM); Partial Thromboplastin Time 26.2 sec (22.0-30.0); Potassium 4.2 mmol/L (3.5-5.1); Prothrombin Time 12.3 sec (9.0-12.0); Sodium 140 mmol/L (137-145); Total Bilirubin 0.9 mg/dL (0.2-1.3); Total Protein 5.6 g/dL (6.3-8.2)
[2022-10-03] MEDS ORDERED: NALOXONE 0.4 MG/ML 1 ML VIAL IVP PRN (10:45)
[2022-10-03] MEDS ORDERED: IPRATROPIUM-ALBUTEROL 3 ML NEB INHALATION PRN (10:45)
[2022-10-03] MEDS: FUROSEMIDE 10 MG/ML 4 ML VIAL IV SCH ×2 (12:00→21:13)
[2022-10-03] MEDS: IPRATROPIUM-ALBUTEROL 3 ML NEB INHALATION SCH ×3 (12:13→19:18)
--- NOTE | 2022-10-03 12:51 | CA ---
Transthoracic Echo Report Name: Haroon Armijo Age: 57 Gender: M : 1965 Exam Date: 10/03/2022 11:24 Exam Location: [facility] Ht (in): 72 Wt (lb): 130 Ordering Physician: Jak Johnson DO Attending/Referring Phys: Beck Operator Ana Maria Medel RDCS Procedure CPT: Indications: Heart failure Cardiac Hx: Technical Quality: Technically difficult study Contrast 1: Lumason Total Dose (mL): 4 Contrast 2: Total Dose (mL): MEASUREMENTS (Male / Female) Normal Values 2D ECHO LV Diastolic Diameter PLAX 2.7 cm 4.2 - 5.9 / 3.9 - 5.3 cm LV Systolic Diameter PLAX 2.5 cm IVS Diastolic Thickness 1.1 cm 0.6 - 1.0 / 0.6 - 0.9 cm LVPW Diastolic Thickness 1.2 cm 0.6 - 1.0 / 0.6 - 0.9 cm LV Relative Wall Thickness 0.9 RV Internal Dim ED PLAX 4.0 cm LA Systolic Diameter LX 2.7 cm 3.0 - 4.0 / 2.7 - 3.8 cm M-MODE Aortic Root Diameter MM 2.8 cm LA Systolic Diameter MM 3.0 cm LA Ao Ratio MM 1.1 MV E Point Septal Separation 0.2 cm AV Cusp Separation MM 1.9 cm DOPPLER TR Peak Velocity 408.3 cm/s TR Peak Gradient 66.7 mmHg Right Ventricular Systolic Press 74.3 mmHg FINDINGS Left Ventricle Mildly increased septal wall thickness. Right Ventricle Severe right ventricular dilatation. Severe pulmonary hypertension. Right ventricular systolic pressure estimated at 74 mm hg. Possible thrombus in RV. Right Atrium Normal right atrial size. Left Atrium Normal left atrial size. Mitral Valve Mild mitral annular calcification. Mild mitral regurgitation. Aortic Valve Trileaflet aortic valve. Tricuspid Valve Structurally normal tricuspid valve. Mild tricuspid regurgitation. Pulmonic Valve Structurally normal pulmonic valve. Pericardium Normal pericardium. Aorta Normal size aortic root and proximal ascending aorta. CONCLUSIONS Severe RV dilation with pressure overload from the right ventricle last noted in the RV likely represents papillary muscles Previewed by: Dr. Adolph Kennedy MD (Electronically Signed) Final Date: 03 October 2022 12:50
[2022-10-03] MEDS ORDERED: FLUTICASONE 110 MCG INHALER INHALATION PRN (13:14)
[2022-10-03] MEDS: ASPIRIN 325 MG TAB PO STA ×2 (14:16)
[2022-10-03] MEDS: NITROGLYCERIN OINT 1 INCH/GM PACKET TOPICAL SCH ×4 (14:29→21:50)
[2022-10-03] MEDS ORDERED: MORPHINE SULFATE ER 60 MG TABLET PO PRN (16:38)
[2022-10-03] MEDS ORDERED: MORPHINE SULFATE IR 15 MG TABLET PO PRN (16:38)
[2022-10-03] MEDS ORDERED: lisinopriL 5 MG TAB PO SCH (16:45)
--- NOTE | 2022-10-03 17:26 | P.CNPUL ---
History of Present Illness Consult date: 10/03/22 Requesting physician: Ferny Iglesias Reason for consult: dyspnea, cough, hypoxemia, pulmonary fibrosis, abnormal CXR/CT Chief complaint: Shortness of breath, low saturations. History of present illness: Pulmonary consult dated 10/03/2022. A 57-year-old male with a history of pulmonary fibrosis. The patient sees my partner for his pulmonary fibrosis, and is maintained on prednisone 20 mg a day. His primary care physician is Dr. Ferny Iglesias. He presents to the emergency department on October 03, at 9:00 in the morning complaining of shortness of breath, which is been progressive. The patient was on 2 L of oxygen, but more recently has been up to 6 L, and here in the emergency room, 10 L high flow. In addition, he missed his lower extremity edema, and he also injured his leg, whic h required a trip to the wound clinic. He has a history of myocardial infarction, osteoarthritis, pneumonia, and rheumatoid arthritis. He does have chronic hypoxemic respiratory failure uses oxygen 24 7. He has had a catheterization with stent placement. White count 7.7, hemoglobin 13.3, hematoc rit 42.9, and platelet count 221,000. PT 12.3 with an INR 1.2. Troponins were 0.094 0.082 and 0.076. N-terminal proBNP was 4160. Sodium 140, potassium 4.2, chlorides 103, CO2 34, BUN 21, creatinine 0.68. Testing for sanderson virus was negative. Likewise, testing for influenza A, influenza B, and respiratory syncytial virus, were all negative. Chest x-ray shows cardiomegaly, with diffuse interstitial changes, which may relate to his interstitial lung disease, and/or edema. Review of Systems REVIEW OF SYSTEMS: CONSTITUTIONAL: [Negative.] NEUROLOGIC: [ Negative.] HEENT: [ Negative.] CARDIAC: Lower extremity edema. PULMONARY: Shortness of breath and chronic cough, progressive. GI: [Negative.] : [Negative.] RHEUMATOLOGIC: [ Negative.] IMMUNOLOGIC: [ Negative.] ENDOCRINE: [Negative. ] DERMATOLOGIC: [Negative.] Past Medical History Past Medical History: Myocardial Infarction (MS), Osteoarthritis (OA), Pneumon ia, Renal Disease, Respiratory Disorder, Rheumatoid Arthritis (RA), Seizure Disorder Additional Past Medical History / Comment(s): Idiopathic pulmonary fibrosis, interstitial lung disease, chronic respiratory failure, home O2 use at HS and prn during day, immuno compromised d/t steroid use, bronchitis, seizure with benadry overdose in 2015/MS -pt does not recall MS/vented and pt states in a coma-had nerve damage/R upper and lower weakness/pain and L lower leg weakness/pain/posterior reversible encephalopathy syndrome, chronic low back pain with bilateral sciatica, DDD, kidney stones pt states he passed, Last Myocardial Infarction Date:: 2014 History of Any Multi-Drug Resistant Organisms: None Reported Past Surgical History: Back Surgery, Cholecystectomy Additional Past Surgical History / Comment(s): PCI with stent 2014, R VAT with upper lobe resection/R lung scraped/biopsied, low back surgery/injections, colonoscopy Past Anesthesia/Blood Transfusion Reactions: No Reported Reaction Past Psychological History: No Psychological Hx Reported Smoking Status: Never smoker Past Alcohol Use History: None Reported Past Drug Use History: None Reported - Past Family History Mother Additional Family Medical History / Comment(s): Migraines, hip replacement. Mother is 83 yrs old. Father Family Medical History: Cancer, Hypertension Additional Family Medical History / Comment(s): Father of pancreatic cancer at the age of 60yrs. Medications and Allergies Home Medications Medication Instructions Recorded Confirmed Type Morphine Sulfate Ir [MSIR] 15 mg PO DAILY PRN 05/01/19 10/03/22 History Gabapentin 600 mg PO TID 08/26/19 10/03/22 History Morphine Sulfate ER [Ms Contin] 60 mg PO Q12H PRN 08/26/19 10/03/22 History Albuterol Sulfate [Ventolin HFA] 1 - 2 puff INHALATION RT-Q6H PRN 05/10/20 10/03/22 History Budesonide [Pulmicort Flexhaler] 2 puff INHALATION RT-BID PRN 10/03/22 10/03/22 History Furosemide [Lasix] 40 mg PO DAILY 10/03/22 10/03/22 History Ibuprofen [Motrin] 600 mg PO Q8HR PRN 10/03/22 10/03/22 History Metoprolol Tartrate [Lopressor] 12.5 mg PO BID 10/03/22 10/03/22 History predniSONE 20 mg PO DAILY 10/03/22 10/03/22 History Allergies Allergy/AdvReac Type Severity Reaction Status Date / Time No Known Allergies Allergy Verified 10/03/22 11:29 Physical Exam Osteopathic Statement: *. No significant issues noted on an osteopathic structural exam other than those noted in the History and Physical/Consult. Vitals: Vital Signs Temp Pulse Resp BP Pulse Ox 10/03/22 16:00 82 10/03/22 15:51 78 91 L 10/03/22 14:00 77 20 97/73 99 10/03/22 13:30 79 22 104/78 99 10/03/22 13:00 85 20 105/79 100 10/03/22 12:00 87 22 101/73 100 10/03/22 11:30 81 20 108/81 100 10/03/22 11:00 77 23 122/86 95 10/03/22 10:57 76 10/03/22 10:50 76 10/03/22 10:30 80 22 108/88 97 10/03/22 10:22 98 10/03/22 09:30 105/77 10/03/22 09:22 98.9 F 93 28 H 90 L 10/03/22 09:15 98.2 F 60 28 H 105/77 85 L Intake and Output 10/03/22 10/03/22 10/03/22 06:59 14:59 22:59 Other: Weight 58.967 kg No acute distress, oriented 3. No conversational dyspnea or use of accessory muscles. Patient currently on 10 L high flow oxygen. HEENT examination is grossly unremarkable. Neck supple. Full range of motion. No adenopathy thyromegaly or neck vein distention. Cardiovascular examination reveals regular rhythm rate. S1-S2 normal. No S3 or S4. No discernible murmur noted. Heart sounds are distant. Heart rate 82 bpm. Lungs reveal scattered bilateral crackles. Scattered rhonchi are also noted. No wheezes. Breath sounds equal. Saturations 91% on 10 L high flow. Abdomen soft bowel sounds are heard. No masses or tenderness. Extremities reveals bilateral lower extremity edema. There is a couple wounds on his legs. No cyanosis or clubbing. Skin reveals areas of ecchymoses. Neurologic examination is brief but nonfocal. Results - Laboratory Findings CBC and BMP: 10/03/22 09:12 10/03/22 09:12 PT/INR, D-dimer PT 12.3 sec (9.0-12.0) H 10/03/22 09:12 INR 1.2 (<1.2) H 10/03/22 09:12 Abnormal lab findings: Abnormal Labs 10/03/22 10/03/22 10/03/22 09:12 09:12 09:12 RDW 17.0 H Plt Count 121 L Lymphocytes # 0.5 L PT 12.3 H INR 1.2 H Carbon Dioxide 34 H BUN 21 H Glucose 114 H Calcium 8.1 L Troponin I Total Protein 5.6 L Albumin 3.2 L 10/03/22 10/03/22 10/03/22 09:12 11:59 14:50 RDW Plt Count Lymphocytes # PT INR Carbon Dioxide BUN Glucose Calcium Troponin I 0.094 H* 0.082 H* 0.076 H* Total Protein Albumin - Diagnostic Findings Chest x-ray: image reviewed CT scan - chest: image reviewed Assessment and Plan Assessment: Acute hypoxemic respiratory failure, likely multifactorial, in part related to the patient's history of interstitial lung disease, possible interstitial edema/CHF, and possible non-ST segment elevation myocardial infarction. Acute on chronic hypoxemic respiratory failure. History of CAD with previous stent placement to the obtuse marginal branch of the circumflex. Degenerative disc disease. History of bilateral pulmonary emboli. Prior history of myocardial infarction. History of rheumatoid arthritis. History of seizure disorder. History of neuropathy. History of posterior reversible encephalopathy syndrome (PRES). Multiple other medical palms and comorbidities. Plan: Plan dated 10/03/2022. We'll add some breathing treatments for the patient's medication regimen. In addition, we had Solu-Medrol, 60 mg every 6. Also, we'll check an N-terminal proBNP, and a pro-calcitonin level, to rule out infection. Additional recommendations and suggestions are forthcoming. Prognosis is certainly guarded. The patient has a whole host of medical problems. We will continue to follow and make recommendations along the way. He was seen by our team back in 2019. Time with Patient: Greater than 30
--- NOTE | 2022-10-03 18:21 | CT ---
EXAMINATION TYPE: CT angio chest CT DLP: 244.7 mGycm, Automated exposure control for dose reduction was used. DATE OF EXAM: 10/03/2022 5:05 PM COMPARISON: Chest radiograph from same day. CLINICAL INDICATION:Male, 57 years old with history of pe; SOB TECHNIQUE/CONTRAST: CTA scan of the thorax is performed with IV Contrast, patient injected with 70 mL of Isovue 370, pulm onary embolism protocol. MIP images are created and reviewed. FINDINGS: Pulmonary Artery: Limited evaluation no obvious central filling defect. Questionable left lower lobe filling defect best appreciated on series 406 image 70 The pulmonary artery is enlarged measuring up to 2.4 cm.. Lungs/Pleura: Diffuse fibrotic changes are seen throughout the lungs with superimposed interstitial t hickening. Multiple bullae and blebs noted in the lungs most pronounced in the apical portion. No pne umothorax or pleural effusion. Airway: Large airways are patent. Heart: The heart is mildly enlarged. Vasculature: No evidence of aortic aneurysm. Mediastinum: No gross evidence of adenopathy. Musculoskeletal: No acute osseous abnormalities Soft Tissues: Unremarkable. Lower neck: No significant findings. Upper Abdomen: Diffuse low-attenuation to the liver parenchyma. The gallbladder surgically absent. IMPRESSION: 1. Questionable left lower lobe pulmonary artery filling defects, evaluation is limited due to motio n. There is evidence of pulmonary hypertension and reflux of contrast into the IVC which could repres ent congestive heart failure changes. 2. Pulmonary fibrotic changes with superimposed interstitial septal thickening which could represent superimposed infectious/inflammatory process.
[2022-10-03] MEDS: GABAPENTIN 300 MG CAP PO SCH ×2 (18:29→21:12)
[2022-10-03] MEDS: methylPREDNISolone SOD SUCCI 125 MG/2 ML VIAL IV SCH ×2 (18:32→23:35)
[2022-10-03] MEDS: BUDESONIDE 1 MG/2 ML NEBU INHALATION SCH (19:19)
[2022-10-03] MEDS: FORMOTEROL FUMARATE 20 MCG/2 ML NEBU INHALATION SCH (19:44)
[2022-10-03] MEDS: METOPROLOL TARTRATE 12.5 MG TAB PO SCH (21:12)
[2022-10-03] MEDS: MORPHINE SULFATE ER 30 MG TABLET PO PRN (21:30)
--- NOTE | 2022-10-04 01:12 | HP ---
HISTORY AND PHYSICAL HISTORY OF PRESENT ILLNESS: A 57-year-old white male with history of pulmonary fibrosis, pulmonary hypertension, came to the emergency room with shortness of breath, progressive. He is on 2 L of oxygen up to 6 to 10 L. Lower extremity edema, cold extremities, open wounds, healing on the left tibia and right foot, history of myocardial infarction, osteoarthritis, pneumonia, rheumatoid arthritis, is on 24x7 oxygen 2 to 3 L. He is sent for heart catheterization with stent. White count is 7.7, hemoglobin is 13.3. BNP 4160, BUN 21, creatinine 0.68. Influenza A/B, RSV, coronavirus negative. CT of the chest shows left lower lobe infiltrate. REVIEW OF SYSTEMS: A 14-point review of systems includes weight gain, swelling of the extremities, chronic cough, congestion with shortness of breath. He is on 2 L oxygen all the time. Prognosis guarded. PAST MEDICAL HISTORY: Myocardial infarction, osteoarthritis, pneumonia, renal disease, respiratory failure, rheumatoid arthritis, seizure disorder. PAST SURGICAL HISTORY: He has had back surgery cholecystectomy, PCI with stent in 2014. RVR with upper lobe resection biopsy, low back surgery, injections, colonoscopy. FAMILY HISTORY: Mother, migraines, hip replacement. Father, cancer, hypertension. HOME MEDICATIONS: 1. MSIR 15 mg daily. 2. Gabapentin 600 t.i.d. 3. MS Contin 60 b.i.d. 4. Albuterol inhaler 2 puffs q.4 p.r.n. 5. Pulmicort 2 puffs q.12 p.r.n. 6. Lasix 40 mg daily. 7. Metoprolol tartrate 12.5 b.i.d. ALLERGIES: Negative. PHYSICAL EXAMINATION: VITAL SIGNS: Pulse 70s to 80s, respiratory rate 18 to 20, blood pressure is 97 to 122 over 70s to 80s, O2 of 91% to 95%, up to 100% on 2 to 3 L. CARDIOVASCULAR: S1, S2. LUNGS: Scattered rhonchi and wheeze. HEMATOLOGY: 2 to 3+ edema with anterior wound of the left tibia in the right lateral foot. He has severe pulmonary hypertension on echo. He is on nitroglycerin currently except for adding CORIE inhibitor. Labs were reviewed. Pulmonary, Cardiology consult is pending. He has respiratory failure, severe pulmonary hypertension. Possible left ventricular lesion, history of PEs, myocardial infarction ruled out for seizures, neuropathy, encephalopathy syndrome. He is still on Solu-Medrol. Pulmonary, Cardiology recommendations, waiting for them. Continue with Lasix. Elevated BNP. Prognosis guarded. JEFFREY / IJN: [id number] /
[2022-10-04] MEDS: FUROSEMIDE 10 MG/ML 4 ML VIAL IV SCH ×2 (04:56→19:48)
[2022-10-04] MEDS: methylPREDNISolone SOD SUCCI 125 MG/2 ML VIAL IV SCH ×3 (04:56→17:37)
[2022-10-04] MEDS: MORPHINE SULFATE IR 15 MG TABLET PO PRN ×2 (05:01→15:21)
--- NOTE | 2022-10-04 05:24 | P.CRDCN ---
History of Present Illness Consult date: 10/04/22 Chief complaint: Shortness of breath and bilateral lower extremities edema History of present illness: The patient is a 57-year-old gentleman who sees Dr. Pedro in the office regularly with a past medical history significant for CAD with a prior stenting of the OM in 2014 as well as pulmonary fibrosis and also chronic hypoxic respiratory failure the patient currently on 5 L of oxygen at home as well as multiple comorbid conditions. He presented to the hospital complaining of increasing shortness of breath for the last few days associated with worsening bilateral lower extremities edema. No symptoms of chest pain or chest discomfort and no dizziness or lightheadedness or any feeling of heart racing or fluttering or presyncope or syncope. When the patient presented to the emergency department was diagnosed was congestive heart failure with severe bilateral lower extremities edema. Further investigation was performed including chest x-ray showed cardiomegaly with no significant finding beside that. NT proBNP came in to be about 4000. He was having severe edema in the lower extent of disease and he was started on Lasix at 40 mg IV 3 times a day. He underwent further investigation with an echo which revealed dilated right v entricle with severe pulmonary hypertension and possible thrombus in the left ventricle as well. He is not on any oral anticoagulation. Previous echo from 2015 did not show any evidence of thrombus and that seems to be new. The EKG showed sinus mechanism with ST changes in V1 and V2 likely related to right ventricular hypertrophy. Further workup including CBC and BNP came in to be unremarkable. When the patient was seen and examined this morning he does have moderate at least bilateral lower extent is pitting edema with chronic skin changes. He does have diminished breathing sounds bilaterally with bilateral rhonchi likely related to pulmonary fibrosis with possible component of fluid overload. Currently he is on 9 L to maintain saturation above 90 per Past Medical History Past Medical History: Myocardial Infarction (DC), Osteoarthritis (OA), Pneumonia, Renal Disease, Respiratory Disorder, Rheumatoid Arthritis (RA), Seizure Disorder Additional Past Medical History / Comment(s): Idiopathic pulmonary fibrosis, interstitial lung disease, chronic respiratory failure, home O2 use at HS and prn during day, immuno compromised d/t steroid use, bronchitis, seizure with benadry overdose in 2015/DC -pt does not recall DC/vented and pt states in a coma-had nerve damage/R upper and lower weakness/pain and L lower leg we akness/pain/posterior reversible encephalopathy syndrome, chronic low back pain with bilateral sciatica, DDD, kidney stones pt states he passed, Last Myocardial Infarction Date:: 2014 History of Any Multi-Drug Resistant Organisms: None Reported Past Surgical History: Back Surgery, Cholecystectomy Additional Past Surgical History / Comment(s): PCI with stent 2014, R VAT with upper lobe resection/R lung scraped/biopsied, low back surgery/injections, colonoscopy Past Anesthesia/Blood Transfusion Reactions: No Reported Reaction Past Psychological History: No Psychological Hx Reported Additional Psychological History / Comment(s): Pt lives with his 19 yr old camelia. Pt is normally independent. Pt drives a car. He has home oxygen/nebulizer. Smoking Status: Never smoker Past Alcohol Use History: None Reported Additional Past Alcohol Use History / Comment(s): Pt states he was a light smoker-teen to early 20s Past Drug Use History: None Reported - Past Family History Mother Additional Family Medical History / Comment(s): Migraines, hip replacement. Mother is 83 yrs old. Father Family Medical History: Cancer, Hypertension Additional Family Medical History / Comment(s): Father of pancreatic cancer at the age of 60yrs. Medications and Allergies Home Medications Medication Instructions Recorded Confirmed Type Morphine Sulfate Ir [MSIR] 15 mg PO DAILY PRN 05/01/19 10/03/22 History Gabapentin 600 mg PO TID 08/26/19 10/03/22 History Morphine Sulfate ER [Ms Contin] 60 mg PO Q12H PRN 08/26/19 10/03/22 History Albuterol Sulfate [Ventolin HFA] 1 - 2 puff INHALATION RT-Q6H PRN 05/10/20 10/03/22 History Budesonide [Pulmicort Flexhaler] 2 puff INHALATION RT-BID PRN 10/03/22 10/03/22 History Furosemide [Lasix] 40 mg PO DAILY 10/03/22 10/03/22 History Ibuprofen [Motrin] 600 mg PO Q8HR PRN 10/03/22 10/03/22 History Metoprolol Tartrate [Lopressor] 12.5 mg PO BID 10/03/22 10/03/22 History predniSONE 20 mg PO DAILY 10/03/22 10/03/22 History Allergies Allergy/AdvReac Type Severity Reaction Status Date / Time No Known Allergies Allergy Verified 10/03/22 11:29 Physical Exam Vitals: Vital Signs Temp Pulse Pulse Resp BP BP Pulse Ox 10/04/22 04:00 97.7 F 88 18 108/71 90 L 10/04/22 00:00 98.0 F 90 18 108/74 91 L 10/03/22 21:00 97.9 F 111 H 19 101/67 93 L 10/03/22 19:46 86 10/03/22 19:40 87 10/03/22 19:38 87 10/03/22 19:21 85 10/03/22 18:27 92 24 110/72 99 10/03/22 16:00 82 10/03/22 15:51 78 91 L 10/03/22 14:00 77 20 97/73 99 10/03/22 13:30 79 22 104/78 99 10/03/22 13:00 85 20 105/79 100 10/03/22 12:00 87 22 101/73 100 10/03/22 11:30 81 20 108/81 100 10/03/22 11:00 77 23 122/86 95 10/03/22 10:57 76 10/03/22 10:50 76 10/03/22 10:30 80 22 108/88 97 10/03/22 10:22 98 10/03/22 09:30 105/77 10/03/22 09:22 98.9 F 93 28 H 90 L 10/03/22 09:15 98.2 F 60 28 H 105/77 85 L Intake and Output 10/03/22 10/03/22 10/04/22 14:59 22:59 06:59 Intake Total 10 Output Total 1200 900 Balance -1190 -900 Intake: IV 10 Invasive Line 1 10 Output: Urine 1200 900 Other: Voiding Method Urinal Urinal Weight 58.967 kg 58.967 kg - Constitutional General appearance: no acute distress - Respiratory Respiratory: bilateral: diminished - Cardiovascular Rhythm: regular Heart sounds: normal: S1, S2 Abnormal Heart Sounds: systolic murmur Results 10/03/22 09:12 10/03/22 09:12 Cardiac Enzymes 10/03/22 10/03/22 10/03/22 Range/Units 09:12 09:12 11:59 AST 35 (17-59) U/L Troponin I 0.094 H* 0.082 H* (0.000-0.034) ng/mL 10/03/22 Range/Units 14:50 AST (17-59) U/L Troponin I 0.076 H* (0.000-0.034) ng/mL Coagulation 10/03/22 Range/Units 09:12 PT 12.3 H (9.0-12.0) sec APTT 26.2 (22.0-30.0) sec CBC 10/03/22 Range/Units 09:12 WBC 7.7 (3.8-10.6) k/uL RBC 4.90 (4.30-5.90) m/uL Hgb 13.3 (13.0-17.5) gm/dL Hct 42.9 (39.0-53.0) % Plt Count 121 L (150-450) k/uL Comprehensive Metabolic Panel 10/03/22 Range/Units 09:12 Sodium 140 (137-145) mmol/L Potassium 4.2 (3.5-5.1) mmol/L Chloride 103 (98-107) mmol/L Carbon Dioxide 34 H (22-30) mmol/L BUN 21 H (9-20) mg/dL Creatinine 0.68 (0.66-1.25) mg/dL Glucose 114 H (74-99) mg/dL Calcium 8.1 L (8.4-10.2) mg/dL AST 35 (17-59) U/L ALT 30 (4-49) U/L Alkaline Phosphatase 84 (38-126) U/L Total Protein 5.6 L (6.3-8.2) g/dL Albumin 3.2 L (3.5-5.0) g/dL Current Medications Generic Name Dose Route Start Last Admin Trade Name Freq PRN Reason Stop Dose Admin Albuterol/Ipratropium 3 ml 10/03/22 10:45 Ipratropium-Albuterol 3 Ml Neb INHALATION RT-Q2H PRN Shortness Of Breath Or Wheezing Albuterol/Ipratropium 3 ml 10/03/22 12:00 10/03/22 19:18 Ipratropium-Albuterol 3 Ml Neb INHALATION 3 ml RT-QID TJ Administration Aspirin 325 mg 10/04/22 09:00 Aspirin 325 Mg Tab PO DAILY [facility] Budesonide 1 mg 10/03/22 20:00 10/03/22 19:19 Budesonide 1 Mg/2 Ml Nebu INHALATION 1 mg RT-BID TJ Administration Formoterol Fumarate 20 mcg 10/03/22 20:00 10/03/22 19:44 Formoterol Fumarate 20 Mcg/2 Ml Nebu INHALATION 20 mcg RT-BID TJ Administration Furosemide 40 mg 10/03/22 12:00 10/04/22 04:56 Furosemide 10 Mg/Ml 4 Ml Vial IV 40 mg Q8H TJ Administration Gabapentin 600 mg 10/03/22 16:00 10/03/22 21:12 Gabapentin 300 Mg Cap PO 600 mg TID TJ Administration Lisinopril 5 mg 10/03/22 16:45 10/03/22 18:31 Lisinopril 5 Mg Tab PO Not Given DAILY TJ Methylprednisolone Sodium Succinate 60 mg 10/03/22 18:00 10/04/22 04:56 Methylprednisolone Sod Succi 125 Mg/2 Ml Vial IV 60 mg Q6HR TJ Administration Metoprolol Tartrate 12.5 mg 10/03/22 21:00 10/03/22 21:12 Metoprolol Tartrate 12.5 Mg Tab PO 12.5 mg BID TJ Administration Morphine Sulfate 15 mg 10/03/22 21:05 10/04/22 05:01 Morphine Sulfate Ir 15 Mg Tablet PO 15 mg Q6HR PRN Administration Breakthrough Pain Morphine Sulfate 60 mg 10/03/22 21:17 10/03/22 21:30 Morphine Sulfate Er 30 Mg Tablet PO 60 mg Q12H PRN Administration Pain Protocol Naloxone HCl 0.2 mg 10/03/22 10:45 Naloxone 0.4 Mg/Ml 1 Ml Vial IVP Q2M PRN Opioid Reversal Nitroglycerin 1 inch 10/03/22 13:00 10/03/22 21:50 Nitroglycerin Oint 1 Inch/Gm Packet TOPICAL Not Given QID [facility] Sodium Chloride 10 ml 10/03/22 21:00 10/03/22 21:12 Sodium Chloride 0.9% Flush 10 Ml Syringe IV 10 ml BID TJ Administration Intake and Output 10/03/22 10/03/22 10/04/22 14:59 22:59 06:59 Intake Total 10 Output Total 1200 900 Balance -1190 -900 Intake: IV 10 Invasive Line 1 10 Output: Urine 1200 900 Other: Voiding Method Urinal Urinal Weight 58.967 kg 58.967 kg Patient Weight 10/04/22 06:59 Weight 58.967 kg 10/03/22 09:12 10/03/22 09:12 Assessment and Plan Assessment: Assessment #1 congestive heart failure exacerbation with evidence of biventricular failure, right more than left #2 chronic hypoxic respiratory failure secondary to pulmonary fibrosis #3 right ventricular thrombus identified on recent echo #4 mild sinus tachycardia #5 CAD with prior stenting as described above #6 multiple comorbid conditions Plan Start the patient on IV heparin Consider switching the patient to oral anticoagulation Hold lisinopril in the light of marginally low blood pressure Avoid aggressive blood pressure control in the light of severe pulmonary hypertension Continue Lasix was decreasing the dose to 40 mg twice a day Continue monitor the kidney function and electrolytes Overall poor prognosis
[2022-10-04] MEDS ORDERED: HEPARIN SODIUM 1,000 UN/ML (10ML VL) IV ONE (05:45)
[2022-10-04] MEDS ORDERED: HEPARIN SODIUM 1,000 UN/ML (10ML VL) IV PRN (05:45)
[2022-10-04] MEDS: HEPARIN SOD,PORK IN 0.45% NACL 25,000 UNIT in 0.45% NACL 1 250ML.BAG IV SCH (06:28)
[2022-10-04 06:43] LABS: Anisocytosis Slight; Basophils % (A) 0 %; Eosinophils % (A) 0 %; HCT 44.8 % (39.0-53.0); HGB 13.7 gm/dL (13.0-17.5); Hypochromasia Marked; Lymphocytes # (A) 0.4 k/uL (1.0-4.8); Lymphocytes % (A) 8 %; MCH 27.1 pg (25.0-35.0); MCHC 30.5 g/dL (31.0-37.0); MCV 88.8 fL (80.0-100.0); Mean Platelet Volume 9.2; Monocytes # (A) 0.2 k/uL (0-1.0); Monocytes % (A) 4 %; Neutrophils # (A) 3.9 k/uL (1.3-7.7); Neutrophils % (A) 87 %; Platelet Count 127 k/uL (150-450); RBC 5.05 m/uL (4.30-5.90); RDW 17.4 % (11.5-15.5); WBC 4.5 k/uL (3.8-10.6)
[2022-10-04 06:51] LABS: INR 1.2 (<1.2); Partial Thromboplastin Time 24.6 sec (22.0-30.0); Prothrombin Time 12.1 sec (9.0-12.0)
[2022-10-04] MEDS: IPRATROPIUM-ALBUTEROL 3 ML NEB INHALATION SCH ×4 (07:40→20:23)
[2022-10-04] MEDS: FORMOTEROL FUMARATE 20 MCG/2 ML NEBU INHALATION SCH ×2 (07:40→20:23)
[2022-10-04] MEDS: BUDESONIDE 1 MG/2 ML NEBU INHALATION SCH ×2 (07:40→20:23)
[2022-10-04] MEDS ORDERED: ASPIRIN 325 MG TAB PO SCH (09:00)
[2022-10-04] MEDS: NITROGLYCERIN OINT 1 INCH/GM PACKET TOPICAL SCH ×4 (09:48→21:44)
[2022-10-04] MEDS: MORPHINE SULFATE ER 30 MG TABLET PO PRN ×2 (09:52→19:53)
[2022-10-04] MEDS: ASPIRIN 81 MG PO SCH (09:53)
[2022-10-04] MEDS: METOPROLOL TARTRATE 12.5 MG TAB PO SCH ×2 (09:53→19:49)
[2022-10-04] MEDS: GABAPENTIN 300 MG CAP PO SCH ×3 (09:53→21:39)
--- NOTE | 2022-10-04 12:43 | P.PN ---
Subjective Progress Note Date: 10/04/22 Principal diagnosis: Shortness of breath Pulmonary consult dated 10/03/2022. A 57-year-old male with a history of pulmonary fibrosis. The patient sees my partner for his pulmonary fibrosis, and is maintained on prednisone 20 mg a day. His primary care physician is Dr. Ferny Iglesias. He presents to the emergency department on October 03, at 9:00 in the morning complaining of shortness of breath, which is been progressive. The patient was on 2 L of oxygen, but more recently has been up to 6 L, and here in the emergency room, 10 L high flow. In addition, he missed his lower extremity edema, and he also injured his leg, which required a trip to the wound clinic. He has a history of myocardial infarction, osteoarthritis, pneumonia, and rheumatoid arthritis. He does have chronic hypoxemic respiratory failure uses oxygen 24 7. He has had a catheterization with stent placement. White count 7.7, hemoglobin 13.3, hematocrit 42.9, and platelet count 221,000. PT 12.3 with an INR 1.2. Troponins were 0.094 0.082 and 0.076. N-terminal proBNP was 4160. Sodium 140, potassium 4.2, chlorides 103, CO2 34, BUN 21, creatinine 0.68. Testing for sanderson virus was negative. Likewise, testing for influenza A, influenza B, and respiratory syncytial virus, were all negative. Chest x-ray shows cardiomegaly, with diffuse interstitial changes, which may relate to his interstitial lung disease, and/or edema. Progress note dated 10/04/2022. 57-year-old male with history of established pulmonary fibrosis. The patient was seen in the emergency room yesterday. Today, he seen in room 360. He is on saline at 10 mL an hour. He is on oxygen and 8 L. He was at home. He is also receiving IV heparin. Pro-calcitonin level was low, so the patient's antibiotics were discontinued. Labs today include a white count of 4.5, hemoglobin 13.7, hematocrit 44.8, platelet count 127,000. Troponins were 0.082 and 0.076. D-dimer was 0.41. Pro-calcitonin level was 0.04. CT angiogram showed questionable left lower lobe pulmonary artery filling defects. There was evidence of pulmonary hypertension. In addition, the CT showed interstitial septal thickening consistent with the patient's known history of interstitial lung disease. Objective - Vital Signs Vital signs: Vital Signs Temp 97.6 F 10/04/22 08:00 Pulse 60 10/04/22 08:00 Resp 18 10/04/22 08:00 BP 109/77 10/04/22 08:00 Pulse Ox 87 L 10/04/22 08:00 FiO2 Intake & Output 10/03/22 10/04/22 10/04/22 18:59 06:59 18:59 Intake Total 10 240 Output Total 2100 Balance -2089 240 Weight 58.967 kg 58.967 kg Intake: IV 10 Invasive Line 1 10 Oral 240 Output: Urine 2100 Other: Voiding Method Urinal - Exam No acute distress, oriented 3. No conversational dyspnea or use of accessory muscles. Patient currently on 8 L high flow oxygen. HEENT examination is grossly unremarkable. Neck supple. Full range of motion. No adenopathy thyromegaly or neck vein distention. Cardiovascular examination reveals regular rhythm rate. S1-S2 normal. No S3 or S4. No discernible murmur noted. Heart sounds are distant. Heart rate 80 bpm. Lungs reveal scattered bilateral crackles. Scattered rhonchi are also noted. No wheezes. Breath sounds equal. Saturations 87% on 8 L high flow. Abdomen soft bowel sounds are heard. No masses or tenderness. Extremities reveals bilateral lower extremity edema. There is a couple wounds on his legs. No cyanosis or clubbing. Skin reveals areas of ecchymoses. Neurologic examination is brief but nonfocal. - Labs CBC & Chem 7: 10/04/22 06:01 10/03/22 09:12 Labs: Abnormal Lab Results - Last 24 Hours (Table) 10/03/22 10/03/22 10/04/22 Range/Units 11:59 14:50 06:01 MCHC 30.5 L (31.0-37.0) g/dL RDW 17.4 H (11.5-15.5) % Plt Count 127 L (150-450) k/uL Lymphocytes # 0.4 L (1.0-4.8) k/uL PT (9.0-12.0) sec INR (<1.2) Troponin I 0.082 H* 0.076 H* (0.000-0.034) ng/mL 10/04/22 Range/Units 06:01 MCHC (31.0-37.0) g/dL RDW (11.5-15.5) % Plt Count (150-450) k/uL Lymphocytes # (1.0-4.8) k/uL PT 12.1 H (9.0-12.0) sec INR 1.2 H (<1.2) Troponin I (0.000-0.034) ng/mL Microbiology - Last 24 Hours (Table) 10/03/22 09:28 Blood Culture - Preliminary Blood No Growth after 24 hours 10/03/22 09:12 Blood Culture - Preliminary Blood No Growth after 24 hours Assessment and Plan Assessment: Acute hypoxemic respiratory failure, likely multifactorial, in part related to the patient's history of interstitial lung disease, possible interstitial edema/CHF, and possible non-ST segment elevation myocardial infarction. In addition, there may be a pulmonary embolism, in the left lower lobe. Acute on chronic hypoxemic respiratory failure. History of CAD with previous stent placement to the obtuse marginal branch of the circumflex. Degenerative disc disease. History of bilateral pulmonary emboli. Prior history of myocardial infarction. History of rheumatoid arthritis. History of seizure disorder. History of neuropathy. History of posterior reversible encephalopathy syndrome (PRES). Multiple other medical palms and comorbidities. Plan: Plan dated 10/03/2022. We'll add some breathing treatments for the patient's medication regimen. In addition, we had Solu-Medrol, 60 mg every 6. Also, we'll check an N-terminal proBNP, and a pro-calcitonin level, to rule out infection. Additional recommendations and suggestions are forthcoming. Prognosis is certainly guarded. The patient has a whole host of medical problems. We will continue to follow and make recommendations along the way. He was seen by our team back in 2019. Plan dated 10/04/2022. The patient's labs, x-rays, and medications are reviewed. The CT angiogram showed interstitial changes, as well as a possible PE in the left lower lobe. The patient's currently on IV heparin. Antibiotics were discontinued, as the patient's pro-calcitonin level was very low. He to follow make recommendations along the way. We did place the patient on Solu-Medrol, 60 mg every 6 hours. He is normally on prednisone. We will continue to follow make recommendations along the way. Prognosis is guarded. Time with Patient: Less than 30
[2022-10-04 13:14] VITALS: BMI 18.6
[2022-10-05] MEDS: methylPREDNISolone SOD SUCCI 125 MG/2 ML VIAL IV SCH ×5 (00:49→23:45)
--- NOTE | 2022-10-05 04:40 | PN ---
PROGRESS NOTE A 57-year-old white male came in with pulmonary hypertension, respiratory failure, exacerbation of CHF, COPD. Coronavirus is negative. Influenza A, B, RSV are also negative he wants an increase in his pain medicine. OBJECTIVE: VITAL SIGNS: Temperature 97.6, pulse 60, respiratory rate 18 to 20, blood pressure . GENERAL: He is alert and oriented x3. He is on 8 L high-flow. HEENT: Normocephalic and atraumatic. HEART: S1, S2. LUNGS: Scattered rales and rhonchi, 8 L high-flow. He is saturating at 87%. NEUROLOGIC: Cranial nerves intact. DIAGNOSTIC DATA: CAT scan shows pulmonary hypertension, moderate to severe. He has a couple of wounds on his legs. He has edema in his legs. Labs were reviewed. Acute hypoxemic respiratory failure, multifactorial; interstitial lung disease, congestive heart failure, non ST elevation myocardial infarction, pulmonary embolism, left lower lobe; acute on chronic hypoxemic respiratory failure, history of coronary artery disease with stent placement, degenerative disk disease, history of pulmonary embolism, myocardial infarction, rheumatoid arthritis, seizure disorder, neuropathy, posterior reversible encephalopathy syndrome. The patient is very critical at this time. He is on Solu-Medrol, broad-spectrum antibiotics, steroids. PROGNOSIS: Extremely guarded. Cardiology consult pending. MMKATIEL / HANDY: [id number] /
[2022-10-05] MEDS: MORPHINE SULFATE IR 15 MG TABLET PO PRN ×2 (04:43→14:36)
--- NOTE | 2022-10-05 05:53 | P.PN ---
Subjective Progress Note Date: 10/05/22 Principal diagnosis: Shortness of breath and lower extremities edema The patient is a 57-year-old gentleman who sees Dr. Pedro in the office regularly with a past medical history significant for CAD with a prior stenting of the OM in 2014 as well as pulmonary fibrosis and also chronic hypoxic respiratory failure the patient currently on 5 L of oxygen at home as well as multiple comorbid conditions. He presented to the hospital complaining of increasing shortness of breath for the last few days associated with worsening bilateral lower extremities edema. No symptoms of chest pain or chest discomfort and no dizziness or lightheadedness or any feeling of heart racing or fluttering or presyncope or syncope. When the patient presented to the emergency department was diagnosed was congestive heart failure with severe bilateral lower extremities edema. Further investigation was performed including chest x-ray showed cardiomegaly with no significant finding beside that. NT proBNP came in to be about 4000. He was having severe edema in the lower extent of disease and he was started on Lasix at 40 mg IV 3 times a day. He underwent further investigation with an echo which revealed dilated right ventricle with severe pulmonary hypertension and possible thrombus in the left ventricle as well. He is not on any oral anticoagulation. Previous echo from 2014 did not show any evidence of thrombus and that seems to be new. The EKG showed sinus mechanism with ST changes in V1 and V2 likely related to right ventricular hypertrophy. Further workup including CBC and BNP came in to be unremarkable. When the patient was seen and examined this morning he does have moderate at least bilateral lower extent is pitting edema with chronic skin changes. He does have diminished breathing sounds bilaterally with bilateral rhonchi likely related to pulmonary fibrosis with possible component of fluid overload. Currently he is on 9 L to maintain saturation above 90 per 10/05/2022 The patient was seen and evaluated this morning. Shortness of breath has been the same. Lower extremity edema has been the same. He still required several liters of oxygen to maintain saturation above 90%. On examination he still have bilateral rhonchi which could be related to volume overload and also could be related to his pulmonary fibrosis. Also on examination he still have severe bilateral lower extremities edema and chronic skin changes and currently both legs are wrapped. No chest pain or chest discomfort. Hemodynamically the pressure continues to be soft. He continues to be on Lasix at 40 mg IV twice a day and he has been diuresing very well. Overall his oxygen requirement has slightly improved. Yesterday he required 9 L and today he is requiring several liters. At this point I would continue the current medical regimen including the current dose of Lasix IV with continued monitoring her kidney function and electrolytes and avoid aggressive blood pressure control in the light of severe pulmonary hypertension. We'll continue following up with the patient. The echo was reviewed and described above. Objective - Vital Signs Vital signs: Vital Signs Temp 97.9 F 10/05/22 04:00 Pulse 74 10/05/22 04:00 Resp 18 10/05/22 04:00 BP 99/70 10/05/22 04:00 Pulse Ox 96 10/05/22 04:00 FiO2 Intake & Output 10/04/22 10/04/22 10/05/22 06:59 18:59 06:59 Intake Total 10 660.976 118.996 Output Total 2100 875 1700 Balance -2090 -214.024 -1581.004 Weight 58.967 kg 58.967 kg Intake: IV 10 Invasive Line 1 10 Intake, IV Titration 62.976 118.996 Amount Heparin Sod,Pork in 0.45% 62.976 118.996 NaCl 25,000 unit In 0.45 % NaCl 1 250ml.bag @ 12 UNITS/KG/HR 7.076 mls/hr IV .Q24H [facility] Rx#: [id number] Oral 598 Output: Urine 2100 875 1700 Other: Voiding Method Urinal Urinal - Constitutional General appearance: Present: no acute distress - Respiratory Respiratory: bilateral: rales - Cardiovascular Rhythm: regular Heart sounds: normal: S1, S2 Abnormal Heart Sounds: Present: systolic murmur - Labs CBC & Chem 7: 10/04/22 06:01 10/03/22 09:12 Labs: Abnormal Lab Results - Last 24 Hours (Table) 10/04/22 10/04/22 10/04/22 Range/Units 06:01 06:01 12:21 MCHC 30.5 L (31.0-37.0) g/dL RDW 17.4 H (11.5-15.5) % Plt Count 127 L (150-450) k/uL Lymphocytes # 0.4 L (1.0-4.8) k/uL PT 12.1 H (9.0-12.0) sec INR 1.2 H (<1.2) APTT 38.0 H (22.0-30.0) sec 10/04/22 10/05/22 Range/Units 20:02 03:34 MCHC (31.0-37.0) g/dL RDW (11.5-15.5) % Plt Count (150-450) k/uL Lymphocytes # (1.0-4.8) k/uL PT (9.0-12.0) sec INR (<1.2) APTT 40.2 H 59.5 H (22.0-30.0) sec Microbiology - Last 24 Hours (Table) 10/03/22 14:21 Wound Culture - Preliminary Leg - Left 10/03/22 09:28 Blood Culture - Preliminary Blood No Growth after 24 hours 10/03/22 09:12 Blood Culture - Preliminary Blood No Growth after 24 hours Assessment and Plan Assessment: Assessment #1 congestive heart failure exacerbation with evidence of biventricular failure, right more than left #2 chronic hypoxic respiratory failure secondary to pulmonary fibrosis #3 right ventricular thrombus identified on recent echo #4 mild sinus tachycardia #5 CAD with prior stenting as described above #6 multiple comorbid conditions Plan DC IV heparin and start the patient on oral anticoagulation Hold lisinopril in the light of marginally low blood pressure Avoid aggressive blood pressure control in the light of severe pulmonary hypertension Continue the current dose of Lasix IV Continue monitor the kidney function and electrolytes Overall poor prognosis
[2022-10-05] MEDS: IPRATROPIUM-ALBUTEROL 3 ML NEB INHALATION SCH ×4 (08:22→20:38)
[2022-10-05] MEDS: BUDESONIDE 1 MG/2 ML NEBU INHALATION SCH ×2 (08:22→20:38)
[2022-10-05] MEDS: FORMOTEROL FUMARATE 20 MCG/2 ML NEBU INHALATION SCH ×2 (08:22→20:38)
[2022-10-05] MEDS: ASPIRIN 81 MG PO SCH (09:09)
[2022-10-05] MEDS: APIXABAN 5 MG TAB PO SCH ×2 (09:09→21:13)
[2022-10-05] MEDS: GABAPENTIN 300 MG CAP PO SCH ×3 (09:09→21:14)
[2022-10-05] MEDS: MORPHINE SULFATE ER 30 MG TABLET PO PRN ×2 (09:10→22:00)
[2022-10-05] MEDS: FUROSEMIDE 10 MG/ML 4 ML VIAL IV SCH ×2 (09:10→21:14)
[2022-10-05] MEDS: METOPROLOL TARTRATE 12.5 MG TAB PO SCH ×2 (09:10→21:13)
[2022-10-05] MEDS: NITROGLYCERIN OINT 1 INCH/GM PACKET TOPICAL SCH ×4 (09:12→21:16)
[2022-10-05] MEDS: HEPARIN SOD,PORK IN 0.45% NACL 25,000 UNIT in 0.45% NACL 1 250ML.BAG IV SCH (10:53)
--- NOTE | 2022-10-05 11:40 | P.PN ---
Subjective Progress Note Date: 10/05/22 Principal diagnosis: Shortness of breath Pulmonary consult dated 10/03/2022. A 57-year-old male with a history of pulmonary fibrosis. The patient sees my partner for his pulmonary fibrosis, and is maintained on prednisone 20 mg a day. His primary care physician is Dr. Ferny Iglesias. He presents to the emergency department on October 03, at 9:00 in the morning complaining of shortness of breath, which is been progressive. The patient was on 2 L of oxygen, but more recently has been up to 6 L, and here in the emergency room, 10 L high flow. In addition, he missed his lower extremity edema, and he also injured his leg, which required a trip to the wound clinic. He has a history of myocardial infarction, osteoarthritis, pneumonia, and rheumatoid arthritis. He does have chronic hypoxemic respiratory failure uses oxygen 24 7. He has had a catheterization with stent placement. White count 7.7, hemoglobin 13.3, hematocrit 42.9, and platelet count 221,000. PT 12.3 with an INR 1.2. Troponins were 0.094 0.082 and 0.076. N-terminal proBNP was 4160. Sodium 140, potassium 4.2, chlorides 103, CO2 34, BUN 21, creatinine 0.68. Testing for sanderson virus was negative. Likewise, testing for influenza A, influenza B, and respiratory syncytial virus, were all negative. Chest x-ray shows cardiomegaly, with diffuse interstitial changes, which may relate to his interstitial lung disease, and/or edema. Progress note dated 10/04/2022. 57-year-old male with history of established pulmonary fibrosis. The patient was seen in the emergency room yesterday. Today, he seen in room 360. He is on saline at 10 mL an hour. He is on oxygen and 8 L. He was at home. He is also receiving IV heparin. Pro-calcitonin level was low, so the patient's antibiotics were discontinued. Labs today include a white count of 4.5, hemoglobin 13.7, hematocrit 44.8, platelet count 127,000. Troponins were 0.082 and 0.076. D-dimer was 0.41. Pro-calcitonin level was 0.04. CT angiogram showed questionable left lower lobe pulmonary artery filling defects. There was evidence of pulmonary hypertension. In addition, the CT showed interstitial septal thickening consistent with the patient's known history of interstitial lung disease. Progress note dated 10/05/2022. 57-year-old male with history of biopsy-proven pulmonary fibrosis. Currently, the patient's being seen in room 360. The patient is currently on 7 L of oxygen. Saturations are 99%. The patient's CT angiogram suggested a possible left lower lobe pulmonary embolism. The patient was placed on Eliquis. The patient is not receiving any IV fluids. No new laboratory data today, other than a PTT of 59.5. Objective - Vital Signs Vital signs: Vital Signs Temp 97.5 F L 10/05/22 08:00 Pulse 82 10/05/22 08:00 Resp 18 10/05/22 08:00 BP 106/73 10/05/22 08:00 Pulse Ox 99 10/05/22 08:00 FiO2 Intake & Output 10/04/22 10/05/22 10/05/22 18:59 06:59 18:59 Intake Total 660.976 118.996 300 Output Total 875 1700 Balance -214.024 -1581.004 300 Weight 58.967 kg Intake: Intake, IV Titration 62.976 118.996 Amount Heparin Sod,Pork in 0.45% 62.976 118.996 NaCl 25,000 unit In 0.45 % NaCl 1 250ml.bag @ 12 UNITS/KG/HR 7.076 mls/hr IV .Q24H [facility] Rx#: [id number] Oral 598 300 Output: Urine 875 1700 Other: Voiding Method Urinal - Exam No acute distress, oriented 3. No conversational dyspnea or use of accessory muscles. Patient currently on 7 L high flow oxygen. HEENT examination is grossly unremarkable. Neck supple. Full range of motion. No adenopathy thyromegaly or neck vein distention. Cardiovascular examination reveals regular rhythm rate. S1-S2 normal. No S3 or S4. No discernible murmur noted. Heart sounds are distant. Heart rate 82 bpm. Lungs reveal scattered bilateral crackles. Scattered rhonchi are also noted. No wheezes. Breath sounds equal. Saturations 99% on 7 L high flow. Abdomen soft bowel sounds are heard. No masses or tenderness. Extremities reveals bilateral lower extremity edema. There is a couple wounds on his legs. No cyanosis or clubbing. Skin reveals areas of ecchymoses. Neurologic examination is brief but nonfocal. - Labs CBC & Chem 7: 10/04/22 06:01 10/03/22 09:12 Labs: Abnormal Lab Results - Last 24 Hours (Table) 10/04/22 10/04/22 10/05/22 Range/Units 12:21 20:02 03:34 APTT 38.0 H 40.2 H 59.5 H (22.0-30.0) sec Microbiology - Last 24 Hours (Table) 10/03/22 14:21 Gram Stain - Preliminary Leg - Left Wound Culture - Preliminary 10/03/22 09:28 Blood Culture - Preliminary Blood No Growth after 24 hours 10/03/22 09:12 Blood Culture - Preliminary Blood No Growth after 24 hours Assessment and Plan Assessment: Acute hypoxemic respiratory failure, likely multifactorial, in part related to the patient's history of interstitial lung disease, possible interstitial edema/CHF, and possible non-ST segment elevation myocardial infarction. In addition, there may be a pulmonary embolism, in the left lower lobe. Acute on chronic hypoxemic respiratory failure. History of CAD with previous stent placement to the obtuse marginal branch of the circumflex. Degenerative disc disease. History of bilateral pulmonary emboli. Prior history of myocardial infarction. History of rheumatoid arthritis. History of seizure disorder. History of neuropathy. History of posterior reversible encephalopathy syndrome (PRES). Multiple other medical palms and comorbidities. Plan: Plan dated 10/03/2022. We'll add some breathing treatments for the patient's medication regimen. In addition, we had Solu-Medrol, 60 mg every 6. Also, we'll check an N-terminal proBNP, and a pro-calcitonin level, to rule out infection. Additional recommendations and suggestions are forthcoming. Prognosis is certainly guarded. The patient has a whole host of medical problems. We will continue to follow and make recommendations along the way. He was seen by our team back in 2019. Plan dated 10/04/2022. The patient's labs, x-rays, and medications are reviewed. The CT angiogram showed interstitial changes, as well as a possible PE in the left lower lobe. The patient's currently on IV heparin. Antibiotics were discontinued, as the patient's pro-calcitonin level was very low. He to follow make recommendations along the way. We did place the patient on Solu-Medrol, 60 mg every 6 hours. He is normally on prednisone. We will continue to follow make recommendations along the way. Prognosis is guarded. Plan dated 10/05/2022. The patient's labs, x-rays, and medications are reviewed. He is now on a factor X a inhibitor for possible pulmonary embolism, involving the left lower lobe. The patient has been weaned down to 7 L of oxygen. He's not receiving any IV fluids. We will continue to follow make recommendations along the way. The patient is receiving Solu-Medrol 60 mg every 6. He is normally on prednisone 20 mg a day. Additional recommendations and suggestions are forthcoming. Antibiotics were discontinued, because the pro-calcitonin level was quite low. Time with Patient: Less than 30
--- NOTE | 2022-10-05 23:29 | PN ---
PROGRESS NOTE SUBJECTIVE: A 57-year-old white male admitted with pulmonary hypertension, right-sided heart failure. OBJECTIVE: VITAL SIGNS: 98% oxygen level on 7 L high-flow. Blood pressure 116/76, temp 97.9, respiratory rate 16 to 18. He says he wears 6 to 7 L high-flow at home anyway. He appears to have the oxygen in his mouth with a nasal cannula. CARDIOVASCULAR: S1, S2. LUNGS: Scattered rales and wheeze x4. HEMATOLOGY: 2 to 3+ edema. ASSESSMENT AND PLAN: We will get Dr. Lam to look at his wounds on his legs. Continue to try to get third- spacing of fluids down. Pulmonary has seen. White count is 4.5, hemoglobin is 13.7. Procalcitonin is negative. D-dimer is negative. ASSESSMENT: [id number] pulmonary hypertension, right-sided heart failure, chronic obstructive pulmonary disease, end-stage. Prognosis extremely guarded. Wait for pulmonary and cardiac recommendations. Continue on budesonide, Perforomist, IV Lasix, Neurontin, DuoNeb, steroids, metoprolol, Eliquis, MS Contin. Prognosis guarded. MMODL / IJN: [id number] /
--- NOTE | 2022-10-05 23:51 | P.CONS ---
History of Present Illness - Reason for Consult Consult date: 10/05/22 Leg wounds Requesting physician: Ferny Iglesias - Chief Complaint Increasing shortness of breath x few days - History of Present Illness Patient is a 57-year male with multiple comorbidities presenting to the hospital 2 days ago for evaluation of increasing shortness of breath in this patient symptom has been getting worse for the last few days patient denies cox ving any chest pain denies significant cough or sputum production and denies any high-grade fever patient on presentation to the hospital was afebrile and no fever has been recorded subsequently patient was hypoxic O2 sats of 85% and is currently on a 7 L high flow oxygen patient did have a normal white count D- dimer was normal troponin elevated creatinine is normal liver enzymes are normal procalcitonin was normal did have a negative COVID influenza and RSV PCR patient did have a chest x-ray no acute cardiopulmonary process he also have a CT angiogram of the chest questionable left lower lobe pulmonary artery filling defect but did not mention any infiltrate or pneumonia patient started on Eliquis he is also on Solu-Medrol and bronchodilator infectious he was consulted today for management of his lower extremity wound patient did have a chronic nonhealing wound to bilateral extremities patient is a left leg which has been there for couple of weeks started with a ruptured blister patient did have occasional aching pain especially to the left leg wound 2-3 out of 10 and radiation denies any foul-smelling drainage from the wound Review of Systems Positive point has been mentioned in the HPI rest of the systems are negative Past Medical History Past Medical History: Myocardial Infarction (CA), Osteoarthritis (OA), Pneumonia, Renal Disease, Respiratory Disorder, Rheumatoid Arthritis (RA), Seizure Disorder Additional Past Medical History / Comment(s): Idiopathic pulmonary fibrosis, int erstitial lung disease, chronic respiratory failure, home O2 use at HS and prn during day, immuno compromised d/t steroid use, bronchitis, seizure with benadry overdose in 2015/CA -pt does not recall CA/vented and pt states in a coma-had nerve damage/R upper and lower weakness/pain and L lower leg w eakness/pain/posterior reversible encephalopathy syndrome, chronic low back pain with bilateral sciatica, DDD, kidney stones pt states he passed, Last Myocardial Infarction Date:: 2014 History of Any Multi-Drug Resistant Organisms: None Reported Past Surgical History: Back Surgery, Cholecystectomy Additional Past Surgical History / Comment(s): PCI with stent 2014, R VAT with upper lobe resection/R lung scraped/biopsied, low back surgery/injections, colonoscopy Past Anesthesia/Blood Transfusion Reactions: No Reported Reaction Past Psychological History: No Psychological Hx Reported Additional Psychological History / Comment(s): Pt lives with his 19 yr old camelia. Pt is normally independent. Pt drives a car. He has home oxygen/nebulizer. Smoking Status: Never smoker Past Alcohol Use History: None Reported Additional Past Alcohol Use History / Comment(s): Pt states he was a light smoker-teen to early 20s Past Drug Use History: None Reported - Past Family History Mother Additional Family Medical History / Comment(s): Migraines, hip replacement. Mother is 83 yrs old. Father Family Medical History: Cancer, Hypertension Additional Family Medical History / Comment(s): Father of pancreatic cancer at the age of 60yrs. Medications and Allergies Home Medications Medication Instructions Recorded Confirmed Type Morphine Sulfate Ir [MSIR] 15 mg PO DAILY PRN 05/01/19 10/03/22 History Gabapentin 600 mg PO TID 08/26/19 10/03/22 History Morphine Sulfate ER [Ms Contin] 60 mg PO Q12H PRN 08/26/19 10/03/22 History Albuterol Sulfate [Ventolin HFA] 1 - 2 puff INHALATION RT-Q6H PRN 05/10/20 10/03/22 History Budesonide [Pulmicort Flexhaler] 2 puff INHALATION RT-BID PRN 10/03/22 10/03/22 History Furosemide [Lasix] 40 mg PO DAILY 10/03/22 10/03/22 History Ibuprofen [Motrin] 600 mg PO Q8HR PRN 10/03/22 10/03/22 History Metoprolol Tartrate [Lopressor] 12.5 mg PO BID 10/03/22 10/03/22 History predniSONE 20 mg PO DAILY 10/03/22 10/03/22 History Allergies Allergy/AdvReac Type Severity Reaction Status Date / Time No Known Allergies Allergy Verified 10/03/22 11:29 Physical Exam Vitals: Vital Signs Temp Pulse Pulse Resp BP Pulse Ox 10/05/22 08:00 97.5 F L 82 18 106/73 99 10/05/22 04:00 97.9 F 74 18 99/70 96 10/05/22 02:00 83 20 10/05/22 00:00 97.6 F 83 20 102/70 98 10/04/22 20:34 93 10/04/22 20:24 90 10/04/22 20:00 98.1 F 93 18 107/77 95 10/04/22 15:22 95 10/04/22 15:15 88 10/04/22 15:14 69 20 111/69 95 10/04/22 15:05 88 Intake and Output 10/04/22 10/05/22 10/05/22 22:59 06:59 14:59 Intake Total 232.983 66.989 300 Output Total 700 1000 Balance -467.017 -933.011 300 Intake: Intake, IV Titration 114.983 66.989 Amount Heparin Sod,Pork in 0.45% 114.983 66.989 NaCl 25,000 unit In 0.45 % NaCl 1 250ml.bag @ 12 UNITS/KG/HR 7.076 mls/hr IV .Q24H [facility] Rx#: [id number] Oral 118 300 Output: Urine 700 1000 Other: Voiding Method Urinal GENERAL DESCRIPTION: Middle-aged male lying in bed, no distress. No tachypnea or accessory muscle of respiration use. HEENT: Shows Pallor , no scleral icterus. Oral mucous membrane is dry. No pharyngeal erythema or thrush NECK: Trachea central, no thyromegaly. LUNGS: Unlabored breathing. Decreased intensity of breath sounds. No wheeze or crackle. HEART: S1, S2, regular rate and rhythm. No loud murmur ABDOMEN: Soft, no tenderness , guarding or rigidity, no organomegaly EXTREMITIES: Diffuse swelling of the right lower extremity but no redness patient did have a wound on the left lower leg with some slough tissue and bruising but no surrounding redness or drainage SKIN: No rash, no masses palpable. NEUROLOGICAL: The patient is awake, alert, oriented x3, mood and affect normal. Results CBC & Chem 7: 10/04/22 06:01 10/03/22 09:12 Labs: Abnormal Lab Results - Last 24 Hours (Table) 10/04/22 10/05/22 Range/Units 20:02 03:34 APTT 40.2 H 59.5 H (22.0-30.0) sec Microbiology - Last 24 Hours (Table) 10/03/22 09:28 Blood Culture - Preliminary Blood No Growth after 48 hours 10/03/22 09:12 Blood Culture - Preliminary Blood No Growth after 48 hours 10/03/22 14:21 Gram Stain - Preliminary Leg - Left Wound Culture - Preliminary Assessment and Plan (1) Leg wound, left Current Visit: Yes Status: Acute Code(s): S81.802A - UNSPECIFIED OPEN WOUND, LEFT LOWER LEG, INITIAL ENCOUNTER SNOMED Code(s): 343049510 Plan: 1patient with a left lower extremity wound slightly deep with some slough tissue but no surrounding redness or any foul-smelling drainage will recommend possibly local wound care with the Medihoney followed by moist dressing to be changed daily. 2right lower extremity mostly have diffuse swelling with almost 3+ edema feet but no redness will recommend Lucas wrap to keep the swelling down. 3no need for systemic antibiotic therapy at this point we will follow on clinical condition and cultures to further adjust medication if needed Thank you for this consultation will follow this patient along with you Time with Patient: Greater than 30
[2022-10-06] MEDS: MORPHINE SULFATE IR 15 MG TABLET PO PRN ×3 (03:17→15:03)
[2022-10-06] MEDS: methylPREDNISolone SOD SUCCI 125 MG/2 ML VIAL IV SCH (05:41)
[2022-10-06 07:56] LABS: Anisocytosis Slight; Basophils % (A) 0 %; Eosinophils % (A) 0 %; HCT 43.8 % (39.0-53.0); HGB 13.2 gm/dL (13.0-17.5); Hypochromasia Marked; Lymphocytes # (A) 0.5 k/uL (1.0-4.8); Lymphocytes % (A) 4 %; MCH 26.5 pg (25.0-35.0); MCHC 30.1 g/dL (31.0-37.0); Mean Platelet Volume 8.7; Monocytes # (A) 0.5 k/uL (0-1.0); Monocytes % (A) 4 %; Neutrophils # (A) 9.5 k/uL (1.3-7.7); Neutrophils % (A) 91 %; Platelet Count 125 k/uL (150-450); RBC 4.98 m/uL (4.30-5.90); RDW 16.7 % (11.5-15.5); WBC 10.4 k/uL (3.8-10.6)
[2022-10-06 08:11] LABS: ALT 25 U/L (4-49); AST 23 U/L (17-59); African American GFR (CKD) >90 (>60 ml/min/1.73 sqM); Albumin 3.3 g/dL (3.5-5.0); Alkaline Phosphatase 67 U/L (38-126); Blood Urea Nitrogen 40 mg/dL (9-20); Calcium 8.8 mg/dL (8.4-10.2); Chloride 92 mmol/L (98-107); Glucose 147 mg/dL (74-99); Non-African American GFR(CKD) >90 (>60 ml/min/1.73 sqM); Potassium 4.8 mmol/L (3.5-5.1); Sodium 139 mmol/L (137-145); Total Bilirubin 0.6 mg/dL (0.2-1.3); Total Protein 5.7 g/dL (6.3-8.2)
[2022-10-06 08:21] LABS: Anion Gap 3 mmol/L
[2022-10-06 08:37] LABS: Carbon Dioxide 44 mmol/L (22-30)
[2022-10-06] MEDS: BUDESONIDE 1 MG/2 ML NEBU INHALATION SCH ×2 (08:47→21:12)
[2022-10-06] MEDS: FORMOTEROL FUMARATE 20 MCG/2 ML NEBU INHALATION SCH ×2 (08:48→21:12)
[2022-10-06] MEDS: IPRATROPIUM-ALBUTEROL 3 ML NEB INHALATION SCH ×4 (08:48→21:12)
[2022-10-06] MEDS: APIXABAN 5 MG TAB PO SCH ×2 (08:51→21:25)
[2022-10-06] MEDS: GABAPENTIN 300 MG CAP PO SCH ×3 (08:51→21:24)
[2022-10-06] MEDS: FUROSEMIDE 10 MG/ML 4 ML VIAL IV SCH ×2 (08:51→21:24)
[2022-10-06] MEDS: ASPIRIN 81 MG PO SCH (08:52)
[2022-10-06] MEDS: METOPROLOL TARTRATE 12.5 MG TAB PO SCH ×2 (08:52→21:24)
[2022-10-06] MEDS: NITROGLYCERIN OINT 1 INCH/GM PACKET TOPICAL SCH (08:52)
--- NOTE | 2022-10-06 09:50 | US ---
EXAMINATION TYPE: US arterial LE single level DATE OF EXAM: 10/03/2022 6:59 PM CLINICAL HISTORY: cold extremities/pulses. weakness left leg for 2 weeks. wound left mims and right l ateral lower leg near ankle for 3 weeks. History of hypertension. Doppler Waveforms: Right: Multiphasic Left: Multiphasic Pulse Volume Recording: Pressure Gradients: Ankle-Brachial Indices: Right: 1.55 Left: CNO Toe Brachial Indices: Right: 0.49 Left: N/A IMPRESSION: Nondiagnostic study. Follow-up advised.
[2022-10-06] MEDS: MORPHINE SULFATE ER 30 MG TABLET PO PRN ×2 (10:15→21:33)
--- NOTE | 2022-10-06 10:38 | P.PN ---
Subjective Progress Note Date: 10/06/22 PROGRESS NOTE The patient is a 57-year-old male with known history of pulmonary fibrosis who presented with symptoms of progressive dyspnea, worsening peripheral edema. His echocardiogram showed evidence of severe pulmonary hypertension with dilated right ventricle. His CT angiogram raised the question of pulmonary embolism. He continues to be dyspneic today, he denies any chest discomfort, dizziness or palpitations. He feels fatigued. He has peripheral edema and ulceration on the left lower extremity. He denies any nausea or vomiting. He continues to be in sinus mechanism. He has a history of CAD and prior PCI Medications: Aspirin, Lasix 40 mg IV every 12 hours, metoprolol 12-1/2 mg twice a day,Eliquis 10 mg twice a day PHYSICAL EXAMINATION: Blood pressure 113/80 heart rate 80 LUNGS: Dry crackles bilaterally HEART: Regular rate and rhythm, S1, S2. No S3. Holosystolic murmur 12/29 ABDOMEN: Soft, nontender, no organomegaly EXTREMETIES: +2 edema, right more than left, dressing on the left lower extremity LAB: Creatinine 40, BUN 0.77, potassium 4.8. NT proBNP 3450. Hemoglobin 13.2. IMPRESSION: 1. Acute dyspnea with combination of exacerbation of pulmonary fibrosis and right-sided heart failure with severe pulmonary hypertension 2. History of pulmonary fibrosis 3. Possible pulmonary embolism 4. History of CAD with stenting of the OM 5. Dilated right ventricle secondary to the pulmonary hypertension PLAN: 1. Continue IV diuresis 2. Add Aldactone 3. Consider more advanced treatment of pulmonary hypertension in view of RV deterioration 4. Prognosis is guarded Objective - Vital Signs Vital signs: Vital Signs Temp 98 F 10/06/22 08:00 Pulse 80 10/06/22 08:00 Resp 18 10/06/22 08:00 BP 113/81 10/06/22 08:00 Pulse Ox 98 10/06/22 08:46 FiO2 Intake & Output 10/05/22 10/06/22 10/06/22 18:59 06:59 18:59 Intake Total 700 260 128 Output Total 620 Balance 700 260 -492 Weight 63.9 kg Intake: IV 20 10 Invasive Line 1 20 10 Oral 700 240 118 Output: Urine 620 Other: # Voids 3 2 # Bowel Movements 0 - Labs CBC & Chem 7: 10/06/22 07:08 10/06/22 07:08 Labs: Abnormal Lab Results - Last 24 Hours (Table) 10/06/22 10/06/22 Range/Units 07:08 07:08 MCHC 30.1 L (31.0-37.0) g/dL RDW 16.7 H (11.5-15.5) % Plt Count 125 L (150-450) k/uL Neutrophils # 9.5 H (1.3-7.7) k/uL Lymphocytes # 0.5 L (1.0-4.8) k/uL Chloride 92 L (98-107) mmol/L Carbon Dioxide 44 H* (22-30) mmol/L BUN 40 H (9-20) mg/dL Glucose 147 H (74-99) mg/dL Total Protein 5.7 L (6.3-8.2) g/dL Albumin 3.3 L (3.5-5.0) g/dL Microbiology - Last 24 Hours (Table) 10/03/22 14:21 Gram Stain - Final Leg - Left Wound Culture - Final 10/03/22 09:28 Blood Culture - Preliminary Blood No Growth after 48 hours 10/03/22 09:12 Blood Culture - Preliminary Blood No Growth after 48 hours
--- NOTE | 2022-10-06 11:59 | P.PN ---
Subjective Progress Note Date: 10/06/22 On today's evaluation of 10/06/2022, I'm seeing Haroon for a follow-up. Is a 57-year-old male patient with known history of IPF and the patient has been on oxygen at 6 L/m nasal cannula on an outpatient basis. The patient also has severe right-sided heart failure and severe pulmonary hypertension. The patient came in with signs of fluid overload with increased lower extremity edema and he also has a 1 and his left lower extremity. He is currently on IV Lasix. Is producing adequate amount of urine output. His also coronary artery disease with previous coronary stenting of the obtuse marginal branch and he has also history of pulmonary embolism possibly based on the CT angiogram. Noted the CTA showed questionable left lower lobe pulmonary artery filling defect and the patient has extensive bilateral chronic fibrotic changes consistent with pulmonary fibrosis. The patient is currently on Eliquis therapeutic dose of 10 mg twice a day and the patient is also on IV Solu-Medrol 60 mg every 6 hours. Typically, he takes prednisone 20 mg by mouth on a daily basis at home. No significant sputum production. No fever. No chills. The WBC count is at 10.4 with a hemoglobin of 13.2. Serum bicarbonate is 44 BUN of 40 and a creatinine of 0.7. ProBNP level was 3450. Objective - Vital Signs Vital signs: Vital Signs Temp 98 F 10/06/22 08:00 Pulse 80 10/06/22 08:00 Resp 18 10/06/22 08:00 BP 113/81 10/06/22 08:00 Pulse Ox 98 10/06/22 08:46 FiO2 Intake & Output 10/05/22 10/06/22 10/06/22 18:59 06:59 18:59 Intake Total 700 260 128 Output Total 620 Balance 700 260 -492 Weight 63.9 kg Intake: IV 20 10 Invasive Line 1 20 10 Oral 700 240 118 Output: Urine 620 Other: # Voids 3 2 # Bowel Movements 0 - Exam No acute distress, oriented 3. No conversational dyspnea or use of accessory muscles. Patient currently on 8 L high flow oxygen. Active signs of respirator y distress and the patient is resting comfortably in bed HEENT examination is grossly unremarkable. Neck supple. Full range of motion. No adenopathy thyromegaly or neck vein distention. Cardiovascular examination reveals regular rhythm rate. S1-S2 normal. No S3 or S4. No discernible murmur noted. Heart sounds are distant. Heart rate 80 bpm. Lungs reveal scattered bilateral crackles. Scattered rhonchi are also noted. No wheezes. Breath sounds equal. Patient has coarse crackles in the mid and lower lung hernandez bilaterally Abdomen soft bowel sounds are heard. No masses or tenderness. Extremities reveals bilateral lower extremity edema. There is a couple wounds on his legs. No cyanosis or clubbing. There is still extensive edema in lower extremities bilaterally. Skin reveals areas of ecchymoses. Neurologic examination is brief but nonfocal. - Labs CBC & Chem 7: 10/06/22 07:08 10/06/22 07:08 Labs: Abnormal Lab Results - Last 24 Hours (Table) 10/06/22 10/06/22 Range/Units 07:08 07:08 MCHC 30.1 L (31.0-37.0) g/dL RDW 16.7 H (11.5-15.5) % Plt Count 125 L (150-450) k/uL Neutrophils # 9.5 H (1.3-7.7) k/uL Lymphocytes # 0.5 L (1.0-4.8) k/uL Chloride 92 L (98-107) mmol/L Carbon Dioxide 44 H* (22-30) mmol/L BUN 40 H (9-20) mg/dL Glucose 147 H (74-99) mg/dL Total Protein 5.7 L (6.3-8.2) g/dL Albumin 3.3 L (3.5-5.0) g/dL Microbiology - Last 24 Hours (Table) 10/03/22 09:12 Blood Culture - Preliminary Blood No Growth after 72 hours 10/03/22 09:28 Blood Culture - Preliminary Blood No Growth after 72 hours 10/03/22 14:21 Gram Stain - Final Leg - Left Wound Culture - Final Assessment and Plan Plan: Acute hypoxemic respiratory failure, patient is currently on 8 L of oxygen by nasal cannula. The patient has chronic fibrosis/IPF in addition to that there could be a superimposed pulmonary embolism in addition to signs of fluid overload. Questionable left lower lobe pulmonary artery branch filling defect currently on anticoagulation with Eliquis Signs of fluid overload with right-sided heart failure and significant edema lower oximetry is bilaterally currently on IV Lasix. Acute on chronic hypoxemic respiratory failure. History of CAD with previous stent placement to the obtuse marginal branch of the circumflex. Degenerative disc disease. History of bilateral pulmonary emboli. Prior history of myocardial infarction. History of rheumatoid arthritis. History of seizure disorder. History of neuropathy. History of posterior reversible encephalopathy syndrome (PRES). Multiple other medical palms and comorbidities. LLE wound Plan: Wean down oxygen to maintain a saturation above 90% Continue IV Lasix Stop the IV Solu-Medrol and start the patient prednisone 20 mg by mouth daily Continue anticoagulation with Eliquis Monitor electrolytes Monitor lower extremity wound and edema Clinically stable and will continue to follow
--- NOTE | 2022-10-06 12:32 | CDI ---
Documentation Clarification Form Date: 10/06/2022 12:13:07 PM From: Rebecca Espinosa RN CCDS Admit Date: 10/03/2022 10:49:00 AM Patient Name: Haroon Armijo Visit Number: [id number] Discharge Date: ATTENTION: The Clinical Documentation Specialists (CDI) and [facility] Coding Staff appreciate your assistance in clarifying documentation. Please respond to the clarification below the line at the bottom and electronically sign. The CDI & [facility] Coding staff will review the response and follow-up if needed. Please note: Queries are made part of the Legal Health Record. If you have any questions, please contact the author of this message via ITS. Dr. Percy Zabala Your patient has the documented diagnosis of Right sided Heart failure 10/06, Cardiology note. Additional information regarding the type, acuity of Heart Failure is requested. History/Risk Factors: 57-year-old male presents to the ED with increased shortness of breath with bilateral lower extremity edema. Medical history: chronic respiratory failure with home oxygen use; renal disease and [place]. 10/04 Cardiology note. Clinical Indicators: VS/Pulse OX: B/P 105/77; HR 28; Temp 98.2 F Oral; SpO2 85% 6L nasal cannula BNP: 10/03 4160 Transthoracic Echocardiogram Results: 10/03 Severe RV dilation with pressure overload from right ventricle noted in the RV likely represents papillary muscles. Chest X Ray: 10/03; Mild cardiomegaly with advanced parenchymal fibrotic changes bilaterally redemonstrated. Cardiology note, 10/06: 1.Acute dyspnea with combination of exacerbation of pulmonary fibrosis and right-sided heart failure with severe pulmonary hypertension Treatment: 10/03 Lasix 40mg IV Q8HR changed 10/04 to 40mg IV Q12HR; 10/03 current Lopressor 12.5mg PO BID; 10/06 Aldactone 25mg PO Daily. In your professional opinion, can you please clarify the acuity and type of CHF if known? [ ] Acute Systolic Heart Failure (reduced EF) [ ] Acute Diastolic Heart Failure (preserved EF) [ ] Acute Systolic & Diastolic Heart Failure [xx ] Other, please specify___right side failure [ ] Unable to determine (Template Last Revised: November 2020) MTDD
[2022-10-06] MEDS: predniSONE 20 MG TAB PO SCH (12:45)
[2022-10-06] MEDS: SPIRONOLACTONE 25 MG TAB PO SCH (12:45)
--- NOTE | 2022-10-06 12:50 | P.CONS ---
History of Present Illness - Reason for Consult Consult date: 10/06/22 wound care - History of Present Illness This is a 57-year-old patient being seen by the wound care center on 3 for nonhealing ulceration to the left lower extremity and the right lower extremity. Patient states that he has history of pulmonary fibrosis and started to retain fluid in his lower extremities approximate 2 weeks ago. The ulceration to the left lower extremity opened after he had a traumatic injury of bumping into a table. The right ulceration and slowly progress. The left ulceration measures approximate 1.5 x 1.5 x 1.0 cm with fat layer exposure Slough and minimal granulation noted within the wound bed. Wound edges are attached to the wound base there is no tunneling or undermining noted, the right ulceration measures approximate 0.6 x 0.4 x 0.1 cm Limited to skin breakdown, granulation noted throughout with file skin noted. Bilateral lower extremities have 2+ edema noted. Review Of Systems: Constitutional: No fever, no chills, no night sweats. No weight change. No weakness, fatigue or lethargy. No daytime sleepiness. Integumentary:reports wounds, no lesions. No rash or pruritus. No unusual bruising. No change in hair or nails. Physical exam: General Appearance: Alert, cooperative, no distress, appears stated age. Skin: See HPI all other Skin color, texture, tugor normal, no rashes or lesions. Neurologic: Alert oriented x3 Assessment: 1. Nonhealing ulceration left lower extremity with fat layer exposure 2. Nonhealing ulceration right lower extremity Limited to skin breakdown 3. Chronic hypertension with venous insufficiency and ulceration Plan: 1. Bilateral lower extremity:Apply honey gel, dry gauze, rolled gauze and secure with paper tape. Wrap with Lucas wrap for compression. Patient would benefit from advanced wound care and wound care center. He does have an appointment on October 08 however if he is not able to make it please call to reschedule. Thank you for the consultation any questions please contact the wound care center DNP note has been reviewed and discussed with Dr. Johnson and the impression and plan of care has been directed as dictated. Past Medical History Past Medical History: Myocardial Infarction (AR), Osteoarthritis (OA), Pneumonia, Renal Disease, Respiratory Disorder, Rheumatoid Arthritis (RA), Seizure Disorder Additional Past Medical History / Comment(s): Idiopathic pulmonary fibrosis, interstitial lung disease, chronic respiratory failure, home O2 use at HS and prn during day, immuno compromised d/t steroid use, bronchitis, seizure with benadry overdose in 2014/ -pt does not recall AR/vented and pt states in a coma-had nerve damage/R upper and lower weakness/pain and L lower leg weakness/pain/posterior reversible encephalopathy syndrome, chronic low back pain with bilateral sciatica, DDD, kidney stones pt states he passed, Last Myocardial Infarction Date:: 2014 History of Any Multi-Drug Resistant Organisms: None Reported Past Surgical History: Back Surgery, Cholecystectomy Additional Past Surgical History / Comment(s): PCI with stent 2014, R VAT with upper lobe resection/R lung scraped/biopsied, low back surgery/injections, colon oscopy Past Anesthesia/Blood Transfusion Reactions: No Reported Reaction Past Psychological History: No Psychological Hx Reported Additional Psychological History / Comment(s): Pt lives with his 19 yr old camelia. Pt is normally independent. Pt drives a car. He has home oxygen/nebulizer. Smoking Status: Never smoker Past Alcohol Use History: None Reported Additional Past Alcohol Use History / Comment(s): Pt states he was a light smoker-teen to early 20s Past Drug Use History: None Reported - Past Family History Mother Additional Family Medical History / Comment(s): Migraines, hip replacement. Mother is 83 yrs old. Father Family Medical History: Cancer, Hypertension Additional Family Medical History / Comment(s): Father of pancreatic cancer at the age of 60yrs. Medications and Allergies Home Medications Medication Instructions Recorded Confirmed Type Morphine Sulfate Ir [MSIR] 15 mg PO DAILY PRN 05/01/19 10/03/22 History Gabapentin 600 mg PO TID 08/26/19 10/03/22 History Morphine Sulfate ER [Ms Contin] 60 mg PO Q12H PRN 08/26/19 10/03/22 History Albuterol Sulfate [Ventolin HFA] 1 - 2 puff INHALATION RT-Q6H PRN 05/10/20 10/03/22 History Budesonide [Pulmicort Flexhaler] 2 puff INHALATION RT-BID PRN 10/03/22 10/03/22 History Furosemide [Lasix] 40 mg PO DAILY 10/03/22 10/03/22 History Ibuprofen [Motrin] 600 mg PO Q8HR PRN 10/03/22 10/03/22 History Metoprolol Tartrate [Lopressor] 12.5 mg PO BID 10/03/22 10/03/22 History predniSONE 20 mg PO DAILY 10/03/22 10/03/22 History Allergies Allergy/AdvReac Type Severity Reaction Status Date / Time No Known Allergies Allergy Verified 10/03/22 11:29 Physical Exam Vitals: Vital Signs Temp Pulse Pulse Resp BP Pulse Ox 10/06/22 08:46 98 10/06/22 08:00 98 F 80 18 113/81 96 10/06/22 03:16 98.0 F 77 93/71 99 10/06/22 01:48 18 10/05/22 23:40 98.0 F 72 18 101/68 98 10/05/22 20:32 97.9 F 74 18 116/76 98 10/05/22 20:00 18 10/05/22 16:44 91 10/05/22 16:38 90 10/05/22 16:00 72 18 106/73 97 10/05/22 14:00 82 18 Intake and Output 10/05/22 10/06/22 10/06/22 22:59 06:59 14:59 Intake Total 450 10 128 Output Total 620 Balance 450 10 -492 Intake: IV 10 10 10 Invasive Line 1 10 10 10 Oral 440 118 Output: Urine 620 Other: # Voids 3 2 # Bowel Movements 0 Weight 63.9 kg Results CBC & Chem 7: 10/06/22 07:08 10/06/22 07:08 Labs: Abnormal Lab Results - Last 24 Hours (Table) 10/06/22 10/06/22 Range/Units 07:08 07:08 MCHC 30.1 L (31.0-37.0) g/dL RDW 16.7 H (11.5-15.5) % Plt Count 125 L (150-450) k/uL Neutrophils # 9.5 H (1.3-7.7) k/uL Lymphocytes # 0.5 L (1.0-4.8) k/uL Chloride 92 L (98-107) mmol/L Carbon Dioxide 44 H* (22-30) mmol/L BUN 40 H (9-20) mg/dL Glucose 147 H (74-99) mg/dL Total Protein 5.7 L (6.3-8.2) g/dL Albumin 3.3 L (3.5-5.0) g/dL Microbiology - Last 24 Hours (Table) 10/03/22 09:12 Blood Culture - Preliminary Blood No Growth after 72 hours 10/03/22 09:28 Blood Culture - Preliminary Blood No Growth after 72 hours 10/03/22 14:21 Gram Stain - Final Leg - Left Wound Culture - Final Assessment and Plan (1) Non-pressure chronic ulcer of other part of left lower leg with fat layer exposed Current Visit: Yes Status: Acute Code(s): L97.822 - NON-PRS CHRONIC ULCER OTH PRT L LOW LEG W FAT LAYER EXPOSED SNOMED Code(s): 05311382463276349 (2) Non-pressure chronic ulcer of right ankle limited to breakdown of skin Current Visit: Yes Status: Acute Code(s): L97.311 - NON-PRS CHRONIC ULCER OF RIGHT ANKLE LIMITED TO BRKDWN SKIN SNOMED Code(s): 24176453356591561 (3) Chronic venous hypertension with ulcer and inflammation involving both sides Current Visit: Yes Status: Acute Code(s): I87.333 - CHRONIC VENOUS HTN W ULCER AND INFLAM OF BILATERAL LOW EXTRM; L97.919 - NON-PRS CHRONIC ULC UNSP PRT OF R LOW LEG W UNSP SEVERITY; L97.929 - NON-PRS CHRONIC ULC UNSP PRT OF L LOW LEG W UNSP SEVERITY SNOMED Code(s): 308285789
--- NOTE | 2022-10-06 12:51 | CDI ---
Documentation Clarification Form Date: 10/06/2022 12:36:01 PM From: Rebecca Espinosa RN CCDS Admit Date: 10/03/2022 10:49:00 AM Patient Name: Haroon Armijo Visit Number: [id number] Discharge Date: ATTENTION: The Clinical Documentation Specialists (CDI) and [facility] Coding Staff appreciate your assistance in clarifying documentation. Please respond to the clarification below the line at the bottom and electronically sign. The CDI & [facility] Coding staff will review the response and follow-up if needed. Please note: Queries are made part of the Legal Health Record. If you have any questions, please contact the author of this message via ITS. Dr. Ferny Iglesias Possible Non-ST segment elevation myocardial infarction is documented 10/03, Cardiology consult. Additional clarification regarding the type of NSTEMI is requested. History/Risk Factors: 57-year-old male presents to the ED with increased shortness of breath with bilateral lower extremity edema. Medical history: chronic respiratory failure with home oxygen use; renal disease and [place]. 10/04, Cardiology note. Clinical Indicators: VS/Pulse OX: B/P 105/77; HR 28; Temp 98.2 F Oral; SpO2 85% 6L nasal cannula Troponin, 10/03: 0.082; 0.076. EKG Results, 10/03: Sinus mechanism with ST changes in V1 and V2 likely related to right ventricular hypertrophy. Treatment: 10/03 Lasix 40mg IV Q8HR changed 10/04 to 40mg IV Q12HR; 10/03 current Lopressor 12.5mg PO BID; 10/06 Aldactone 25mg PO Daily; 10/04 Heparin 3,538.02 Unit IV X 1; 10/04 10/05 Heparin 250mls @7.076mls/hr Q24H. Please clarify the type of NSTEMI, if known: [ ] NSTEMI ruled In [ ] NSTEMI ruled Out [ ] Unable to determine [ ] Other Condition, please specify (Template Last Revised: December 2020) MTDD
[2022-10-07] MEDS: MORPHINE SULFATE IR 15 MG TABLET PO PRN ×2 (02:11→16:15)
--- NOTE | 2022-10-07 07:01 | PN ---
PROGRESS NOTE SUBJECTIVE: A 57-year-old white male with pulmonary fibrosis, pulmonary hypertension, right-sided heart failure, on IV Lasix. Steroids have been switched to oral. Wound care with Medihoney to the lower legs. Compression stockings to the lower legs have been seen. He has leg weakness, wants to go to rehab center due to leg weakness. OBJECTIVE: VITAL SIGNS: He is saturating 94% on 7 to 8 L high-flow. Temperature 97.9, pulse 60s to 80s, and respiratory rate 18 to 20. CARDIOVASCULAR: S1, S2. LUNGS: Scattered rhonchi and wheeze. HEMATOLOGY: Negative Homans. PSYCH: Fair mood and affect, 2 to 3+ edema with localized superficial ulcers in the legs. LUNGS: Decreased breath sounds x4. ASSESSMENT AND PLAN: Probable pulmonary embolism, right lower lobe, chronic obstructive pulmonary disease, pulmonary fibrosis, pulmonary hypertension, cellulitis and right-sided heart failure, cellulitis of the legs. Prognosis guarded. Continue on IV Lasix 40 q.12, oral prednisone, IV antibiotics. Medihoney to legs, pressures pCO2, PT, OT, ECF placement. MMODL / IJN: [id number] /
[2022-10-07] MEDS: FORMOTEROL FUMARATE 20 MCG/2 ML NEBU INHALATION SCH ×2 (09:34→19:31)
[2022-10-07] MEDS: BUDESONIDE 1 MG/2 ML NEBU INHALATION SCH ×2 (09:34→19:30)
[2022-10-07] MEDS: IPRATROPIUM-ALBUTEROL 3 ML NEB INHALATION SCH ×4 (09:34→19:29)
[2022-10-07] MEDS: GABAPENTIN 300 MG CAP PO SCH ×3 (10:14→19:55)
[2022-10-07] MEDS: APIXABAN 5 MG TAB PO SCH ×2 (10:14→19:55)
[2022-10-07] MEDS: MORPHINE SULFATE ER 30 MG TABLET PO PRN ×2 (10:15→22:03)
[2022-10-07] MEDS: predniSONE 20 MG TAB PO SCH (10:15)
[2022-10-07] MEDS: METOPROLOL TARTRATE 12.5 MG TAB PO SCH ×2 (10:15→19:55)
[2022-10-07] MEDS: ASPIRIN 81 MG PO SCH (10:15)
[2022-10-07] MEDS: SPIRONOLACTONE 25 MG TAB PO SCH (10:15)
[2022-10-07] MEDS: FUROSEMIDE 10 MG/ML 4 ML VIAL IV SCH ×2 (10:16→19:55)
[2022-10-07 11:48] LABS: Anisocytosis Slight; Basophils # (A) 0.1 k/uL (0-0.2); Basophils % (A) 0 %; Eosinophils % (A) 0 %; HCT 47.1 % (39.0-53.0); HGB 14.5 gm/dL (13.0-17.5); Hypochromasia Marked; Lymphocytes # (A) 0.8 k/uL (1.0-4.8); Lymphocytes % (A) 6 %; MCHC 30.8 g/dL (31.0-37.0); MCV 87.6 fL (80.0-100.0); Mean Platelet Volume 8.7; Monocytes % (A) 7 %; Neutrophils # (A) 12.1 k/uL (1.3-7.7); Neutrophils % (A) 85 %; Platelet Count 126 k/uL (150-450); RBC 5.38 m/uL (4.30-5.90); RDW 16.5 % (11.5-15.5); WBC 14.2 k/uL (3.8-10.6)
[2022-10-07 12:10] LABS: ALT 35 U/L (4-49); AST 40 U/L (17-59); African American GFR (CKD) >90 (>60 ml/min/1.73 sqM); Alkaline Phosphatase 74 U/L (38-126); Blood Urea Nitrogen 48 mg/dL (9-20); Chloride 89 mmol/L (98-107); Glucose 81 mg/dL (74-99); Non-African American GFR(CKD) >90 (>60 ml/min/1.73 sqM); Potassium 3.7 mmol/L (3.5-5.1); Sodium 140 mmol/L (137-145); Total Bilirubin 0.8 mg/dL (0.2-1.3); Total Protein 6.6 g/dL (6.3-8.2)
[2022-10-07 12:20] LABS: Anion Gap 7 mmol/L
[2022-10-07 12:28] LABS: Carbon Dioxide 44 mmol/L (22-30)
--- NOTE | 2022-10-07 13:48 | P.PN ---
Subjective Progress Note Date: 10/07/22 PROGRESS NOTE The patient is a 57-year-old male with known history of pulmonary fibrosis who presented with symptoms of progressive dyspnea, worsening peripheral edema. His echocardiogram showed evidence of severe pulmonary hypertension with dilated right ventricle. His CT angiogram raised the question of pulmonary embolism. He continues to be dyspneic today, he denies any chest discomfort, dizziness or palpitations. He feels fatigued. He has peripheral edema and ulceration on the left lower extremity. He denies any nausea or vomiting. He continues to be in sinus mechanism. He has a history of CAD and prior PCI October 07: He continues to be dyspneic but slightly better. He denies any chest discomfort, dizziness or palpitations. He continues to have peripheral edema, improving. He denies any nausea or vomiting. He continues to be in sinus mechanism. Medications: Aspirin, Lasix 40 mg IV every 12 hours, metoprolol 12-1/2 mg twice a day,Eliquis 10 mg twice a day, Aldactone 25 mg daily PHYSICAL EXAMINATION: Blood pressure 104/70 heart rate 70, increase jugular venous venous pressure LUNGS: Dry crackles bilaterally with mild decrease in the breath sounds HEART: Regular rate and rhythm, S1, S2. No S3. Holosystolic murmur 12/29 ABDOMEN: Soft, nontender, no organomegaly EXTREMETIES: +2 edema, right more than left, dressing on the left lower extremity LAB: Creatinine 48, BUN 0.71, potassium 3.7. Bicarb 44. Hemoglobin 14.5. IMPRESSION: 1. Acute dyspnea with combination of exacerbation of pulmonary fibrosis and right-sided heart failure with severe pulmonary hypertension 2. History of pulmonary fibrosis 3. Possible pulmonary embolism 4. History of CAD with stenting of the OM 5. Dilated right ventricle secondary to the pulmonary hypertension PLAN: 1. Continue IV diuresis 2. Follow renal function 3. Depending on his progress further recommendations will be made. Objective - Vital Signs Vital signs: Vital Signs Temp 97.5 F L 10/07/22 11:41 Pulse 75 10/07/22 13:18 Resp 20 10/07/22 13:18 BP 104/73 10/07/22 11:41 Pulse Ox 96 10/07/22 11:41 FiO2 Intake & Output 10/06/22 10/07/22 10/07/22 18:59 06:59 18:59 Intake Total 614 20 138 Output Total 620 800 601 Balance -6 -780 -463 Weight 62.6 kg Intake: IV 20 20 20 Invasive Line 1 20 20 20 Oral 594 118 Output: Urine 620 800 601 Other: Voiding Method Urinal # Voids 450 - Labs CBC & Chem 7: 10/07/22 10:52 10/07/22 10:52 Labs: Abnormal Lab Results - Last 24 Hours (Table) 10/07/22 10/07/22 Range/Units 10:52 10:52 WBC 14.2 H (3.8-10.6) k/uL MCHC 30.8 L (31.0-37.0) g/dL RDW 16.5 H (11.5-15.5) % Plt Count 126 L (150-450) k/uL Neutrophils # 12.1 H (1.3-7.7) k/uL Lymphocytes # 0.8 L (1.0-4.8) k/uL Chloride 89 L (98-107) mmol/L Carbon Dioxide 44 H* (22-30) mmol/L BUN 48 H (9-20) mg/dL Microbiology - Last 24 Hours (Table) 10/03/22 09:28 Blood Culture - Preliminary Blood No Growth after 96 hours 10/03/22 09:12 Blood Culture - Preliminary Blood No Growth after 96 hours 10/03/22 14:21 Gram Stain - Final Leg - Left Wound Culture - Final
[2022-10-07] MEDS ORDERED: Magnesium Replacement Protocol 1 EACH MISC MISCELLANE PRN (14:17)
[2022-10-07] MEDS ORDERED: MAGNESIUM SULFATE-D5W PMX 1 GM in DEXTROSE/WATER 1 100ML.BAG IVPB SCH (14:30)
--- NOTE | 2022-10-07 14:31 | P.PN ---
Subjective Progress Note Date: 10/07/22 On today's evaluation of 10/06/2022, I'm seeing Haroon for a follow-up. Is a 57-year-old male patient with known history of IPF and the patient has been on oxygen at 6 L/m nasal cannula on an outpatient basis. The patient also has severe right-sided heart failure and severe pulmonary hypertension. The patient came in with signs of fluid overload with increased lower extremity edema and he also has a 1 and his left lower extremity. He is currently on IV Lasix. Is producing adequate amount of urine output. His also coronary artery disease with previous coronary stenting of the obtuse marginal branch and he has also history of pulmonary embolism possibly based on the CT angiogram. Noted the CTA showed questionable left lower lobe pulmonary artery filling defect and the patient has extensive bilateral chronic fibrotic changes consistent with pulmonary fibrosis. The patient is currently on Eliquis therapeutic dose of 10 mg twice a day and the patient is also on IV Solu-Medrol 60 mg every 6 hours. Typically, he takes prednisone 20 mg by mouth on a daily basis at home. No significant sputum production. No fever. No chills. The WBC count is at 10.4 with a hemoglobin of 13.2. Serum bicarbonate is 44 BUN of 40 and a creatinine of 0.7. ProBNP level was 3450. 10/09/2022, the patient remains on 6 L of oxygen by nasal cannula. Clinically stable. No worsening shortness of breath. I took him off the IV Solu-Medrol yesterday and placed him on prednisone 20 mg by mouth on a daily basis. The patient is on DuoNeb nebulized treatments [id number]. The patient on a combination of Perforomist [facility] twice a day. The patient continues to have lower extremity edema and the patient still being diuresed with Lasix 40 mg IV every 12 hours. Rest of the medications are unchanged. Bicarb serum is up to 44 with a sodium of 140 and a potassium level of 3.7. Creatinine is at 0.7. The echoes at 14.2 with a hemoglobin of 14.5. Objective - Vital Signs Vital signs: Vital Signs Temp 97.5 F L 10/07/22 11:41 Pulse 75 10/07/22 13:18 Resp 20 10/07/22 13:18 BP 104/73 10/07/22 11:41 Pulse Ox 96 10/07/22 11:41 FiO2 Intake & Output 10/06/22 10/07/22 10/07/22 18:59 06:59 18:59 Intake Total 614 20 138 Output Total 620 800 601 Balance -6 -780 -463 Weight 62.6 kg Intake: IV 20 20 20 Invasive Line 1 20 20 20 Oral 594 118 Output: Urine 620 800 601 Other: Voiding Method Urinal # Voids 450 - Exam No acute distress, oriented 3. No conversational dyspnea or use of accessory muscles. Patient currently on 8 L high flow oxygen. Active signs of respiratory distress and the patient is resting comfortably in bed HEENT examination is grossly unremarkable. Neck supple. Full range of motion. No adenopathy thyromegaly or neck vein distention. Cardiovascular examination reveals regular rhythm rate. S1-S2 normal. No S3 or S4. No discernible murmur noted. Heart sounds are distant. Heart rate 80 bpm. Lungs reveal scattered bilateral crackles. Scattered rhonchi are also noted. No wheezes. Breath sounds equal. Patient has coarse crackles in the mid and lower lung hernandez bilaterally Abdomen soft bowel sounds are heard. No masses or tenderness. Extremities reveals bilateral lower extremity edema. There is a couple wounds on his legs. No cyanosis or clubbing. There is still extensive edema in lower extremities bilaterally. Skin reveals areas of ecchymoses. Neurologic examination is brief but nonfocal. - Labs CBC & Chem 7: 10/07/22 10:52 10/07/22 10:52 Labs: Abnormal Lab Results - Last 24 Hours (Table) 10/07/22 10/07/22 Range/Units 10:52 10:52 WBC 14.2 H (3.8-10.6) k/uL MCHC 30.8 L (31.0-37.0) g/dL RDW 16.5 H (11.5-15.5) % Plt Count 126 L (150-450) k/uL Neutrophils # 12.1 H (1.3-7.7) k/uL Lymphocytes # 0.8 L (1.0-4.8) k/uL Chloride 89 L (98-107) mmol/L Carbon Dioxide 44 H* (22-30) mmol/L BUN 48 H (9-20) mg/dL Microbiology - Last 24 Hours (Table) 10/03/22 09:28 Blood Culture - Preliminary Blood No Growth after 96 hours 10/03/22 09:12 Blood Culture - Preliminary Blood No Growth after 96 hours Assessment and Plan Plan: Acute hypoxemic respiratory failure, patient is currently on 6 L of oxygen by nasal cannula. The patient has chronic fibrosis/IPF in addition to that there could be a superimposed pulmonary embolism in addition to signs of fluid overload. The patient is currently on oral prednisone 20 mg and the patient is also being diuresed with IV Lasix. The patient is on anticoagulation with Eliquis. Questionable left lower lobe pulmonary artery branch filling defect currently on anticoagulation with Eliquis Signs of fluid overload with right-sided heart failure and significant edema lower oximetry is bilaterally currently on IV Lasix. Acute on chronic hypoxemic respiratory failure. History of CAD with previous stent placement to the obtuse marginal branch of the circumflex. Degenerative disc disease. History of bilateral pulmonary emboli. Prior history of myocardial infarction. History of rheumatoid arthritis. History of seizure disorder. History of neuropathy. History of posterior reversible encephalopathy syndrome (PRES). Multiple other medical palms and comorbidities. LLE wound Plan: Wean down oxygen to maintain a saturation above 90%, currently at 6 L Continue IV Lasix for another 24 hours and switch the patient to oral Lasix as of tomorrow Continue prednisone 20 mg by mouth daily Continue anticoagulation with Eliquis Monitor electrolytes Monitor lower extremity wound and edema Clinically stable and will continue to follow
[2022-10-08] MEDS: MORPHINE SULFATE IR 15 MG TABLET PO PRN ×3 (02:56→19:52)
[2022-10-08] MEDS: IPRATROPIUM-ALBUTEROL 3 ML NEB INHALATION SCH ×4 (08:02→21:20)
[2022-10-08] MEDS: FORMOTEROL FUMARATE 20 MCG/2 ML NEBU INHALATION SCH ×2 (08:02→21:20)
[2022-10-08] MEDS: BUDESONIDE 1 MG/2 ML NEBU INHALATION SCH ×2 (08:02→21:20)
[2022-10-08] MEDS: APIXABAN 5 MG TAB PO SCH ×2 (08:38→19:52)
[2022-10-08] MEDS: FUROSEMIDE 10 MG/ML 4 ML VIAL IV SCH ×2 (08:38→19:52)
[2022-10-08] MEDS: SPIRONOLACTONE 25 MG TAB PO SCH (08:39)
[2022-10-08] MEDS: GABAPENTIN 300 MG CAP PO SCH ×3 (08:39→19:52)
[2022-10-08] MEDS: MORPHINE SULFATE ER 30 MG TABLET PO PRN ×2 (08:39→23:11)
[2022-10-08] MEDS: METOPROLOL TARTRATE 12.5 MG TAB PO SCH ×2 (08:39→19:52)
[2022-10-08] MEDS: ASPIRIN 81 MG PO SCH (08:39)
[2022-10-08] MEDS: predniSONE 20 MG TAB PO SCH (08:39)
[2022-10-08 09:43] LABS: African American GFR (CKD) >90 (>60 ml/min/1.73 sqM); Blood Urea Nitrogen 45 mg/dL (9-20); Calcium 8.7 mg/dL (8.4-10.2); Chloride 88 mmol/L (98-107); Glucose 75 mg/dL (74-99); Non-African American GFR(CKD) >90 (>60 ml/min/1.73 sqM); Potassium 3.6 mmol/L (3.5-5.1); Sodium 138 mmol/L (137-145)
[2022-10-08 09:49] LABS: Anion Gap 5 mmol/L
[2022-10-08 09:52] LABS: Carbon Dioxide 45 mmol/L (22-30)
--- NOTE | 2022-10-08 14:19 | P.PN ---
Subjective Progress Note Date: 10/08/22 PROGRESS NOTE The patient is a 57-year-old male with known history of pulmonary fibrosis who presented with symptoms of progressive dyspnea, worsening peripheral edema. His echocardiogram showed evidence of severe pulmonary hypertension with dilated right ventricle. His CT angiogram raised the question of pulmonary embolism. He continues to be dyspneic today, he denies any chest discomfort, dizziness or palpitations. He feels fatigued. He has peripheral edema and ulceration on the left lower extremity. He denies any nausea or vomiting. He continues to be in sinus mechanism. He has a history of CAD and prior PCI October 07: He continues to be dyspneic but slightly better. He denies any chest discomfort, dizziness or palpitations. He continues to have peripheral edema, improving. He denies any nausea or vomiting. He continues to be in sinus mechanism. October 08: The patient continues to be dyspneic and fatigued, he denies any chest discomfort or dizziness. He continues to have peripheral edema, unchanged. He denies any nausea or vomiting. Medications: Aspirin, Lasix 40 mg IV every 12 hours, metoprolol 12-1/2 mg twice a day,Eliquis 10 mg twice a day, Aldactone 25 mg daily PHYSICAL EXAMINATION: Blood pressure 103/70 heart rate 70, increase jugular venous venous pressure LUNGS: Dry crackles bilaterally with mild decrease in the breath sounds HEART: Regular rate and rhythm, S1, S2. No S3. Holosystolic murmur 12/29 ABDOMEN: Soft, nontender, no organomegaly EXTREMETIES: +2 edema, right more than left, dressing on the left lower extremity LAB: Creatinine 45, BUN 0.70, potassium 3.6. Bicarb 45. IMPRESSION: 1. Acute dyspnea with combination of exacerbation of pulmonary fibrosis and right-sided heart failure with severe pulmonary hypertension 2. History of pulmonary fibrosis 3. Possible pulmonary embolism 4. History of CAD with stenting of the OM 5. Dilated right ventricle secondary to the pulmonary hypertension PLAN: 1. Continue IV diuresis for another 24 hours 2. Follow renal function 3. Depending on his progress further recommendations will be made. Objective - Vital Signs Vital signs: Vital Signs Temp 97.3 F L 10/08/22 08:35 Pulse 72 10/08/22 12:00 Resp 20 10/08/22 12:00 BP 103/70 10/08/22 12:00 Pulse Ox 98 10/08/22 12:00 FiO2 Intake & Output 10/07/22 10/08/22 10/08/22 18:59 06:59 18:59 Intake Total 256 20 128 Output Total 601 Balance -345 20 128 Weight 62 kg Intake: IV 20 20 10 Invasive Line 1 20 20 10 Oral 236 118 Output: Urine 601 Other: Voiding Method Urinal Urinal Urinal # Voids 450 2 1 - Labs CBC & Chem 7: 10/07/22 10:52 10/08/22 07:45 Labs: Abnormal Lab Results - Last 24 Hours (Table) 10/08/22 Range/Units 07:45 Chloride 88 L (98-107) mmol/L Carbon Dioxide 45 H* (22-30) mmol/L BUN 45 H (9-20) mg/dL Microbiology - Last 24 Hours (Table) 10/03/22 09:28 Blood Culture - Preliminary Blood No Growth after 120 hours 10/03/22 09:12 Blood Culture - Preliminary Blood No Growth after 120 hours
--- NOTE | 2022-10-08 16:01 | P.PN ---
Subjective Progress Note Date: 10/08/22 On today's evaluation of 10/06/2022, I'm seeing Haroon for a follow-up. Is a 57-year-old male patient with known history of IPF and the patient has been on oxygen at 6 L/m nasal cannula on an outpatient basis. The patient also has severe right-sided heart failure and severe pulmonary hypertension. The patient came in with signs of fluid overload with increased lower extremity edema and he also has a 1 and his left lower extremity. He is currently on IV Lasix. Is producing adequate amount of urine output. His also coronary artery disease with previous coronary stenting of the obtuse marginal branch and he has also history of pulmonary embolism possibly based on the CT angiogram. Noted the CTA showed questionable left lower lobe pulmonary artery filling defect and the patient has extensive bilateral chronic fibrotic changes consistent with pulmonary fibrosis. The patient is currently on Eliquis therapeutic dose of 10 mg twice a day and the patient is also on IV Solu-Medrol 60 mg every 6 hours. Typically, he takes prednisone 20 mg by mouth on a daily basis at home. No significant sputum production. No fever. No chills. The WBC count is at 10.4 with a hemoglobin of 13.2. Serum bicarbonate is 44 BUN of 40 and a creatinine of 0.7. ProBNP level was 3450. 10/07/2022, the patient remains on 6 L of oxygen by nasal cannula. Clinically stable. No worsening shortness of breath. I took him off the IV Solu-Medrol yesterday and placed him on prednisone 20 mg by mouth on a daily basis. The patient is on DuoNeb nebulized treatments [id number]. The patient on a combination of Perforomist [facility] Pulmic[facility] twice a day. The patient continues to have lower extremity edema and the patient still being diuresed with Lasix 40 mg IV every 12 hours. Rest of the medications are unchanged. Bicarb serum is up to 44 with a sodium of 140 and a potassium level of 3.7. Creatinine is at 0.7. The echoes at 14.2 with a hemoglobin of 14.5. 10/08/2022, clinically unchanged and the patient remains stable. The patient continued to diabetes. Serum bicarbs of 45 with a sodium level of 138 and a potassium level of 3.6. The patient remains on oxygen at 8 L/m nasal cannula. No new complaints. I already wean down his steroids and the patient is currently on prednisone at a dose of 20 mg by mouth daily. He received Lasix 40 mg IV every 12 hours. Continues to have some edema lower exam is bilaterally. No altered mentation. No chest pain. No fever or chills. No other significant events over the past 24 hours. Very much debilitated due to his advanced IPF. Objective - Vital Signs Vital signs: Vital Signs Temp 97.3 F L 10/08/22 08:35 Pulse 80 10/08/22 15:37 Resp 18 10/08/22 15:37 BP 103/70 10/08/22 12:00 Pulse Ox 98 10/08/22 12:00 FiO2 Intake & Output 10/07/22 10/08/22 10/08/22 18:59 06:59 18:59 Intake Total 256 20 138 Output Total 601 Balance -345 20 138 Weight 62 kg Intake: IV 20 20 20 Invasive Line 1 20 20 20 Oral 236 118 Output: Urine 601 Other: Voiding Method Urinal Urinal Urinal # Voids 450 2 1 - Exam No acute distress, oriented 3. No conversational dyspnea or use of accessory muscles. Patient currently on 8 L high flow oxygen. Active signs of respiratory distress and the patient is resting comfortably in bed HEENT examination is grossly unremarkable. Neck supple. Full range of motion. No adenopathy thyromegaly or neck vein distention. Cardiovascular examination reveals regular rhythm rate. S1-S2 normal. No S3 or S4. No discernible murmur noted. Heart sounds are distant. Heart rate 80 bpm. Lungs reveal scattered bilateral crackles. Scattered rhonchi are also noted. No wheezes. Breath sounds equal. Patient has coarse crackles in the mid and lower lung hernandez bilaterally Abdomen soft bowel sounds are heard. No masses or tenderness. Extremities reveals bilateral lower extremity edema. There is a couple wounds on his legs. No cyanosis or clubbing. There is still extensive edema in lower extremities bilaterally. Skin reveals areas of ecchymoses. Neurologic examination is brief but nonfocal. - Labs CBC & Chem 7: 10/07/22 10:52 10/08/22 07:45 Labs: Abnormal Lab Results - Last 24 Hours (Table) 10/08/22 Range/Units 07:45 Chloride 88 L (98-107) mmol/L Carbon Dioxide 45 H* (22-30) mmol/L BUN 45 H (9-20) mg/dL Microbiology - Last 24 Hours (Table) 10/03/22 09:28 Blood Culture - Preliminary Blood No Growth after 120 hours 10/03/22 09:12 Blood Culture - Preliminary Blood No Growth after 120 hours Assessment and Plan Plan: Acute hypoxemic respiratory failure, patient is currently on 6 L of oxygen by nasal cannula. The patient has chronic fibrosis/IPF in addition to that there c ould be a superimposed pulmonary embolism in addition to signs of fluid overload. The patient is currently on oral prednisone 20 mg and the patient is also being diuresed with IV Lasix. The patient is on anticoagulation with Eliquis. Questionable left lower lobe pulmonary artery branch filling defect currently on anticoagulation with Eliquis Signs of fluid overload with right-sided heart failure and significant edema lower oximetry is bilaterally currently on IV Lasix. Acute on chronic hypoxemic respiratory failure. History of CAD with previous stent placement to the obtuse marginal branch of the circumflex. Degenerative disc disease. History of bilateral pulmonary emboli. Prior history of myocardial infarction. History of rheumatoid arthritis. History of seizure disorder. History of neuropathy. History of posterior reversible encephalopathy syndrome (PRES). Multiple other medical palms and comorbidities. LLE wound Plan: Wean down oxygen to maintain a saturation above 90%, currently at 7 liters Continue IV Lasix Continue prednisone 20 mg by mouth daily Continue anticoagulation with Eliquis Monitor electrolytes Monitor lower extremity wound and edema Clinically stable and will continue to follow
[2022-10-09] MEDS: MORPHINE SULFATE IR 15 MG TABLET PO PRN ×2 (04:57→17:42)
[2022-10-09] MEDS: IPRATROPIUM-ALBUTEROL 3 ML NEB INHALATION SCH ×4 (07:50→20:35)
[2022-10-09] MEDS: BUDESONIDE 1 MG/2 ML NEBU INHALATION SCH ×2 (07:51→20:35)
[2022-10-09] MEDS: FORMOTEROL FUMARATE 20 MCG/2 ML NEBU INHALATION SCH ×2 (07:52→20:35)
[2022-10-09 08:31] LABS: African American GFR (CKD) >90 (>60 ml/min/1.73 sqM); Blood Urea Nitrogen 49 mg/dL (9-20); Calcium 8.7 mg/dL (8.4-10.2); Chloride 86 mmol/L (98-107); Glucose 100 mg/dL (74-99); Non-African American GFR(CKD) >90 (>60 ml/min/1.73 sqM); Potassium 3.7 mmol/L (3.5-5.1); Sodium 138 mmol/L (137-145)
[2022-10-09 08:57] LABS: Anion Gap 6 mmol/L
[2022-10-09 09:00] LABS: Carbon Dioxide 46 mmol/L (22-30)
[2022-10-09] MEDS: FUROSEMIDE 10 MG/ML 4 ML VIAL IV SCH (09:16)
[2022-10-09] MEDS: ASPIRIN 81 MG PO SCH (09:16)
[2022-10-09] MEDS: APIXABAN 5 MG TAB PO SCH ×2 (09:16→21:05)
[2022-10-09] MEDS: predniSONE 20 MG TAB PO SCH (09:16)
[2022-10-09] MEDS: GABAPENTIN 300 MG CAP PO SCH ×3 (09:16→21:05)
[2022-10-09] MEDS: METOPROLOL TARTRATE 12.5 MG TAB PO SCH ×2 (09:16→21:05)
[2022-10-09] MEDS: SPIRONOLACTONE 25 MG TAB PO SCH (09:17)
[2022-10-09] MEDS: PANTOPRAZOLE 40 MG TABLET PO SCH ×2 (09:26→17:42)
--- NOTE | 2022-10-09 11:32 | P.PN ---
Subjective Progress Note Date: 10/09/22 On today's evaluation of 10/06/2022, I'm seeing Haroon for a follow-up. Is a 57-year-old male patient with known history of IPF and the patient has been on oxygen at 6 L/m nasal cannula on an outpatient basis. The patient also has severe right-sided heart failure and severe pulmonary hypertension. The patient came in with signs of fluid overload with increased lower extremity edema and he also has a 1 and his left lower extremity. He is currently on IV Lasix. Is producing adequate amount of urine output. His also coronary artery disease with previous coronary stenting of the obtuse marginal branch and he has also history of pulmonary embolism possibly based on the CT angiogram. Noted the CTA showed questionable left lower lobe pulmonary artery filling defect and the patient has extensive bilateral chronic fibrotic changes consistent with pulmonary fibrosis. The patient is currently on Eliquis therapeutic dose of 10 mg twice a day and the patient is also on IV Solu-Medrol 60 mg every 6 hours. Typically, he takes prednisone 20 mg by mouth on a daily basis at home. No significant sputum production. No fever. No chills. The WBC count is at 10.4 with a hemoglobin of 13.2. Serum bicarbonate is 44 BUN of 40 and a creatinine of 0.7. ProBNP level was 3450. 10/07/2022, the patient remains on 6 L of oxygen by nasal cannula. Clinically stable. No worsening shortness of breath. I took him off the IV Solu-Medrol yesterday and placed him on prednisone 20 mg by mouth on a daily basis. The patient is on DuoNeb nebulized treatments [id number]. The patient on a combination of Perforomist of Pulmicort [facility] twice a day. The patient continues to have lower extremity edema and the patient still being diuresed with Lasix 40 mg IV every 12 hours. Rest of the medications are unchanged. Bicarb serum is up to 44 with a sodium of 140 and a potassium level of 3.7. Creatinine is at 0.7. The echoes at 14.2 with a hemoglobin of 14.5. 10/08/2022, clinically unchanged and the patient remains stable. The patient continued to diabetes. Serum bicarbs of 45 with a sodium level of 138 and a potassium level of 3.6. The patient remains on oxygen at 8 L/m nasal cannula. No new complaints. I already wean down his steroids and the patient is currently on prednisone at a dose of 20 mg by mouth daily. He received Lasix 40 mg IV every 12 hours. Continues to have some edema lower exam is bilaterally. No altered mentation. No chest pain. No fever or chills. No other significant events over the past 24 hours. Very much debilitated due to his advanced IPF. 10/09/2022, no new complaints and the patient is resting comfortably in bed. He is on oxygen at 6 L per minute nasal cannula. Is at 20 mg of prednisone. No IV Lasix and the patient diuresed adequately of the lower extremity edema has improved significantly. No active issues. He is being considered for ECF placement for rehabilitation. No fever. No chills. No other significant events otherwise. BUN is at 49 with a creatinine of 0.7 and a sodium level is 138 with a sodium level of 3.7. Objective - Vital Signs Vital signs: Vital Signs Temp 97.2 F L 10/09/22 08:00 Pulse 80 10/09/22 08:01 Resp 18 10/09/22 08:00 BP 101/76 10/09/22 08:00 Pulse Ox 89 L 10/09/22 08:00 FiO2 Intake & Output 10/08/22 10/09/22 10/09/22 18:59 06:59 18:59 Intake Total 138 20 250 Output Total 500 Balance 138 -480 250 Weight 60.8 kg Intake: IV 20 20 10 Invasive Line 1 20 20 10 Oral 118 240 Output: Urine 500 Other: Voiding Method Urinal Urinal # Voids 1 2 - Exam No acute distress, oriented 3. No conversational dyspnea or use of accessory muscles. Patient currently on 8 L high flow oxygen. Active signs of respiratory distress and the patient is resting comfortably in bed HEENT examination is grossly unremarkable. Neck supple. Full range of motion. No adenopathy thyromegaly or neck vein distention. Cardiovascular examination reveals regular rhythm rate. S1-S2 normal. No S3 or S4. No discernible murmur noted. Heart sounds are distant. Heart rate 80 bpm. Lungs reveal scattered bilateral crackles. Scattered rhonchi are also noted. No wheezes. Breath sounds equal. Patient has coarse crackles in the mid and lower lung hernandez bilaterally Abdomen soft bowel sounds are heard. No masses or tenderness. Extremities reveals bilateral lower extremity edema. There is a couple wounds on his legs. No cyanosis or clubbing. There is still extensive edema in lower extremities bilaterally. Skin reveals areas of ecchymoses. Neurologic examination is brief but nonfocal. - Labs CBC & Chem 7: 10/07/22 10:52 10/09/22 07:53 Labs: Abnormal Lab Results - Last 24 Hours (Table) 10/09/22 Range/Units 07:53 Chloride 86 L (98-107) mmol/L Carbon Dioxide 46 H* (22-30) mmol/L BUN 49 H (9-20) mg/dL Glucose 100 H (74-99) mg/dL Microbiology - Last 24 Hours (Table) 10/03/22 09:28 Blood Culture - Preliminary Blood No Growth after 120 hours 10/03/22 09:12 Blood Culture - Preliminary Blood No Growth after 120 hours Assessment and Plan Plan: Acute hypoxemic respiratory failure, patient is currently on 6 L of oxygen by nasal cannula. The patient has chronic fibrosis/IPF in addition to that there could be a superimposed pulmonary embolism in addition to signs of fluid o verload. The patient is currently on oral prednisone 20 mg and the patient is also being diuresed with IV Lasix. The patient is on anticoagulation with Eliquis. Questionable left lower lobe pulmonary artery branch filling defect currently on anticoagulation with Eliquis Signs of fluid overload with right-sided heart failure and significant edema lower oximetry is bilaterally currently on IV Lasix. Acute on chronic hypoxemic respiratory failure. History of CAD with previous stent placement to the obtuse marginal branch of the circumflex. Degenerative disc disease. History of bilateral pulmonary emboli. Prior history of myocardial infarction. History of rheumatoid arthritis. History of seizure disorder. History of neuropathy. History of posterior reversible encephalopathy syndrome (PRES). Multiple other medical palms and comorbidities. LLE wound Plan: Wean down oxygen to maintain a saturation above 90%, currently at 6 liters Stop the IV Lasix and switch patient to oral Lasix Continue prednisone 20 mg by mouth daily Continue anticoagulation with Eliquis Monitor electrolytes Monitor lower extremity wound and edema and this is considerably improved Clinically stable Possible ECF placement for rehabilitation We will sign off the case
[2022-10-09] MEDS: MORPHINE SULFATE ER 30 MG TABLET PO PRN ×2 (11:40→23:24)
--- NOTE | 2022-10-09 13:36 | P.PN ---
Subjective Progress Note Date: 10/09/22 PROGRESS NOTE The patient is a 57-year-old male with known history of pulmonary fibrosis who presented with symptoms of progressive dyspnea, worsening peripheral edema. His echocardiogram showed evidence of severe pulmonary hypertension with dilated right ventricle. His CT angiogram raised the question of pulmonary embolism. He continues to be dyspneic today, he denies any chest discomfort, dizziness or palpitations. He feels fatigued. He has peripheral edema and ulceration on the left lower extremity. He denies any nausea or vomiting. He continues to be in sinus mechanism. He has a history of CAD and prior PCI October 07: He continues to be dyspneic but slightly better. He denies any chest discomfort, dizziness or palpitations. He continues to have peripheral edema, improving. He denies any nausea or vomiting. He continues to be in sinus mechanism. October 08: The patient continues to be dyspneic and fatigued, he denies any chest discomfort or dizziness. He continues to have peripheral edema, unchanged. He denies any nausea or vomiting. October 09: The patient continues to be dyspneic on exertion but denies any chest discomfort he denies any dizziness palpitation. He has no nausea. He continues to be on oxygen supplementation. There is no significant change in his peripheral edema. Medications: Aspirin, Lasix 40 mg IV every 12 hours, metoprolol 12-1/2 mg twice a day,Eliquis 10 mg twice a day, Aldactone 25 mg daily PHYSICAL EXAMINATION: Blood pressure 105/70 heart rate 80, increase jugular venous venous pressure LUNGS: Dry crackles bilaterally with mild decrease in the breath sounds HEART: Regular rate and rhythm, S1, S2. No S3. Holosystolic murmur 12/29 ABDOMEN: Soft, nontender, no organomegaly EXTREMETIES: +2 edema, right more than left, dressing on the left lower extremity LAB: Creatinine 49, BUN 0.70, potassium 3.7. Bicarb 46. IMPRESSION: 1. Acute dyspnea with combination of exacerbation of pulmonary fibrosis and right-sided heart failure with severe pulmonary hypertension 2. History of pulmonary fibrosis 3. Possible pulmonary embolism 4. History of CAD with stenting of the OM 5. Dilated right ventricle secondary to the pulmonary hypertension PLAN: 1. Change to oral diuretics 2. Continue present therapy 3. Increase physical activity 4. We will see him on as-needed basis, please feel free to call us for any question. Objective - Vital Signs Vital signs: Vital Signs Temp 97.2 F L 10/09/22 08:00 Pulse 89 10/09/22 12:00 Resp 20 10/09/22 12:00 BP 105/74 10/09/22 12:00 Pulse Ox 91 L 10/09/22 12:00 FiO2 Intake & Output 10/08/22 10/09/22 10/09/22 18:59 06:59 18:59 Intake Total 138 20 250 Output Total 500 Balance 138 -480 250 Weight 60.8 kg Intake: IV 20 20 10 Invasive Line 1 20 20 10 Oral 118 240 Output: Urine 500 Other: Voiding Method Urinal Urinal # Voids 1 2 - Labs CBC & Chem 7: 10/07/22 10:52 10/09/22 07:53 Labs: Abnormal Lab Results - Last 24 Hours (Table) 10/09/22 Range/Units 07:53 Chloride 86 L (98-107) mmol/L Carbon Dioxide 46 H* (22-30) mmol/L BUN 49 H (9-20) mg/dL Glucose 100 H (74-99) mg/dL Microbiology - Last 24 Hours (Table) 10/03/22 09:28 Blood Culture - Final Blood No Growth after 144 hours 10/03/22 09:12 Blood Culture - Final Blood No Growth after 144 hours
[2022-10-09] MEDS: FUROSEMIDE 40 MG TAB PO SCH (15:39)
--- NOTE | 2022-10-09 16:00 | P.PN ---
Subjective Progress Note Date: 10/06/22 Principal diagnosis: Bilateral lower extremity wounds Patient is a 57-year male with multiple comorbidities presenting to the hospital 2 days ago for evaluation of increasing shortness of breath in this patient symptom has been getting worse for the last few days patient denies having any chest pain denies significant cough or sputum production and denies any high-grade fever, patient also have a significant swelling to bilateral lower extremity and a wound to the left leg. On today's evaluation that is 10/06/2022, the patient is afebrile the patient is breathing slightly comfortably, currently on 8 L nasal cannula which denies having any chest pain, no abdominal pain still has significant swelling to lower extremity but no drainage Objective - Vital Signs Vital signs: Vital Signs Temp 97.8 F 10/06/22 12:00 Pulse 86 10/06/22 13:22 Resp 18 10/06/22 12:49 BP 108/68 10/06/22 12:00 Pulse Ox 97 10/06/22 12:00 FiO2 Intake & Output 10/05/22 10/06/22 10/06/22 18:59 06:59 18:59 Intake Total 700 260 256 Output Total 620 Balance 700 260 -364 Weight 63.9 kg Intake: IV 20 20 Invasive Line 1 20 20 Oral 700 240 236 Output: Urine 620 Other: # Voids 3 2 # Bowel Movements 0 - Exam GENERAL DESCRIPTION: Middle-aged male lying in bed in no distress RESPIRATORY SYSTEM: Unlabored breathing , coarse breath sounds bilaterally HEART: S1 S2 regular rate and rhythm , ABDOMEN: Soft , no tenderness EXTREMITIES: Diffuse swelling bilateral lower extremity currently wrapped in Lucas wrap - Labs CBC & Chem 7: 10/07/22 10:52 10/09/22 07:53 Labs: Abnormal Lab Results - Last 24 Hours (Table) 10/06/22 10/06/22 Range/Units 07:08 07:08 MCHC 30.1 L (31.0-37.0) g/dL RDW 16.7 H (11.5-15.5) % Plt Count 125 L (150-450) k/uL Neutrophils # 9.5 H (1.3-7.7) k/uL Lymphocytes # 0.5 L (1.0-4.8) k/uL Chloride 92 L (98-107) mmol/L Carbon Dioxide 44 H* (22-30) mmol/L BUN 40 H (9-20) mg/dL Glucose 147 H (74-99) mg/dL Total Protein 5.7 L (6.3-8.2) g/dL Albumin 3.3 L (3.5-5.0) g/dL Microbiology - Last 24 Hours (Table) 10/03/22 09:12 Blood Culture - Preliminary Blood No Growth after 72 hours 10/03/22 09:28 Blood Culture - Preliminary Blood No Growth after 72 hours 10/03/22 14:21 Gram Stain - Final Leg - Left Wound Culture - Final Assessment and Plan (1) Leg wound, left Current Visit: Yes Status: Acute Code(s): S81.802A - UNSPECIFIED OPEN WOUND, LEFT LOWER LEG, INITIAL ENCOUNTER SNOMED Code(s): 779875842 Plan: 1patient with a left lower extremity wound slightly deep with some slough tissue but no surrounding redness or any foul-smelling drainage will recommend possibly local wound care with the Medihoney followed by moist dressing to be changed daily. 2right lower extremity mostly have diffuse swelling with almost 3+ edema feet but no redness will recommend Lucas wrap to keep the swelling down. 3we'll monitor the patient closely off antibiotics Time with Patient: Less than 30
--- NOTE | 2022-10-09 16:01 | P.PN ---
Subjective Progress Note Date: 10/07/22 Principal diagnosis: Bilateral lower extremity wounds Patient is a 57-year male with multiple comorbidities presenting to the hospital 2 days ago for evaluation of increasing shortness of breath in this patient symptom has been getting worse for the last few days patient denies having any chest pain denies significant cough or sputum production and denies any high-grade fever, patient also have a significant swelling to bilateral lower extremity and a wound to the left leg. On today's evaluation that is 10/07/2022, the patient remains to be afebrile the patient is breathing slightly comfortably on 8 L nasal cannula oxygen, the patient denies having any chest pain, no abdominal pain still has significant swelling to lower extremity but no drainage Objective - Vital Signs Vital signs: Vital Signs Temp 97.5 F L 10/07/22 11:41 Pulse 75 10/07/22 13:18 Resp 20 10/07/22 13:18 BP 104/73 10/07/22 11:41 Pulse Ox 96 10/07/22 11:41 FiO2 Intake & Output 10/06/22 10/07/22 10/07/22 18:59 06:59 18:59 Intake Total 614 20 138 Output Total 620 800 601 Balance -6 -780 -463 Weight 62.6 kg Intake: IV 20 20 20 Invasive Line 1 20 20 20 Oral 594 118 Output: Urine 620 800 601 Other: Voiding Method Urinal # Voids 450 - Exam GENERAL DESCRIPTION: Middle-aged male lying in bed in no distress RESPIRATORY SYSTEM: Unlabored breathing , coarse breath sounds bilaterally HEART: S1 S2 regular rate and rhythm , ABDOMEN: Soft , no tenderness EXTREMITIES: Diffuse swelling bilateral lower extremity currently wrapped in Lucas wrap, no drainage on the dressing - Labs CBC & Chem 7: 10/07/22 10:52 10/09/22 07:53 Labs: Abnormal Lab Results - Last 24 Hours (Table) 10/07/22 10/07/22 Range/Units 10:52 10:52 WBC 14.2 H (3.8-10.6) k/uL MCHC 30.8 L (31.0-37.0) g/dL RDW 16.5 H (11.5-15.5) % Plt Count 126 L (150-450) k/uL Neutrophils # 12.1 H (1.3-7.7) k/uL Lymphocytes # 0.8 L (1.0-4.8) k/uL Chloride 89 L (98-107) mmol/L Carbon Dioxide 44 H* (22-30) mmol/L BUN 48 H (9-20) mg/dL Microbiology - Last 24 Hours (Table) 10/03/22 09:28 Blood Culture - Preliminary Blood No Growth after 96 hours 10/03/22 09:12 Blood Culture - Preliminary Blood No Growth after 96 hours Assessment and Plan (1) Leg wound, left Current Visit: Yes Status: Acute Code(s): S81.802A - UNSPECIFIED OPEN WOUND, LEFT LOWER LEG, INITIAL ENCOUNTER SNOMED Code(s): 406441369 Plan: 1patient with a left lower extremity wound slightly deep with some slough tissue but no surrounding redness or any foul-smelling drainage will recommend possibly local wound care with the Medihoney followed by moist dressing to be changed daily. 2right lower extremity mostly have diffuse swelling with 3+ edema feet but no redness will recommend Lucas wrap to keep the swelling down. 3patient remains to be afebrile however her white count is slightly elevated and will monitor closely Time with Patient: Less than 30
--- NOTE | 2022-10-09 16:02 | P.PN ---
Subjective Progress Note Date: 10/08/22 Principal diagnosis: Bilateral lower extremity wounds Patient is a 57-year male with multiple comorbidities presenting to the hospital 2 days ago for evaluation of increasing shortness of breath in this patient symptom has been getting worse for the last few days patient denies having any chest pain denies significant cough or sputum production and denies any high-grade fever, patient also have a significant swelling to bilateral lower extremity and a wound to the left leg. On today's evaluation that is 10/08/2022, the patient denies any fever or chills the patient is breathing comfortably and is down to 7 L L nasal cannula oxygen, the patient denies having any chest pain, no worsening cough or sputum production, no abdominal pain still has significant swelling to lower extremity but no drainage Objective - Vital Signs Vital signs: Vital Signs Temp 97.3 F L 10/08/22 08:35 Pulse 72 10/08/22 12:00 Resp 20 10/08/22 12:00 BP 103/70 10/08/22 12:00 Pulse Ox 98 10/08/22 12:00 FiO2 Intake & Output 10/07/22 10/08/22 10/08/22 18:59 06:59 18:59 Intake Total 256 20 138 Output Total 601 Balance -345 20 138 Weight 62 kg Intake: IV 20 20 20 Invasive Line 1 20 20 20 Oral 236 118 Output: Urine 601 Other: Voiding Method Urinal Urinal Urinal # Voids 450 2 1 - Exam GENERAL DESCRIPTION: Middle-aged male lying in bed in no distress RESPIRATORY SYSTEM: Unlabored breathing , coarse breath sounds bilaterally HEART: S1 S2 regular rate and rhythm , ABDOMEN: Soft , no tenderness EXTREMITIES: Diffuse swelling bilateral lower extremity currently wrapped in Lucas wrap, no drainage on the dressing - Labs CBC & Chem 7: 10/07/22 10:52 10/09/22 07:53 Labs: Abnormal Lab Results - Last 24 Hours (Table) 10/08/22 Range/Units 07:45 Chloride 88 L (98-107) mmol/L Carbon Dioxide 45 H* (22-30) mmol/L BUN 45 H (9-20) mg/dL Microbiology - Last 24 Hours (Table) 10/03/22 09:28 Blood Culture - Preliminary Blood No Growth after 120 hours 10/03/22 09:12 Blood Culture - Preliminary Blood No Growth after 120 hours Assessment and Plan (1) Leg wound, left Current Visit: Yes Status: Acute Code(s): S81.802A - UNSPECIFIED OPEN WOUND, LEFT LOWER LEG, INITIAL ENCOUNTER SNOMED Code(s): 854278002 Plan: 1patient with a left lower extremity wound slightly deep with some slough tissue but no surrounding redness or any foul-smelling drainage will recommend possibly local wound care with the Medihoney followed by moist dressing to be changed daily. 2right lower extremity mostly have diffuse swelling with 3+ edema feet but no redness will recommend Lucas wrap to keep the swelling down. 3patient did have mild leukocytosis however patient is afebrile and no evidence of any cellulitis will monitor the patient closely off antibiotic Time with Patient: Less than 30
--- NOTE | 2022-10-09 16:03 | P.PN ---
Subjective Progress Note Date: 10/09/22 Principal diagnosis: Bilateral lower extremity wounds Patient is a 57-year male with multiple comorbidities presenting to the hospital 2 days ago for evaluation of increasing shortness of breath in this patient symptom has been getting worse for the last few days patient denies having any chest pain denies significant cough or sputum production and denies any high-grade fever, patient also have a significant swelling to bilateral lower extremity and a wound to the left leg. On today's evaluation that is 10/09/2022, the patient continues to be afebrile the patient is breathing comfortably and is down to 6 L nasal cannula oxygen, the patient denies chest pain occasional cough which is dry and no nausea no pain no abdominal pain or pain to the lower extremity Objective - Vital Signs Vital signs: Vital Signs Temp 97.2 F L 10/09/22 08:00 Pulse 89 10/09/22 12:00 Resp 20 10/09/22 12:00 BP 105/74 10/09/22 12:00 Pulse Ox 91 L 10/09/22 12:00 FiO2 Intake & Output 10/08/22 10/09/22 10/09/22 18:59 06:59 18:59 Intake Total 138 20 250 Output Total 500 Balance 138 -480 250 Weight 60.8 kg Intake: IV 20 20 10 Invasive Line 1 20 20 10 Oral 118 240 Output: Urine 500 Other: Voiding Method Urinal Urinal # Voids 1 2 - Exam GENERAL DESCRIPTION: Middle-aged male lying in bed in no distress RESPIRATORY SYSTEM: Unlabored breathing , coarse breath sounds bilaterally HEART: S1 S2 regular rate and rhythm , ABDOMEN: Soft , no tenderness EXTREMITIES: Diffuse swelling bilateral lower extremity currently wrapped in Lucas wrap, no drainage on the dressing - Labs CBC & Chem 7: 10/07/22 10:52 10/09/22 07:53 Labs: Abnormal Lab Results - Last 24 Hours (Table) 10/09/22 Range/Units 07:53 Chloride 86 L (98-107) mmol/L Carbon Dioxide 46 H* (22-30) mmol/L BUN 49 H (9-20) mg/dL Glucose 100 H (74-99) mg/dL Microbiology - Last 24 Hours (Table) 10/03/22 09:28 Blood Culture - Final Blood No Growth after 144 hours 10/03/22 09:12 Blood Culture - Final Blood No Growth after 144 hours Assessment and Plan (1) Leg wound, left Current Visit: Yes Status: Acute Code(s): S81.802A - UNSPECIFIED OPEN WOUND, LEFT LOWER LEG, INITIAL ENCOUNTER SNOMED Code(s): 568690848 Plan: 1patient with a left lower extremity wound slightly deep with some slough tissue but no surrounding redness or any foul-smelling drainage will recommend possibly local wound care with the Medihoney followed by moist dressing to be changed daily. 2right lower extremity mostly have diffuse swelling with 3+ edema feet but no redness will recommend Lucas wrap to keep the swelling down. 3patient did have mild leukocytosis however patient is afebrile we will repeat his inflammatory markers and CBC with a.m. lab and monitor the patient closely off antibiotic at this point Time with Patient: Less than 30
[2022-10-10] MEDS: MORPHINE SULFATE IR 15 MG TABLET PO PRN ×3 (04:37→17:12)
--- NOTE | 2022-10-10 06:23 | PN ---
PROGRESS NOTE DATE OF SERVICE: 10/08/2022 SUBJECTIVE: A 57-year-old white male, pulmonary hypertension, end-stage COPD, diastolic heart failure, trying to switch his medicines to oral over the next day or 2. He has Lucas wrap in his legs. He has put Medihoney in his legs. He is seen by Infectious Disease on his legs. His breathing is not really improving, still on 6-7 L high-flow, which he takes at home for severe pulmonary hypertension. He wants to go to the senior care as he is not able to ambulate good. Hopefully, he is getting set up for this in the next couple of days. OBJECTIVE: LUNGS: Clear. O2 6 to 7 L. CARDIOVASCULAR: S1, S2. HEMATOLOGIC: 2 to 3+ edema with some mild excoriations on the anterior legs. Prognosis guarded. Continue current treatment. Await for Pulmonary recommendations, infectious disease recommendations. Possibly go to rehab in next day or 2. MMODL / IJN: [id number] /
[2022-10-10] MEDS: PANTOPRAZOLE 40 MG TABLET PO SCH ×2 (06:24→16:12)
[2022-10-10] MEDS: FORMOTEROL FUMARATE 20 MCG/2 ML NEBU INHALATION SCH ×2 (08:54→21:11)
[2022-10-10] MEDS: BUDESONIDE 1 MG/2 ML NEBU INHALATION SCH ×2 (08:54→21:11)
[2022-10-10] MEDS: IPRATROPIUM-ALBUTEROL 3 ML NEB INHALATION SCH ×4 (08:54→21:11)
[2022-10-10] MEDS: MORPHINE SULFATE ER 30 MG TABLET PO PRN ×2 (09:06→21:38)
[2022-10-10 09:07] LABS: Anisocytosis Slight; Basophils % (A) 0 %; Eosinophils # (A) 0.1 k/uL (0-0.7); Eosinophils % (A) 1 %; HCT 45.9 % (39.0-53.0); HGB 14.4 gm/dL (13.0-17.5); Hypochromasia Marked; Lymphocytes # (A) 1.1 k/uL (1.0-4.8); Lymphocytes % (A) 10 %; MCH 27.1 pg (25.0-35.0); MCHC 31.3 g/dL (31.0-37.0); MCV 86.6 fL (80.0-100.0); Mean Platelet Volume 8.8; Monocytes # (A) 0.6 k/uL (0-1.0); Monocytes % (A) 5 %; Neutrophils # (A) 8.4 k/uL (1.3-7.7); Neutrophils % (A) 82 %; Platelet Count 116 k/uL (150-450); RDW 16.5 % (11.5-15.5); WBC 10.3 k/uL (3.8-10.6)
[2022-10-10] MEDS: APIXABAN 5 MG TAB PO SCH ×2 (09:11→21:36)
[2022-10-10] MEDS: FUROSEMIDE 40 MG TAB PO SCH ×2 (09:12→16:11)
[2022-10-10] MEDS: POTASSIUM CHLORIDE ER 20 MEQ TAB.ER PO SCH (09:12)
[2022-10-10] MEDS: METOPROLOL TARTRATE 12.5 MG TAB PO SCH ×2 (09:12→21:36)
[2022-10-10] MEDS: ASPIRIN 81 MG PO SCH (09:12)
[2022-10-10] MEDS: GABAPENTIN 300 MG CAP PO SCH ×3 (09:12→21:36)
[2022-10-10] MEDS: predniSONE 20 MG TAB PO SCH (09:12)
[2022-10-10] MEDS: SPIRONOLACTONE 25 MG TAB PO SCH (09:13)
[2022-10-10 09:25] LABS: ALT 34 U/L (4-49); AST 34 U/L (17-59); African American GFR (CKD) >90 (>60 ml/min/1.73 sqM); Albumin 3.5 g/dL (3.5-5.0); Alkaline Phosphatase 81 U/L (38-126); Blood Urea Nitrogen 45 mg/dL (9-20); C Reactive Protein 3.4 mg/dL (<1.0); Calcium 8.7 mg/dL (8.4-10.2); Chloride 89 mmol/L (98-107); Glucose 157 mg/dL (74-99); Non-African American GFR(CKD) >90 (>60 ml/min/1.73 sqM); Potassium 3.7 mmol/L (3.5-5.1); Sodium 136 mmol/L (137-145); Total Bilirubin 1.3 mg/dL (0.2-1.3); Total Protein 5.9 g/dL (6.3-8.2)
[2022-10-10 09:30] LABS: Anion Gap 4 mmol/L
[2022-10-10 09:40] LABS: Carbon Dioxide 43 mmol/L (22-30)
--- NOTE | 2022-10-10 19:58 | P.PN ---
Subjective Progress Note Date: 10/10/22 Principal diagnosis: Bilateral lower extremity wounds Patient is a 57-year male with multiple comorbidities presenting to the hospital 2 days ago for evaluation of increasing shortness of breath in this patient symptom has been getting worse for the last few days patient denies having any chest pain denies significant cough or sputum production and denies any high-grade fever, patient also have a significant swelling to bilateral lower extremity and a wound to the left leg. On today's evaluation that is 10/10/2022, the patient remains to be afebrile the patient is breathing comfortably on 6 L nasal cannula oxygen, the patient denies chest pain , the patient did have occasional cough which is dry and no nausea no pain no abdominal pain or pain to the lower extremity Objective - Vital Signs Vital signs: Vital Signs Temp 98.5 F 10/10/22 08:59 Pulse 90 10/10/22 09:05 Resp 18 10/10/22 08:59 BP 101/72 10/10/22 08:59 Pulse Ox 98 10/10/22 08:59 FiO2 Intake & Output 10/09/22 10/10/22 10/10/22 18:59 06:59 18:59 Intake Total 500 10 363 Balance 500 10 363 Intake: IV 20 10 5 Invasive Line 1 20 10 5 Oral 480 358 Other: Voiding Method Urinal Urinal Urinal # Voids 2 1 - Exam GENERAL DESCRIPTION: Middle-aged male lying in bed in no distress RESPIRATORY SYSTEM: Unlabored breathing , coarse breath sounds bilaterally HEART: S1 S2 regular rate and rhythm , ABDOMEN: Soft , no tenderness EXTREMITIES: Diffuse swelling bilateral lower extremity currently wrapped in Lucas wrap, no drainage on the dressing - Labs CBC & Chem 7: 10/10/22 08:47 10/10/22 08:47 Labs: Abnormal Lab Results - Last 24 Hours (Table) 10/10/22 10/10/22 Range/Units 08:47 08:47 RDW 16.5 H (11.5-15.5) % Plt Count 116 L (150-450) k/uL Neutrophils # 8.4 H (1.3-7.7) k/uL Sodium 136 L (137-145) mmol/L Chloride 89 L (98-107) mmol/L Carbon Dioxide 43 H* (22-30) mmol/L BUN 45 H (9-20) mg/dL Glucose 157 H (74-99) mg/dL C-Reactive Protein 3.4 H (<1.0) mg/dL Total Protein 5.9 L (6.3-8.2) g/dL Microbiology - Last 24 Hours (Table) 10/03/22 09:28 Blood Culture - Final Blood No Growth after 144 hours 10/03/22 09:12 Blood Culture - Final Blood No Growth after 144 hours Assessment and Plan (1) Leg wound, left Current Visit: Yes Status: Acute Code(s): S81.802A - UNSPECIFIED OPEN WOUND, LEFT LOWER LEG, INITIAL ENCOUNTER SNOMED Code(s): 036649128 Plan: 1patient with a left lower extremity wound slightly deep with some slough tissue but no surrounding redness or any foul-smelling drainage will recommend possibly local wound care with the Medihoney followed by moist dressing to be changed daily. 2right lower extremity mostly have diffuse swelling with 3+ edema feet but no redness will recommend Lucas wrap to keep the swelling down. 3patient is afebrile and the patient white count has normalized to monitor the patient closely off antibiotic therapy Time with Patient: Less than 30
--- NOTE | 2022-10-11 02:29 | PN ---
PROGRESS NOTE SUBJECTIVE: A 57-year-old white male with increasing shortness of breath, pulmonary hypertension, congestive heart failure, right-sided heart failure, remains on 6 L of nasal cannula. He was seen by pulmonology as well as Infectious Disease. OBJECTIVE: VITAL SIGNS: Temperature 97.2, pulse 89, respiratory rate 16-18, blood pressure 105/74, 95 on 6 L. EXTREMITIES: Show 2 to 3+ edema. He has some mild abrasions in his lower legs for which Medihoney has been placed. CARDIOVASCULAR: S1, S2. LUNGS: Scattered wheeze and rhonchi. HEMATOLOGY: 2 to 3+ edema. His white count 14.2, BUN is 49, creatinine 0.7. ASSESSMENT: Left leg wound, ulceration, Medihoney, 2+ edema, Lucas wrap, mild leukocytosis. Repeat antiinflammatory markers, wait for rehab center to clear him to go to the rehab center. Prognosis is guarded. He has elevated CO2 at 43 for which he most likely needs a CPAP machine to go with his oxygen at night. Albumin is 3.5. BNP when he came in was 3450. CRP is high at 3.4. Wait for antibiotics per Dr. Lam's recommendations. Go to rehab center soon. MMODL / IJN: [id number] /
[2022-10-11] MEDS: MORPHINE SULFATE IR 15 MG TABLET PO PRN ×3 (05:18→20:47)
[2022-10-11] MEDS: PANTOPRAZOLE 40 MG TABLET PO SCH ×2 (06:10→17:17)
[2022-10-11] MEDS: IPRATROPIUM-ALBUTEROL 3 ML NEB INHALATION SCH ×4 (07:33→20:15)
[2022-10-11] MEDS: FORMOTEROL FUMARATE 20 MCG/2 ML NEBU INHALATION SCH ×2 (07:35→20:15)
[2022-10-11] MEDS: BUDESONIDE 1 MG/2 ML NEBU INHALATION SCH ×2 (07:35→20:15)
[2022-10-11] MEDS: ASPIRIN 81 MG PO SCH (09:04)
[2022-10-11] MEDS: GABAPENTIN 300 MG CAP PO SCH ×3 (09:04→20:45)
[2022-10-11] MEDS: FUROSEMIDE 40 MG TAB PO SCH ×2 (09:04→17:17)
[2022-10-11] MEDS: APIXABAN 5 MG TAB PO SCH ×2 (09:04→20:45)
[2022-10-11] MEDS: POTASSIUM CHLORIDE ER 20 MEQ TAB.ER PO SCH (09:04)
[2022-10-11] MEDS: METOPROLOL TARTRATE 12.5 MG TAB PO SCH ×2 (09:04→20:45)
[2022-10-11] MEDS: SPIRONOLACTONE 25 MG TAB PO SCH (09:04)
[2022-10-11] MEDS: predniSONE 20 MG TAB PO SCH (09:05)
[2022-10-11] MEDS: MORPHINE SULFATE ER 30 MG TABLET PO PRN ×2 (09:08→22:52)
--- NOTE | 2022-10-11 11:28 | P.PN ---
Subjective Progress Note Date: 10/11/22 Principal diagnosis: Bilateral lower extremity wounds Patient is a 57-year male with multiple comorbidities presenting to the hospital 2 days ago for evaluation of increasing shortness of breath in this patient symptom has been getting worse for the last few days patient denies having any chest pain denies significant cough or sputum production and denies any high-grade fever, patient also have a significant swelling to bilateral lower extremity and a wound to the left leg. On today's evaluation that is 10/11/2022, the patient continues to be afebrile the patient is breathing comfortably on 5 L nasal cannula oxygen, the patient denies chest pain , the patient did have mild dry cough denies pain in his lower extremity and no diarrhea Objective - Vital Signs Vital signs: Vital Signs Temp 98.0 F 10/11/22 08:14 Pulse 78 10/11/22 08:14 Resp 17 10/11/22 08:14 BP 100/71 10/11/22 08:14 Pulse Ox 90 L 10/11/22 08:14 FiO2 Intake & Output 10/10/22 10/11/22 10/11/22 18:59 06:59 18:59 Intake Total 368 210 Output Total 350 Balance 18 210 Weight 57.6 kg Intake: IV 10 10 Invasive Line 1 10 10 Oral 358 200 Output: Urine 350 Other: Voiding Method Urinal Urinal # Voids 4 - Exam GENERAL DESCRIPTION: Middle-aged male lying in bed in no distress RESPIRATORY SYSTEM: Unlabored breathing , coarse breath sounds bilaterally HEART: S1 S2 regular rate and rhythm , ABDOMEN: Soft , no tenderness EXTREMITIES: Bilateral lower extremity swelling has decreased left leg wound base with minimal slough no surrounding redness or foul-smelling drainage - Labs CBC & Chem 7: 10/10/22 08:47 10/10/22 08:47 Assessment and Plan (1) Leg wound, left Current Visit: Yes Status: Acute Code(s): S81.802A - UNSPECIFIED OPEN WOUND, LEFT LOWER LEG, INITIAL ENCOUNTER SNOMED Code(s): 100689958 Plan: 1patient with a left lower extremity wound slightly deep with some slough tissue but no surrounding redness or any foul-smelling drainage will recommend possibly local wound care with the Medihoney followed by moist dressing to be changed daily. 2patient bilaterally extremity swelling has decreased left leg wound with slough but no redness local wound care to continue with medahoney to the left leg and only Lucas wrap to the right leg Time with Patient: Less than 30
--- NOTE | 2022-10-11 22:39 | PN ---
PROGRESS NOTE SUBJECTIVE: A white male who is awaiting prison placement at this time. He is breathing better and he is like 90-96 on 5 L. Hopefully, he will qualify for prison with 5 L of oxygen, suspect will just keep him there as that seems to be where he needs to be for rehab placement. LABS: White count 10.3, hemoglobin is 14.4, elevated CO2 levels suspecting his sleep apnea machine at night to go with his oxygen for long-term help with his pulmonary hypertension. BNP, was treated with Lasix IV now and oral. His nutrition is improving. PT OT will be needed. Lucas wraps to the legs will be needed, Medihoney to the wounds on the legs. ASSESSMENT: Acute hypoxic respiratory failure secondary to sleep apnea, hypercapnia, respiratory distress, pulmonary hypertension, chronic obstructive pulmonary disease, possible aspiration pneumonia. Continue current treatment. Prognosis guarded. KIKIL / JOHANAN: [id number] /
[2022-10-12] MEDS: MORPHINE SULFATE IR 15 MG TABLET PO PRN ×2 (05:20→14:18)
[2022-10-12] MEDS: PANTOPRAZOLE 40 MG TABLET PO SCH ×2 (06:32→17:42)
[2022-10-12] MEDS: IPRATROPIUM-ALBUTEROL 3 ML NEB INHALATION SCH ×4 (07:45→20:37)
[2022-10-12] MEDS: BUDESONIDE 1 MG/2 ML NEBU INHALATION SCH ×2 (07:55→20:37)
[2022-10-12] MEDS: FORMOTEROL FUMARATE 20 MCG/2 ML NEBU INHALATION SCH ×2 (07:55→20:37)
[2022-10-12] MEDS: SPIRONOLACTONE 25 MG TAB PO SCH (09:27)
[2022-10-12] MEDS: ASPIRIN 81 MG PO SCH (09:27)
[2022-10-12] MEDS: GABAPENTIN 300 MG CAP PO SCH ×3 (09:27→20:32)
[2022-10-12] MEDS: POTASSIUM CHLORIDE ER 20 MEQ TAB.ER PO SCH (09:27)
[2022-10-12] MEDS: predniSONE 20 MG TAB PO SCH (09:27)
[2022-10-12] MEDS: METOPROLOL TARTRATE 12.5 MG TAB PO SCH ×2 (09:27→20:31)
[2022-10-12] MEDS: FUROSEMIDE 40 MG TAB PO SCH ×2 (09:27→17:42)
[2022-10-12] MEDS: MORPHINE SULFATE ER 30 MG TABLET PO PRN ×2 (09:30→20:31)
[2022-10-12] MEDS ORDERED: SENNOSIDES 8.6 MG TAB PO PRN (09:32)
--- NOTE | 2022-10-12 15:09 | P.PN ---
Subjective Progress Note Date: 10/12/22 Principal diagnosis: Bilateral lower extremity wounds Patient is a 57-year male with multiple comorbidities presenting to the hospital 2 days ago for evaluation of increasing shortness of breath in this patient symptom has been getting worse for the last few days patient denies having any chest pain denies significant cough or sputum production and denies any high-grade fever, patient also have a significant swelling to bilateral lower extremity and a wound to the left leg. On today's evaluation that is 10/12/2022, the patient remains to be afebrile the patient is breathing comfortably on 5 L nasal cannula oxygen, the patient denies chest pain , the patient did occasional dry cough, the patient denies pain in his lower extremity and no diarrhea has been reported by the nursing staff Objective - Vital Signs Vital signs: Vital Signs Temp 98.0 F 10/12/22 03:14 Pulse 80 10/12/22 11:57 Resp 16 10/12/22 03:14 BP 96/72 10/12/22 03:14 Pulse Ox 95 10/12/22 03:14 FiO2 Intake & Output 10/11/22 10/12/22 10/12/22 18:59 06:59 18:59 Weight 57 kg Other: Voiding Method Urinal Toilet Urinal # Voids 4 3 - Exam GENERAL DESCRIPTION: Middle-aged male lying in bed in no distress RESPIRATORY SYSTEM: Unlabored breathing , coarse breath sounds bilaterally HEART: S1 S2 regular rate and rhythm , ABDOMEN: Soft , no tenderness EXTREMITIES: Bilateral lower extremity swelling has decreased left leg wound base with minimal slough no surrounding redness or foul-smelling drainage - Labs CBC & Chem 7: 10/10/22 08:47 10/10/22 08:47 Assessment and Plan (1) Leg wound, left Current Visit: Yes Status: Acute Code(s): S81.802A - UNSPECIFIED OPEN WOUND, LEFT LOWER LEG, INITIAL ENCOUNTER SNOMED Code(s): 975616764 Plan: 1patient bilaterally lower extremity swelling has decreased left leg wound with slough but no redness , right lower extremity currently with no open wound or any drainage, patient will continue local wound care with medahoney to the left leg and only Lucas wrap to the right leg, no need for systemic antibiotics Time with Patient: Less than 30
[2022-10-12] MEDS: APIXABAN 5 MG TAB PO SCH (20:32)
[2022-10-13] MEDS ORDERED: CALCIUM CARBONATE 500 MG CHEWABLE PO PRN (01:44)
[2022-10-13] MEDS: MORPHINE SULFATE IR 15 MG TABLET PO PRN ×2 (02:31→15:57)
[2022-10-13] MEDS: PANTOPRAZOLE 40 MG TABLET PO SCH ×2 (06:27→17:05)
[2022-10-13] MEDS: METOPROLOL TARTRATE 12.5 MG TAB PO SCH ×2 (08:46→21:32)
[2022-10-13] MEDS: POTASSIUM CHLORIDE ER 20 MEQ TAB.ER PO SCH (08:46)
[2022-10-13] MEDS: ASPIRIN 81 MG PO SCH (08:46)
[2022-10-13] MEDS: predniSONE 20 MG TAB PO SCH (08:46)
[2022-10-13] MEDS: SPIRONOLACTONE 25 MG TAB PO SCH (08:46)
[2022-10-13] MEDS: MORPHINE SULFATE ER 30 MG TABLET PO PRN ×2 (08:46→21:32)
[2022-10-13] MEDS: FUROSEMIDE 40 MG TAB PO SCH ×2 (08:46→15:54)
[2022-10-13] MEDS: GABAPENTIN 300 MG CAP PO SCH ×3 (08:46→21:32)
[2022-10-13] MEDS: APIXABAN 5 MG TAB PO SCH ×2 (08:46→21:32)
[2022-10-13] MEDS: IPRATROPIUM-ALBUTEROL 3 ML NEB INHALATION SCH ×4 (09:02→20:41)
[2022-10-13] MEDS: BUDESONIDE 1 MG/2 ML NEBU INHALATION SCH ×2 (09:03→20:42)
[2022-10-13] MEDS: FORMOTEROL FUMARATE 20 MCG/2 ML NEBU INHALATION SCH ×2 (09:03→20:42)
--- NOTE | 2022-10-13 22:57 | P.PN ---
Subjective Progress Note Date: 10/13/22 Principal diagnosis: Bilateral lower extremity wounds Patient is a 57-year male with multiple comorbidities presenting to the hospital 2 days ago for evaluation of increasing shortness of breath in this patient symptom has been getting worse for the last few days patient denies having any chest pain denies significant cough or sputum production and denies any high-grade fever, patient also have a significant swelling to bilateral lower extremity and a wound to the left leg. On today's evaluation that is 10/13/2022, the patient continues to be afebrile the patient is breathing comfortably on 6 L nasal cannula oxygen, the patient denies chest pain , the patient denies any worsening cough or sputum production no abdominal pain and denies any pain to bilateral lower extremity Objective - Vital Signs Vital signs: Vital Signs Temp 97.6 F 10/13/22 07:49 Pulse 84 10/13/22 09:14 Resp 16 10/13/22 07:49 BP 102/70 10/13/22 07:49 Pulse Ox 92 L 10/13/22 07:49 FiO2 Intake & Output 10/12/22 10/13/22 10/13/22 18:59 06:59 18:59 Weight 57 kg Other: # Voids 4 4 - Exam GENERAL DESCRIPTION: Middle-aged male lying in bed in no distress RESPIRATORY SYSTEM: Unlabored breathing , coarse breath sounds bilaterally HEART: S1 S2 regular rate and rhythm , ABDOMEN: Soft , no tenderness EXTREMITIES: Bilateral lower extremity swelling has decreased left leg wound base with minimal slough no surrounding redness or foul-smelling drainage - Labs CBC & Chem 7: 10/10/22 08:47 10/10/22 08:47 Assessment and Plan (1) Leg wound, left Current Visit: Yes Status: Acute Code(s): S81.802A - UNSPECIFIED OPEN WOUND, LEFT LOWER LEG, INITIAL ENCOUNTER SNOMED Code(s): 593197421 Plan: 1patient bilaterally lower extremity swelling has decreased left leg wound with slough but no redness , right lower extremity currently with no open wound or any drainage, patient will continue local wound care with medahoney to the left leg and only Lucas wrap to the right leg, we will monitor the patient closely off antibiotic therapy at this point Time with Patient: Less than 30
--- NOTE | 2022-10-14 00:49 | PN ---
PROGRESS NOTE DATE OF SERVICE: 10/12/2022 SUBJECTIVE: A 57-year-old white male who has continued to improve from pulmonary fibrosis, pulmonary hypertension, CHF, elevated CO2 levels despite 6 L of oxygen. We will need a CPAP testing as an outpatient. Continue with blood pressure medicines, GERD medicines, medicines, etc. OBJECTIVE: CARDIOVASCULAR: S1, S2. LUNGS: Scattered rhonchi and wheeze. HEMATOLOGY: Negative Homans. PSYCH: Fair mood and affect. EXTREMITIES: He has 2 to 3+ edema with 2 small ulcerations of his left leg for which MediHoney has been placed. ASSESSMENT: Pulmonary hypertension, congestive heart failure, diastolic; chronic obstructive pulmonary disease. Continue current treatments for the wounds with MediHoney. PROGNOSIS: Guarded. Follow up next 24 to 48 hours for [facility]. MMODL / IJN: [id number] /
[2022-10-14] MEDS: MORPHINE SULFATE IR 15 MG TABLET PO PRN ×2 (03:35→16:46)
[2022-10-14] MEDS: PANTOPRAZOLE 40 MG TABLET PO SCH ×2 (06:20→17:01)
--- NOTE | 2022-10-14 06:54 | DS ---
DISCHARGE SUMMARY DISCHARGE DIAGNOSES: 1. Chronic venous hypertension with ulcer inflammation. 2. Congestive heart failure. 3. Acute on chronic systolic hypoxemia secondary to end-stage chronic obstructive pulmonary disease and pulmonary hypertension. Prognosis guarded. He needs 6 L to 5 L high-flow oxygen all the time, 24 hours a day. He is on medications for congestive heart failure, which shows severe right-sided fluid overload with possible papillary muscle involvement, possible thrombus in the right ventricle. He is placed on blood thinners, Eliquis twice a day, for this reason. He has severe pulmonary hypertension. Medicines were adjusted by Pulmonary and Cardiology. Follow up [facility]. HOME MEDICINES: Include: 1. Aldactone 25 mg daily. 2. Potassium chloride 20 mEq daily. 3. Lasix 40 mg b.i.d. 4. Perforomist 20 mcg b.i.d. 5. Senokot 8.6 mg daily. 6. Tums 1000 mg t.i.d. 7. Aspirin 81 mg daily. 8. Deltasone 20 mg daily. 9. DuoNeb q.i.d. 10.Eliquis 10 mg b.i.d. 11.Protonix 40 mg b.i.d. 12.Pulmicort 1 mg b.i.d. 13.MSIR 15 mg daily p.r.n. 14.Gabapentin 600 mg t.i.d. 15.MS Contin 60 mg q.12 hours. 16.Lopressor 12.5 b.i.d. CONDITION: Stable. PROGNOSIS: Guarded. ACTIVITY: Ambulate as tolerated. FOLLOWUP: As an outpatient. As he was treated for congestive heart failure, he had some wound dehiscence in his legs due to third-spacing of fluids in his legs, for which he needs Lucas wraps to his legs, Medihoney to the wounds, PT/OT to give his leg strengthening, DuoNeb q.i.d. and Pulmicort 0.5 b.i.d. nebulizer treatments, and continue current treatment. Follow up in the next 24 to 48 hours at [facility] with Dr. Iglesias. JEFFREY / JOHANAN: [id number] /
[2022-10-14 08:17] VITALS: RESP 16
[2022-10-14] MEDS: SPIRONOLACTONE 25 MG TAB PO SCH (09:59)
[2022-10-14] MEDS: MORPHINE SULFATE ER 30 MG TABLET PO PRN (09:59)
[2022-10-14] MEDS: POTASSIUM CHLORIDE ER 20 MEQ TAB.ER PO SCH (09:59)
[2022-10-14] MEDS: APIXABAN 5 MG TAB PO SCH (09:59)
[2022-10-14] MEDS: GABAPENTIN 300 MG CAP PO SCH ×2 (09:59→16:47)
[2022-10-14] MEDS: predniSONE 20 MG TAB PO SCH (09:59)
[2022-10-14] MEDS: ASPIRIN 81 MG PO SCH (09:59)
[2022-10-14] MEDS: FUROSEMIDE 40 MG TAB PO SCH ×2 (09:59→16:47)
[2022-10-14] MEDS: METOPROLOL TARTRATE 12.5 MG TAB PO SCH (09:59)
--- NOTE | 2022-10-14 09:59 | CDI ---
Documentation Clarification Form Date: 10/06/2022 12:36:01 PM From: Rebecca Espinosa RN CCDS Admit Date: 10/03/2022 10:49:00 AM Patient Name: Haroon Armijo Visit Number: [id number] Discharge Date: ATTENTION: The Clinical Documentation Specialists (CDI) and [facility] Coding Staff appreciate your assistance in clarifying documentation. Please respond to the clarification below the line at the bottom and electronically sign. The CDI & [facility] Coding staff will review the response and follow-up if needed. Please note: Queries are made part of the Legal Health Record. If you have any questions, please contact the author of this message via ITS. Dr. Ferny Iglesias Possible Non-ST segment elevation myocardial infarction is documented 10/03, Cardiology consult. Additional clarification regarding the type of NSTEMI is requested. History/Risk Factors: 57-year-old male presents to the ED with increased shortness of breath with bilateral lower extremity edema. Medical history: chronic respiratory failure with home oxygen use; renal disease and DC. 10/04, Cardiology note. Clinical Indicators: VS/Pulse OX: B/P 105/77; HR 28; Temp 98.2 F Oral; SpO2 85% 6L nasal cannula Troponin, 10/03: 0.082; 0.076. EKG Results, 10/03: Sinus mechanism with ST changes in V1 and V2 likely related to right ventricular hypertrophy. Treatment: 10/03 Lasix 40mg IV Q8HR changed 10/04 to 40mg IV Q12HR; 10/03 current Lopressor 12.5mg PO BID; 10/06 Aldactone 25mg PO Daily; 10/04 Heparin 3,538.02 Unit IV X 1; 10/04 10/05 Heparin 250mls @7.076mls/hr Q24H. Please clarify the type of NSTEMI, if known: [ ] NSTEMI ruled In [ ] NSTEMI ruled Out [ ] Unable to determine [ ] Other Condition, please specify (Template Last Revised: December 2020) MTDD
[2022-10-14] MEDS: BUDESONIDE 1 MG/2 ML NEBU INHALATION SCH (10:38)
[2022-10-14] MEDS: FORMOTEROL FUMARATE 20 MCG/2 ML NEBU INHALATION SCH (10:38)
[2022-10-14] MEDS: IPRATROPIUM-ALBUTEROL 3 ML NEB INHALATION SCH ×3 (10:38→16:08)
--- NOTE | 2022-10-14 11:29 | CDI ---
Documentation Clarification Form Date: 10/14/2022 10:35:49 AM From: Rebecca Espinosa RN CCDS Admit Date: 10/03/2022 10:49:00 AM Patient Name: Haroon Armijo Visit Number: [id number] Discharge Date: ATTENTION: The Clinical Documentation Specialists (CDI) and [facility] Coding Staff appreciate your assistance in clarifying documentation. Please respond to the clarification below the line at the bottom and electronically sign. The CDI & [facility] Coding staff will review the response and follow-up if needed. Please note: Queries are made part of the Legal Health Record. If you have any questions, please contact the author of this message via ITS. Dr. Freny Iglesias Conflicting documentation has been found in the medical record. As attending physician, please provide clarification. Congestive heart failure, diastolic, Medicine Note, 10/13. Acute dyspnea with a combination of exacerbation of pulmonary fibrosis and right sided heart failure with severe pulmonary hypertension. History/Risk Factors: 57-year-old male presents to the ED with increased shortness of breath with bilateral lower extremity edema. Medical history: chronic respiratory failure with home oxygen use; renal disease and [place]. 10/04, Cardiology note. Clinical Indicators: VS/Pulse OX: B/P 105/77; HR 28; Temp 98.2 F Oral; SpO2 85% 6L nasal cannula BNP: 10/03 4160 Transthoracic Echocardiogram Results: 10/03 Severe RV dilation with pressure overload from right ventricle noted in the RV likely represents papillary muscles. Chest X Ray: 10/03; Mild cardiomegaly with advanced parenchymal fibrotic changes bilaterally redemonstrated. Cardiology note, 10/13: 1.Acute dyspnea with combination of exacerbation of pulmonary fibrosis and right-sided heart failure with severe pulmonary hypertension Medicine note, 10/13: Pulmonary hypertension, congestive heart failure, diastolic; chronic obstructive pulmonary disease. Treatment: 10/03 Lasix 40mg IV Q8HR changed 10/04 to 40mg IV Q12HR; 10/03 current Lopressor 12.5mg PO BID; 10/06 Aldactone 25mg PO Daily. Please clarify which diagnosis is most appropriate: [ ] Acute Diastolic Congestive Heart Failure [ ] Acute Right Sided Heart Failure [ ] Other (please specify) [ ] Unable to determine (Template Last Revised: December 2020) MTDD
[2022-10-14 14:59] VITALS: BP 91/70; PULSE 89; TEMP 97.7
--- NOTE | 2022-10-14 15:47 | PN ---
PROGRESS NOTE severe pulmonary hypertension, acute diastolic heart failure. MMODL / IJN: [id number] /
--- NOTE | 2022-10-16 08:08 | CDI ---
Documentation Clarification Form Date: 10/16/22 From: Kerline Mac Admit Date: 10/03/2022 10:49:00 AM Patient Name: Haroon Armijo Visit Number: [id number] Discharge Date: 10/14/2022 05:00:00 PM ATTENTION: The Clinical Documentation Specialists (CDI) and [facility] Coding Staff appreciate your assistance in clarifying documentation. Please respond to the clarification below the line at the bottom and electronically sign. The CDI & [facility] Coding staff will review the response and follow-up if needed. Please note: Queries are made part of the Legal Health Record. If you have any questions, please contact the author of this message via ITS. Dr. Ferny Iglesias, Cellulitis is documented in Dr. Johnson's consult. Additional clarification regarding the type of cellulitis is requested. History/risk factors: Nonhealing ulceration left lower extremity with fat layer exposure, Nonhealing ulceration right lower extremity Limited to skin breakdown. Chronic hypertension with venous insufficiency and ulceration, T2DM with neuropathy Clinical Indicators: Patient with right ulceration and slowly progress. The left ulceration measures approximate 1.5 x 1.5 x 1.0 cm with fat layer exposure Slough and minimal granulation noted within the wound bed. Wound edges are attached to the wound base there is no tunneling or undermining noted, the right ulceration measures approximate 0.6 x 0.4 x 0.1 cm Limited to skin breakdown, granulation noted throughout with file skin noted. Bilateral lower extremities have 2+ edema noted. Treatment: Bilateral lower extremity: Apply honey gel, dry gauze, rolled gauze and secure with paper tape. Wrap with Lucas wrap for compression. Not on any diabetic meds. Please clarify the type of cellulitis, if known: [ ] Cellulitis due to diabetes [ ] Not a diabetic [ ] Other, please specify: [ ] Unable to determine MTDD
--- NOTE | 2022-10-16 13:41 | CDI ---
Documentation Clarification Form Date: 10/06/2022 12:36:00 PM From: Rebecca Espinosa Admit Date: 10/03/2022 10:49:00 AM Patient Name: Haroon Armijo Visit Number: [id number] Discharge Date: 10/14/2022 05:00:00 PM ATTENTION: The Clinical Documentation Specialists (CDI) and [facility] Coding Staff appreciate your assistance in clarifying documentation. Please respond to the clarification below the line at the bottom and electronically sign. The CDI & [facility] Coding staff will review the response and follow-up if needed. Please note: Queries are made part of the Legal Health Record. If you have any questions, please contact the author of this message via ITS. Dr. Ferny Iglesias Possible Non-ST segment elevation myocardial infarction is documented 10/03, Cardiology consult. Additional clarification regarding the type of NSTEMI is requested. History/Risk Factors: 57-year-old male presents to the ED with increased shortness of breath with bilateral lower extremity edema. Medical history: chronic respiratory failure with home oxygen use; renal disease and [place]. 10/04, Cardiology note. Clinical Indicators: VS/Pulse OX: B/P 105/77; HR 28; Temp 98.2 F Oral; SpO2 85% 6L nasal cannula Troponin, 10/03: 0.082; 0.076. EKG Results, 10/03: Sinus mechanism with ST changes in V1 and V2 likely related to right ventricular hypertrophy. Treatment: 10/03 Lasix 40mg IV Q8HR changed 10/04 to 40mg IV Q12HR; 10/03 current Lopressor 12.5mg PO BID; 10/06 Aldactone 25mg PO Daily; 10/04 Heparin 3,538.02 Unit IV X 1; 10/04 10/05 Heparin 250mls @7.076mls/hr Q24H. Please clarify the type of NSTEMI, if known: [ ] NSTEMI ruled In [ ] NSTEMI ruled Out [ ] Unable to determine [ ] Other Condition, please specify (Template Last Revised: December 2020) MTDD
--- NOTE | 2022-10-17 22:22 | P.PN ---
Subjective Progress Note Date: 10/14/22 Principal diagnosis: Bilateral lower extremity wounds Patient is a 57-year male with multiple comorbidities presenting to the hospital 2 days ago for evaluation of increasing shortness of breath in this patient symptom has been getting worse for the last few days patient denies having any chest pain denies significant cough or sputum production and denies any high-grade fever, patient also have a significant swelling to bilateral lower extremity and a wound to the left leg. On today's evaluation that is 10/14/2022, the patient denies any fever or chills, the patient is breathing comfortably on 6 L nasal cannula oxygenand is satting 97%, the patient denies chest pain , the patient did have occasional dry cough , the patient denies abdominal pain and denies any pain to bilateral lower extremity Objective - Vital Signs Vital signs: Vital Signs Temp 97.5 F L 10/14/22 08:00 Pulse 90 10/14/22 08:00 Resp 16 10/14/22 08:00 BP 101/70 10/14/22 08:00 Pulse Ox 97 10/14/22 08:00 FiO2 Intake & Output 10/13/22 10/14/22 10/14/22 18:59 06:59 18:59 Intake Total 10 Balance 10 Weight 60.1 kg Intake: IV 10 Invasive Line 2 10 Other: Voiding Method Toilet Urinal # Voids 3 4 - Exam GENERAL DESCRIPTION: Middle-aged male lying in bed in no distress RESPIRATORY SYSTEM: Unlabored breathing , coarse breath sounds bilaterally HEART: S1 S2 regular rate and rhythm , ABDOMEN: Soft , no tenderness EXTREMITIES: Bilateral lower extremity swelling has decreased left leg wound base with minimal slough no surrounding redness or foul-smelling drainage - Labs CBC & Chem 7: 10/10/22 08:47 10/10/22 08:47 Assessment and Plan (1) Leg wound, left Status: Acute Code(s): S81.802A - UNSPECIFIED OPEN WOUND, LEFT LOWER LEG, INITIAL ENCOUNTER SNOMED Code(s): 153317461 Plan: 1patient bilaterally lower extremity swelling has decreased left leg wound with slough but no redness , right lower extremity currently with no open wound or any drainage, patient will continue local wound care with medahoney to the left leg and only Lucas wrap to the right leg, with no fever or elevated white count and no signs of cellulitis recommending no antibiotics on discharge Time with Patient: Less than 30
--- NOTE | 2022-10-24 23:22 | PN ---
PROGRESS NOTE Non STEMI, ruled out. MMODL / IJN: [id number] /
--- NOTE | 2022-10-24 23:31 | PN ---
PROGRESS NOTE Cellulitis secondary to diabetes. MMODL / IJN: [id number] /
== END 2022-10-14 17:00 | DRG 291 ==
LOC: EC 09:12 → 3SCARD 10:49 → 4SSUR 10-10 18:05
PROVIDERS: ADMIT Family Medicine; ATTEND Family Medicine
DX: I11.0 Hypertensive heart disease with heart failure (principal); I26.99 Other pulmonary embolism without acute cor pulmonale; J96.21 Acute and chronic respiratory failure with hypoxia; L97.822 Non-pressure chronic ulcer of other part of left lower leg with fat layer exposed; L97.311 Non-pressure chronic ulcer of right ankle limited to breakdown of skin; I87.333 Chronic venous hypertension (idiopathic) with ulcer and inflammation of bilateral lower extremity; L03.115 Cellulitis of right lower limb; L03.116 Cellulitis of left lower limb; I50.811 Acute right heart failure; I27.20 Pulmonary hypertension, unspecified; J84.112 Idiopathic pulmonary fibrosis; I51.3 Intracardiac thrombosis, not elsewhere classified; E11.628 Type 2 diabetes mellitus with other skin complications; E11.40 Type 2 diabetes mellitus with diabetic neuropathy, unspecified; J44.9 Chronic obstructive pulmonary disease, unspecified; M06.9 Rheumatoid arthritis, unspecified; G40.909 Epilepsy, unspecified, not intractable, without status epilepticus; Z20.822 Contact with and (suspected) exposure to COVID-19; Z99.81 Dependence on supplemental oxygen; G47.30 Sleep apnea, unspecified; G89.29 Other chronic pain; M54.42 Lumbago with sciatica, left side; M54.41 Lumbago with sciatica, right side; I25.10 Atherosclerotic heart disease of native coronary artery without angina pectoris; K21.9 Gastro-esophageal reflux disease without esophagitis; M19.90 Unspecified osteoarthritis, unspecified site; I25.2 Old myocardial infarction; Z79.52 Long term (current) use of systemic steroids; Z79.891 Long term (current) use of opiate analgesic; Z79.51 Long term (current) use of inhaled steroids; Z79.899 Other long term (current) drug therapy; Z95.5 Presence of coronary angioplasty implant and graft; Z87.01 Personal history of pneumonia (recurrent); Z86.711 Personal history of pulmonary embolism; Z87.891 Personal history of nicotine dependence; Z75.1 Person awaiting admission to adequate facility elsewhere
CPT/HCPCS: 36415; 71046; 71275; 80048; 80053; 83605; 83735; 83880; 84145; 84484; 85025; 85379; 85610; 85730; 86140; 87040; 87070; 87205; 87502; 87635; 87636; 93005; 93306; 93922; 94640; 94760; 96374; 96375; 96376; 99291

== ENCOUNTER 2022-10-15 16:10 | Observation (INO) | payer MEDICARE ==
[2022-10-15] MEDS ORDERED: IPRATROPIUM-ALBUTEROL 3 ML NEB INHALATION STA (16:24)
[2022-10-15] MEDS ORDERED: methylPREDNISolone SOD SUCCI 125 MG/2 ML VIAL IV STA (16:24)
--- NOTE | 2022-10-15 16:27 | ED ---
General Adult HPI - General Chief complaint: Shortness of Breath Stated complaint: SOB Time Seen by Provider: 10/15/22 16:15 Source: patient, EMS, RN notes reviewed Mode of arrival: EMS Limitations: no limitations - History of Present Illness Initial comments: Patient is a pleasant 87-year-old male presenting to the emergency department with concerns for dyspnea. Onset of symptoms was a couple 2-3 days ago. Patient does have history of similar symptoms previously associated with pulmonary fibrosis. Occasional cough. No fever. Patient does have some mild leg swelling however this is chronic and unchanged. - Related Data Home Medications Medication Instructions Recorded Confirmed Morphine Sulfate Ir [MSIR] 15 mg PO DAILY PRN 05/01/19 10/03/22 Gabapentin 600 mg PO TID 08/26/19 10/03/22 Morphine Sulfate ER [Ms Contin] 60 mg PO Q12H PRN 08/26/19 10/03/22 Metoprolol Tartrate [Lopressor] 12.5 mg PO BID 10/03/22 10/03/22 Previous Rx's Medication Instructions Recorded Apixaban [Eliquis] 10 mg PO BID tab 10/13/22 Aspirin 81 mg PO DAILY tab 10/13/22 Budesonide [Pulmicort] 1 mg INHALATION RT-BID ml 10/13/22 Calcium Carbonate [Tums] 1,000 mg PO TID PRN tab 10/13/22 Formoterol Fumarate [Perforomist] 20 mcg INHALATION RT-BID ml 10/13/22 Furosemide [Lasix] 40 mg PO BID@0900,1600 tab 10/13/22 Ipratropium-Albuterol Nebulize 3 ml INHALATION RT-QID each 10/13/22 [Duoneb 0.5 mg-3 mg/3 ml Soln] Pantoprazole [Protonix] 40 mg PO AC-BID tab 10/13/22 Potassium Chloride ER [K-Dur 20] 20 meq PO DAILY tab 10/13/22 Sennosides [Senokot] 8.6 mg PO DAILY PRN tab 10/13/22 Spironolactone [Aldactone] 25 mg PO DAILY tab 10/13/22 predniSONE [Deltasone] 20 mg PO DAILY tab 10/13/22 Allergies Allergy/AdvReac Type Severity Reaction Status Date / Time No Known Allergies Allergy Verified 10/15/22 16:18 Review of Systems ROS Statement: Those systems with pertinent positive or pertinent negative responses have been documented in the HPI. ROS Other: All systems not noted in ROS Statement are negative. Constitutional: Denies: fever Eyes: Denies: eye pain ENT: Denies: ear pain Respiratory: Reports: as per HPI, cough, dyspnea Cardiovascular: Denies: chest pain Endocrine: Reports: fatigue Gastrointestinal: Denies: abdominal pain Genitourinary: Denies: dysuria Musculoskeletal: Denies: back pain Skin: Denies: rash Neurological: Denies: weakness Past Medical History Past Medical History: Myocardial Infarction (HI), Osteoarthritis (OA), Pneumonia, Renal Disease, Respiratory Disorder, Rheumatoid Arthritis (RA), Seizure Disorder Additional Past Medical History / Comment(s): Idiopathic pulmonary fibrosis, interstitial lung disease, chronic respiratory failure, home O2 use at HS and prn during day, immuno compromised d/t steroid use, bronchitis, seizure with benadry overdose in 2014/ -pt does not recall HI/vented and pt states in a coma-had nerve damage/R upper and lower weakness/pain and L lower leg weakness/pain/posterior reversible encephalopathy syndrome, chronic low back pain with bilateral sciatica, DDD, kidney stones pt states he passed, Last Myocardial Infarction Date:: 2014 History of Any Multi-Drug Resistant Organisms: None Reported Past Surgical History: Back Surgery, Cholecystectomy Additional Past Surgical History / Comment(s): PCI with stent 2014, R VAT with upper lobe resection/R lung scraped/biopsied, low back surgery/injections, colonoscopy Past Anesthesia/Blood Transfusion Reactions: No Reported Reaction Past Psychological History: No Psychological Hx Reported Smoking Status: Never smoker Past Alcohol Use History: None Reported Past Drug Use History: None Reported - Past Family History Mother Additional Family Medical History / Comment(s): Migraines, hip replacement. Mother is 83 yrs old. Father Family Medical History: Cancer, Hypertension Additional Family Medical History / Comment(s): Father of pancreatic cancer at the age of 60yrs. General Exam Limitations: no limitations General appearance: alert, in no apparent distress Head exam: Present: normocephalic Eye exam: Present: normal appearance Neck exam: Present: normal inspection Respiratory exam: Present: wheezes, decreased breath sounds Cardiovascular Exam: Present: regular rate, normal rhythm GI/Abdominal exam: Present: soft. Absent: tenderness Extremities exam: Present: pedal edema. Absent: calf tenderness Neurological exam: Present: alert Psychiatric exam: Present: normal affect, normal mood Skin exam: Present: normal color Course Vital Signs 10/15/22 10/15/22 10/15/22 16:12 16:51 16:59 Temperature 98 F Pulse Rate 100 90 96 Respiratory 22 Rate Blood Pressure 105/79 O2 Sat by Pulse 89 L Oximetry 10/15/22 18:05 Temperature Pulse Rate 90 Respiratory 20 Rate Blood Pressure 99/62 O2 Sat by Pulse 97 Oximetry Medical Decision Making - Medical Decision Making Patient reevaluated with only minimal improvement. Patient updated on results and plan. Case discussed with Dr. Iglesias, who is familiar with this patient and will admit. - Lab Data Result diagrams: 10/15/22 16:36 10/15/22 16:36 Lab Results 10/15/22 10/15/22 10/15/22 Range/Units 16:36 16:36 16:36 WBC 12.0 H (3.8-10.6) k/uL RBC 5.39 (4.30-5.90) m/uL Hgb 14.5 (13.0-17.5) gm/dL Hct 46.5 (39.0-53.0) % MCV 86.3 (80.0-100.0) fL MCH 27.0 (25.0-35.0) pg MCHC 31.2 (31.0-37.0) g/dL RDW 16.4 H (11.5-15.5) % Plt Count 173 (150-450) k/uL MPV 8.2 Neutrophils % 92 % Lymphocytes % 4 % Monocytes % 3 % Eosinophils % 0 % Basophils % 0 % Neutrophils # 11.0 H (1.3-7.7) k/uL Lymphocytes # 0.4 L (1.0-4.8) k/uL Monocytes # 0.4 (0-1.0) k/uL Eosinophils # 0.0 (0-0.7) k/uL Basophils # 0.0 (0-0.2) k/uL Hypochromasia Marked Anisocytosis Slight PT 13.6 H (9.0-12.0) sec INR 1.3 H (<1.2) APTT 26.7 (22.0-30.0) sec Sodium 137 (137-145) mmol/L Potassium 4.6 (3.5-5.1) mmol/L Chloride 92 L (98-107) mmol/L Carbon Dioxide 37 H (22-30) mmol/L Anion Gap 8 mmol/L BUN 44 H (9-20) mg/dL Creatinine 1.02 (0.66-1.25) mg/dL Est GFR (CKD-EPI)AfAm >90 (>60 ml/min/1.73 sqM) Est GFR (CKD-EPI)NonAf 81 (>60 ml/min/1.73 sqM) Glucose 117 H (74-99) mg/dL Plasma Lactic Acid Soto (0.7-2.0) mmol/L Calcium 8.8 (8.4-10.2) mg/dL Total Bilirubin 1.1 (0.2-1.3) mg/dL AST 69 H (17-59) U/L ALT 71 H (4-49) U/L Alkaline Phosphatase 76 (38-126) U/L NT-Pro-B Natriuret Pep pg/mL Total Protein 6.7 (6.3-8.2) g/dL Albumin 4.2 (3.5-5.0) g/dL Influenza Type A (PCR) (Not Detectd) Influenza Type B (PCR) (Not Detectd) RSV (PCR) (Not Detectd) SARS-CoV-2 (PCR) (Not Detectd) 10/15/22 10/15/22 10/15/22 Range/Units 16:36 16:36 16:36 WBC (3.8-10.6) k/uL RBC (4.30-5.90) m/uL Hgb (13.0-17.5) gm/dL Hct (39.0-53.0) % MCV (80.0-100.0) fL MCH (25.0-35.0) pg MCHC (31.0-37.0) g/dL RDW (11.5-15.5) % Plt Count (150-450) k/uL MPV Neutrophils % % Lymphocytes % % Monocytes % % Eosinophils % % Basophils % % Neutrophils # (1.3-7.7) k/uL Lymphocytes # (1.0-4.8) k/uL Monocytes # (0-1.0) k/uL Eosinophils # (0-0.7) k/uL Basophils # (0-0.2) k/uL Hypochromasia Anisocytosis PT (9.0-12.0) sec INR (<1.2) APTT (22.0-30.0) sec Sodium (137-145) mmol/L Potassium (3.5-5.1) mmol/L Chloride (98-107) mmol/L Carbon Dioxide (22-30) mmol/L Anion Gap mmol/L BUN (9-20) mg/dL Creatinine (0.66-1.25) mg/dL Est GFR (CKD-EPI)AfAm (>60 ml/min/1.73 sqM) Est GFR (CKD-EPI)NonAf (>60 ml/min/1.73 sqM) Glucose (74-99) mg/dL Plasma Lactic Acid Soto 2.3 H* (0.7-2.0) mmol/L Calcium (8.4-10.2) mg/dL Total Bilirubin (0.2-1.3) mg/dL AST (17-59) U/L ALT (4-49) U/L Alkaline Phosphatase (38-126) U/L NT-Pro-B Natriuret Pep 4860 pg/mL Total Protein (6.3-8.2) g/dL Albumin (3.5-5.0) g/dL Influenza Type A (PCR) Not Detected (Not Detectd) Influenza Type B (PCR) Not Detected (Not Detectd) RSV (PCR) Not Detected (Not Detectd) SARS-CoV-2 (PCR) Not Detected (Not Detectd) - Radiology Data Interpreted by me: Chest x-ray shows diffuse interstitial changes, similar to previous Disposition Clinical Impression: Pulmonary fibrosis Disposition: ADMITTED IP TO THIS HOSP Is patient prescribed a controlled substance at d/c from ED?: No Referrals: Ferny Iglesias MD [Primary Care Provider] - 1-2 days Time of Disposition: 18:45
[2022-10-15 16:56] LABS: Anisocytosis Slight; Basophils % (A) 0 %; Eosinophils % (A) 0 %; HCT 46.5 % (39.0-53.0); HGB 14.5 gm/dL (13.0-17.5); Hypochromasia Marked; Lymphocytes # (A) 0.4 k/uL (1.0-4.8); Lymphocytes % (A) 4 %; MCHC 31.2 g/dL (31.0-37.0); MCV 86.3 fL (80.0-100.0); Mean Platelet Volume 8.2; Monocytes # (A) 0.4 k/uL (0-1.0); Monocytes % (A) 3 %; Neutrophils % (A) 92 %; Platelet Count 173 k/uL (150-450); RBC 5.39 m/uL (4.30-5.90); RDW 16.4 % (11.5-15.5)
[2022-10-15 17:02] LABS: INR 1.3 (<1.2); Partial Thromboplastin Time 26.7 sec (22.0-30.0); Prothrombin Time 13.6 sec (9.0-12.0)
[2022-10-15 17:11] LABS: ALT 71 U/L (4-49); AST 69 U/L (17-59); African American GFR (CKD) >90 (>60 ml/min/1.73 sqM); Albumin 4.2 g/dL (3.5-5.0); Alkaline Phosphatase 76 U/L (38-126); Anion Gap 8 mmol/L; Blood Urea Nitrogen 44 mg/dL (9-20); Calcium 8.8 mg/dL (8.4-10.2); Carbon Dioxide 37 mmol/L (22-30); Chloride 92 mmol/L (98-107); Glucose 117 mg/dL (74-99); Non-African American GFR(CKD) 81 (>60 ml/min/1.73 sqM); Potassium 4.6 mmol/L (3.5-5.1); Sodium 137 mmol/L (137-145); Total Bilirubin 1.1 mg/dL (0.2-1.3); Total Protein 6.7 g/dL (6.3-8.2)
--- NOTE | 2022-10-15 17:24 | XR ---
EXAMINATION TYPE: XR chest 2V DATE OF EXAM: 10/15/2022 5:20 PM COMPARISON: Chest radiographs from 10/03/2022. TECHNIQUE: XR chest 2V Frontal and lateral views of the chest. CLINICAL INDICATION:Male, 57 years old with history of difficulty breathing; FINDINGS: Lungs/Pleura: Diffuse airspace opacities of the lungs some of which are predominantly interstitial op acities.. No significant change from 10/03/2022. No evidence of pneumothorax or pleural effusion. Pulmonary vascularity: Unremarkable. Heart/mediastinum: Cardiomediastinal silhouette is unremarkable. Musculoskeletal: No acute osseous pathology. IMPRESSION: Similar scattered airspace opacities throughout the lungs likely representing pulmonary fibrotic turner ges with superimposed infectious/inflammatory process not entirely excluded. Given appearance of lung s.
[2022-10-15] MEDS ORDERED: IPRATROPIUM-ALBUTEROL 3 ML NEB INHALATION PRN (18:45)
[2022-10-15] MEDS ORDERED: ACETAMINOPHEN TAB 325 MG TAB PO PRN (18:45)
[2022-10-15] MEDS ORDERED: NALOXONE 0.4 MG/ML 1 ML VIAL IVP PRN (18:45)
[2022-10-15] MEDS ORDERED: IPRATROPIUM-ALBUTEROL 3 ML NEB INHALATION SCH (20:00)
[2022-10-15] MEDS ORDERED: MORPHINE SULFATE IR 15 MG TABLET PO PRN (20:09)
[2022-10-15] MEDS ORDERED: PANTOPRAZOLE 40 MG TABLET PO SCH (21:00)
[2022-10-15] MEDS ORDERED: GABAPENTIN 300 MG CAP PO SCH (22:00)
[2022-10-15] MEDS ORDERED: CALCIUM CARBONATE 500 MG CHEWABLE PO PRN (23:15)
[2022-10-15] MEDS ORDERED: MORPHINE SULFATE ER 60 MG TABLET PO SCH (23:15)
[2022-10-15] MEDS ORDERED: SENNOSIDES 8.6 MG TAB PO PRN (23:15)
[2022-10-15] MEDS ORDERED: MORPHINE SULFATE ER 30 MG TABLET PO SCH (23:25)
[2022-10-15 23:49] VITALS: BP 115/79; PULSE 53; RESP 18; TEMP 97.6
[2022-10-16] MEDS ORDERED: methylPREDNISolone SOD SUCCI 125 MG/2 ML VIAL IV SCH
[2022-10-16 00:19] LABS: Glucose,Whole Blood 113 mg/dL (70-110)
[2022-10-16] MEDS ORDERED: NOREPINEPHRIN 4 MG-0.9% NS PMX 4 MG/250 ML ML IV ONE (00:34)
[2022-10-16] MEDS ORDERED: EPINEPHrine 10 ML SYRINGE (0.1 MG/ML) ONE (00:44)
--- NOTE | 2022-10-16 01:02 | XR ---
EXAMINATION TYPE: XR chest 1V portable DATE OF EXAM: 10/16/2022 12:39 AM COMPARISON: Chest radiographs from 10/15/2022 TECHNIQUE: XR chest 1V portable Portable AP radiograph of the chest. CLINICAL INDICATION:Male, 57 years old with history of Intubation; FINDINGS: Lungs/Pleura: Similar interstitial lung markings with patchy airspace opacities most pronounced in th e left upper lobe on today's exam. No evidence of pneumothorax. The lung volumes are present. Pulmonary vascularity: Unremarkable. Heart/mediastinum: Cardiomediastinal silhouette is unremarkable. Musculoskeletal: No acute osseous pathology. Other findings: Cholecystectomy clips. Lines/Tubes: Endotracheal tube with distal tip 5.4 cm above the diandra. IMPRESSION: 1. Endotracheal tube in appropriate position. 2. Similar diffuse interstitial lung markings with patchy airspace opacities.
--- NOTE | 2022-10-16 04:05 | P.EN ---
CODE BLUE note Activated at 0005. Arrived on the scene shortly after. The patient was undergoing CPR with PEA IVR on the monitor. Reviewed the chart and discussed the case with the RN. The patient who had a PMH of pulmonary fibrosis was admitted for complaints of shortness of breath. The patient was found to be in respiratory distress by the RN at around 2350. A-team was activated and the patient was placed on BiPAP for hypoxia. He was en-route to the medical ICU when he became unresponsive and lost his pulse. ACLS protocol was immediately initiated with CPR with PEA on the monitor. ROSC was briefly obtained at 0032 and the patient was given Atropine x 2 for bradycardia and was also initiated on Levophed infusion. Chest x-ray was also obtained which was negative for pneumothorax. He subsequently developed asystole at 0043 for which CPR was resumed. The family was notified and the case was discussed in detail with the daughter. CPR was halted at 0053 with family in agreement. The patient was given epinephrine IV push x 9 and sodium bicarbonate x 2. Please refer to the code sheet for further details. Total time spent providing critical care for this patient: 75 minutes
--- NOTE | 2022-10-16 06:39 | HP ---
HISTORY AND PHYSICAL HISTORY OF PRESENT ILLNESS: A 57-year-old white male, comes in with cough, congestion, shortness of breath with a history of pulmonary fibrosis, occasional cough. No fever. Some mild swelling. HOME MEDICATIONS: 1. MSIR 15 daily. 2. Gabapentin 600 t.i.d. 3. MS Contin 60 q.12. 4. Lopressor 12.5 b.i.d. 5. Protonix 40 a.c. b.i.d. 6. Senokot 8.6 daily. 7. Aldactone 25 mg daily. 8. Deltasone 20 mg daily. 9. DuoNeb q.i.d. 10.Perforomist 20 mcg b.i.d. ALLERGIES: Negative. REVIEW OF SYSTEMS: A 14-point review of systems otherwise negative. PAST MEDICAL HISTORY: Myocardial infarction, osteoarthritis, renal disease, rheumatoid arthritis, seizure disorder, takes 6 L of oxygen at home. FAMILY HISTORY: Mother, migraines. Father, hypertension, cancer. PHYSICAL EXAMINATION: VITAL SIGNS: Reviewed. O2 of 89% on 6 L, respiratory rate 20 to 22, blood pressure . CARDIOVASCULAR: S1, S2. LUNGS: Scattered wheeze and rhonchi x4. HEMATOLOGY: Negative Homans. GI: Soft, nontender. LABORATORY DATA: Sodium 137, potassium 4.6. Chest x-ray shows interstitial changes. Negative for influenza A, B, RSV virus. ASSESSMENT: Pulmonary fibrosis, acute hypoxemic respiratory failure, oxygen dependent 6 L. We will need a CPAP. as apparently all the oxygen machines failed at the other long-term and will have to go to another one. MMODL / IJN: [id number] /
[2022-10-16] MEDS ORDERED: IPRATROPIUM-ALBUTEROL 3 ML NEB INHALATION SCH (08:00)
[2022-10-16] MEDS ORDERED: FORMOTEROL FUMARATE 20 MCG/2 ML NEBU INHALATION SCH (08:00)
[2022-10-16] MEDS ORDERED: BUDESONIDE 1 MG/2 ML NEBU INHALATION SCH (08:00)
[2022-10-16] MEDS ORDERED: APIXABAN 5 MG TAB PO SCH (09:00)
[2022-10-16] MEDS ORDERED: SPIRONOLACTONE 25 MG TAB PO SCH (09:00)
[2022-10-16] MEDS ORDERED: ASPIRIN 81 MG PO SCH (09:00)
[2022-10-16] MEDS ORDERED: FUROSEMIDE 40 MG TAB PO SCH (09:00)
[2022-10-16] MEDS ORDERED: POTASSIUM CHLORIDE ER 20 MEQ TAB.ER PO SCH (09:00)
[2022-10-16] MEDS ORDERED: METOPROLOL TARTRATE 12.5 MG TAB PO SCH (09:00)
== END 2022-10-16 04:30 | disposition expired ==
LOC: EC 16:10 → 6NMEDSUR 18:45 → 2SICU 10-16 00:08
PROVIDERS: ADMIT Family Medicine; ATTEND Family Medicine
DX: J96.21 Acute and chronic respiratory failure with hypoxia (principal); J84.112 Idiopathic pulmonary fibrosis; J84.9 Interstitial pulmonary disease, unspecified; I25.2 Old myocardial infarction; M06.9 Rheumatoid arthritis, unspecified; G40.909 Epilepsy, unspecified, not intractable, without status epilepticus; D84.821 Immunodeficiency due to drugs; T38.0X5A Adverse effect of glucocorticoids and synthetic analogues, initial encounter; Z79.899 Other long term (current) drug therapy; Z79.01 Long term (current) use of anticoagulants; Z79.82 Long term (current) use of aspirin; Z90.49 Acquired absence of other specified parts of digestive tract; Z95.5 Presence of coronary angioplasty implant and graft; Z80.0 Family history of malignant neoplasm of digestive organs; Z82.49 Family history of ischemic heart disease and other diseases of the circulatory system; Z20.822 Contact with and (suspected) exposure to COVID-19; Z99.81 Dependence on supplemental oxygen
CPT/HCPCS: 92950; 96376; 96374; 99285; 36415; 94640; 83880; 80053; 83605; 85025; 85610; 85730; 87636; 71045; 71046; G0378 ×2; J2930